=== PATIENT | male | born 1935 | race Caucasian/White ===

== ENCOUNTER 2017-01-01 14:52 | Emergency (ER) | payer MEDICAID ==
[2017-01-01 15:25] VITALS: BMI 25.7
[2017-01-01 15:40] VITALS: O2SAT 96
--- NOTE | 2017-01-01 15:40 | ED PDOC ---
Arrival/HPI - General Chief Complaint: Shortness Of Breath Time Seen by Provider: 01/01/17 15:15 Historian: EMS - History of Present Illness Time/Duration: Prior to Arrival Associated Symptoms (Text): 01/01/17 15:38 Patient was dropped off from his adult daycare center by a caregiver. The caregiver has since left. Apparently, the complaint was shortness of breath. Unclear of why the patient is in the emergency department. We used an Macedonian and then an Mongolian croze cutter helper, but the patient is not responding to the telephone inquiry. The nurse spoke with the patient's daughter who is coming to the emergency department. She reports that the patient has a history of dementia and is also hard of hearing. Patient appears to be in no distress. He is awake and alert. Past Medical History - Infectious Disease Hx of Infectious Diseases: None - Tetanus Immunization Tetanus Immunization: Unknown - Cardiac Hx Hypertension: Yes - Pulmonary Hx Chronic Obstructive Pulmonary Disease (COPD): Yes - Neurological Hx Neurological Disorder: Yes Hx Dizziness: Yes (Syncope) - HEENT Hx HEENT Disorder: Yes Hx Deafness: Yes (Difficulty hearing) Other/Comment: Eye surgery - Renal Hx Renal Disorder: No - Endocrine/Metabolic Hx Endocrine Disorders: No - Hematological/Oncological Hx Blood Transfusions: No - Integumentary Hx Dermatological Disorder: No - Musculoskeletal/Rheumatological Hx Falls: Yes Hx Fractures: Yes (left hip) - Gastrointestinal Hx Gastrointestinal Disorders: No - Genitourinary/Gynecological Hx Genitourinary Disorders: Yes Hx Prostate Problems: Yes (Enlarged prostate) - Psychiatric Hx Psychophysiologic Disorder: Yes Hx Anxiety: Yes Hx Substance Use: No - Anesthesia Hx Anesthesia Reactions: No Hx Malignant Hyperthermia: No - Suicidal Assessment Feels Threatened In Home Enviroment: No Family/Social History - Physician Review Nursing Documentation Reviewed: Yes Family/Social History: Unknown Family HX Smoking Status: Never Smoked Hx Alcohol Use: No Hx Substance Use: No Allergies/Home Meds Allergies/Adverse Reactions: Allergies No Known Allergies Allergy (Verified 01/01/17 15:37) Home Medications: Home Meds Medication Instructions Recorded Confirmed Lactulose [Generlac] 5 ml PO QID 07/20/15 01/01/17 Aspirin [Aspirin EC] 1 tab PO DAILY 12/31/15 01/01/17 Finasteride [Finasteride] 1 tab PO DAILY 12/31/15 01/01/17 Review of Systems - Review of Systems Systems not reviewed;Unavailable: Dementia Physical Exam Vital Signs Temp Pulse Resp BP Pulse Ox 01/01/17 17:46 78 17 140/82 96 01/01/17 16:00 98.0 F 01/01/17 15:25 18 01/01/17 14:53 59 L 18 151/76 H 96 Temperature: Afebrile Blood Pressure: Hypertensive Pulse: Regular Respiratory Rate: Normal Appearance: Positive for: Well-Appearing, Non-Toxic, Comfortable Pain Distress: None Mental Status: Positive for: Alert and Oriented X 3 - Systems Exam Head: Present: Atraumatic, Normocephalic Pupils: Present: PERRL Extroacular Muscles: Present: EOMI Conjunctiva: Present: Normal Mouth: Present: Moist Mucous Membranes Pharnyx: No: ERYTHEMA, EXUDATE, TONSILS ENLARGED Neck: Present: Normal Range of Motion Respiratory/Chest: Present: Clear to Auscultation, Good Air Exchange. No: Respiratory Distress, Accessory Muscle Use Cardiovascular: Present: Normal S1, S2, Irregular Rhythm, Bradycardic. No: Murmurs Abdomen: Present: Normal Bowel Sounds. No: Tenderness, Distention, Peritoneal Signs, Rebound, Guarding Upper Extremity: Present: Normal Inspection. No: Cyanosis, Edema Lower Extremity: Present: Normal Inspection. No: Edema Neurological: Present: GCS=15, CN II-XII Intact, Speech Normal Skin: Present: Warm, Dry, Normal Color. No: Rashes Medical Decision Making ED Course and Treatment: 01/01/17 16:54 Son-in-law arrives and reports that the patient complains of chronic chest pain and shortness of breath along with urinary urgency and frequency. There is a history of dementia, and the patient goes to daily adult daycare. There has been no cough. No vomiting or diarrhea. 01/01/17 16:55 EKG shows sinus bradycardia with PACs rate approximately 50 poor R waves and nonspecific ST and T-wave changes with no old available for comparison 01/01/17 16:57 Patient's workup including BNP CPK troponin and urinalysis are unrevealing. Chest x-ray shows poor inspiratory effort with mild increased markings and borderline cardiomegaly patient will be discharged home with his family to follow up with his PMD. Follow-up in the ER as needed. - Lab Interpretations Lab Results: 01/01/17 15:30 01/01/17 15:30 Lab Results 01/01/17 15:57: Urine Color Yellow, Urine Appearance Clear, Urine pH 6.5, Ur Specific [place] 1.020, Urine Protein Negative, Urine Glucose (UA) Negative, Urine Ketones Negative, Urine Blood Trace-lysed H, Urine Nitrate Negative, Urine Bilirubin Negative, Urine Urobilinogen 0.2, Ur Leukocyte Esterase Negative , Urine RBC 1 - 3, Urine WBC Negative 01/01/17 15:30: pO2 70 H, VBG pH 7.39, VBG pCO2 45.0, VBG HCO3 27.2, VBG Total CO2 28.6 H, VBG O2 Sat (Calc) 96.8 H, VBG Base Excess 1.7, VBG Potassium 3.8, Sodium 138.0, Chloride 105.0, Glucose 93, Lactate 0.9, FiO2 21.0, Venous Blood Potassium 3.8 01/01/17 15:30: Sodium 139, Chloride 99, Potassium 3.8, Carbon Dioxide 25, Anion Gap 19, BUN 9, Creatinine 0.8, Est GFR ( Amer) > 60, Est GFR (Non- Af Amer) > 60, Random Glucose 91, Calcium 9.1, Total Bilirubin 0.7, AST 25, ALT 34, Alkaline Phosphatase 73, Lactate Dehydrogenase 372, Total Creatine Kinase 128, Troponin I < 0.01, NT-Pro-B Natriuret Pep 154, Total Protein 7.1, Albumin 3.9, Globulin 3.2, Albumin/Globulin Ratio 1.2 01/01/17 15:30: PT 12.0 H, INR 1.11 H, APTT 29.4 01/01/17 15:30: WBC 3.9 L D, RBC 4.47, Hgb 13.5 L, Hct 37.6 L, MCV 84.1, MCH 30.2, MCHC 35.9, RDW 12.6, Plt Count 234, MPV 9.2, Gran % 49.3 L, Lymph % (Auto ) 39.9 H, [place] % (Auto) 9.5 H, Eos % (Auto) 0.5 L, Baso % (Auto) 0.8, Gran # 1.93, Lymph # 1.6, [place] # 0.4, Eos # 0.0, Baso # 0.03 - RAD Interpretation Radiology Orders: 01/01/17 15:27 CHEST PORTABLE [RAD] Stat Disposition/Present on Arrival - Present on Arrival Any Indicators Present on Arrival: No History of DVT/PE: No History of Uncontrolled Diabetes: No Urinary Catheter: No History of Decub. Ulcer: No History Surgical Site Infection Following: None - Disposition Have Diagnosis and Disposition been Completed?: Yes Diagnosis: Anemia, Chest pain, Dyspnea, Urinary frequency Disposition: HOME/ ROUTINE Disposition Time: 16:58 Patient Plan: Discharge Patient Problems: Current Active Problems Problem Status Onset Anemia Acute Chest pain Acute Dyspnea Acute Urinary frequency Acute Condition: GOOD Discharge Instructions (ExitCare): Chest Pain (ED), Dyspnea (ED) Additional Instructions: Follow-up with PMD merchant tailor and urologist. Follow up in ER as needed.
--- NOTE | 2017-01-01 15:57 | RAD ---
HISTORY: sob COMPARISON: Comparison made with chest radiograph and CTA chest dated 07/20/2015 and 09/06/2013 respectively. FINDINGS: LUNGS: Poor inspiration with low lung volumes, mild crowded bronchovascular markings and mild bibasilar atelectasis. PLEURA: No significant pleural effusion identified, no pneumothorax apparent. CARDIOVASCULAR: Heart appears borderline/ mildly enlarged aorta is ectatic and uncoiled. OSSEOUS STRUCTURES: No significant abnormalities. VISUALIZED UPPER ABDOMEN: Normal. OTHER FINDINGS: None. IMPRESSION: Poor inspiration with low lung volumes, mild crowded bronchovascular markings and mild bibasilar atelectasis.
[2017-01-01 16:04] VITALS: TEMP 98
[2017-01-01 16:05] LABS: BASO # 0.03 K/mm3 (0.0-2.0); BASO % 0.8 % (0.0-3.0); EOS % 0.5 % (1.5-5.0); GRAN # 1.93 (1.4-6.5); GRAN % 49.3 % (50.0-68.0); HEMOGLOBIN 13.5 gm/dL (14.0-18.0); INR 1.11 (0.93-1.08); LYMPH # 1.6 (1.2-3.4); LYMPH % 39.9 % (22.0-35.0); MEAN CELL VOLUME 84.1 fL (80.0-105.0); MEAN CORPUSCULAR HEMOGLOBIN 30.2 pg (25.0-35.0); MEAN CORPUSCULAR HGB CONC 35.9 g/dl (31.0-37.0); MEAN PLATELET VOLUME 9.2 fl (7.0-11.0); MONO # 0.4 (0.1-0.6); MONO % 9.5 % (1.0-6.0); PARTIAL THROMBOPLASTIN TIME 29.4 Seconds (23.7-30.8); PLATELET COUNT 234 10^3/uL (120.0-450.0); RBC 4.47 10^6/uL (3.5-6.1); RED CELL DISTRIBUTION WIDTH 12.6 % (11.5-14.5); WHITE BLOOD COUNT 3.9 10^3/ul (4.5-11.0)
[2017-01-01 16:10] LABS: ALB/GLOB RATIO 1.2 (1.1-1.8); ALBUMIN 3.9 g/dL (3.0-4.8); ALT/SGPT 34 U/L (7-56); AST/SGOT 25 U/L (15-59); BLOOD UREA NITROGEN 9 mg/dL (7-21); CALCIUM 9.1 mg/dL (8.4-10.5); GFR AFRICAN-AMERICAN > 60; GFR NON-AFRICAN AMERICAN > 60
[2017-01-01 16:13] LABS: VENOUS BLOOD GAS BASE EXCESS 1.7 mmol/L (0.0-2.0); VENOUS BLOOD GAS PO2 70 mm/Hg (30-55); VENOUS BLOOD PH 7.39 (7.32-7.43)
[2017-01-01 16:17] LABS: PH,URINE 6.5 (4.7-8.0); URINE BILIRUBIN NEGATIVE (NEGATIVE); URINE BLOOD TRACE-LYSED (NEGATIVE); URINE GLUCOSE (UA) NEGATIVE (NEGATIVE); URINE LEUKOCYTE ESTERASE NEGATIVE Leu/uL (NEGATIVE); URINE NITRATE NEGATIVE (NEGATIVE); URINE PROTEIN NEGATIVE mg/dL (<30 mg/dL); URINE UROBILINOGEN 0.2 E.U./dL (<1 E.U./dL)
[2017-01-01 16:19] LABS: URINE APPEARANCE CLEAR (CLEAR); URINE COLOR YELLOW (YELLOW)
[2017-01-01 16:22] LABS: URINE WBC NEGATIVE /hpf (0-6)
[2017-01-01 16:22] LABS: B-TYPE NATRIURETIC PEPTIDE 154 pg/mL (0-450)
[2017-01-01 16:26] LABS: TROPONIN I < 0.01 ng/mL
[2017-01-01 17:47] VITALS: BP 140/82; PULSE 78; RESP 17
--- NOTE | 2017-01-01 20:38 | CARD ---
APPROVED REPORT EKG Measurement Heart [id number] <Conclusion> Marked sinus bradycardia with premature supraventricular complexes Nonspecific ST and T wave abnormality Abnormal ECG
== END 2017-01-01 17:50 | disposition home or self-care (01) ==
LOC: ED 14:52
DX: D64.9 Anemia, unspecified (principal); R07.9 Chest pain, unspecified; R06.00 Dyspnea, unspecified; R35.0 Frequency of micturition; I10 Essential (primary) hypertension; J44.9 Chronic obstructive pulmonary disease, unspecified

== ENCOUNTER 2017-03-22 09:25 | Inpatient (IN) | payer MEDICAID ==
[2017-03-22] MEDS ORDERED: Vancomycin 1gm in NS 250ml 250 ML IVPB STA (09:38)
[2017-03-22] MEDS ORDERED: Piperacill/Tazo 4.5gm in NS 100 ML IVPB STA (09:38)
--- NOTE | 2017-03-22 09:46 | ED PDOC ---
Arrival/HPI - General Time Seen by Provider: 03/22/17 09:37 EM Caveat: Intubated - History of Present Illness Narrative History of Present Illness (Text): 03/22/17 09:43 Hx obtained from EMS and pt's family member. 82yo male, hx of HTN, presents with altered mental status. Pt's family member found patient in the bathroom unresponsive. Last seen normal yesterday evening. Pt was intubated on arrival by ALS, etomidate and Succinylcholine. BGL >200. Pt hypotensive on their arrival with pinpoint pupols. 0.8 of narcan was given with no resolution of unresponsiveness. Past Medical History - Provider Review Nursing Documentation Reviewed: Yes - Infectious Disease Hx of Infectious Diseases: None - Tetanus Immunization Tetanus Immunization: Unknown - Cardiac Hx Hypertension: Yes - Pulmonary Hx Chronic Obstructive Pulmonary Disease (COPD): Yes - Neurological Hx Neurological Disorder: Yes Hx Dizziness: Yes (Syncope) - HEENT Hx HEENT Disorder: Yes Hx Deafness: Yes (Difficulty hearing) Other/Comment: Eye surgery - Renal Hx Renal Disorder: No - Endocrine/Metabolic Hx Endocrine Disorders: No - Hematological/Oncological Hx Blood Transfusions: No - Integumentary Hx Dermatological Disorder: No - Musculoskeletal/Rheumatological Hx Falls: Yes Hx Fractures: Yes (left hip) - Gastrointestinal Hx Gastrointestinal Disorders: No - Genitourinary/Gynecological Hx Genitourinary Disorders: Yes Hx Prostate Problems: Yes (Enlarged prostate) - Psychiatric Hx Psychophysiologic Disorder: Yes Hx Anxiety: Yes Hx Substance Use: No - Anesthesia Hx Anesthesia Reactions: No Hx Malignant Hyperthermia: No - Suicidal Assessment Feels Threatened In Home Enviroment: No Family/Social History Family/Social History: Unknown Family HX Smoking Status: Never Smoked Hx Alcohol Use: No Hx Substance Use: No Allergies/Home Meds Allergies/Adverse Reactions: Allergies No Known Allergies Allergy (Verified 03/22/17 09:48) Home Medications: Home Meds Medication Instructions Recorded Confirmed Finasteride [Finasteride] 1 tab PO DAILY 12/31/15 03/22/17 Famotidine [Pepcid] 40 mg PO BID 03/22/17 03/22/17 Finasteride [Proscar] 5 mg PO DAILY 03/22/17 03/22/17 Lisinopril [Zestril] 10 mg PO DAILY 03/22/17 03/22/17 Sennosides [Senna Lax] 2 tab PO HS 03/22/17 03/22/17 Review of Systems - Review of Systems Systems not reviewed;Unavailable: Intubated Physical Exam - Physical Exam Physical Exam Limitations: Altered Mental Status, Other (intubated) Vital Signs Temp Pulse Resp BP Pulse Ox 03/22/17 11:35 52 L 170/82 H 03/22/17 10:31 52 L 16 170/79 H 100 03/22/17 09:52 93.1 F L 58 L 17 184/87 H 100 Temperature: Hypothermic Blood Pressure: Hypertensive Pulse: Regular Respiratory Rate: Mechanically Ventilated Pain Distress: None Mental Status: Positive for: Comatose - Systems Exam Head: No: Ecchymosis, Abrasion Pupils: Present: Pinpoint (b/l) Mouth: Present: Other (ETT 22 cm at lip) Neck: No: MIDLINE TENDERNESS, Paraspinal Tenderness Respiratory/Chest: Present: Good Air Exchange, Other (b/l chest rise and fall) Cardiovascular: Present: Regular Rate and Rhythm. No: Irregular Rhythm Abdomen: Present: Other (no palpable pulsatile mass). No: Tenderness, Distention Back: No: Midline Tenderness, Paraspinal Tenderness Upper Extremity: No: Cyanosis, Edema Lower Extremity: Present: NORMAL PULSES. No: Edema, CALF TENDERNESS, Swelling Medical Decision Making ED Course and Treatment: 03/22/17 09:48 patient seen immediately on arrival ETT placement confirmed with b/l chest rise and abscence of gastric sounds family member informed of w/u pt hypothermic sepsis w/u ordered CT head ordered as well EKG shows normal sinus 64bpm, no ST-segment elevations, normal intervals. Interpreted by me. 03/22/17 10:07 code sepsis called nilda Quintana from the MICU, states will see pt. CXR shows ETT above the estefanía, no effusions, no PTx. Interpreted by me. 03/22/17 11:22 CT scan shows interventricular bleed decadron and nicardipine ordered pt radha and hypertensive, cushings likely family informed seen by Dr. Quintana and accepted to the MICU awaiting callback from neurosurgery nilda Ratliff, accepted to his service 03/22/17 11:[address] Head IMPRESSION: Extensive intraventricular hemorrhage with moderate hydrocephalus. Periventricular edema. No midline shift or herniation 03/22/17 11:[address] Mcintyre in detail, states he looked at the CT, states he will see pt in the MICU for possible intervention - Critical Care Critical Care Minutes: 30 minutes - Lab Interpretations Lab Results: 03/22/17 09:20 03/22/17 09:20 Lab Results 03/22/17 11:28: pO2 60 H, VBG pH 7.19 L*, VBG pCO2 69.0 H*, VBG HCO3 26.4, VBG Total CO2 28.5 H, VBG O2 Sat (Calc) 92.6 H, VBG Base Excess -3.3 L, VBG Potassium 4.2, Sodium 137.0, Chloride 104.0, Glucose 161 H, Lactate 3.1 H, FiO2 21.0, Venous Blood Potassium 4.2 03/22/17 09:50: pCO2 62 H, pO2 185.0 H, HCO3 22.1, ABG pH 7.16 L*, ABG Total CO2 24.0, ABG O2 Saturation 100.0 H, ABG Base Excess -7.5 L, ABG Potassium 3.8, Sodium 138.0, Chloride 107.0, Glucose 204 H, Lactate 3.9 H, Mechanical Rate 14, FiO2 50.0, Tidal Volume 400, PEEP 5, Arterial Blood Potassium 3.8 03/22/17 09:45: Urine Color Yellow, Urine Appearance Clear, Urine pH 6.0, Ur Specific [place] >= 1.030, Urine Protein >=300 H, Urine Glucose (UA) 250 H, Urine Ketones Negative, Urine Blood Large H, Urine Nitrate Negative, Urine Bilirubin Negative, Urine Urobilinogen 0.2, Ur Leukocyte Esterase Negative, Urine RBC 2 - 5, Urine WBC 0 - 2, Urine Bacteria Trace, Hyaline Casts 0 - 2 03/22/17 09:20: Sodium 142, Chloride 104, Potassium 4.2, Carbon Dioxide 26, Anion Gap 16, BUN 17, Creatinine 0.7 L, Est GFR ( Amer) > 60, Est GFR ( Non-Af Amer) > 60, Random Glucose 201 H, Calcium 8.1 L, Phosphorus 4.0, Magnesium 2.1, Total Bilirubin 0.6, AST 74 H, ALT 37, Alkaline Phosphatase 71, Troponin I 0.15 H* D, Total Protein 7.2, Albumin 4.0, Globulin 3.2, Albumin/ Globulin Ratio 1.3 03/22/17 09:20: pO2 62 H, VBG pH 7.10 L*, VBG pCO2 81.0 H*, VBG HCO3 25.1, VBG Total CO2 27.6, VBG O2 Sat (Calc) 91.0 H, VBG Base Excess -6.4 L, VBG Potassium 6.4 H*, Sodium 136.0, Chloride 102.0, Glucose 217 H, Lactate 4.6 H*, FiO2 21.0, Venous Blood Potassium 6.4 H* 03/22/17 09:20: PT 12.5 H, INR 1.16 H, APTT 30.6 03/22/17 09:20: WBC 13.5 H D, RBC 5.12, Hgb 14.8, Hct 43.5, MCV 85.0, MCH 28.9, MCHC 34.0, RDW 12.1, Plt Count 242, MPV 9.9, Gran % 83.6 H, Lymph % (Auto) 7.3 L , [place] % (Auto) 9.0 H, Eos % (Auto) 0.0 L, Baso % (Auto) 0.1, Gran # 11.29 H, Lymph # 1.0 L, [place] # 1.2 H, Eos # 0.0, Baso # 0.01 - RAD Interpretation Radiology Orders: 03/22/17 09:38 CHEST PORTABLE [RAD] Stat 03/22/17 10:41 HEAD W/O CONTRAST [CT] Stat - Medication Orders Current Medication Orders: Propofol (Diprivan) 1,000 mg in 100 mls @ 0 mls/hr IV .Q0M PRN; Protocol; 5 MCG /KG/MIN PRN Reason: TITRATE PER MD ORDER Last Admin: 03/22/17 10:07 Dose: 5 mls/hr eMAR Start Stop Document 03/22/17 10:07 LM (Rec: 03/22/17 10:08 [facility] [id number]) Intravenous Solution Start Date 03/22/17 Start Time 10:07 Nicardipine HCl (Cardene Iv Premix) 20 mg in 200 mls @ 50 mls/hr IV .Q4H PRN; Protocol; 5 MG/HR PRN Reason: TITRATE PER MD ORDER Last Admin: 03/22/17 11:35 Dose: 50 mls/hr Levetiracetam 1,000 mg/ Sodium (Chloride) 110 mls @ 440 mls/hr IV ONCE ONE Stop: 03/22/17 11:47 Discontinued Medications Dexamethasone (Decadron Inj) 10 mg IVP STAT STA Stop: 03/22/17 11:17 Last Admin: 03/22/17 11:28 Dose: 10 mg Sodium Chloride 3,000 ml/ IV (SUPPLIES) 3,000 mls @ 0 mls/hr IV ONCE ONE PRN Reason: 60 ML/KG/HR Stop: 03/22/17 09:39 Last Admin: 03/22/17 10:08 Dose: 60 mls/hr eMAR Start Stop Document 03/22/17 10:08 [facility] [place]Rec: 03/22/17 10:09 [facility] [place] [id number][place] Intravenous Solution Start Date 03/22/17 Start Time 10:08 End Date 03/22/17 End time 10:30 Total Infusion Time 22 Vancomycin HCl (Vancomycin 1gm) 1 gm in 250 mls @ 167 mls/hr IVPB STAT STA PRN Reason: Protocol Stop: 03/22/17 11:17 Piperacillin Sod/Tazobactam Sod (Zosyn 4.5 Gm In Ns 100ml) 4.5 gm in 100 mls @ 200 mls/hr IVPB STAT STA PRN Reason: Protocol Stop: 03/22/17 10:19 Last Admin: 03/22/17 10:08 Dose: 200 mls/hr eMAR Start Stop Document 03/22/17 10:08 [facility] [place]Rec: 03/22/17 10:08 [facility] [place] [id number][place] Intravenous Solution Start Date 03/22/17 Start Time 10:08 End Date 03/22/17 End time 10:40 Total Infusion Time 32 Disposition/Present on Arrival - Present on Arrival Any Indicators Present on Arrival: No History of DVT/PE: No History of Uncontrolled Diabetes: No Urinary Catheter: No History Surgical Site Infection Following: None - Disposition Have Diagnosis and Disposition been Completed?: Yes Diagnosis: Intraventricular hemorrhage Disposition: HOSPITALIZED Disposition Time: 11:31 Patient Plan: Admission Patient Problems: Current Active Problems Problem Status Onset Intraventricular hemorrhage Acute Condition: CRITICAL Referrals: PCP,NO [Primary Care Provider] - Follow up with primary
[2017-03-22] MEDS ORDERED: Vancomycin 1gm in NS 250ml 1 GM/250 ML BAG IVPB STA (09:48)
[2017-03-22] MEDS ORDERED: Piperacill/Tazo 4.5gm in NS 4.5 GM/100 ML BAG IVPB STA (09:50)
[2017-03-22 09:54] LABS: ABG MECHANICAL RATE 14; ARTERIAL BLOOD GAS HCO3 22.1 mmol/L (21-28); ATERIAL BLOOD GAS PEEP 5
[2017-03-22 09:55] LABS: BASO # 0.01 K/mm3 (0.0-2.0); BASO % 0.1 % (0.0-3.0); GRAN # 11.29 (1.4-6.5); GRAN % 83.6 % (50.0-68.0); HEMATOCRIT 43.5 % (42.0-52.0); LYMPH % 7.3 % (22.0-35.0); MEAN CORPUSCULAR HEMOGLOBIN 28.9 pg (25.0-35.0); MEAN PLATELET VOLUME 9.9 fl (7.0-11.0); MONO # 1.2 (0.1-0.6); RED CELL DISTRIBUTION WIDTH 12.1 % (11.5-14.5); WHITE BLOOD COUNT 13.5 10^3/ul (4.5-11.0)
[2017-03-22 09:57] LABS: URINE BILIRUBIN NEGATIVE (NEGATIVE); URINE BLOOD LARGE (NEGATIVE); URINE GLUCOSE (UA) 250 mg/dL (NEGATIVE); URINE KETONE NEGATIVE (NEGATIVE); URINE LEUKOCYTE ESTERASE NEGATIVE Leu/uL (NEGATIVE); URINE PROTEIN >=300 mg/dL (<30 mg/dL); URINE UROBILINOGEN 0.2 E.U./dL (<1 E.U./dL)
[2017-03-22 09:58] LABS: ARTERIAL BLOOD GAS PH 7.16 (7.35-7.45)
[2017-03-22 10:01] LABS: URINE APPEARANCE CLEAR (CLEAR); URINE COLOR YELLOW (YELLOW)
[2017-03-22] MEDS: Propofol 10 mg/ml 1,000 MG/100 ML VIAL IV PRN (10:07)
[2017-03-22 10:08] LABS: URINE BACTERIA TRACE (NEG); URINE WBC 0 - 2 /hpf (0-6)
[2017-03-22 10:08] LABS: VENOUS BLOOD GAS BASE EXCESS -6.4 mmol/L (0.0-2.0)
[2017-03-22 10:10] LABS: ALB/GLOB RATIO 1.3 (1.1-1.8); ALKALINE PHOSPHATASE 71 U/L (38-126); ALT/SGPT 37 U/L (7-56); AST/SGOT 74 U/L (17-59); BILIRUBIN,TOTAL 0.6 mg/dL (0.2-1.3); BLOOD UREA NITROGEN 17 mg/dL (7-21); CALCIUM 8.1 mg/dL (8.4-10.5); CARBON DIOXIDE 26 mmol/L (21-33); CHLORIDE 104 mmol/L (98-107); GFR AFRICAN-AMERICAN > 60; GLUCOSE,RANDOM 201 mg/dL (70-110); MAGNESIUM 2.1 mg/dL (1.7-2.2); POTASSIUM 4.2 mmol/L (3.6-5.0); SODIUM 142 mmol/L (132-148); TOTAL PROTEIN 7.2 g/dL (5.8-8.3)
[2017-03-22 10:13] LABS: INR 1.16 (0.93-1.08); PARTIAL THROMBOPLASTIN TIME 30.6 Seconds (23.7-30.8)
--- NOTE | 2017-03-22 10:17 | RAD ---
HISTORY: Sepsis Patient COMPARISON: 01/01/2017. FINDINGS: The endotracheal tube terminates 3.9 cm proximal to the raimundo. LUNGS: The lungs are well inflated. There is mild pulmonary venous congestion. PLEURA: No significant pleural effusion identified, no pneumothorax apparent. CARDIOVASCULAR: Normal. OSSEOUS STRUCTURES: No significant abnormalities. VISUALIZED UPPER ABDOMEN: Normal. OTHER FINDINGS: None. IMPRESSION: Mild pulmonary venous congestion. No focal consolidation. Endotracheal tube terminates 3.9 cm proximal to the raimundo.
[2017-03-22 10:43] LABS: TROPONIN I 0.15 ng/mL
--- NOTE | 2017-03-22 11:27 | CT ---
PROCEDURE: CT HEAD WITHOUT CONTRAST. HISTORY: AMS COMPARISON: 07/20/2015 TECHNIQUE: Axial computed tomography images were obtained through the head/brain without intravenous contrast. Radiation dose: Total exam DLP = 725 mGy-cm. This CT exam was performed using one or more of the following dose reduction techniques: Automated exposure control, adjustment of the mA and/or kV according to patient size, and/or use of iterative reconstruction technique. FINDINGS: HEMORRHAGE: There is an extensive acute intraventricular hemorrhage. Blood is seen throughout the ventricular system. There is also moderate hydrocephalus BRAIN: There is periventricular edema. There is effacement of the sulci. There is no midline shift or herniation VENTRICLES: Hydrocephalus CALVARIUM: Unremarkable. PARANASAL SINUSES: Unremarkable as visualized. No significant inflammatory changes. MASTOID AIR CELLS: Unremarkable as visualized. No inflammatory changes. OTHER FINDINGS: None. IMPRESSION: Extensive intraventricular hemorrhage with moderate hydrocephalus. Periventricular edema. No midline shift or herniation
[2017-03-22 11:33] LABS: VENOUS BLOOD GAS BASE EXCESS -3.3 mmol/L (0.0-2.0)
[2017-03-22] MEDS ORDERED: levETIRAcetam 1,000 MG in Sodium Chloride 0.9% 100 ML IV ONE (11:33)
[2017-03-22] MEDS: Nicardipine 20 MG/200 ML 20 MG/200 ML BAG IV PRN ×2 (11:35→21:15)
[2017-03-22 11:37] LABS: VENOUS BLOOD PH 7.19 (7.32-7.43)
--- NOTE | 2017-03-22 12:38 | CP.CCUPN ---
CCU Subjective - Physician Review Events Since Last Encounter (Free Text): 03/22/17 12:33 82 y/o M presented to the ER intubated after his daughter found him lying on the floor in the bathroom. Upon arrival to the ER he was found to be hypertensive and not following any commands. Pt was sent for a head CT and seen to have extensive ICH with ventricular extension. neuro exam limited. CCU Objective - Vital Signs / Intake & Output Vital Signs (Last 4 hours): Vital Signs Pulse Resp BP Pulse Ox 03/22/17 11:55 58 L 30 H 155/72 H 100 03/22/17 11:50 54 L 30 H 162/77 H 100 03/22/17 11:45 50 L 30 H 159/72 H 100 03/22/17 11:37 53 L 30 H 173/72 H 100 03/22/17 11:35 52 L 170/82 H - Physical Exam Physical Exam Limitations: Positive for: Altered Mental Status Head: Positive for: Other. Negative for: Ecchymosis, Abrasion Mouth: Positive for: Moist Mucous Membranes, Other (ETT 22 cm at lip) Nose (Internal): Positive for: Normal Inspection Neck: Positive for: Normal Range of Motion. Negative for: MIDLINE TENDERNESS, Paraspinal Tenderness Respiratory/Chest: Positive for: Good Air Exchange, Other (b/l chest rise and fall) Cardiovascular: Positive for: Regular Rate and Rhythm. Negative for: Irregular Rhythm Abdomen: Positive for: Normal Bowel Sounds, Other (no palpable pulsatile mass). Negative for: Tenderness, Distention Back: Negative for: Midline Tenderness, Paraspinal Tenderness Upper Extremity: Positive for: Normal Inspection. Negative for: Cyanosis, Edema Lower Extremity: Positive for: Normal Inspection, NORMAL PULSES. Negative for: Edema, CALF TENDERNESS, Swelling Neurological: Positive for: Other (gcs< 8. Intubated and sedated. Minimal ) Psychiatric: Positive for: Lethargic - Medications Active Medications: Active Medications Generic Name Dose Route Start Last Admin Trade Name Freq PRN Reason Stop Dose Admin Propofol 1,000 mg in 100 mls @ 0 mls/hr 03/22/17 09:41 03/22/17 10:07 Diprivan IV 5 mls/hr .Q0M PRN Administration TITRATE PER MD ORDER Protocol 5 MCG/KG/MIN Nicardipine HCl 20 mg in 200 mls @ 50 mls/hr 03/22/17 11:16 03/22/17 11:35 Cardene Iv Premix IV 50 mls/hr .Q4H PRN Administration TITRATE PER MD ORDER Protocol 5 MG/HR - Patient Studies Fingerstick Blood Sugar Results: 231 Review of Systems - Review of Systems Systems not reviewed;Unavailable: Intubated Critical Care Progress Note - Ventilator Checklist Daily Sedation Vacation: Yes Daily Assessment of Readiness to Wean: Yes Daily Spontaneous Breathing Trial: Yes PUD Prophalyxis: Yes DVT Prophylaxis: Yes Oral Care with Chlorhexidine Gluconate {CHG}: Yes Assessment/Plan - Assessment and Plan (Free Text) Assessment: 82 y/o M w/ extensive ICH with intraventricular extension. Intubated for airway protection. Hyperventillation started. Keep PH> 7.2 Pa02> 60 Sedated on Propofol. COuld require 3% saline. NSG aware of the poor prognosis but is willing to place ventriculostomy drain. Neurochecks q 1hrs, Keppra loaded for seizure precautions. Strict BP monitoring to keep 140-160 SBP on Cardene. D/C all anticoagulants. Plans and poor prognosis discussed with family. cc time 65 min
[2017-03-22] MEDS ORDERED: Bacitracin 500 Units/gm Oint Foilpak UD ONE (13:05)
[2017-03-22 13:42] VITALS: BMI 25.4
[2017-03-22] MEDS ORDERED: Pneumococcal 23-Valent Vaccine IM ONE (13:43)
[2017-03-22 14:01] LABS: ARTERIAL BLOOD GAS HCO3 22.8 mmol/L (21-28); ARTERIAL BLOOD GAS PH 7.46 (7.35-7.45); ARTERIAL BLOOD HGB O2 SAT 96.4 % (95.0-98.0); CARBOXYHEMOGLOBIN 2.1 % (0.5-1.5); HHB 0.2 % (0-5); METHEMOGLOBIN 1.3 % (0.0-3.0)
--- NOTE | 2017-03-22 15:01 | OP ---
PROCEDURE DATE: 03/22/2017 SURGEON: Rocco Mcintyre MD PREOPERATIVE DIAGNOSIS: Hemo-hydrocephalus, status post left apparent basal ganglia hemorrhage. POSTOPERATIVE DIAGNOSIS: Hemo-hydrocephalus, status post left apparent basal ganglia hemorrhage. OPERATIVE PROCEDURE: Right ventriculostomy. BRIEF HISTORY AND DESCRIPTION OF PROCEDURE: This is an 82-year-old male who presented to the emergency room unconscious, intubated in the field, last seen last night by his family. He arrived in the emergency room comatose; decerebrate; small, pinpoint, nonreactive pupils; minimal oculocephalic; minimal corneas; spontaneous respiration; history of hypertension. CT scan showed that appeared to be a left basal ganglia hemorrhage into the all 4 ventricles with hemo-hydrocephalus. To my view, the midbrain appeared dark as in infarcted, but that was not the official read of the report. I had a discussion with his daughter, the only relative available, explained to her that his condition is dire, he is deeply unconscious and that there is a very little possibility that he will survive this hospitalization. We could offer a ventriculostomy; however, it is my opinion that this will not help to any great degree and that given the amount of blood in the ventricles, there is a high likelihood that this will clog and eventually cease the function probably sooner than later. I explained all of this to daughter and she wishes to be aggressive. It is my opinion that the situation is very grave and he is unlikely to survive. Based on that, I obtained consent and in the intensive care unit, the right frontal area was prepped and draped in the usual manner. An area 1 fingerbreadth to the right of midline, approximately 1 fingerbreadth anterior to the coronal suture was instilled with 2 or 3 mL of lidocaine with epinephrine after draping. The scalp was incised with a #15 blade and the scalp was swept away from the underlying skull. A solitary twist drill hole was made and a #11 blade was used to galindo the dura. In a single pass, ventriculostomy catheter was passed into the ventricle, the pressure was relatively high, over 20 and it was very, very blood tinged. The trocar was then placed on the distal part of the catheter, passed through a separate stab wound and then, the trocar was removed, the connecting hub was attached to the tube and connected to the sterile collection system. At the end of the procedure, the ICP was approximately 15 by estimation. The wound was reapproximated with 4-0 nylon and the drain was tacked in the usual. Sterile dressing was applied. The opening pressure on the drainage system was 70, above the IAC and at the end of the procedure, the patient remained with pinpoint, nonreactive pupils and decerebrate bilaterally. BLOOD LOSS: Minimal. SPECIMENS: No specimen. Rocco Mcintyre MD cc: Rocco Mcintyre MD
--- NOTE | 2017-03-22 16:03 | PCM.SEPTIC ---
Sepsis Progress Note - Reassessment Type Date of Evaluation: 03/22/17 Time of Evaluation: 15:30 Reassessment Type: Non-invasive reassessment - Non Invasive Reassessment Were the most recent vital sign reviewed: Yes Vital Sign (Latest): Temp Pulse Resp BP Pulse Ox 99.7 F H 58 L 30 H 155/78 H 99 03/22/17 15:40 03/22/17 15:40 03/22/17 13:48 03/22/17 15:40 03/22/17 15:40 Cardiovascular: Yes: Regular Rate, Rhythm. No: Bradycardia, Tachycardia Respiratory: Yes: Decreased Breath Sounds. No: Stridor, Wheezing Capillary Refill: Normal (Less than 2 sec) Skin: Dry - Invasive Reassessment (complete 2 of 4) Was a Central Venous Pressure Measurement obtained within 6 Hours after the presentation of septic shock: No Was a central venous oxygen measurement obtained within 6 hours after the presentation of septic shock: No Was a bedside cardiovascular ultrasound performed within 6 hours after the presentation of septic shock: No Was a passive leg raise performed or was a fluid challenge performed within 6 hrs of the initial fluid bolus: No Passive Leg Raise Result: Not Applicable Fluid Challenge performed: Yes
--- NOTE | 2017-03-22 21:22 | CARD ---
APPROVED REPORT EKG Measurement Heart [id number] <Conclusion> Sinus rhythm with premature supraventricular complexes Left axis deviation Nonspecific ST and T wave abnormality Prolonged QT Abnormal ECG
--- NOTE | 2017-03-23 09:07 | CP.PCM.PN ---
Subjective - Date & Time of Evaluation Date of Evaluation: 03/23/17 Time of Evaluation: 09:04 - Subjective Subjective: off sedation Drain about 200 cc very bloody csf pupils pinpoint NR some non specific motion to deep pain minimal corneals attempts eye opening to pain Keep drainage at IAC Keep head at 30degrees consider feeding tube Repeat CT should be held until there is a decision point as it is dangerous and dificult to move a pt with a ventriculostomy that is draining such thick fluid Objective - Vital Signs/Intake and Output Vital Signs (last 24 hours): Temp Pulse Resp BP Pulse Ox 99.3 F 57 L 30 H 148/88 94 L 03/23/17 06:40 03/23/17 06:40 03/23/17 07:27 03/23/17 06:00 03/23/17 07:27 Intake and Output: 03/23/17 03/23/17 06:59 18:59 Intake Total 100 5 Output Total 530 Balance -430 5 - Medications Medications: Current Medications Propofol (Diprivan) 1,000 mg in 100 mls @ 0 mls/hr IV .Q0M PRN; Protocol; 5 MCG /KG/MIN PRN Reason: TITRATE PER MD ORDER Last Titration: 03/23/17 08:29 Dose: 0 mcg/kg/min, 0 mls/hr Nicardipine HCl (Cardene Iv Premix) 20 mg in 200 mls @ 50 mls/hr IV .Q4H PRN; Protocol; 5 MG/HR PRN Reason: TITRATE PER MD ORDER Last Admin: 03/22/17 21:15 Dose: 2.5 mg/hr, 25 mls/hr - Labs Labs: PT 12.5 Seconds (9.9-11.8) H 03/22/17 09:20 INR 1.16 (0.93-1.08) H 03/22/17 09:20 APTT 30.6 Seconds (23.7-30.8) 03/22/17 09:20
--- NOTE | 2017-03-23 09:21 | RAD ---
HISTORY: intubated COMPARISON: 03/22/2017 FINDINGS: LUNGS: The patient is rotated to the right. There is chronic elevation of the right hemidiaphragm. The endotracheal tube is in satisfactory position PLEURA: No significant pleural effusion identified, no pneumothorax apparent. CARDIOVASCULAR: Normal. OSSEOUS STRUCTURES: No significant abnormalities. VISUALIZED UPPER ABDOMEN: Normal. OTHER FINDINGS: None. IMPRESSION: Endotracheal tube in satisfactory position
[2017-03-23 09:32] LABS: GRAN # 10.84 (1.4-6.5); GRAN % 83.5 % (50.0-68.0); HEMATOCRIT 43.8 % (42.0-52.0); LYMPH % 7.9 % (22.0-35.0); MEAN CELL VOLUME 81.7 fl (80.0-105.0); MEAN CORPUSCULAR HEMOGLOBIN 29.5 pg (25.0-35.0); MEAN CORPUSCULAR HGB CONC 36.1 g/dl (31.0-37.0); MEAN PLATELET VOLUME 10.1 fl (7.0-11.0); MONO # 1.1 (0.1-0.6); MONO % 8.6 % (1.0-6.0); RED CELL DISTRIBUTION WIDTH 12.2 % (11.5-14.5)
[2017-03-23 09:39] LABS: ALB/GLOB RATIO 1.1 (1.1-1.8); ALKALINE PHOSPHATASE 66 U/L (38-126); ALT/SGPT 148 U/L (7-56); AST/SGOT 436 U/L (17-59); BILIRUBIN,TOTAL 1.3 mg/dL (0.2-1.3); BLOOD UREA NITROGEN 15 mg/dL (7-21); CALCIUM 8.8 mg/dL (8.4-10.5); CARBON DIOXIDE 27 mmol/L (21-33); CHLORIDE 99 mmol/L (95-110); GFR AFRICAN-AMERICAN > 60; GLUCOSE,RANDOM 143 mg/dL (70-110); POTASSIUM 3.9 mmol/L (3.6-5.0); SODIUM 135 mmol/L (132-148); TOTAL PROTEIN 7.1 g/dL (5.8-8.3)
[2017-03-23] MEDS: Dextrose 5%/0.9% NS 1,000 ML IV SCH ×2 (11:42→22:00)
--- NOTE | 2017-03-23 11:58 | CP.PCM.CON ---
<Ramonita Leach - Last Filed: 03/23/17 16:50> History of Present Illness - History of Present Illness History of Present Illness: Neurology Consult Note for Анна Barber PGY2 Reason for consult: ICH s/p vertriculostomy This is a 82Y M with PMH CAD, COPD, a.fib (on Eliquis), BPH, DM, and HTN who was came to ED for AMS. Patient was found unresponsive in the bathroom by family. It is unclear how long patient was down. In ED, patient was found to be hypotensive with extensive intracerebral bleed with ventricular extension. Patient was seen by neurosurgery and is s/p ventriculostomy with draining of 200cc of blood from the brain. Patient is intubated and not on sedation. ROS could not be obtained. PMH: CAD, COPD, a.fib (on Eliquis), BPH, DM, and HTN PSH: Hip replacement All: NKDA SH: Denies EtOH, Tobacco or drug use Review of Systems - Review of Systems Systems not reviewed;Unavailable: Intubated Past Patient History - Infectious Disease Hx of Infectious Diseases: None - Tetanus Immunizations Tetanus Immunization: Unknown - Past Social History Smoking Status: Never Smoked Alcohol: None Drugs: Denies - CARDIAC Hx Cardiac Disorders: Yes (CAD) Hx Hypertension: Yes - PULMONARY Hx Respiratory Disorders: Yes Hx Chronic Obstructive Pulmonary Disease (COPD): Yes - NEUROLOGICAL Hx Neurological Disorder: Yes (NEUROPATHY) Hx Dizziness: Yes (Syncope) - HEENT Hx HEENT Problems: Yes Hx Cataracts: Yes (BILATERAL SX) Hx Deafness: Yes (Difficulty hearing) Other/Comment: Eye surgery - RENAL Hx Chronic Kidney Disease: No - ENDOCRINE/METABOLIC Hx Endocrine Disorders: No - HEMATOLOGICAL/ONCOLOGICAL Hx Blood Disorders: Yes Hx Anemia: Yes (BLOOD TRANSFUSION) - INTEGUMENTARY Hx Dermatological Problems: Yes Hx Psoriasis: Yes - MUSCULOSKELETAL/RHEUMATOLOGICAL Hx Musculoskeletal Disorders: Yes Hx Falls: Yes (LAST FALL -03-22-17) Hx Fractures: Yes (left hip) - GASTROINTESTINAL Hx Gastrointestinal Disorders: No - GENITOURINARY/GYNECOLOGICAL Hx Genitourinary Disorders: Yes Hx Prostate Problems: Yes (Enlarged prostate) - PSYCHIATRIC Hx Psychophysiologic Disorder: Yes Hx Anxiety: Yes Hx Substance Use: No - SURGICAL HISTORY Hx Surgeries: Yes (L HIP FX,BILATERAL CATARACT SURGERY) - ANESTHESIA Hx Anesthesia Reactions: No Hx Malignant Hyperthermia: No Meds Allergies/Adverse Reactions: Allergies Allergy/AdvReac Type Severity Reaction Status Date / Time No Known Allergies Allergy Verified 03/22/17 12:03 - Medications Medications: Current Medications Propofol (Diprivan) 1,000 mg in 100 mls @ 0 mls/hr IV .Q0M PRN; Protocol; 5 MCG /KG/MIN PRN Reason: TITRATE PER MD ORDER Last Titration: 03/23/17 08:29 Dose: 0 mcg/kg/min, 0 mls/hr Nicardipine HCl (Cardene Iv Premix) 20 mg in 200 mls @ 50 mls/hr IV .Q4H PRN; Protocol; 5 MG/HR PRN Reason: TITRATE PER MD ORDER Last Admin: 03/22/17 21:15 Dose: 2.5 mg/hr, 25 mls/hr Dextrose/Sodium Chloride (Dextrose 5%/0.9% Ns 1000 Ml) 1,000 mls @ 100 mls/hr IV .Q10H SRINATH Last Admin: 03/23/17 11:42 Dose: 100 mls/hr Physical Exam - Constitutional Appears: No Acute Distress - Head Exam Additional comments: R sided ventriulostomy site has drain in place - with blood draining - Eye Exam Eye Exam: absent: PERRL Pupil Exam: Fixed, Miosis. absent: PERRL - ENT Exam ENT Exam: Mucous Membranes Moist - Respiratory Exam Respiratory Exam: Clear to Auscultation Bilateral, NORMAL BREATHING PATTERN. absent: Rales, Rhonchi, Wheezes - GI/Abdominal Exam GI & Abdominal Exam: Normal Bowel Sounds, Soft. absent: Rebound, Rigid, Tenderness - Extremities Exam Extremities exam: Positive for: normal inspection. Negative for: calf tenderness, pedal edema - Neurological Exam Additional comments: Patient intubated and off sedation. Pt does have dolls eye reflex and withdraws to painful stimuli. Babinski positive bilaterally (toes upgoing) - Expanded Neurological Exam Expanded Cranial nerves: EOM's Intact: Abnormal Left, Abnormal Right (pinpoint) Upper motor neuron: Babinski Sign: Abnormal Left, Abnormal Right Coma Scale Eye Opening: To Pain Coma Scale Motor Response: Withdraws to Pain Coma Scale Verbal: None Coma Scale Total: 7 - Skin Skin Exam: Dry, Normal Color, Warm Results - Vital Signs Recent Vital Signs: Last Vital Signs Temp 99.3 F 03/23/17 06:40 Pulse 57 L 03/23/17 06:40 Resp 30 H 03/23/17 07:27 BP 148/88 03/23/17 06:00 Pulse Ox 94 L 03/23/17 07:27 - Labs Result Diagrams: 03/23/17 09:18 03/23/17 09:18 Labs: Laboratory Results - last 24 hr 03/22/17 03/23/17 03/23/17 13:55 09:18 09:18 WBC 13.0 H RBC 5.36 Hgb 15.8 Hct 43.8 MCV 81.7 D MCH 29.5 MCHC 36.1 RDW 12.2 Plt Count 229 MPV 10.1 Gran % 83.5 H Lymph % (Auto) 7.9 L [place] % (Auto) 8.6 H Eos % (Auto) 0.0 L Baso % (Auto) 0.0 Gran # 10.84 H Lymph # 1.0 L [place] # 1.1 H Eos # 0.0 Baso # 0.00 pCO2 32 L pO2 204.0 H HCO3 22.8 ABG pH 7.46 H ABG Total CO2 23.8 ABG O2 Saturation 99.8 H ABG O2 Content 21.0 ABG Base Excess -0.2 ABG Hemoglobin 15.2 ABG Carboxyhemoglobin 2.1 H POC ABG HHb (Measured) 0.2 ABG Methemoglobin 1.3 ABG O2 Capacity 21.0 Hgb O2 Saturation 96.4 FiO2 50.0 Sodium 135 Potassium 3.9 Chloride 99 Carbon Dioxide 27 Anion Gap 13 BUN 15 Creatinine 0.7 L Est GFR ( Amer) > 60 Est GFR (Non-Af Amer) > 60 Random Glucose 143 H Calcium 8.8 Total Bilirubin 1.3 AST 436 H D ALT 148 H Alkaline Phosphatase 66 Total Protein 7.1 Albumin 3.8 Globulin 3.3 Albumin/Globulin Ratio 1.1 Assessment & Plan - Assessment and Plan (Free Text) Assessment: This is a 82Y M with PMH CAD, COPD, a.fib (on Eliquis), BPH, DM, and HTN found to have intracerebral hemorrhage with ventricular extension is s/p ventriulostomy secondary to L basal ganglia hemorrhage. Patient intubated, not on sedation. Some brain stem reflexes intact (cough, gag reflex and dolls eye). Plan: - Continue Cardene Drip (Maintain SBP 120-130s) - No anticoagulants at this time - Continue neuro checks - Maintain euglyclemia (140-180s) - Neurosurgery recs appreciated - Keep bed elevated 30 degrees - continue to monitor drain and output Prognosis is guarded. Case seen, discussed and reviewed with Dr. Steen. Анна Leach PGY2 - Date & Time Date: 03/23/17 Time: 12:10 <Rhett Steen - Last Filed: 03/24/17 11:18> Meds - Medications Medications: Current Medications Chlorhexidine Gluconate (Peridex) 15 ml PO Q4H [facility] Last Admin: 03/24/17 08:36 Dose: 15 ml Propofol (Diprivan) 1,000 mg in 100 mls @ 0 mls/hr IV .Q0M PRN; Protocol; 5 MCG /KG/MIN PRN Reason: TITRATE PER MD ORDER Last Titration: 03/23/17 08:29 Dose: 0 mcg/kg/min, 0 mls/hr Nicardipine HCl (Cardene Iv Premix) 20 mg in 200 mls @ 50 mls/hr IV .Q4H PRN; Protocol; 5 MG/HR PRN Reason: TITRATE PER MD ORDER Last Admin: 03/23/17 20:32 Dose: 1.2 mg/hr, 12 mls/hr Dextrose/Sodium Chloride (Dextrose 5%/0.9% Ns 1000 Ml) 1,000 mls @ 100 mls/hr IV .Q10H SRINATH Last Admin: 03/24/17 07:00 Dose: 100 mls/hr Results - Vital Signs Recent Vital Signs: Last Vital Signs Temp 99.1 F 03/24/17 08:30 Pulse 63 03/24/17 08:30 Resp 30 H 03/23/17 07:27 BP 160/76 H 03/24/17 08:30 Pulse Ox 99 03/24/17 08:30 - Labs Result Diagrams: 03/24/17 09:25 03/24/17 09:25 Labs: Laboratory Results - last 24 hr 03/23/17 03/24/17 03/24/17 22:34 03:44 09:25 WBC 11.5 H RBC 5.17 Hgb 15.3 Hct 43.0 MCV 83.2 MCH 29.6 MCHC 35.6 RDW 12.3 Plt Count 195 MPV 10.0 Gran % 82.9 H Lymph % (Auto) 7.0 L [place] % (Auto) 10.1 H Eos % (Auto) 0.0 L Baso % (Auto) 0.0 Gran # 9.55 H Lymph # 0.8 L [place] # 1.2 H Eos # 0.0 Baso # 0.00 PT INR APTT Sodium Potassium Chloride Carbon Dioxide Anion Gap BUN Creatinine Est GFR ( Amer) Est GFR (Non-Af Amer) POC Glucose (mg/dL) 162 H 135 H Random Glucose Calcium Phosphorus Magnesium Total Bilirubin AST ALT Alkaline Phosphatase Total Protein Albumin Globulin Albumin/Globulin Ratio 03/24/17 03/24/17 09:25 09:25 WBC RBC Hgb Hct MCV MCH MCHC RDW Plt Count MPV Gran % Lymph % (Auto) [place] % (Auto) Eos % (Auto) Baso % (Auto) Gran # Lymph # [place] # Eos # Baso # PT 12.4 H INR 1.15 H APTT 31.8 H Sodium 138 Potassium 3.4 L Chloride 103 Carbon Dioxide 27 Anion Gap 11 BUN 11 Creatinine 0.6 L Est GFR ( Amer) > 60 Est GFR (Non-Af Amer) > 60 POC Glucose (mg/dL) Random Glucose 144 H Calcium 8.6 Phosphorus 2.4 L Magnesium 2.1 Total Bilirubin 0.9 AST 234 H D ALT 126 H Alkaline Phosphatase 56 Total Protein 6.5 Albumin 3.4 Globulin 3.1 Albumin/Globulin Ratio 1.1 Attending/Attestation - Attestation I have personally seen and examined this patient.: Yes I have fully participated in the care of the patient.: Yes I have reviewed all pertinent clinical information: Yes
--- NOTE | 2017-03-23 14:09 | CP.CCUPN ---
<Kehinde Ritchie - Last Filed: 03/23/17 18:53> CCU Subjective - Physician Review Subjective (Free Text): 03/23/17 14:06 Patient seen and examined at bedside in the ICU. Still intubated, but off sedation since early AM; no responsiveness to verbal or physical stimuli. Breathing only at ventilator rate, failed pressure support trial immediately due to lack of any self-initiated breaths. Becoming bradycardic and more hypertensive, remains on cardine drip. CCU Objective - Vital Signs / Intake & Output Intake and Output (Last 8hrs): Intake & Output 03/22/17 03/23/17 03/23/17 22:59 06:59 14:59 Intake Total 462 100 5 Output Total 1400 530 Balance -938 -430 5 Weight 68.946 kg Intake: IV 462 100 5 Left External Jugular 108 Right Hand 354 100 Oral 0 0 Output: Drainage 300 130 Head 300 130 Urine 1100 400 Urethral (Mccord) 1100 400 Other: # Bowel Movements 0 0 - Physical Exam Head: Positive for: Atraumatic. Negative for: Normocephalic (drain exiting from R skull, serosanguinous drainage in tubing and drain), Ecchymosis, Abrasion Pupils: Positive for: Non-Reactive, Pinpoint (b/l). Negative for: PERRL Extroacular Muscles: Negative for: EOMI (unable to assess, no random movement, not following commands) Conjunctiva: Positive for: Normal. Negative for: Injected, Icteric Mouth: Positive for: Moist Mucous Membranes, Other (ETT 22 cm at lip) Nose (Internal): Positive for: Normal Inspection Neck: Positive for: Normal Range of Motion. Negative for: MIDLINE TENDERNESS, Paraspinal Tenderness Respiratory/Chest: Positive for: Clear to Auscultation, Good Air Exchange, Other (intubated and on mechanical ventilation, no spontaneous or self- initiated breaths on pressure support trial). Negative for: Respiratory Distress, Accessory Muscle Use Cardiovascular: Positive for: Regular Rate and Rhythm, Normal S1, S2. Negative for: Murmurs, Irregular Rhythm Abdomen: Positive for: Normal Bowel Sounds, Other (no palpable pulsatile mass). Negative for: Tenderness, Distention Back: Negative for: Midline Tenderness, Paraspinal Tenderness Upper Extremity: Positive for: Normal Inspection, NORMAL PULSES. Negative for: Cyanosis, Edema, Swelling, Erythema, Temperature Abnormalties, Deformity Lower Extremity: Positive for: Normal Inspection, NORMAL PULSES. Negative for: Edema, CALF TENDERNESS, Cyanosis, Swelling, Erythema, Deformity, Temperature Abnormalties Neurological: Positive for: Other (intubated, not sedated but unresponsive, intermittent twiches of arms or chewing motion of jaw, no purposeful movements) . Negative for: GCS=15 (Score of 3 (E1 V1t M1)), CN II-XII Intact, Speech Normal, Motor Func Grossly Intact Skin: Positive for: Warm, Dry, Normal Color. Negative for: Rashes, Diaphoretic Psychiatric: Positive for: Other (Intubated, not sedated but unresponsive). Negative for: Alert, Oriented x 3, Normal Insight, Normal Concentration, Normal Affect - Medications Active Medications: Active Medications Generic Name Dose Route Start Last Admin Trade Name Freq PRN Reason Stop Dose Admin Propofol 1,000 mg in 100 mls @ 0 mls/hr 03/22/17 09:41 03/23/17 08:29 Diprivan IV 0 mcg/kg/min .Q0M PRN 0 mls/hr TITRATE PER MD ORDER Titration Protocol 5 MCG/KG/MIN Nicardipine HCl 20 mg in 200 mls @ 50 mls/hr 03/22/17 11:16 03/22/17 21:15 Cardene Iv Premix IV 2.5 mg/hr .Q4H PRN 25 mls/hr TITRATE PER MD ORDER Administration Protocol 5 MG/HR Dextrose/Sodium Chloride 1,000 mls @ 100 mls/hr 03/23/17 10:15 03/23/17 11:42 Dextrose 5%/0.9% Ns 1000 Ml IV 100 mls/hr .Q10H SRINATH Administration - Patient Studies Lab Studies: Lab Studies 03/23/17 03/23/17 Range/Units 09:18 09:18 WBC 13.0 H (4.5-11.0) 10^3/ul RBC 5.36 (3.5-6.1) 10^6/uL Hgb 15.8 (14.0-18.0) g/dL Hct 43.8 (42.0-52.0) % MCV 81.7 D (80.0-105.0) fl MCH 29.5 (25.0-35.0) pg MCHC 36.1 (31.0-37.0) g/dl RDW 12.2 (11.5-14.5) % Plt Count 229 (120.0-450.0) 10^3/uL MPV 10.1 (7.0-11.0) fl Gran % 83.5 H (50.0-68.0) % Lymph % (Auto) 7.9 L (22.0-35.0) % [place] % (Auto) 8.6 H (1.0-6.0) % Eos % (Auto) 0.0 L (1.5-5.0) % Baso % (Auto) 0.0 (0.0-3.0) % Gran # 10.84 H (1.4-6.5) Lymph # 1.0 L (1.2-3.4) [place] # 1.1 H (0.1-0.6) Eos # 0.0 (0.0-0.7) Baso # 0.00 (0.0-2.0) K/mm3 Sodium 135 (132-148) mmol/L Potassium 3.9 (3.6-5.0) mmol/L Chloride 99 (95-110) mmol/L Carbon Dioxide 27 (21-33) mmol/L Anion Gap 13 (10-20) BUN 15 (7-21) mg/dL Creatinine 0.7 L (0.8-1.5) mg/dL Est GFR ( Amer) > 60 Est GFR (Non-Af Amer) > 60 Random Glucose 143 H (70-110) mg/dL Calcium 8.8 (8.4-10.5) mg/dL Total Bilirubin 1.3 (0.2-1.3) mg/dL AST 436 H D (17-59) U/L ALT 148 H (7-56) U/L Alkaline Phosphatase 66 (38-126) U/L Total Protein 7.1 (5.8-8.3) g/dL Albumin 3.8 (3.0-4.8) g/dL Globulin 3.3 gm/dL Albumin/Globulin Ratio 1.1 (1.1-1.8) Laboratory Results - last 24 hr 03/23/17 03/23/17 09:18 09:18 WBC 13.0 H RBC 5.36 Hgb 15.8 Hct 43.8 MCV 81.7 D MCH 29.5 MCHC 36.1 RDW 12.2 Plt Count 229 MPV 10.1 Gran % 83.5 H Lymph % (Auto) 7.9 L [place] % (Auto) 8.6 H Eos % (Auto) 0.0 L Baso % (Auto) 0.0 Gran # 10.84 H Lymph # 1.0 L [place] # 1.1 H Eos # 0.0 Baso # 0.00 Sodium 135 Potassium 3.9 Chloride 99 Carbon Dioxide 27 Anion Gap 13 BUN 15 Creatinine 0.7 L Est GFR ( Amer) > 60 Est GFR (Non-Af Amer) > 60 Random Glucose 143 H Calcium 8.8 Total Bilirubin 1.3 AST 436 H D ALT 148 H Alkaline Phosphatase 66 Total Protein 7.1 Albumin 3.8 Globulin 3.3 Albumin/Globulin Ratio 1.1 Fingerstick Blood Sugar Results: 231 Review of Systems - Review of Systems Systems not reviewed;Unavailable: Intubated Assessment/Plan - Assessment and Plan (Free Text) Assessment: This is an 82 yo Urdu M with PMH of CAD, COPD, Afib (on Eliquis), BPH, DM, and HTN who was brought to [facility] [place] being found down on the ground by family, and was found to be hypotensive with extensive intracerebral bleed with ventricular extension and mass effect. S/p ventriculostomy with draining of 200cc of blood from the brain, POD #1. He remains off sedation, but is still unresponsive, and was unable to initiate any breaths on pressure support. Waiting for 48-72 hours off sedation to determine prognosis. Plan: Neuro: -extensive ICH with bilateral ventricular extension, notable edema; s/p Ventriculostomy, POD#1 -intubated, off sedation, but remains completely unresponsive to physical or verbal stimuli -pinpoint pupils, holding extremities flacidly, intermittent twitched of mouth and bilateral extremities but no purposeful movements -Neuro (Dr. Steen) and Neurosurgery (Dr. Mcintyre) on board, appreciate all recs -Bradycardia and hypertension with obtunded state concerning for possible herniation -As per Neurosurg, holding off on repeat CT head pending decisions from family; keep head of bed to 30 degrees and monitor bloody CSF drainage -Hold all AC due to ICH, maintain euglycemia, maintain SBP 140-160 (cardine drip as needed for BP control) -Neurochecks -EEG obtained, f/u Pulm: -Intubated, on mechanical ventilation -maintain SaO2 > 88% (COD pt) and paO2 > 55 -Protective lung ventilation strategies, low tidal volumes, VAP bundle -most recent ABG reviewed, continue current management, wean down FiO2 as tolerable Cardio: -Intermittently bradycardic down to high 40's, continue to monitor -HTN up to 180's systolic, maintain SBP 140-160, Cardine drip as needed to maintain BP; avoid too rapid/aggressive drops in BP to prevent watershed infarcts. -most recent trop 0.15, but avoid all AC in setting of ICH GI: -NPO -Protonix for GI ppx Renal: -monitor and replete electrolytes as needed -mccord in place, draining clear yellow urine, monitor I's and O's Heme: -Hgb stable at 15.8 -NO AC in setting of ICH, SCDs for DVT ppx ID: -no leukocytosis, afebrile -no abx indicated at this time Endo: -on D5NS for nutrition at 100cc/hr -Fingersticks q6, maintain BG 140-180 Dispo: ICU, intubated but not sedated, monitoring for 48-72 hours off sedation FEN: NPo, D5NS 100cc/hr Access: Peripheral IV, R-ventriculostomy drain Consults: Neurosurgery, Neuro Ppx: Protonix for GI, SCDs for DVT Patient seen and reviewed with attending, Dr Quintana. <Mariano WEBSTER,Inamu H - Last Filed: 03/23/17 19:05> CCU Objective - Vital Signs / Intake & Output Vital Signs (Last 4 hours): Vital Signs Pulse 03/23/17 18:00 62 Intake and Output (Last 8hrs): Intake & Output 03/23/17 03/23/17 03/23/17 06:59 14:59 22:59 Intake Total 100 5 850 Output Total 530 436 Balance -430 5 414 Weight 152 lb Intake: IV 100 5 850 Left External Jugular 850 Right Hand 100 Oral 0 Output: Drainage 130 86 Head 130 86 Urine 400 350 Urethral (Mccord) 400 350 Other: # Bowel Movements 0 - Medications Active Medications: Active Medications Generic Name Dose Route Start Last Admin Trade Name Freq PRN Reason Stop Dose Admin Chlorhexidine Gluconate 15 ml 03/23/17 15:30 Peridex PO Q4H SRINATH Propofol 1,000 mg in 100 mls @ 0 mls/hr 03/22/17 09:41 03/23/17 08:29 Diprivan IV 0 mcg/kg/min .Q0M PRN 0 mls/hr TITRATE PER MD ORDER Titration Protocol 5 MCG/KG/MIN Nicardipine HCl 20 mg in 200 mls @ 50 mls/hr 03/22/17 11:16 03/22/17 21:15 Cardene Iv Premix IV 2.5 mg/hr .Q4H PRN 25 mls/hr TITRATE PER MD ORDER Administration Protocol 5 MG/HR Dextrose/Sodium Chloride 1,000 mls @ 100 mls/hr 03/23/17 10:15 03/23/17 11:42 Dextrose 5%/0.9% Ns 1000 Ml IV 100 mls/hr .Q10H SRINATH Administration - Patient Studies Lab Studies: Lab Studies 03/23/17 03/23/17 Range/Units 09:18 09:18 WBC 13.0 H (4.5-11.0) 10^3/ul RBC 5.36 (3.5-6.1) 10^6/uL Hgb 15.8 (14.0-18.0) g/dL Hct 43.8 (42.0-52.0) % MCV 81.7 D (80.0-105.0) fl MCH 29.5 (25.0-35.0) pg MCHC 36.1 (31.0-37.0) g/dl RDW 12.2 (11.5-14.5) % Plt Count 229 (120.0-450.0) 10^3/uL MPV 10.1 (7.0-11.0) fl Gran % 83.5 H (50.0-68.0) % Lymph % (Auto) 7.9 L (22.0-35.0) % [place] % (Auto) 8.6 H (1.0-6.0) % Eos % (Auto) 0.0 L (1.5-5.0) % Baso % (Auto) 0.0 (0.0-3.0) % Gran # 10.84 H (1.4-6.5) Lymph # 1.0 L (1.2-3.4) [place] # 1.1 H (0.1-0.6) Eos # 0.0 (0.0-0.7) Baso # 0.00 (0.0-2.0) K/mm3 Sodium 135 (132-148) mmol/L Potassium 3.9 (3.6-5.0) mmol/L Chloride 99 (95-110) mmol/L Carbon Dioxide 27 (21-33) mmol/L Anion Gap 13 (10-20) BUN 15 (7-21) mg/dL Creatinine 0.7 L (0.8-1.5) mg/dL Est GFR ( Amer) > 60 Est GFR (Non-Af Amer) > 60 Random Glucose 143 H (70-110) mg/dL Calcium 8.8 (8.4-10.5) mg/dL Total Bilirubin 1.3 (0.2-1.3) mg/dL AST 436 H D (17-59) U/L ALT 148 H (7-56) U/L Alkaline Phosphatase 66 (38-126) U/L Total Protein 7.1 (5.8-8.3) g/dL Albumin 3.8 (3.0-4.8) g/dL Globulin 3.3 gm/dL Albumin/Globulin Ratio 1.1 (1.1-1.8) Laboratory Results - last 24 hr 03/23/17 03/23/17 09:18 09:18 WBC 13.0 H RBC 5.36 Hgb 15.8 Hct 43.8 MCV 81.7 D MCH 29.5 MCHC 36.1 RDW 12.2 Plt Count 229 MPV 10.1 Gran % 83.5 H Lymph % (Auto) 7.9 L [place] % (Auto) 8.6 H Eos % (Auto) 0.0 L Baso % (Auto) 0.0 Gran # 10.84 H Lymph # 1.0 L [place] # 1.1 H Eos # 0.0 Baso # 0.00 Sodium 135 Potassium 3.9 Chloride 99 Carbon Dioxide 27 Anion Gap 13 BUN 15 Creatinine 0.7 L Est GFR ( Amer) > 60 Est GFR (Non-Af Amer) > 60 Random Glucose 143 H Calcium 8.8 Total Bilirubin 1.3 AST 436 H D ALT 148 H Alkaline Phosphatase 66 Total Protein 7.1 Albumin 3.8 Globulin 3.3 Albumin/Globulin Ratio 1.1 Attending/Attestation - Attestation I have personally seen and examined this patient.: Yes I have fully participated in the care of the patient.: Yes I have reviewed all pertinent clinical information: Yes Notes (Text): 03/23/17 19:03 82 y/o M w/ ICH No further improvements overnight post Ventric drain. Draining 200 cc . Nrueo function not improved off sedation. No initiating any breaths past set amount. Not able to P.S trial. Not following commands. Does have GAG. Does respond to pain . Neuro consult pending. NSG following. BP control on Cardene 140-160 sbp. poor prognosis cc time 45 min
--- NOTE | 2017-03-23 16:29 | EEG ---
DATE: 03/23/2017 CONDITION OF THE RECORDING: Asleep. DIAGNOSIS: Seizure. MEDICATIONS: Reviewed by nurse per reconciliation sheet. INTERPRETATION: This is a 16-channel international recording. The background activity was composed of 4 to 5 cycles per second. There was a very limited amount of beta activity seen in this recording. There was increased amount of theta activity of 5 to 7 cycles per second as well as delta slowing throughout the recording. Drowsiness was characterized by mostly theta activities and limited beta. Sleep was characterized by vertex transient waves, sleep spindles, and bilateral slowing. Photic stimulation showed no change in the tracing. No paroxysmal activity noted in this recording. CONCLUSION: Abnormal EEG due to presence of diffuse delta slowing throughout the recording consistent with severe bilateral cerebral dysfunction. No evidence of any epileptiform activity. Please clinically correlate. Rhett Steen MD
[2017-03-23] MEDS: Chlorhexidine 0.12% Oral Sol 480 ml Bot PO SCH ×2 (19:35→23:30)
[2017-03-23] MEDS: Nicardipine 20 MG/200 ML 20 MG/200 ML BAG IV PRN (20:32)
[2017-03-24] MEDS: Chlorhexidine 0.12% Oral Sol 480 ml Bot PO SCH ×3 (03:30→18:47)
[2017-03-24] MEDS: Dextrose 5%/0.9% NS 1,000 ML IV SCH ×2 (07:00→18:00)
--- NOTE | 2017-03-24 09:04 | CP.PCM.PN ---
Subjective - Date & Time of Evaluation Date of Evaluation: 03/24/17 Time of Evaluation: 09:02 - Subjective Subjective: comastose decerebrate on right attempt non specific motion on left pin point NR pupils no occulocephalics + corneals + resp Drain funtioning Prognosis poor doubt will regain functional state cont support care as per family Objective - Vital Signs/Intake and Output Vital Signs (last 24 hours): Temp Pulse Resp BP Pulse Ox 99.1 F 63 30 H 160/76 H 99 03/24/17 08:30 03/24/17 08:30 03/23/17 07:27 03/24/17 08:30 03/24/17 08:30 Intake and Output: 03/24/17 03/24/17 06:59 18:59 Intake Total 1200 Output Total 1420 Balance -220 - Medications Medications: Current Medications Chlorhexidine Gluconate (Peridex) 15 ml PO Q4H SRINATH Last Admin: 03/24/17 08:36 Dose: 15 ml Propofol (Diprivan) 1,000 mg in 100 mls @ 0 mls/hr IV .Q0M PRN; Protocol; 5 MCG /KG/MIN PRN Reason: TITRATE PER MD ORDER Last Titration: 03/23/17 08:29 Dose: 0 mcg/kg/min, 0 mls/hr Nicardipine HCl (Cardene Iv Premix) 20 mg in 200 mls @ 50 mls/hr IV .Q4H PRN; Protocol; 5 MG/HR PRN Reason: TITRATE PER MD ORDER Last Admin: 03/23/17 20:32 Dose: 1.2 mg/hr, 12 mls/hr Dextrose/Sodium Chloride (Dextrose 5%/0.9% Ns 1000 Ml) 1,000 mls @ 100 mls/hr IV .Q10H SRINATH Last Admin: 03/24/17 07:00 Dose: 100 mls/hr - Labs Labs: 03/23/17 09:18 03/23/17 09:18 PT 12.5 Seconds (9.9-11.8) H 03/22/17 09:20 INR 1.16 (0.93-1.08) H 03/22/17 09:20 APTT 30.6 Seconds (23.7-30.8) 03/22/17 09:20
--- NOTE | 2017-03-24 09:12 | PN ---
DATE: 03/24/2017 DRUG ENFORCEMENT AGENT NOTE SUBJECTIVE: The patient is sedated on ventilator with an FiO2 of 40%. He had CPAP weaning trial this morning which he failed. The patient is on Cardene drip to maintain a stable blood pressure. His ventriculostomy is draining appropriately. PHYSICAL EXAMINATION: VITAL SIGNS: Note that his temperature is 99.9, his pulse is 62, respirations are 20 and BP is 157/81. SKIN: Warm and dry. HEENT: Head is atraumatic, other than the ventriculostomy normocephalic. Eyes: No reaction to light. Ears, nose and throat seemed to be within normal limits. NECK: Supple. No JVD. No thyroid enlargement. No lymph nodes. HEART: Regular rate and rhythm. Normal S1 and S2, but bradycardic at times. LUNGS: Mild bilateral expiratory wheeze. ABDOMEN: Soft, nontender. Normal bowel sounds. GENITALIA: Deferred. RECTAL: Deferred. MUSCULOSKELETAL: No joint deformities. EXTREMITIES: Reveal trace lower extremity edema. NEUROLOGICALLY: The patient is sedated on a ventilator, but no pupil response at this time. LABORATORY DATA: Reveal a white count of 13.0, hemoglobin of 15.8, hematocrit 43.8 with platelets of 229,000. Sodium is 135, potassium 3.9, chloride 99, CO2 of 27 with a BUN of 15, creatinine of 0.7 and a glucose of 135. Note that the patient's LFTs are elevated and has an increased troponin several days ago. IMPRESSION: This patient has severe intraventricular/cerebral bleed requiring a ventriculostomy and at this time, he is unresponsive with bradycardia. The patient has respiratory failure requiring ventilator support and he has a past history of chronic obstructive pulmonary disease, atrial fibrillation, coronary artery disease, diabetes as well as hypertension. PLAN: We will continue with Cardene drip and Diprivan. The patient will be on the ventilator, and we will titrate and follow closely. We will continue with CPAP trials, and we will continue with IV fluids. We will continue to treat aggressively along with the other consultants and primary care doctor. Jake Hopper MD [facility] # [id number]
[2017-03-24 09:35] LABS: GRAN # 9.55 (1.4-6.5); GRAN % 82.9 % (50.0-68.0); LYMPH # 0.8 (1.2-3.4); MEAN CELL VOLUME 83.2 fl (80.0-105.0); MEAN CORPUSCULAR HEMOGLOBIN 29.6 pg (25.0-35.0); MEAN CORPUSCULAR HGB CONC 35.6 g/dl (31.0-37.0); MONO # 1.2 (0.1-0.6); MONO % 10.1 % (1.0-6.0); RED CELL DISTRIBUTION WIDTH 12.3 % (11.5-14.5); WHITE BLOOD COUNT 11.5 10^3/ul (4.5-11.0)
[2017-03-24 09:41] LABS: ALB/GLOB RATIO 1.1 (1.1-1.8); ALKALINE PHOSPHATASE 56 U/L (38-126); ALT/SGPT 126 U/L (7-56); AST/SGOT 234 U/L (17-59); BILIRUBIN,TOTAL 0.9 mg/dL (0.2-1.3); BLOOD UREA NITROGEN 11 mg/dL (7-21); CALCIUM 8.6 mg/dL (8.4-10.5); CARBON DIOXIDE 27 mmol/L (21-33); CHLORIDE 103 mmol/L (98-107); GFR AFRICAN-AMERICAN > 60; GLUCOSE,RANDOM 144 mg/dL (70-110); MAGNESIUM 2.1 mg/dL (1.7-2.2); PHOSPHOROUS 2.4 mg/dL (2.5-4.5); POTASSIUM 3.4 mmol/L (3.6-5.0); SODIUM 138 mmol/L (132-148); TOTAL PROTEIN 6.5 g/dL (5.8-8.3)
[2017-03-24 09:46] LABS: INR 1.15 (0.93-1.08); PARTIAL THROMBOPLASTIN TIME 31.8 Seconds (23.7-30.8)
--- NOTE | 2017-03-24 13:29 | PN ---
NEUROLOGY FOLLOWUP DATE: 03/24/2017 CHIEF COMPLAINT: Followup for status post intracranial hemorrhage, status post ventriculostomy. SUBJECTIVE: The patient is seen and examined at bedside. Still draining and still on the right, but no specific motion on the left and has pinpoint pupils nonreactive to light, no oculocephalic, has positive corneas, and positive . He is draining. Neurosurgery has evaluated the patient and appreciated. EEG showed severe bilateral cerebral dysfunction. No evidence of an epileptiform activity. PAST MEDICAL HISTORY: CAD, COPD, AFib, previously on Eliquis, BPH, type 2 diabetes mellitus, and hypertension. REVIEW OF SYSTEMS: The 14-point review of systems negative except the HPI. PAST SURGICAL HISTORY: Hip replacement. ALLERGIES: NO KNOWN DRUG ALLERGIES. SOCIAL HISTORY: No illicit drug use, smoking, or ETOH abuse. PHYSICAL EXAMINATION: VITAL SIGNS: Temperature 99.7, pulse rate of 50, blood pressure of 161/80, and oxygen saturation 98% on mechanical ventilation. GENERAL: The patient is intubated on propofol. HEENT: Eyes, pupils are pinpoint bilaterally. Minimally reactive to light. Corneas are present. Head is atraumatic and normocephalic. HEART: S1 and S2, normal rate and rhythm. No murmurs. ABDOMEN: Soft, nontender. Bowel sounds are present. EXTREMITIES: No clubbing. No cyanosis. Peripheral pulses are 2+ bilaterally. LUNGS: Decreased breath sounds bilaterally. NEUROLOGIC: The patient is intubated on sedation, but has pinpoint pupils. Cranial nerves II through XII are intact, but has no oculocephalic reflexes. Motor exam, no purposeful movements seen on the extremities and minimum movement on the left. Toes are upgoing bilaterally. Sensory exam, withdraws are localized to noxious stimulus. DTRs are 1+ throughout. Coordination and gait deferred for now. LABORATORY DATA: Sodium is 138, potassium 3.4, chloride 103, carbon dioxide 27, BUN of 11, creatinine 0.65, and glucose 144. ASSESSMENT AND PLAN: This is an 82-year-old man with past medical history of coronary artery disease, chronic obstructive pulmonary disease, atrial fibrillation, previously on Eliquis, benign prostatic hypertrophy, type 2 diabetes mellitus, hypertension, found down at home, found to have a large intracerebellar hemorrhage of ventricular extension status post ventriculostomy secondary to left basal ganglia hemorrhage. The patient was intubated on propofol. Some brainstem reflexes are intact such as cough gag and corneal, but no oculocephalic reflexes and no purposeful movements of the extremities except for he withdraws to pain. His EEG showed severe bilateral cerebral dysfunction. No evidence of epileptiform activity. He is currently still draining from the ventriculostomy. Neurosurgery is on board. At this time, I recommend: 1. No anticoagulants at this time. 2. Continue to maintain his blood pressure between 120 to 130s. 3. Continue to maintain new glycemia between 140 to 180s. 4. Keep bed elevated above 30 degrees and continue to monitor drain, input and output, and follow with Neurosurgery's recommendations. PROGNOSIS: Guarded. Rhett Steen MD
--- NOTE | 2017-03-24 15:53 | CON ---
CARDIOLOGY CONSULT REASON FOR CONSULTATION: Sinus bradycardia. HISTORY OF PRESENT ILLNESS: The patient is 82 years old [place]ian male who has history of coronary artery disease, chronic obstructive lung disease, atrial fibrillation, who was on Eliquis therapy who is admitted because of large intracerebral hemorrhage with ventricular extension, underwent ventriculostomy to the left basal ganglia hemorrhage, who is currently comatose with evidence of severe and bilateral cerebral dysfunction on an EEG who is noted to be bradycardic. No reported hypotension. CURRENT MEDICATIONS: The patient was on Cardene infusion, the last dose was yesterday around 8:30 p.m. He is on D5 normal saline at 100 mL an hour and Diprivan infusion and Peridex. REVIEW OF SYSTEMS: No reported seizures. No reported ventricular arrhythmia. PAST MEDICAL HISTORY: Atrial fibrillation, hypertension, chronic obstructive lung disease, diabetes mellitus, benign prostatic hypertrophy. PHYSICAL EXAMINATION: GENERAL: The patient is an elderly male who is on the vent. VITAL SIGNS: Blood pressure 161/82; heart rate 66; temperature 99.9, earlier was 100.2. HEENT: No pallor or icterus. NECK: No JVD. CHEST: Clear. HEART: S1 and S2 regular. EXTREMITIES: No edema. LABORATORY DATA: Hemoglobin and hematocrit 15.3 and 43.2, white count 11.5, platelet count 195,000. SMA-7; sodium 138, potassium 3.4, chloride 103, CO2 of 27, glucose 144, BUN 11, creatinine 0.6. AST is 234, ALT is 126, alkaline phosphatase is within normal limit. INR is 1.15. Chest x-ray was rotated, no cardiomegaly and no definite infiltrate or effusion. Official report of head CT scan; extensive intraventricular hemorrhage with moderate hydrocephalus. Periventricular edema. No midline shift or herniation. ASSESSMENT: 1. Sinus bradycardia most likely related to increased intracranial tension. 2. History of atrial fibrillation. 3. Bilateral intraventricular cerebral bleeding. 4. Deeply comatose. Some brainstem reflexes are intact such as cough, gag, and corneal, but no oculocephalic reflex and no purposeful movement of the extremities except pain withdrawal according to the medical device sales consultant neurologist. RECOMMENDATIONS: Continue current supportive measures. The patient is off Cardene infusion at this time. Consider IV atropine if heart rate is below 35 beats per minute. Obtain TSH level and a bedside echo. Nigel Quiroz MD [facility] # [id number]
[2017-03-24] MEDS: Propofol 10 mg/ml 1,000 MG/100 ML VIAL IV PRN (19:05)
[2017-03-25] MEDS: Dextrose 5%/0.9% NS 1,000 ML IV SCH ×3 (03:00→22:30)
[2017-03-25 05:52] LABS: ARTERIAL BLOOD GAS HCO3 29.1 mmol/L (21-28); ARTERIAL BLOOD GAS O2 CONTENT 18.9 ML/dl (15-23); ARTERIAL BLOOD GAS PH 7.47 (7.35-7.45); CARBOXYHEMOGLOBIN 1.6 % (0.5-1.5); HHB 0.3 % (0-5); METHEMOGLOBIN 1.1 % (0.0-3.0)
[2017-03-25 06:00] LABS: GRAN # 5.08 (1.4-6.5); GRAN % 65.3 % (50.0-68.0); HEMATOCRIT 39.7 % (42.0-52.0); LYMPH # 1.7 (1.2-3.4); LYMPH % 21.3 % (22.0-35.0); MEAN CELL VOLUME 84.3 fl (80.0-105.0); MEAN CORPUSCULAR HEMOGLOBIN 29.1 pg (25.0-35.0); MEAN CORPUSCULAR HGB CONC 34.5 g/dl (31.0-37.0); MEAN PLATELET VOLUME 9.9 fl (7.0-11.0); MONO % 13.4 % (1.0-6.0); RED CELL DISTRIBUTION WIDTH 12.2 % (11.5-14.5); WHITE BLOOD COUNT 7.8 10^3/ul (4.5-11.0)
[2017-03-25 06:14] LABS: ALKALINE PHOSPHATASE 52 U/L (38-126); ALT/SGPT 115 U/L (7-56); AST/SGOT 170 U/L (17-59); BILIRUBIN,TOTAL 0.8 mg/dL (0.2-1.3); BLOOD UREA NITROGEN 12 mg/dL (7-21); CALCIUM 8.5 mg/dL (8.4-10.5); CARBON DIOXIDE 29 mmol/L (21-33); CHLORIDE 107 mmol/L (98-107); GFR AFRICAN-AMERICAN > 60; GLUCOSE,RANDOM 135 mg/dL (70-110); MAGNESIUM 2.1 mg/dL (1.7-2.2); PHOSPHOROUS 2.6 mg/dL (2.5-4.5); POTASSIUM 3.4 mmol/L (3.6-5.0); SODIUM 140 mmol/L (132-148)
[2017-03-25 07:26] LABS: INR 1.11 (0.93-1.08); PARTIAL THROMBOPLASTIN TIME 29.4 Seconds (23.7-30.8)
--- NOTE | 2017-03-25 09:39 | PN ---
GAMING MANAGER NOTE DATE: 03/25/2017 SUBJECTIVE: The patient is on the ventilator, unresponsive, continues to have drainage from the ventriculostomy. FiO2 was 40% and blood pressure is stable with Cardene. PHYSICAL EXAMINATION: VITAL SIGNS: Note that his temperature is 100, his pulse is 54, respirations are 18 and BP is 147/77. SKIN: Warm and dry. HEENT: Head is atraumatic and normocephalic, except for the fact that he has ventriculostomy in place. Ears, nose and throat seemed to be within normal limits. NECK: Supple. No JVD. No thyroid enlargement. No lymph nodes. HEART: Regular rate and rhythm. Normal S1 and S2. LUNGS: Reveal good breath sounds bilaterally. ABDOMEN: Soft, nontender. Decreased bowel sounds. GENITALIA: Deferred. RECTAL: Deferred. MUSCULOSKELETAL: No joint deformities. EXTREMITIES: Reveal trace lower extremity edema. NEUROLOGICALLY: He is unresponsive on the ventilator. LABORATORY DATA: Reveal a white count of 7.8, hemoglobin of 13.7, hematocrit 39.7 with platelets of 210,000. Arterial blood gas reveals the pH is 7.47, pCO2 of 40, pO2 of 148. Sodium is 140, potassium 3.4, chloride 107, CO2 of 29 with a BUN of 12, creatinine of 0.7 and a glucose of 124. IMPRESSION: The patient has severe intraventricular/cerebral bleed. He has a ventriculostomy, which is for drainage. The patient is unresponsive and has respiratory failure requiring ventilator support. He has a history of chronic obstructive pulmonary disease, atrial fibrillation, coronary artery disease, diabetes as well as hypertension. PLAN: We will continue with Cardene drip and Diprivan. The patient is on the ventilator and we will be titrated as the patient tolerates. We will continue to treat aggressively along with the other consultants and the primary care doctor. Jake Hopper MD
[2017-03-25] MEDS: Chlorhexidine 0.12% Oral Sol 480 ml Bot PO SCH ×2 (10:00→17:56)
--- NOTE | 2017-03-25 11:24 | RAD ---
HISTORY: Pneumonia. COMPARISON: 03/23/2017 FINDINGS: LUNGS: No active pulmonary disease. PLEURA: No significant pleural effusion identified, no pneumothorax apparent. CARDIOVASCULAR: No radiographic findings to suggest acute or significant cardiovascular disease. OSSEOUS STRUCTURES: No significant abnormalities. VISUALIZED UPPER ABDOMEN: Normal. OTHER FINDINGS: Stable position of endotracheal tube. The tip is 5 cm above the raimundo. IMPRESSION: No significant interval change compared to the prior examination(s).
[2017-03-25] MEDS: Cefepime 1gm in NS 100ml 1 GM/100 ML BAG IVPB SCH ×3 (11:29→21:45)
[2017-03-25] MEDS: Vancomycin 1gm in NS 250ml 1 GM/250 ML BAG IVPB SCH ×2 (11:29→22:01)
--- NOTE | 2017-03-25 12:04 | CP.PCM.PN ---
Subjective - Date & Time of Evaluation Date of Evaluation: 03/25/17 Time of Evaluation: 12:03 - Subjective Subjective: clinically unchanges decerbrate left, non specific right small nr pupils drain functioning CSF clearing Drip chamber raised to 7 cm prognosis grim Objective - Vital Signs/Intake and Output Vital Signs (last 24 hours): Temp Pulse Resp BP Pulse Ox 99.9 F H 52 L 18 144/64 99 03/25/17 11:10 03/25/17 11:10 03/25/17 11:10 03/25/17 11:00 03/25/17 11:10 Intake and Output: 03/25/17 03/25/17 06:59 18:59 Intake Total 1400 Output Total 580 Balance 820 - Medications Medications: Current Medications Chlorhexidine Gluconate (Peridex) 15 ml PO BID SRINATH Propofol (Diprivan) 1,000 mg in 100 mls @ 0 mls/hr IV .Q0M PRN; Protocol; 5 MCG /KG/MIN PRN Reason: TITRATE PER MD ORDER Last Titration: 03/24/17 23:00 Dose: 14.22 mcg/kg/min, 6 mls/hr Nicardipine HCl (Cardene Iv Premix) 20 mg in 200 mls @ 50 mls/hr IV .Q4H PRN; Protocol; 5 MG/HR PRN Reason: TITRATE PER MD ORDER Last Titration: 03/25/17 00:30 Dose: 2.5 mg/hr, 25 mls/hr Dextrose/Sodium Chloride (Dextrose 5%/0.9% Ns 1000 Ml) 1,000 mls @ 100 mls/hr IV .Q10H SRINATH Last Admin: 03/24/17 18:00 Dose: 100 mls/hr Cefepime HCl (Maxipime 1gm) 1 gm in 100 mls @ 100 mls/hr IVPB Q8 SRINATH PRN Reason: Protocol Last Admin: 03/25/17 11:29 Dose: 100 mls/hr Vancomycin HCl (Vancomycin 1gm) 1 gm in 250 mls @ 167 mls/hr IVPB Q12H SRINATH PRN Reason: Protocol Last Admin: 03/25/17 11:29 Dose: 167 mls/hr - Labs Labs: 03/25/17 05:00 03/25/17 05:00 PT 12.0 Seconds (9.9-11.8) H 10/08/17 05:00 INR 1.11 (0.93-1.08) H 03/25/17 05:00 APTT 29.4 Seconds (23.7-30.8) 03/25/17 05:00
--- NOTE | 2017-03-25 13:48 | PN ---
SUBJECTIVE: The patient is comatose, on the vent. PHYSICAL EXAMINATION: VITAL SIGNS: Blood pressure 146/73, heart rate 62, temperature 99.9. HEENT: No pallor or icterus. CHEST: Bilateral rhonchi. HEART: S1 and S2, regular. EXTREMITIES: No edema. LABORATORY EXAM: Hemoglobin and hematocrit of 13.7 and 39.7, white count and platelet count are within normal limit. SMA-7: Sodium 140, potassium is 3.4, chloride 107, CO2 of 29, glucose 135, BUN 12, creatinine 0.7. Today's chest x-ray, no significant interval changes. ASSESSMENT: 1. Bilateral intracerebral and intraventricular bleed, status post ventriculostomy. 2. History of atrial fibrillation. 3. Sinus bradycardiac, most likely related to increased intracranial pressure. RECOMMENDATIONS: Continue current Cardene infusion. Continue IV Maxipime at 1 g q. 8 hours and IV vancomycin at 1 g q. 12 hours. The poor prognosis was discussed at length with the patient's daughter at the bedside. Nigel Quiroz MD
--- NOTE | 2017-03-25 14:17 | CP.PCM.CON ---
History of Present Illness - History of Present Illness History of Present Illness: 82 year old male with PMH of HTN, DM, benign prostatic hyperplasia, chronic atrial fibrillation was brought in to [facility] after he was found unresponsive in the bathroom. The amount of time that he was unresponsive is not clear. He was then found to have a left basal ganglia intracerebral bleed and ventriculostomy was done. He has since been on the ventilator and is not responsive except for some reflexes. He has developed fevers and Infectious Diseases consult is requested to further evaluate and manage. Review of systems is unobtainable because of the patient's mental status. Review of Systems - Review of Systems Systems not reviewed;Unavailable: Intubated Past Patient History - Infectious Disease Hx of Infectious Diseases: None - Tetanus Immunizations Tetanus Immunization: Unknown - Past Social History Smoking Status: Never Smoked Alcohol: None Drugs: Denies - CARDIAC Hx Cardiac Disorders: Yes (CAD) Hx Hypertension: Yes - PULMONARY Hx Respiratory Disorders: Yes Hx Chronic Obstructive Pulmonary Disease (COPD): Yes - NEUROLOGICAL Hx Neurological Disorder: Yes (NEUROPATHY) Hx Dizziness: Yes (Syncope) - HEENT Hx HEENT Problems: Yes Hx Cataracts: Yes (BILATERAL SX) Hx Deafness: Yes (Difficulty hearing) Other/Comment: Eye surgery - RENAL Hx Chronic Kidney Disease: No - ENDOCRINE/METABOLIC Hx Endocrine Disorders: No - HEMATOLOGICAL/ONCOLOGICAL Hx Blood Disorders: Yes Hx Anemia: Yes (BLOOD TRANSFUSION) - INTEGUMENTARY Hx Dermatological Problems: Yes Hx Psoriasis: Yes - MUSCULOSKELETAL/RHEUMATOLOGICAL Hx Musculoskeletal Disorders: Yes Hx Falls: Yes (LAST FALL -03-22-17) Hx Fractures: Yes (left hip) - GASTROINTESTINAL Hx Gastrointestinal Disorders: No - GENITOURINARY/GYNECOLOGICAL Hx Genitourinary Disorders: Yes Hx Prostate Problems: Yes (Enlarged prostate) - PSYCHIATRIC Hx Psychophysiologic Disorder: Yes Hx Anxiety: Yes Hx Substance Use: No - SURGICAL HISTORY Hx Surgeries: Yes (L HIP FX,BILATERAL CATARACT SURGERY) - ANESTHESIA Hx Anesthesia Reactions: No Hx Malignant Hyperthermia: No Meds Allergies/Adverse Reactions: Allergies Allergy/AdvReac Type Severity Reaction Status Date / Time No Known Allergies Allergy Verified 03/22/17 12:03 - Medications Medications: Current Medications Chlorhexidine Gluconate (Peridex) 15 ml PO BID SRINATH Propofol (Diprivan) 1,000 mg in 100 mls @ 0 mls/hr IV .Q0M PRN; Protocol; 5 MCG /KG/MIN PRN Reason: TITRATE PER MD ORDER Last Titration: 03/24/17 23:00 Dose: 14.22 mcg/kg/min, 6 mls/hr Nicardipine HCl (Cardene Iv Premix) 20 mg in 200 mls @ 50 mls/hr IV .Q4H PRN; Protocol; 5 MG/HR PRN Reason: TITRATE PER MD ORDER Last Titration: 03/25/17 00:30 Dose: 2.5 mg/hr, 25 mls/hr Dextrose/Sodium Chloride (Dextrose 5%/0.9% Ns 1000 Ml) 1,000 mls @ 100 mls/hr IV .Q10H SRINATH Last Admin: 03/24/17 18:00 Dose: 100 mls/hr Cefepime HCl (Maxipime 1gm) 1 gm in 100 mls @ 100 mls/hr IVPB Q8 SRINATH PRN Reason: Protocol Vancomycin HCl (Vancomycin 1gm) 250 mls @ 167 mls/hr IVPB Q12H SRINATH PRN Reason: Protocol Physical Exam - Constitutional Appears: Other (Intubated, not responsive) - Head Exam Additional comments: ventriculostomy tube in place - ENT Exam Additional comments: ET tube in place - Respiratory Exam Respiratory Exam: Decreased Breath Sounds - Cardiovascular Exam Cardiovascular Exam: +S1, +S2 - GI/Abdominal Exam GI & Abdominal Exam: Soft. absent: Tenderness Results - Vital Signs Recent Vital Signs: Last Vital Signs Temp 100 F H 03/25/17 04:00 Pulse 54 L 03/25/17 06:00 Resp 18 03/25/17 06:00 BP 147/77 03/25/17 06:00 Pulse Ox 96 03/25/17 06:00 - Labs Result Diagrams: 03/25/17 05:00 03/25/17 05:00 Labs: Laboratory Results - last 24 hr 03/24/17 03/24/17 03/24/17 09:25 12:01 17:58 WBC RBC Hgb Hct MCV MCH MCHC RDW Plt Count MPV Gran % Lymph % (Auto) [place] % (Auto) Eos % (Auto) Baso % (Auto) Gran # Lymph # [place] # Eos # Baso # PT INR APTT pCO2 pO2 HCO3 ABG pH ABG Total CO2 ABG O2 Saturation ABG O2 Content ABG Base Excess ABG Hemoglobin ABG Carboxyhemoglobin POC ABG HHb (Measured) ABG Methemoglobin ABG O2 Capacity Hgb O2 Saturation FiO2 Sodium 138 Potassium 3.4 L Chloride 103 Carbon Dioxide 27 Anion Gap 11 BUN 11 Creatinine 0.6 L Est GFR ( Amer) > 60 Est GFR (Non-Af Amer) > 60 POC Glucose (mg/dL) 125 H 140 H Random Glucose 144 H Calcium 8.6 Phosphorus 2.4 L Magnesium 2.1 Total Bilirubin 0.9 AST 234 H D ALT 126 H Alkaline Phosphatase 56 Total Protein 6.5 Albumin 3.4 Globulin 3.1 Albumin/Globulin Ratio 1.1 [facility] 3rd Generation 03/25/17 03/25/17 03/25/17 00:13 05:00 05:00 WBC 7.8 D RBC 4.71 Hgb 13.7 L Hct 39.7 L MCV 84.3 MCH 29.1 MCHC 34.5 RDW 12.2 Plt Count 210 MPV 9.9 Gran % 65.3 Lymph % (Auto) 21.3 L [place] % (Auto) 13.4 H Eos % (Auto) 0.0 L Baso % (Auto) 0.0 Gran # 5.08 Lymph # 1.7 [place] # 1.0 H Eos # 0.0 Baso # 0.00 PT 12.0 H INR 1.11 H APTT 29.4 pCO2 pO2 HCO3 ABG pH ABG Total CO2 ABG O2 Saturation ABG O2 Content ABG Base Excess ABG Hemoglobin ABG Carboxyhemoglobin POC ABG HHb (Measured) ABG Methemoglobin ABG O2 Capacity Hgb O2 Saturation FiO2 Sodium Potassium Chloride Carbon Dioxide Anion Gap BUN Creatinine Est GFR ( Amer) Est GFR (Non-Af Amer) POC Glucose (mg/dL) 130 H Random Glucose Calcium Phosphorus Magnesium Total Bilirubin AST ALT Alkaline Phosphatase Total Protein Albumin Globulin Albumin/Globulin Ratio [facility] 3rd Generation 03/25/17 03/25/17 03/25/17 05:00 05:00 05:00 WBC RBC Hgb Hct MCV MCH MCHC RDW Plt Count MPV Gran % Lymph % (Auto) [place] % (Auto) Eos % (Auto) Baso % (Auto) Gran # Lymph # [place] # Eos # Baso # PT INR APTT pCO2 40 pO2 148.0 H HCO3 29.1 H ABG pH 7.47 H ABG Total CO2 30.3 H ABG O2 Saturation 99.7 H ABG O2 Content 18.9 ABG Base Excess 5.0 H ABG Hemoglobin 13.7 ABG Carboxyhemoglobin 1.6 H POC ABG HHb (Measured) 0.3 ABG Methemoglobin 1.1 ABG O2 Capacity 19.0 Hgb O2 Saturation 97.0 FiO2 40.0 Sodium 140 Potassium 3.4 L Chloride 107 Carbon Dioxide 29 Anion Gap 7 L BUN 12 Creatinine 0.7 L Est GFR ( Amer) > 60 Est GFR (Non-Af Amer) > 60 POC Glucose (mg/dL) Random Glucose 135 H Calcium 8.5 Phosphorus 2.6 Magnesium 2.1 Total Bilirubin 0.8 AST 170 H D ALT 115 H Alkaline Phosphatase 52 Total Protein 6.0 Albumin 3.0 Globulin 2.9 Albumin/Globulin Ratio 1.0 L TSH 3rd Generation 0.17 L 03/25/17 06:38 WBC RBC Hgb Hct MCV MCH MCHC RDW Plt Count MPV Gran % Lymph % (Auto) [place] % (Auto) Eos % (Auto) Baso % (Auto) Gran # Lymph # [place] # Eos # Baso # PT INR APTT pCO2 pO2 HCO3 ABG pH ABG Total CO2 ABG O2 Saturation ABG O2 Content ABG Base Excess ABG Hemoglobin ABG Carboxyhemoglobin POC ABG HHb (Measured) ABG Methemoglobin ABG O2 Capacity Hgb O2 Saturation FiO2 Sodium Potassium Chloride Carbon Dioxide Anion Gap BUN Creatinine Est GFR ( Amer) Est GFR (Non-Af Amer) POC Glucose (mg/dL) 124 H Random Glucose Calcium Phosphorus Magnesium Total Bilirubin AST ALT Alkaline Phosphatase Total Protein Albumin Globulin Albumin/Globulin Ratio TSH 3rd Generation Assessment & Plan - Assessment and Plan (Free Text) Plan: Assessment New onset fever with systemic inflammatory response syndrome, R/O BIN CLE[employer]ER associated fever in a patient with left basal ganglia intracerebral bleed S/P ventriculostomy, R/O sepsis source to be determined HTN DM benign prostatic hyperplasia chronic atrial fibrillation Plan Patient has been started on Vancomycin and cefepime pending blood cx, urine cx, PCT, CXR Overall prognosis is poor will monitor clinically
--- NOTE | 2017-03-25 16:58 | RAD ---
HISTORY: Nasogastric tube placement.Technique: Single view portable semi erect @ 16:30 COMPARISON: March 25, 2017. Time of examination: 10:19 Time of examination: 10:19 FINDINGS: LUNGS: No active pulmonary disease. PLEURA: No significant pleural effusion identified, no pneumothorax apparent. CARDIOVASCULAR: No radiographic findings to suggest acute or significant cardiovascular disease. OSSEOUS STRUCTURES: No significant abnormalities. VISUALIZED UPPER ABDOMEN: Normal. OTHER FINDINGS: Stable position of endotracheal tube. Feeding tube in satisfactory position in the stomach. IMPRESSION: Satisfactory position of recently placed feeding tube. Otherwise no interval change.
[2017-03-25] MEDS: Propofol 10 mg/ml 1,000 MG/100 ML VIAL IV PRN (17:50)
--- NOTE | 2017-03-25 23:24 | PN ---
DATE: 03/25/2017 SUBJECTIVE: The patient remains on the ventilator, comfortable on FiO2 was 40%, no distress. Family around. The daughter and granddaughter and the whole family around. The patient seems sedated on Diprivan. He is unresponding to any painful stimuli, not moving any extremities, still on the ventilator and no distress. PHYSICAL EXAMINATION: VITAL SIGNS: Temperature is 100.2, heart rate , blood pressure 137/60, respiration 19, saturation 100% on FiO2 of 40%. HEENT: Head and neck exam normal. No JVD. No thyromegaly. Also noted ventriculostomy tube coming out of his vertex area. CARDIAC: First sound and second sound normal. LUNG: Clear with air entry. ABDOMEN: Soft and nontender. Bowel sounds intact. EXTREMITIES: No edema. NEUROLOGIC: The patient is not responding and not moving any extremity. LABORATORY EXAMINATION: The patient has an EEG, which shows bilateral cerebral slow waveform. No seizure activity. Chest x-ray shows no active pulmonary disease. ET tube 5 cm in the trachea above the raimundo, and also his laboratory came in as follow; white count 7.8, hemoglobin 13.7, hematocrit 39.7, platelets 210. His chemistry; 140 sodium, 3.4 potassium, chloride 107, bicarb 29, BUN 12, creatinine 0.7, blood glucose 135, and liver function tests are elevated. AST and ALT elevated. His TSH noted and procalcitonin was 0.26. IMPRESSION AND PLAN: 1. Acute intracerebral bleed, continue vent support for now. The patient seems comfortable on the vent. We will continue current management. Probably will start on Sunday further evaluation. Discussed with the family about all options and all alternatives. Maybe, we will consider decreasing Diprivan and evaluating his mental status, and maybe, we will consider repeat CT scan of the head. He is currently stable on the vent, doing well on the vent pulmonary-linda. 2. Respiratory failure. Airway protection on the vent FiO2 of 40%, saturating 99%, he is doing well on the vent. We will get pulmonary consult with Dr. Wilcox so we can start the weaning process if possible and if mental status improve, will be based on neurologic evaluation for the patient. 3. Fever 100.2. Cultures, urine and blood are negative. We will get ID consult with Dr. Sommers, currently on vancomycin and meropenem. We will continue current IV antibiotics to cover any possible hospital-acquired infections and continue gastrointestinal and deep vein thrombosis prophylaxis. The patient has SCDs, and we will continue IV Protonix. Continue current treatment. Surendra Ratliff MD
[2017-03-26 05:31] LABS: ARTERIAL BLOOD GAS HCO3 28.1 mmol/L (21-28); ARTERIAL BLOOD GAS O2 CAPACITY 20.3 mL/dl (16-24); ARTERIAL BLOOD GAS O2 CONTENT 20.1 ML/dl (15-23); CARBOXYHEMOGLOBIN 2.1 % (0.5-1.5); HHB 0.8 % (0-5); METHEMOGLOBIN 1.1 % (0.0-3.0)
[2017-03-26] MEDS: Cefepime 1gm in NS 100ml 1 GM/100 ML BAG IVPB SCH ×3 (05:34→21:41)
[2017-03-26] MEDS ORDERED: Acetaminophen 650mg/20.3ml solution UD PO STA (05:38)
[2017-03-26 06:01] LABS: BASO # 0.01 K/mm3 (0.0-2.0); BASO % 0.1 % (0.0-3.0); EOS % 0.1 % (1.5-5.0); GRAN # 5.51 (1.4-6.5); GRAN % 75.8 % (50.0-68.0); LYMPH % 14.2 % (22.0-35.0); MEAN CELL VOLUME 83.7 fl (80.0-105.0); MEAN CORPUSCULAR HEMOGLOBIN 28.9 pg (25.0-35.0); MEAN CORPUSCULAR HGB CONC 34.5 g/dl (31.0-37.0); MEAN PLATELET VOLUME 9.9 fl (7.0-11.0); MONO # 0.7 (0.1-0.6); MONO % 9.8 % (1.0-6.0); RED CELL DISTRIBUTION WIDTH 12.1 % (11.5-14.5); WHITE BLOOD COUNT 7.3 10^3/ul (4.5-11.0)
--- NOTE | 2017-03-26 06:04 | HP ---
REASON FOR ADMISSION: The patient has syncope, came in unresponsive and intubated. HISTORY OF PRESENT ILLNESS: This is an 82-year-old male with history of hypertension, history of syncope in the past, COPD, hip replacement, prostate enlargement, brought in as per the family, was in a bathroom, found him in the bathtub with his head against the wall and his foot out of the bathtub. The patient came to the ER for evaluation. Initial CT shows extensive intraventricular bleed possible with internal capsular bleed. The patient has also moderate hydrocephalus. The patient was intubated and admitted to ICU for new surgical evaluation and ICU admission. PAST MEDICAL HISTORY: As I mentioned before hypertension, COPD, prostate enlargement, history of paroxysmal atrial fibrillation, he was maintained on Coumadin and Eliquis and finally was stopped and given baby aspirin, the patient has been on it and has been on blood pressure medicines for management of his hypertension, questions or compliance and whether his memory and dementia could be affected if not getting his meds. FAMILY HISTORY: Noncontributory. SOCIAL HISTORY: Lives with his daughter. REVIEW OF SYSTEMS: He does have frequent urination. Chronic cough. Chronic dyspnea. Patient has chronic arthritis. Review of system from the history, could not get it from the patient, he is unconscious. PHYSICAL EXAMINATION: GENERAL: The patient is unconscious and intubated. Ventriculostomy tube has been placed in. The patient on a vent. Comfortable and sedated on Diprivan. The patient is unresponsive. No distress. He seems to be moving his legs spontaneously. VITAL SIGNS: Temperature 99.7, heart rate 58, blood pressure 148/88, respirations 18, saturation 99%. The patient currently on the ventilator. CARDIAC: First sound and second sound normal. LUNGS: Clear. ABDOMEN: Soft and nontender. EXTREMITIES: No edema. NEUROLOGIC: Cannot evaluate. The patient is sedated and seems moving lower extremities spontaneously. LABORATORY DATA: CT scan of the head on that date, 03/23/2017. CAT scan initially done shows extensive intraventricular bleed, left internal capsular bleed, also EKGs; sinus rhythm with frequent premature ventricular contractions. Chest x-ray shows endotracheal tube and no active lung disease. IMPRESSION: Acute intracerebral bleed probably hypertensive due to possibly uncontrolled hypertension, possible noncompliance with medications. The patient was kept in ICU under Neurosurgical and Neurology evaluation, Dr. Steen actually is seeing the patient. Dr. Mcintyre, Neurosurgeon seeing the patient. We will continue current treatment Diprivan, vent support, gastrointestinal and deep venous thrombosis prophylaxis. We will follow up with the oral surgeon on the case. We will continue to follow up. Case has been discussed with the family, daughter. Surendra Ratliff MD
[2017-03-26 06:12] LABS: INR 1.11 (0.93-1.08); PARTIAL THROMBOPLASTIN TIME 30.7 Seconds (23.7-30.8)
[2017-03-26 06:42] LABS: ALB/GLOB RATIO 1.1 (1.1-1.8); ALKALINE PHOSPHATASE 67 U/L (38-126); ALT/SGPT 122 U/L (7-56); AST/SGOT 136 U/L (17-59); BILIRUBIN,TOTAL 1.7 mg/dL (0.2-1.3); BLOOD UREA NITROGEN 9 mg/dL (7-21); CALCIUM 8.5 mg/dL (8.4-10.5); CARBON DIOXIDE 29 mmol/L (21-33); CHLORIDE 100 mmol/L (98-107); GFR AFRICAN-AMERICAN > 60; GLUCOSE,RANDOM 141 mg/dL (70-110); MAGNESIUM 1.8 mg/dL (1.7-2.2); POTASSIUM 3.1 mmol/L (3.6-5.0); SODIUM 137 mmol/L (132-148); TOTAL PROTEIN 6.4 g/dL (5.8-8.3)
[2017-03-26] MEDS: Levalbuterol 1.25 MG/3 ML Inhal Soln UD IH PRN ×3 (07:52→19:42)
[2017-03-26] MEDS ORDERED: Potassium Chloride 40 mEq/30 ml LIQ UD PO ONE ×2 (08:03→11:45)
[2017-03-26] MEDS: Nicardipine 20 MG/200 ML 20 MG/200 ML BAG IV PRN ×3 (09:36→23:38)
[2017-03-26] MEDS: Vancomycin 1gm in NS 250ml 1 GM/250 ML BAG IVPB SCH ×2 (09:41→22:16)
--- NOTE | 2017-03-26 09:59 | CP.PCM.PN ---
Subjective - Date & Time of Evaluation Date of Evaluation: 03/26/17 Time of Evaluation: 09:40 - Subjective Subjective: Continues to be on the ventilator, still not responsive, still with vetriculostomy tube in place, still having fevers. Objective - Vital Signs/Intake and Output Vital Signs (last 24 hours): Temp Pulse Resp BP Pulse Ox 101.8 F H 64 22 131/63 97 03/26/17 06:51 03/26/17 06:00 03/26/17 06:00 03/26/17 06:00 03/26/17 06:00 Intake and Output: 03/26/17 03/26/17 06:59 18:59 Intake Total 2415 Output Total 2210 Balance 205 - Medications Medications: Current Medications Chlorhexidine Gluconate (Peridex) 15 ml PO BID SRINATH Last Admin: 03/25/17 17:56 Dose: 15 ml Propofol (Diprivan) 1,000 mg in 100 mls @ 0 mls/hr IV .Q0M PRN; Protocol; 5 MCG /KG/MIN PRN Reason: TITRATE PER MD ORDER Last Admin: 03/25/17 17:50 Dose: 14.22 mcg/kg/min, 6 mls/hr Nicardipine HCl (Cardene Iv Premix) 20 mg in 200 mls @ 50 mls/hr IV .Q4H PRN; Protocol; 5 MG/HR PRN Reason: TITRATE PER MD ORDER Last Titration: 03/25/17 18:30 Dose: 3 mg/hr, 30 mls/hr Dextrose/Sodium Chloride (Dextrose 5%/0.9% Ns 1000 Ml) 1,000 mls @ 100 mls/hr IV .Q10H SRINATH Last Admin: 03/25/17 22:30 Dose: 100 mls/hr Cefepime HCl (Maxipime 1gm) 1 gm in 100 mls @ 100 mls/hr IVPB Q8 SRINATH PRN Reason: Protocol Last Admin: 03/26/17 05:34 Dose: 100 mls/hr Vancomycin HCl (Vancomycin 1gm) 1 gm in 250 mls @ 167 mls/hr IVPB Q12H SRINATH PRN Reason: Protocol Last Admin: 03/25/17 22:01 Dose: 167 mls/hr Potassium Chloride (Potassium Chloride 10 Meq/100 Ml) 10 meq in 100 mls @ 100 mls/hr IVPB Q2H SRINATH Stop: 03/26/17 11:14 Last Admin: 03/26/17 08:20 Dose: 100 mls/hr Levalbuterol HCl (Xopenex) 1.25 mg IH [id number] PRN PRN Reason: Shortness of Breath Last Admin: 03/26/17 07:52 Dose: 1.25 mg Pantoprazole Sodium (Protonix Inj) 40 mg IVP DAILY SRINATH - Labs Labs: 03/26/17 05:00 03/26/17 05:00 PT 12.0 Seconds (9.9-11.8) H 03/26/17 05:00 INR 1.11 (0.93-1.08) H 03/26/17 05:00 APTT 30.7 Seconds (23.7-30.8) 03/26/17 05:00 - Constitutional Appears: Other (intubated, not responsive to painful stimuli but spontaneously moves lower extremities but not purposeful) - Head Exam Additional comments: ventriculostomy tube in place - ENT Exam Additional comments: ET tube in place - Respiratory Exam Respiratory Exam: absent: Rales, Rhonchi - Cardiovascular Exam Cardiovascular Exam: +S1, +S2 - GI/Abdominal Exam GI & Abdominal Exam: Soft. absent: Tenderness Assessment and Plan - Assessment and Plan (Free Text) Plan: Assessment New onset fever with systemic inflammatory response syndrome, R/O INS[employer]OR E[employer]AMES associated fever in a patient with left basal ganglia intracerebral bleed S/P ventriculostomy, R/O sepsis but so far no source has been determined HTN DM benign prostatic hyperplasia chronic atrial fibrillation Plan continue Vancomycin and cefepime for now (day 2); blood cx, urine cx are still pending; PCT is only 0.26; CXR does not show infiltrates Overall prognosis is poor will continue to monitor clinically
--- NOTE | 2017-03-26 10:25 | CP.PCM.PN ---
<Ramonita Leach - Last Filed: 03/26/17 10:52> Subjective - Date & Time of Evaluation Date of Evaluation: 03/26/17 Time of Evaluation: 10:22 - Subjective Subjective: Neurology Progress Note for Анна Barber PGY2 Patient seen and examined at bedside. There were no acute overnight events as per nursing. Patient is sedated and intubated at this time. ROS could not be obtained. Objective - Vital Signs/Intake and Output Vital Signs (last 24 hours): Temp Pulse Resp BP Pulse Ox 101.8 F H 57 L 22 131/87 99 03/26/17 06:51 03/26/17 09:36 03/26/17 07:52 03/26/17 09:36 03/26/17 07:52 Intake and Output: 03/26/17 03/26/17 06:59 18:59 Intake Total 2415 180 Output Total 2210 Balance 205 180 - Medications Medications: Current Medications Chlorhexidine Gluconate (Peridex) 15 ml PO BID [facility] Last Admin: 03/25/17 17:56 Dose: 15 ml Propofol (Diprivan) 1,000 mg in 100 mls @ 0 mls/hr IV .Q0M PRN; Protocol; 5 MCG /KG/MIN PRN Reason: TITRATE PER MD ORDER Last Admin: 03/25/17 17:50 Dose: 14.22 mcg/kg/min, 6 mls/hr Nicardipine HCl (Cardene Iv Premix) 20 mg in 200 mls @ 50 mls/hr IV .Q4H PRN; Protocol; 5 MG/HR PRN Reason: TITRATE PER MD ORDER Last Admin: 03/26/17 09:36 Dose: 3 mg/hr, 30 mls/hr Dextrose/Sodium Chloride (Dextrose 5%/0.9% Ns 1000 Ml) 1,000 mls @ 100 mls/hr IV .Q10H [facility]IN[facility] Last Admin: 03/25/17 22:30 Dose: 100 mls/hr Cefepime HCl (Maxipime 1gm) 1 gm in 100 mls @ 100 mls/hr IVPB Q8 SRINATH PRN Reason: Protocol Last Admin: 03/26/17 05:34 Dose: 100 mls/hr Vancomycin HCl (Vancomycin 1gm) 1 gm in 250 mls @ 167 mls/hr IVPB Q12H SRINATH PRN Reason: Protocol Last Admin: 03/26/17 09:41 Dose: 167 mls/hr Potassium Chloride (Potassium Chloride 10 Meq/100 Ml) 10 meq in 100 mls @ 100 mls/hr IVPB Q2H SRINATH Stop: 03/26/17 11:14 Last Admin: 03/26/17 08:20 Dose: 100 mls/hr Levalbuterol HCl (Xopenex) 1.25 mg IH [id number] PRN PRN Reason: Shortness of Breath Last Admin: 03/26/17 07:52 Dose: 1.25 mg Pantoprazole Sodium (Protonix Inj) 40 mg IVP DAILY [facility]IN[facility] Last Admin: 03/26/17 09:40 Dose: 40 mg - Labs Labs: 03/26/17 05:00 03/26/17 05:00 PT 12.0 Seconds (9.9-11.8) H 03/26/17 05:00 INR 1.11 (0.93-1.08) H 03/26/17 05:00 APTT 30.7 Seconds (23.7-30.8) 03/26/17 05:00 - Constitutional Appears: Chronically Ill - Head Exam Additional comments: R side drain with clear yellow fluid - Eye Exam Pupil Exam: Fixed (pinpoint) - ENT Exam ENT Exam: Mucous Membranes Moist - Respiratory Exam Respiratory Exam: Clear to Ausculation Bilateral, NORMAL BREATHING PATTERN. absent: Rales, Rhonchi, Wheezes - Cardiovascular Exam Cardiovascular Exam: Bradycardia, REGULAR RHYTHM, +S1, +S2. absent: Gallop, Rubs, Murmur - GI/Abdominal Exam GI & Abdominal Exam: Soft, Normal Bowel Sounds. absent: Rigid, Tenderness, Mass , Rebound - Neurological Exam Additional comments: Pt intubated and sedated. Pupils pinpoint and non-reactive. No dolls eye reflexes. 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 Patient intubated and sedated. EEG showed bilateral cerebral dysfunction. Plan: - Hold anticoagulation - Maintain SBP 120-130s - Maintain euglycemia (140-180s) - Neurosurgery recs appreciated - Keep HOB elevated 30 degrees Prognosis is guarded. Case seen, discussed and reviewed with Dr. Steen. Анна Leach PGY2 <Rhett Steen - Last Filed: 03/26/17 13:50> Objective - Vital Signs/Intake and Output Vital Signs (last 24 hours): Temp Pulse Resp BP Pulse Ox 100.0 F H 67 22 125/49 L 99 03/26/17 12:40 03/26/17 12:40 03/26/17 07:52 03/26/17 12:30 03/26/17 12:40 Intake and Output: 03/26/17 03/26/17 06:59 18:59 Intake Total 2415 336.2 Output Total 2210 Balance 205 336.2 - Medications Medications: Current Medications Chlorhexidine Gluconate (Peridex) 15 ml PO BID [facility] Last Admin: 03/26/17 11:14 Dose: 15 ml Propofol (Diprivan) 1,000 mg in 100 mls @ 0 mls/hr IV .Q0M PRN; Protocol; 5 MCG /KG/MIN PRN Reason: TITRATE PER MD ORDER Last Titration: 03/26/17 11:48 Dose: 0 mcg/kg/min, 0 mls/hr Nicardipine HCl (Cardene Iv Premix) 20 mg in 200 mls @ 50 mls/hr IV .Q4H PRN; Protocol; 5 MG/HR PRN Reason: TITRATE PER MD ORDER Last Titration: 03/26/17 11:51 Dose: 3 mg/hr, 30 mls/hr Dextrose/Sodium Chloride (Dextrose 5%/0.9% Ns 1000 Ml) 1,000 mls @ 100 mls/hr IV .Q10H SRINATH Last Admin: 03/25/17 22:30 Dose: 100 mls/hr Cefepime HCl (Maxipime 1gm) 1 gm in 100 mls @ 100 mls/hr IVPB Q8 SRINATH PRN Reason: Protocol Last Admin: 03/26/17 13:42 Dose: 100 mls/hr Vancomycin HCl (Vancomycin 1gm) 1 gm in 250 mls @ 167 mls/hr IVPB Q12H SRINATH PRN Reason: Protocol Last Admin: 03/26/17 09:41 Dose: 167 mls/hr Levetiracetam 500 mg/ Sodium (Chloride) 105 mls @ 460 mls/hr IV Q12 SRINATH Levalbuterol HCl (Xopenex) 1.25 mg IH [id number] PRN PRN Reason: Shortness of Breath Last Admin: 03/26/17 07:52 Dose: 1.25 mg Pantoprazole Sodium (Protonix Inj) 40 mg IVP DAILY [facility] Last Admin: 03/26/17 09:40 Dose: 40 mg - Labs Labs: 03/26/17 05:00 03/26/17 11:30 PT 12.0 Seconds (9.9-11.8) H 03/26/17 05:00 INR 1.11 (0.93-1.08) H 03/26/17 05:00 APTT 30.7 Seconds (23.7-30.8) 03/26/17 05:00 Attending/Attestation - Attestation I have personally seen and examined this patient.: Yes I have fully participated in the care of the patient.: Yes I have reviewed all pertinent clinical information, including history, physical exam and plan: Yes
[2017-03-26] MEDS: Chlorhexidine 0.12% Oral Sol 480 ml Bot PO SCH ×2 (11:14→17:15)
[2017-03-26 12:15] LABS: FREE T4 0.92 ng/dL (0.78-2.19); T4 6.1 ug/dL (5.5-11.0)
[2017-03-26 12:28] LABS: T3 0.74 ng/mL (0.97-1.69)
--- NOTE | 2017-03-26 12:40 | CP.PCM.PN ---
Subjective - Date & Time of Evaluation Date of Evaluation: 03/26/17 Time of Evaluation: 08:20 - Subjective Subjective: Patient seen and examined, remains intubated, sedated with EVD in place. Overbreathes the ventilator, +gag reflex. Does not withdraw to painful stimuli. Objective - Vital Signs/Intake and Output Vital Signs (last 24 hours): Temp Pulse Resp BP Pulse Ox 101.8 F H 57 L 22 131/87 99 03/26/17 06:51 03/26/17 09:36 03/26/17 07:52 03/26/17 09:36 03/26/17 07:52 Intake and Output: 03/26/17 03/26/17 06:59 18:59 Intake Total 2415 336.2 Output Total 2210 Balance 205 336.2 - Medications Medications: Current Medications Chlorhexidine Gluconate (Peridex) 15 ml PO BID [facility] Last Admin: 03/26/17 11:14 Dose: 15 ml Propofol (Diprivan) 1,000 mg in 100 mls @ 0 mls/hr IV .Q0M PRN; Protocol; 5 MCG /KG/MIN PRN Reason: TITRATE PER MD ORDER Last Titration: 03/26/17 11:48 Dose: 0 mcg/kg/min, 0 mls/hr Nicardipine HCl (Cardene Iv Premix) 20 mg in 200 mls @ 50 mls/hr IV .Q4H PRN; Protocol; 5 MG/HR PRN Reason: TITRATE PER MD ORDER Last Titration: 03/26/17 11:51 Dose: 3 mg/hr, 30 mls/hr Dextrose/Sodium Chloride (Dextrose 5%/0.9% Ns 1000 Ml) 1,000 mls @ 100 mls/hr IV .Q10H SRINATH Last Admin: 03/25/17 22:30 Dose: 100 mls/hr Cefepime HCl (Maxipime 1gm) 1 gm in 100 mls @ 100 mls/hr IVPB Q8 SRINATH PRN Reason: Protocol Last Admin: 03/26/17 05:34 Dose: 100 mls/hr Vancomycin HCl (Vancomycin 1gm) 1 gm in 250 mls @ 167 mls/hr IVPB Q12H SRINATH PRN Reason: Protocol Last Admin: 03/26/17 09:41 Dose: 167 mls/hr Levalbuterol HCl (Xopenex) 1.25 mg IH [id number] PRN PRN Reason: Shortness of Breath Last Admin: 03/26/17 07:52 Dose: 1.25 mg Pantoprazole Sodium (Protonix Inj) 40 mg IVP DAILY [facility] Last Admin: 03/26/17 09:40 Dose: 40 mg - Labs Labs: 03/26/17 05:00 03/26/17 11:30 PT 12.0 Seconds (9.9-11.8) H 03/26/17 05:00 INR 1.11 (0.93-1.08) H 03/26/17 05:00 APTT 30.7 Seconds (23.7-30.8) 03/26/17 05:00 - Constitutional Appears: Well, Non-toxic - Head Exam Additional comments: +EVD - ENT Exam ENT Exam: Mucous Membranes Moist - Respiratory Exam Respiratory Exam: Clear to Ausculation Bilateral, NORMAL BREATHING PATTERN - Cardiovascular Exam Cardiovascular Exam: REGULAR RHYTHM, RRR, +S1, +S2 - GI/Abdominal Exam GI & Abdominal Exam: Soft, Normal Bowel Sounds - Extremities Exam Extremities Exam: Normal Inspection - Neurological Exam Additional comments: +Gag reflex, overbreathes ventilator, does not withdraw to painful stimuli cannot asses motor strength Assessment and Plan - Assessment and Plan (Free Text) Plan: 82yo male with Afib on Eliquis, COPD, BPH, DM a/w Basal ganglia bleed with ventricular extension, s/p ventriculostomy IVH, s/p EVD Afib on A/C COPD BPH DM - currently afebrile, HD stable, comfortable, off pressorss, BP stable on Nicardapine 2mg/hr - on exam does overbreath the ventilator, has +gag reflex, does not withdraw to painful/noxious stimuli - overall prognosis poor Recommend: - cont with ventilatory support, low TV ventilator - maintain Pplateau<30 - obtain daily ABGs, CXR - cont with broad spectrum abx for now, ID is following, follow up ID - maintain SBP<130, Cardene drip - hold Antiplatelets, HSQ - Keppra seizure ppx - HOB elevation - would likely not benefit from 3% saline at this point as it has been >72 hours since admission/IVH - follow up neurology - follow up NSG - hold A/C - Lopressor - GI ppx - DVT ppx - overall extremely poor prognosis - Critical care time 35 minutes
[2017-03-26 13:03] LABS: URINE BILIRUBIN NEGATIVE (NEGATIVE); URINE BLOOD TRACE-INTACT (NEGATIVE); URINE GLUCOSE (UA) NEGATIVE (NEGATIVE); URINE KETONE NEGATIVE (NEGATIVE); URINE LEUKOCYTE ESTERASE NEGATIVE Leu/uL (NEGATIVE); URINE PROTEIN TRACE mg/dL (<30 mg/dL)
[2017-03-26 13:09] LABS: URINE APPEARANCE SL CLOUDY (CLEAR); URINE COLOR LIGHT YELLOW (YELLOW)
--- NOTE | 2017-03-26 13:22 | CP.PCM.PN ---
Subjective - Date & Time of Evaluation Date of Evaluation: 03/26/17 Time of Evaluation: 13:20 - Subjective Subjective: remains comatose pippoint pupils minimal corneals decrebrate on left alt decorticate and decerebrate on R drain functioning Drainage is not helping clinically raise drip chamber to 15 to see if can be d/stevenson Objective - Vital Signs/Intake and Output Vital Signs (last 24 hours): Temp Pulse Resp BP Pulse Ox 100.0 F H 67 22 125/49 L 99 03/26/17 12:40 03/26/17 12:40 03/26/17 07:52 03/26/17 12:30 03/26/17 12:40 Intake and Output: 03/26/17 03/26/17 06:59 18:59 Intake Total 2415 336.2 Output Total 2210 Balance 205 336.2 - Medications Medications: Current Medications Chlorhexidine Gluconate (Peridex) 15 ml PO BID [facility] Last Admin: 03/26/17 11:14 Dose: 15 ml Propofol (Diprivan) 1,000 mg in 100 mls @ 0 mls/hr IV .Q0M PRN; Protocol; 5 MCG /KG/MIN PRN Reason: TITRATE PER MD ORDER Last Titration: 03/26/17 11:48 Dose: 0 mcg/kg/min, 0 mls/hr Nicardipine HCl (Cardene Iv Premix) 20 mg in 200 mls @ 50 mls/hr IV .Q4H PRN; Protocol; 5 MG/HR PRN Reason: TITRATE PER MD ORDER Last Titration: 03/26/17 11:51 Dose: 3 mg/hr, 30 mls/hr Dextrose/Sodium Chloride (Dextrose 5%/0.9% Ns 1000 Ml) 1,000 mls @ 100 mls/hr IV .Q10H SRINATH Last Admin: 03/25/17 22:30 Dose: 100 mls/hr Cefepime HCl (Maxipime 1gm) 1 gm in 100 mls @ 100 mls/hr IVPB Q8 SRINATH PRN Reason: Protocol Last Admin: 03/26/17 05:34 Dose: 100 mls/hr Vancomycin HCl (Vancomycin 1gm) 1 gm in 250 mls @ 167 mls/hr IVPB Q12H SRINATH PRN Reason: Protocol Last Admin: 03/26/17 09:41 Dose: 167 mls/hr Levalbuterol HCl (Xopenex) 1.25 mg IH [id number] PRN PRN Reason: Shortness of Breath Last Admin: 03/26/17 07:52 Dose: 1.25 mg Pantoprazole Sodium (Protonix Inj) 40 mg IVP DAILY [facility] Last Admin: 03/26/17 09:40 Dose: 40 mg - Labs Labs: 03/26/17 05:00 03/26/17 11:30 PT 12.0 Seconds (9.9-11.8) H 03/26/17 05:00 INR 1.11 (0.93-1.08) H 03/26/17 05:00 APTT 30.7 Seconds (23.7-30.8) 03/26/17 05:00
[2017-03-26 13:24] LABS: URINE WBC 0 - 2 /hpf (0-6)
[2017-03-26 13:25] LABS: URINE BACTERIA MANY (NEG)
--- NOTE | 2017-03-26 14:34 | RAD ---
HISTORY: intubated, f/u COMPARISON: 03/23/2017. FINDINGS: The endotracheal tube terminates 4.2 cm proximal to the raimundo. The nasogastric tube terminates in the stomach. LUNGS: There is mild pulmonary venous congestion. No focal consolidation. PLEURA: No significant pleural effusion identified, no pneumothorax apparent. CARDIOVASCULAR: Normal. OSSEOUS STRUCTURES: No significant abnormalities. VISUALIZED UPPER ABDOMEN: Normal. OTHER FINDINGS: None. IMPRESSION: Mild pulmonary venous congestion. No acute findings
[2017-03-26] MEDS: Propofol 10 mg/ml 1,000 MG/100 ML VIAL IV PRN (14:41)
--- NOTE | 2017-03-26 16:39 | PN ---
DATE: 03/26/2017 REASON FOR CONSULTATION: Followup of acute CVA, intracerebral bleed and comatose, on vent. SUBJECTIVE: The patient is comatose. . Family is at the bedside. PHYSICAL EXAMINATION: VITAL SIGNS: Temperature 100, heart rate 52 and blood pressure 105/49. HEENT: PERRLA, intact. NECK: Supple. No carotid bruit. No thyromegaly. CHEST: Clear to auscultation. HEART: S1 and S2 regular. ABDOMEN: Soft. EXTREMITIES: Clubbing and cyanosis negative. LABORATORY DATA: Blood workup as follows: WBC 7.3, hemoglobin 14.1, hematocrit 42 and platelet count 206. Chemistry shows sodium 135, potassium 3.5, chloride 100, carbon dioxide 29, anion gap of 11, BUN of 9 and creatinine 0.6. IMPRESSION: An 82-year-old [place] male with history of coronary artery disease, chronic obstructive pulmonary disease, chronic atrial fibrillation on Eliquis at home, diabetes, hypertension, hyperlipidemia, status post ventriculostomy secondary to left basal ganglia hemorrhage, history of hip fracture status post open reduction in 2013, admitted with large intraventricular hemorrhage and respiratory failure, being intubated. Currently, the patient is on ventilator, antiseizure medications as well as antibiotic and sedation. The patient is not a candidate for anticoagulation at this time. Echocardiogram to assess left ventricular function. Continue as per neurosurgery. We will follow with you. Thank you Dr. Ratliff for providing me the opportunity in taking care of the patient, Sharla Au. Travis Beltrán MD
[2017-03-26] MEDS: Dextrose 5%/0.9% NS 1,000 ML IV SCH (18:35)
--- NOTE | 2017-03-26 20:52 | CARD ---
APPROVED REPORT EXAM: Two-dimensional and M-mode echocardiogram with Doppler and color Doppler. INDICATION BRADYCARDIA 2D DIMENSIONS Left Atrium (2D)3.8 (1.6-4.0cm)IVSd1.3 (0.7-1.1cm) LVDd3.8 (3.9-5.9cm)LVOT Diameter2.0 (1.8-2.4cm) PWd1.5 (0.7-1.1cm)LVEF (%)55.0 (>50%) M-Mode DIMENSIONS Aortic Root3.20 (2.2-3.7cm)Aortic Cusp Exc.0.80 (1.5-2.0cm) Aortic Valve AoV Peak Wgedqpjn825.0cm/sAoV VTI60.9cmAO Peak GR.39mmHg LVOT Peak Vjhuwffd219.0cm/sLVOT VTI35.70cmAO Mean GR.18mmHg Mitral Valve MV E Lgjacjsk93.6cm/sMV A Ifczarue398.0cm/sE/A ratio0.7 TDI Lateral E' Peak V8.19cm/sMedial E' Peak V4.29cm/sE/Lateral E'8.6 E/Medial E'16.5 Pulmonary Valve PV Peak Rhayqnxx53.0cm/sPV Peak Grad.3mmHg Tricuspid Valve TR Peak Lwyxojzy422hy/sRAP IXPNNJHU94cdNjVQ Peak Gr.32mmHg [id number] LEFT VENTRICLE The left ventricle is normal size. There is mild concentric left ventricular hypertrophy. The left ventricular function is normal. The left ventricular ejection fraction is within the normal range. There is normal LV segmental wall motion. Transmitral Doppler flow pattern is Grade I-abnormal relaxation pattern. RIGHT VENTRICLE The right ventricle is normal size. There is normal right ventricular wall thickness. The right ventricular systolic function is normal. ATRIA The left atrium size is normal. The right atrium size is normal. AORTIC VALVE The aortic valve is moderately sclerotic. There is trace aortic regurgitation. There is mild valvular aortic stenosis. MITRAL VALVE The mitral valve is calcified but opens well. There is no mitral valve regurgitation noted. TRICUSPID VALVE There is mild tricuspid regurgitation. There is mild pulmonary hypertension. GREAT VESSELS The aortic root is normal in size. PERICARDIAL EFFUSION There is no pericardial effusion. <Conclusion> There is mild concentric left ventricular hypertrophy. The left ventricular function is normal. The left ventricular ejection fraction is within the normal range. Transmitral Doppler flow pattern is Grade I-abnormal relaxation pattern. There is mild valvular aortic stenosis. There is mild tricuspid regurgitation. There is mild pulmonary hypertension.
[2017-03-26] MEDS: levETIRAcetam 500 MG in Sodium Chloride 0.9% 100 ML IV SCH (21:37)
[2017-03-26] MEDS: MethylPREDNISolone 40 mg Vial IVP SCH (22:12)
[2017-03-27] MEDS: Albuterol-Ipratrop 3 mg / 0.5 (3 ml) UD IH SCH ×4 (02:47→20:29)
[2017-03-27 05:47] LABS: ARTERIAL BLOOD GAS HCO3 25.5 mmol/L (21-28); ARTERIAL BLOOD GAS PH 7.47 (7.35-7.45)
[2017-03-27 06:16] LABS: GRAN # 6.02 (1.4-6.5); GRAN % 91.7 % (50.0-68.0); HEMATOCRIT 41.1 % (42.0-52.0); LYMPH # 0.5 (1.2-3.4); LYMPH % 6.8 % (22.0-35.0); MEAN CELL VOLUME 82.5 fl (80.0-105.0); MEAN CORPUSCULAR HEMOGLOBIN 28.5 pg (25.0-35.0); MEAN CORPUSCULAR HGB CONC 34.5 g/dl (31.0-37.0); MEAN PLATELET VOLUME 9.8 fl (7.0-11.0); MONO # 0.1 (0.1-0.6); MONO % 1.5 % (1.0-6.0); PLATELET COUNT 225 10^3/uL (120.0-450.0); RED CELL DISTRIBUTION WIDTH 11.9 % (11.5-14.5); WHITE BLOOD COUNT 6.6 10^3/ul (4.5-11.0)
[2017-03-27 06:53] LABS: BAND 1 % (0-2); BASOPHIL 1 % (0.0-1.0); NEUTROPHIL 88 % (50.0-70.0); PLATELET ESTIMATE NORMAL (NORMAL)
[2017-03-27 06:57] LABS: ALKALINE PHOSPHATASE 74 U/L (38-126); ALT/SGPT 132 U/L (7-56); AST/SGOT 97 U/L (17-59); BILIRUBIN,TOTAL 1.2 mg/dL (0.2-1.3); BLOOD UREA NITROGEN 13 mg/dL (7-21); CALCIUM 8.4 mg/dL (8.4-10.5); CARBON DIOXIDE 27 mmol/L (21-33); CHLORIDE 97 mmol/L (95-110); GFR AFRICAN-AMERICAN > 60; GLUCOSE,RANDOM 234 mg/dL (70-110); MAGNESIUM 1.9 mg/dL (1.7-2.2); PHOSPHOROUS 3.6 mg/dL (2.5-4.5); SODIUM 134 mmol/L (132-148); TOTAL PROTEIN 6.2 g/dL (5.8-8.3)
[2017-03-27] MEDS: Propofol 10 mg/ml 1,000 MG/100 ML VIAL IV PRN (07:00)
[2017-03-27] MEDS: Dextrose 5%/0.9% NS 1,000 ML IV SCH ×2 (07:00→21:45)
[2017-03-27] MEDS: Cefepime 1gm in NS 100ml 1 GM/100 ML BAG IVPB SCH ×3 (07:30→21:47)
--- NOTE | 2017-03-27 08:41 | RAD ---
HISTORY: intubated, f/u COMPARISON: 03/26/2017 FINDINGS: LUNGS: No active pulmonary disease. PLEURA: No significant pleural effusion identified, no pneumothorax apparent. CARDIOVASCULAR: Mild cardiomegaly OSSEOUS STRUCTURES: No significant abnormalities. VISUALIZED UPPER ABDOMEN: Normal. OTHER FINDINGS: The endotracheal and nasogastric tube are unchanged in position IMPRESSION: No active disease.
--- NOTE | 2017-03-27 09:37 | CON ---
PULMONARY CONSULTATION DATE: 03/26/2017 REFERRING PHYSICIAN: Surendra Ratliff MD REASON FOR CONSULT: Status post hemorrhagic stroke, respiratory failure, history of asthma, and history of . HISTORY OF PRESENT ILLNESS: This is an 82-year-old gentleman with a past medical history significant for asthma, hypertension, and BPH. He was found unresponsive in the house by the family, brought into emergency room where CT of the head was done shows extensive intraventricular and parenchymal intracapsular bleed with hydrocephalus. He was intubated, sedated, and admitted to Intensive Care Unit. There is no hemoptysis and no hematemesis. He does have some sputum. No hematuria or diarrhea. PAST MEDICAL HISTORY: Chronic obstructive lung disease, hypertension, and history of paroxysmal atrial fibrillation. SOCIAL HISTORY: No history of smoking or alcohol use. FAMILY HISTORY: No significant cardiopulmonary disease reported. ALLERGIES: NONE KNOWN. MEDICATIONS: He is on nicardipine IV drip, also on IV fluid D5 normal saline 100 mL/hour, IV Diprivan, levetiracetam 500 mg daily q. 12 hours, cefepime 1 g IV q. 8 hours, Peridex 15 mL twice a day, Protonix 40 mg daily, vancomycin 1 g IV q. 12 hours. and Xopenex 1.25 q. 6 hours. p.r.n. REVIEW OF SYSTEMS: Presently intubated, unresponsive. No ET tube secretion. No hemoptysis. No hematuria. No diarrhea. No leg swelling reported. He is unresponsive. PHYSICAL EXAMINATION: GENERAL: Intubated and sedated. VITAL SIGNS: Afebrile, heart rate is 70, respiratory rate is 20, blood pressure is 141/67, and pulse oximetry is 99% on ventilator. HEENT: Moist mucous membrane. Crowded airway. ET tube with no secretion. NECK: Supple. No JVD. LUNGS: Has a prolonged expiratory phase with wheezing. HEART: S1 and S2. ABDOMEN: Soft and nontender. No organomegaly. EXTREMITIES: There is no edema. NEUROLOGIC: Unresponsive. LABORATORY DATA: Shows hemoglobin of 14.5, hematocrit of 42.0, WBC of 7.3, and platelet count is 206. INR is 1.1 and PTT is 31. Blood gases show pH of 7.50, pCO2 of 36, pO2 of 107, this is on 40% oxygen on ventilator. Sodium of 137, potassium of 3.7, chloride of 100, bicarbonate of 29, BUN of 9 and creatinine of 0.9. Glucose is 141, calcium is 8.5 and phosphorous is 3.0. AST is 136, ALT is 122, alkaline phosphatase is 67, and albumin is 3.3. Free T4 is 0.92. Urinalysis shows WBC 0-2 and RBC 1-3. DATABASE: Microbiology, blood culture and urine culture; there is no growth. DIAGNOSTIC DATA: Chest x-ray done today shows mild pulmonary venous congestion, otherwise unremarkable. He had an echocardiogram done, report is pending. CAT scan of the head was done on admission, which was on 03/22/2017 and shows extensive intraventricular hemorrhage with moderate hydrocephalus, periventricular edema. IMPRESSION AND PLAN: Intraventricular bleed, intracerebral bleed, hydrocephalus, asthma, history of hypertension,and paroxysmal atrial fibrillation. I spoke to the patient's family at the bedside. We will place the patient on Solu-Medrol 20 mg IV q. 8 hours. and add inhaled bronchodilator. Followup arterial blood gasses in the morning. Chest x-ray in the morning. Stroke, neurology followup. Continue to follow serial CT of the head, sequential compression devices to lower extremity and gastric prophylaxis. Thank you and we will follow with you. Travis Wilcox MD
[2017-03-27] MEDS: MethylPREDNISolone 40 mg Vial IVP SCH ×2 (09:54→21:47)
[2017-03-27] MEDS: levETIRAcetam 500 MG in Sodium Chloride 0.9% 100 ML IV SCH ×2 (09:55→21:46)
[2017-03-27] MEDS: Vancomycin 1gm in NS 250ml 1 GM/250 ML BAG IVPB SCH ×2 (09:56→21:48)
[2017-03-27] MEDS: Chlorhexidine 0.12% Oral Sol 480 ml Bot PO SCH ×2 (10:50→17:41)
[2017-03-27] MEDS: Insulin Reg-LOW-Coverage SC SCH ×3 (12:42→21:46)
--- NOTE | 2017-03-27 12:44 | PN ---
SUBJECTIVE: The patient is still in ICU, still intubated prior to a trial in the morning to test his mental status. We used Diprivan and tried to see the patient how he does. He did respond to painful stimuli, to IV site insertions to move his legs with mild arousal. The patient was put back on the Diprivan and was stable hemodynamically. The patient also noted a fever, however, later on temperature was 99.7 and seemed stable on IV antibiotics. The patient currently on meropenem and vancomycin. The patient's family discussed these in detail. PHYSICAL EXAMINATION: VITAL SIGNS: Temperature was earlier high, but now 99.7; heart rate 50, blood pressure 165/71, saturating 100% on 40% FiO2 AC control. The patient is breathing on his own. HEENT: Head and neck normal. NECK: No JVD, no thyromegaly. CHEST: Clear. Good air entry. CARDIAC: First sound and second sound normal. ABDOMEN: Soft, nontender. EXTREMITIES: No edema. NEUROLOGIC: Arousable when he is off Diprivan. The patient also noted to have NG tube inserted and potassium was given. LABORATORY DATA: On 03/26/2017, white count 7.3, hemoglobin 14.5, hematocrit 42, and platelets 206. Chemistry noted for sodium 137, potassium 3.1, chloride 100, bicarb 29, BUN 9, creatinine 0.6. The patient also noted bilirubin 1.7, AST 136, ALT 122 and his TSH is 0.74 and free T3 is 2.30. IMPRESSION AND PLAN: 1. Acute intracerebral bleed with intraventricular hematoma with moderate hydronephrosis, status post ventriculostomy, clinically stable. Also, still needs vent support because of his mental status, not fully awake. 2. Hypertension. Continue current IV blood pressure medications. The patient getting nicardipine or Cardene IV. Continue current treatment. 3. Electrolyte abnormality, hypokalemia. NG tube is in. We will replace potassium. Discussed with the nurse and the resident. 4. Chronic obstructive pulmonary disease. Continue inhaled bronchodilators. Continue current medications. Seems stable. 5. Fever. Blood cultures negative, however, with the neurosurgical procedure ventriculostomy, we will cover for any hospital associated infections including cefepime and vancomycin. Dr. Sommers seeing the patient. Continue current therapy. Discussed with the family the options. We will wait till the patient's mental status evaluated and that will determine him to get off the vent or not. Still prognosis is guarded. We will continue current supportive treatment. Continue current management and continue gastrointestinal and deep venous thrombosis prophylaxis. We shall have SCDs on and Protonix IV. Seen by community marketing coordinator, Dr. Wilcox. Surendra Ratliff MD
--- NOTE | 2017-03-27 14:40 | PN ---
DATE: 03/27/2017 SUBJECTIVE: The patient is in bed, in no acute distress, nontoxic. No fevers. PHYSICAL EXAMINATION: VITAL SIGNS: On exam, temperature is 100.8; the patient's blood pressure is 176/82; respiratory rate, the patient is on vent; the heart rate is 72. HEENT: Reveals ET to be in place. NECK: Supple. LUNGS: Have decreased breath sounds. HEART: Normal S1 and S2. ABDOMEN: Soft, nontender. LABORATORY EXAMINATION: Reveals a white count of 6.6, hemoglobin of 14, platelets of 225. Chemistry reveals a BUN of 13, creatinine of 0.6. Urinalysis is noted. Cultures reveal blood cultures no growth, urine cultures no growth. Chest x-ray is reviewed. No active disease. MEDICATIONS: Review of orders reveals the patient to be on cefepime, vancomycin, and Solu-Medrol. ASSESSMENT AND PLAN: This is an 82-year-old with hypertension and diabetes and benign prostatic hypertrophy and chronic atrial fibrillation with systemic inflammatory response syndrome. The patient with a left basal intracellular bleed , status post ventriculostomy; diabetes; hypertension; atrial fibrillation; asthma; benign prostatic hypertrophy and with respiratory failure, intubated on the ventilator. Day #3 of vancomycin and cefepime. Cultures all negative thus far. Overall, prognosis is poor. Sergio Sommers MD
[2017-03-27] MEDS: Nicardipine 20 MG/200 ML 20 MG/200 ML BAG IV PRN ×2 (14:46→18:52)
--- NOTE | 2017-03-27 15:08 | PN ---
DATE: REASON FOR CONSULTATION: Acute CVA, intracerebral bleed, respiratory failure. SUBJECTIVE: The patient is on vent, sedated. OBJECTIVE: GENERAL: Remains on vent. VITAL SIGNS: Temperature is afebrile, heart rate 68, blood pressure 178/71. HEENT: PERRLA. Extraocular muscles are intact. NECK: Supple. No carotid bruit. No thyromegaly. CHEST: Clear to auscultation. HEART: S1 and S2 regular. ABDOMEN: Soft. EXTREMITIES: Clubbing and cyanosis negative. IMPRESSION: An 82-year-old male with a history of coronary artery disease, history of chronic obstructive pulmonary disease, admitted with intracerebral bleed, hydrocephalus, status post respiratory failure, status post intubated, hypertension, hyperlipidemia, history of chronic atrial fibrillation, was on Eliquis at times, history of fracture, history of open reduction, status post ventriculostomy, secondary to left basal ganglia hemorrhages. The patient had echocardiography done yesterday that revealed normal left ventricular function, mild aortic stenosis, mild tricuspid regurgitation, no mitral regurgitation reported, right ventricular systolic pressure is 42, calculated ejection fraction 55%. RECOMMENDATIONS: Continue anti-seizure medications. History of paroxysmal atrial fibrillation, the patient is in normal sinus. Continue vent management. Continue further management as per neurosurgery. Continue antibiotic, sedation as per neurosurgery. We will put Catapres patch and discontinue p.o. medications for better control of blood pressure. We will follow up. We will put p.r.n. hydralazine p.r.n. if systolic more than 140. Thank you Dr. Ratliff for providing me the opportunity in taking care of patient, Sharla Au. Travis Beltrán MD
--- NOTE | 2017-03-27 15:59 | CP.PCM.CON ---
History of Present Illness - History of Present Illness History of Present Illness: SURGERY CONSULT NOTE FOR DR. BRODY Consult: Tracheostomy & Gastrostomy 82M presents to [facility] [place] after being found at home unconscious in the bath tube with his head against the wall. Patient was found to have an hemorrhagic bleed on CT scan. Patient was taken to the OR by neurosurgeon for Right ventriculostomy. Patient has been intubated since and receiving feedings through [facility]. Surgery consulted for tracheostomy and gastrostomy. PMH: HTN, COPD, BPH, Hx A-fib, Dementia PSH: Perla fannie incision- possible appendectomy, Hip replacement Allergies: NKDA Past Patient History - Infectious Disease Hx of Infectious Diseases: None - Tetanus Immunizations Tetanus Immunization: Unknown - Past Social History Smoking Status: Never Smoked Alcohol: None Drugs: Denies - CARDIAC Hx Cardiac Disorders: Yes (CAD) Hx Hypertension: Yes - PULMONARY Hx Respiratory Disorders: Yes Hx Chronic Obstructive Pulmonary Disease (COPD): Yes - NEUROLOGICAL Hx Neurological Disorder: Yes (NEUROPATHY) Hx Dizziness: Yes (Syncope) - HEENT Hx HEENT Problems: Yes Hx Cataracts: Yes (BILATERAL SX) Hx Deafness: Yes (Difficulty hearing) Other/Comment: Eye surgery - RENAL Hx Chronic Kidney Disease: No - ENDOCRINE/METABOLIC Hx Endocrine Disorders: No - HEMATOLOGICAL/ONCOLOGICAL Hx Blood Disorders: Yes Hx Anemia: Yes (BLOOD TRANSFUSION) - INTEGUMENTARY Hx Dermatological Problems: Yes Hx Psoriasis: Yes - MUSCULOSKELETAL/RHEUMATOLOGICAL Hx Musculoskeletal Disorders: Yes Hx Falls: Yes (LAST FALL -03-22-17) Hx Fractures: Yes (left hip) - GASTROINTESTINAL Hx Gastrointestinal Disorders: No - GENITOURINARY/GYNECOLOGICAL Hx Genitourinary Disorders: Yes Hx Prostate Problems: Yes (Enlarged prostate) - PSYCHIATRIC Hx Psychophysiologic Disorder: Yes Hx Anxiety: Yes Hx Substance Use: No - SURGICAL HISTORY Hx Surgeries: Yes (L HIP FX,BILATERAL CATARACT SURGERY) - ANESTHESIA Hx Anesthesia Reactions: No Hx Malignant Hyperthermia: No Meds Allergies/Adverse Reactions: Allergies Allergy/AdvReac Type Severity Reaction Status Date / Time No Known Allergies Allergy Verified 03/22/17 12:03 - Medications Medications: Current Medications Acetaminophen (Tylenol 325mg Tab) 650 mg PO Q6H PRN PRN Reason: Fever >100.4 F Last Admin: 03/27/17 12:27 Dose: 650 mg Albuterol/Ipratropium (Duoneb 3 Mg/0.5 Mg (3 Ml) Ud) 3 ml IH [id number] [facility] Last Admin: 03/27/17 13:29 Dose: 3 ml Amlodipine Besylate (Norvasc) 2.5 mg PO DAILY [facility] Last Admin: 03/27/17 12:03 Dose: Not Given Chlorhexidine Gluconate (Peridex) 15 ml PO BID [facility] Last Admin: 03/27/17 10:50 Dose: 15 ml Clonidine HCl (Catapres-Tts2 0.2 Mg/24 Hr) 1 patch TD Q7D@1000 [facility] Last Admin: 03/27/17 12:27 Dose: 1 patch Hydralazine HCl (Apresoline) 10 mg IVP Q6 PRN PRN Reason: for SBP>140 Last Admin: 03/27/17 12:26 Dose: 10 mg Propofol (Diprivan) 1,000 mg in 100 mls @ 0 mls/hr IV .Q0M PRN; Protocol; 5 MCG /KG/MIN PRN Reason: TITRATE PER MD ORDER Last Titration: 03/27/17 11:56 Dose: 0 mcg/kg/min, 0 mls/hr Nicardipine HCl (Cardene Iv Premix) 20 mg in 200 mls @ 50 mls/hr IV .Q4H PRN; Protocol; 5 MG/HR PRN Reason: TITRATE PER MD ORDER Last Titration: 03/27/17 14:48 Dose: 4 mg/hr, 40 mls/hr Dextrose/Sodium Chloride (Dextrose 5%/0.9% Ns 1000 Ml) 1,000 mls @ 100 mls/hr IV .Q10H [facility] Last Admin: 03/27/17 07:00 Dose: 100 mls/hr Cefepime HCl (Maxipime 1gm) 1 gm in 100 mls @ 100 mls/hr IVPB Q8 SRINATH PRN Reason: Protocol Last Admin: 03/27/17 13:46 Dose: 100 mls/hr Vancomycin HCl (Vancomycin 1gm) 1 gm in 250 mls @ 167 mls/hr IVPB Q12H SRINATH PRN Reason: Protocol Last Admin: 03/27/17 09:56 Dose: 167 mls/hr Levetiracetam 500 mg/ Sodium (Chloride) 105 mls @ 460 mls/hr IV Q12 [facility] Last Admin: 03/27/17 09:55 Dose: 460 mls/hr Insulin Human Regular (Humulin R Low) 0 units SC ACHS SRINATH PRN Reason: Protocol Last Admin: 03/27/17 12:42 Dose: 1 units Levalbuterol HCl (Xopenex) 1.25 mg IH [id number] PRN PRN Reason: Shortness of Breath Last Admin: 03/26/17 19:42 Dose: 1.25 mg Methylprednisolone (Solu-Medrol) 40 mg IVP Q12 [facility] Last Admin: 03/27/17 09:54 Dose: 40 mg Pantoprazole Sodium (Protonix Inj) 40 mg IVP DAILY [facility] Last Admin: 03/27/17 09:54 Dose: 40 mg Physical Exam - Constitutional Additional comments: intubated in the ICU - Head Exam Additional comments: post craniotomy, ventriculostomy - ENT Exam ENT Exam: Mucous Membranes Moist - Respiratory Exam Respiratory Exam: Clear to Auscultation Bilateral, NORMAL BREATHING PATTERN Additional comments: intubated, 35%, PEEP5 - Cardiovascular Exam Cardiovascular Exam: REGULAR RHYTHM, +S1, +S2 - GI/Abdominal Exam GI & Abdominal Exam: Soft. absent: Distended, Firm, Guarding, Rebound, Rigid, Tenderness Additional comments: perla fannie incision - Extremities Exam Extremities exam: Negative for: pedal edema - Skin Skin Exam: Dry, Intact, Normal Color, Warm Additional comments: diaphoretic Results - Vital Signs Recent Vital Signs: Last Vital Signs Temp 101.1 F H 03/27/17 12:54 Pulse 71 03/27/17 14:46 Resp 23 03/26/17 22:00 BP 128/66 03/27/17 14:46 Pulse Ox 98 03/27/17 12:54 - Labs Result Diagrams: 03/27/17 06:00 03/27/17 06:00 Labs: Laboratory Results - last 24 hr 03/26/17 03/26/17 03/27/17 11:30 16:49 05:18 WBC RBC Hgb Hct MCV MCH MCHC RDW Plt Count MPV Gran % Lymph % (Auto) [place] % (Auto) Eos % (Auto) Baso % (Auto) Gran # Lymph # [place] # Eos # Baso # Neutrophils % (Manual) Band Neutrophils % Lymphocytes % (Manual) Monocytes % (Manual) Basophils % (Manual) Platelet Evaluation pCO2 35 pO2 157.0 H HCO3 25.5 ABG pH 7.47 H ABG Total CO2 26.6 ABG O2 Saturation 99.6 H ABG Base Excess 2.1 ABG Potassium 3.7 Sodium 132.0 Chloride 100.0 Glucose 237 H Lactate 1.5 FiO2 40.0 Potassium 3.7 Carbon Dioxide Anion Gap BUN Creatinine Est GFR ( Amer) Est GFR (Non-Af Amer) Random Glucose Calcium Phosphorus Magnesium Total Bilirubin AST ALT Alkaline Phosphatase Total Protein Albumin Globulin Albumin/Globulin Ratio Free T3 pg/mL 2.30 L Arterial Blood Potassium 3.7 03/27/17 03/27/17 06:00 06:00 WBC 6.6 RBC 4.98 Hgb 14.2 Hct 41.1 L MCV 82.5 MCH 28.5 MCHC 34.5 RDW 11.9 Plt Count 225 MPV 9.8 Gran % 91.7 H Lymph % (Auto) 6.8 L [place] % (Auto) 1.5 Eos % (Auto) 0.0 L Baso % (Auto) 0.0 Gran # 6.02 Lymph # 0.5 L [place] # 0.1 Eos # 0.0 Baso # 0.00 Neutrophils % (Manual) 88 H Band Neutrophils % 1 Lymphocytes % (Manual) 9 L Monocytes % (Manual) 1 Basophils % (Manual) 1 Platelet Evaluation Normal pCO2 pO2 HCO3 ABG pH ABG Total CO2 ABG O2 Saturation ABG Base Excess ABG Potassium Sodium 134 Chloride 97 Glucose Lactate FiO2 Potassium 4.0 Carbon Dioxide 27 Anion Gap 14 BUN 13 Creatinine 0.6 L Est GFR ( Amer) > 60 Est GFR (Non-Af Amer) > 60 Random Glucose 234 H Calcium 8.4 Phosphorus 3.6 Magnesium 1.9 Total Bilirubin 1.2 AST 97 H D ALT 132 H Alkaline Phosphatase 74 Total Protein 6.2 Albumin 3.1 Globulin 3.1 Albumin/Globulin Ratio 1.0 L Free T3 pg/mL Arterial Blood Potassium Assessment & Plan - Assessment and Plan (Free Text) Assessment: 82M with Intra-cranial hemorrhage, respiratory failure, failure to thrive. Surgery consult for Tracheostomy and Gastrostomy Plan: - Discuss procedure with Family - PreOp patient - Consent/Schedule when family agrees Further recs discuss with Dr. Joshua Keita, PGY2
--- NOTE | 2017-03-27 16:58 | CP.CCUPN ---
CCU Subjective - Physician Review Events Since Last Encounter (Free Text): 03/27/17 16:54 No acute events overnight Pt this morning was taken off propofol and placed on SBT. CCU Objective - Vital Signs / Intake & Output Vital Signs (Last 4 hours): Vital Signs Temp Pulse BP 03/27/17 15:27 99.1 F 03/27/17 14:46 71 128/66 03/27/17 14:30 70 Intake and Output (Last 8hrs): Intake & Output 03/27/17 03/27/17 03/27/17 06:59 14:59 22:59 Intake Total 2197 228.4 Output Total 1305 Balance 892 228.4 Weight 168 lb 3.2 oz Intake: IV 1737 228.4 Left External Jugular 200 Left Forearm 1225 Right Hand 6 Tube Feeding 360 Other 100 Output: Drainage 105 Head 105 Urine 1200 Urethral (Wells) 1200 Other: # Bowel Movements 0 - Physical Exam Physical Exam Limitations: Positive for: Altered Mental Status Head: Positive for: Atraumatic. Negative for: Normocephalic (drain exiting from R skull, serosanguinous drainage in tubing and drain), Ecchymosis, Abrasion Pupils: Positive for: Other (not much eye movement to tactile or light). Negative for: PERRL Extroacular Muscles: Negative for: EOMI (unable to assess, no random movement, not following commands) Conjunctiva: Positive for: Normal. Negative for: Injected, Icteric Mouth: Positive for: Moist Mucous Membranes, Other (ETT 22 cm at lip) Pharnyx: Positive for: Normal Nose (Internal): Positive for: Normal Inspection Neck: Positive for: Normal Range of Motion. Negative for: MIDLINE TENDERNESS, Paraspinal Tenderness Respiratory/Chest: Positive for: Clear to Auscultation, Good Air Exchange, Other (intubated and on mechanical ventilation, no spontaneous or self- initiated breaths on pressure support trial). Negative for: Respiratory Distress, Accessory Muscle Use Cardiovascular: Positive for: Regular Rate and Rhythm, Normal S1, S2. Negative for: Murmurs, Irregular Rhythm Abdomen: Positive for: Normal Bowel Sounds, Other (no palpable pulsatile mass). Negative for: Tenderness, Distention Back: Negative for: Midline Tenderness, Paraspinal Tenderness Upper Extremity: Positive for: Normal Inspection, NORMAL PULSES. Negative for: Cyanosis, Edema, Swelling, Erythema, Temperature Abnormalties, Deformity Lower Extremity: Positive for: Normal Inspection, NORMAL PULSES. Negative for: Edema, CALF TENDERNESS, Cyanosis, Swelling, Erythema, Deformity, Temperature Abnormalties Neurological: Positive for: Other (intubated, not sedated but unresponsive, intermittent twiches of arms or chewing motion of jaw, no purposeful movements) . Negative for: GCS=15 (Score of 3 (E1 V1t M1)), CN II-XII Intact, Speech Normal, Motor Func Grossly Intact Skin: Positive for: Warm, Dry, Normal Color. Negative for: Rashes, Diaphoretic Psychiatric: Positive for: Other (Intubated, not sedated but unresponsive). Negative for: Alert, Oriented x 3, Normal Insight, Normal Concentration, Normal Affect - Medications Active Medications: Active Medications Generic Name Dose Route Start Last Admin Trade Name Freq PRN Reason Stop Dose Admin Acetaminophen 650 mg 03/26/17 23:43 03/27/17 12:27 Tylenol 325mg Tab PO 650 mg Q6H PRN Administration Fever >100.4 F Albuterol/Ipratropium 3 ml 03/27/17 02:00 03/27/17 13:29 Duoneb 3 Mg/0.5 Mg (3 Ml) Ud IH 3 ml [id number] SRINATH Administration Amlodipine Besylate 2.5 mg 03/27/17 11:30 03/27/17 12:03 Norvasc PO Not Given DAILY SRINATH Chlorhexidine Gluconate 15 ml 03/25/17 10:00 03/27/17 10:50 Peridex PO 15 ml BID SRINATH Administration Clonidine HCl 1 patch 03/27/17 11:00 03/27/17 12:27 Catapres-Tts2 0.2 Mg/24 Hr TD 1 patch Q7D@1000 SRINATH Administration Hydralazine HCl 10 mg 03/27/17 10:56 03/27/17 12:26 Apresoline IVP 10 mg Q6 PRN Administration for SBP>140 Propofol 1,000 mg in 100 mls @ 0 mls/hr 03/22/17 09:41 03/27/17 11:56 Diprivan IV 0 mcg/kg/min .Q0M PRN 0 mls/hr TITRATE PER MD ORDER Titration Protocol 5 MCG/KG/MIN Nicardipine HCl 20 mg in 200 mls @ 50 mls/hr 03/22/17 11:16 03/27/17 14:48 Cardene Iv Premix IV 4 mg/hr .Q4H PRN 40 mls/hr TITRATE PER MD ORDER Titration Protocol 5 MG/HR Dextrose/Sodium Chloride 1,000 mls @ 100 mls/hr 03/23/17 10:15 03/27/17 07:00 Dextrose 5%/0.9% Ns 1000 Ml IV 100 mls/hr .Q10H SRINATH Administration Cefepime HCl 1 gm in 100 mls @ 100 mls/hr 03/25/17 10:00 03/27/17 13:46 Maxipime 1gm IVPB 100 mls/hr Q8 SRINATH Administration Protocol Vancomycin HCl 1 gm in 250 mls @ 167 mls/hr 03/25/17 10:00 03/27/17 09:56 Vancomycin 1gm IVPB 167 mls/hr Q12H SRINATH Administration Protocol Levetiracetam 500 mg/ Sodium 105 mls @ 460 mls/hr 03/26/17 22:00 03/27/17 09: 55 Chloride IV 460 mls/hr Q12 SRINATH Administration Insulin Human Regular 0 units 03/27/17 11:30 03/27/17 16:38 Humulin R Low SC 2 units ACHS SRINATH Administration Protocol Levalbuterol HCl 1.25 mg 03/25/17 19:40 03/26/17 19:42 Xopenex IH 1.25 mg [id number] PRN Administration Shortness of Breath Methylprednisolone 40 mg 03/26/17 22:00 03/27/17 09:54 Solu-Medrol IVP 40 mg Q12 SRINATH Administration Pantoprazole Sodium 40 mg 03/26/17 10:00 03/27/17 09:54 Protonix Inj IVP 40 mg DAILY SRINATH Administration - Patient Studies Lab Studies: Microbiology Studies 03/25/17 10:15 Blood Culture - Preliminary Blood-Venous NO GROWTH AFTER 48 HOURS 03/25/17 10:00 Blood Culture - Preliminary Blood-Venous NO GROWTH AFTER 48 HOURS 03/26/17 12:30 Urine Culture - Final Urine,Catheterized No Growth (<1,000 CFU/ML) Lab Studies 03/27/17 03/27/17 03/27/17 Range/Units 15:36 06:00 06:00 WBC 6.6 (4.5-11.0) 10^3/ul RBC 4.98 (3.5-6.1) 10^6/uL Hgb 14.2 (14.0-18.0) g/dL Hct 41.1 L (42.0-52.0) % MCV 82.5 (80.0-105.0) fl MCH 28.5 (25.0-35.0) pg MCHC 34.5 (31.0-37.0) g/dl RDW 11.9 (11.5-14.5) % Plt Count 225 (120.0-450.0) 10^3/uL MPV 9.8 (7.0-11.0) fl Gran % 91.7 H (50.0-68.0) % Lymph % (Auto) 6.8 L (22.0-35.0) % [place] % (Auto) 1.5 (1.0-6.0) % Eos % (Auto) 0.0 L (1.5-5.0) % Baso % (Auto) 0.0 (0.0-3.0) % Gran # 6.02 (1.4-6.5) Lymph # 0.5 L (1.2-3.4) [place] # 0.1 (0.1-0.6) Eos # 0.0 (0.0-0.7) Baso # 0.00 (0.0-2.0) K/mm3 Neutrophils % (Manual) 88 H (50.0-70.0) % Band Neutrophils % 1 (0-2) % Lymphocytes % (Manual) 9 L (22.0-35.0) % Monocytes % (Manual) 1 (1.0-6.0) % Basophils % (Manual) 1 (0.0-1.0) % Platelet Evaluation Normal (NORMAL) pCO2 (35-45) mm/Hg pO2 (80-100) mm/Hg HCO3 (21-28) mmol/L ABG pH (7.35-7.45) ABG Total CO2 (22-28) mmol.L ABG O2 Saturation (95-98) % ABG Base Excess (-2.0-3.0) mmol/L ABG Potassium (3.6-5.2) mmol/L Sodium 134 (132-148) mmol/L Chloride 97 (98-107) mmol/L Glucose (75-110) mg/dl Lactate (0.7-2.1) mmol/L FiO2 % Potassium 4.0 (3.6-5.0) mmol/L Carbon Dioxide 27 (21-33) mmol/L Anion Gap 14 (10-20) BUN 13 (7-21) mg/dL Creatinine 0.6 L (0.8-1.5) mg/dL Est GFR ( Amer) > 60 Est GFR (Non-Af Amer) > 60 POC Glucose (mg/dL) 230 H (65-110) mg/dL Random Glucose 234 H (70-110) mg/dL Calcium 8.4 (8.4-10.5) mg/dL Phosphorus 3.6 (2.5-4.5) mg/dL Magnesium 1.9 (1.7-2.2) mg/dL Total Bilirubin 1.2 (0.2-1.3) mg/dL AST 97 H D (17-59) U/L ALT 132 H (7-56) U/L Alkaline Phosphatase 74 (38-126) U/L Total Protein 6.2 (5.8-8.3) g/dL Albumin 3.1 (3.0-4.8) g/dL Globulin 3.1 gm/dL Albumin/Globulin Ratio 1.0 L (1.1-1.8) Free T3 pg/mL (2.77-5.27) pg/mL Arterial Blood Potassium (3.6-5.2) mmol/L 03/27/17 03/26/17 03/26/17 Range/Units 05:18 16:49 11:30 WBC (4.5-11.0) 10^3/ul RBC (3.5-6.1) 10^6/uL Hgb (14.0-18.0) g/dL Hct (42.0-52.0) % MCV (80.0-105.0) fl MCH (25.0-35.0) pg MCHC (31.0-37.0) g/dl RDW (11.5-14.5) % Plt Count (120.0-450.0) 10^3/uL MPV (7.0-11.0) fl Gran % (50.0-68.0) % Lymph % (Auto) (22.0-35.0) % [place] % (Auto) (1.0-6.0) % Eos % (Auto) (1.5-5.0) % Baso % (Auto) (0.0-3.0) % Gran # (1.4-6.5) Lymph # (1.2-3.4) [place] # (0.1-0.6) Eos # (0.0-0.7) Baso # (0.0-2.0) K/mm3 Neutrophils % (Manual) (50.0-70.0) % Band Neutrophils % (0-2) % Lymphocytes % (Manual) (22.0-35.0) % Monocytes % (Manual) (1.0-6.0) % Basophils % (Manual) (0.0-1.0) % Platelet Evaluation (NORMAL) pCO2 35 (35-45) mm/Hg pO2 157.0 H (80-100) mm/Hg HCO3 25.5 (21-28) mmol/L ABG pH 7.47 H (7.35-7.45) ABG Total CO2 26.6 (22-28) mmol.L ABG O2 Saturation 99.6 H (95-98) % ABG Base Excess 2.1 (-2.0-3.0) mmol/L ABG Potassium 3.7 (3.6-5.2) mmol/L Sodium 132.0 (132-148) mmol/L Chloride 100.0 (98-107) mmol/L Glucose 237 H (75-110) mg/dl Lactate 1.5 (0.7-2.1) mmol/L FiO2 40.0 % Potassium 3.7 (3.6-5.0) mmol/L Carbon Dioxide (21-33) mmol/L Anion Gap (10-20) BUN (7-21) mg/dL Creatinine (0.8-1.5) mg/dL Est GFR ( Amer) Est GFR (Non-Af Amer) POC Glucose (mg/dL) (65-110) mg/dL Random Glucose (70-110) mg/dL Calcium (8.4-10.5) mg/dL Phosphorus (2.5-4.5) mg/dL Magnesium (1.7-2.2) mg/dL Total Bilirubin (0.2-1.3) mg/dL AST (17-59) U/L ALT (7-56) U/L Alkaline Phosphatase (38-126) U/L Total Protein (5.8-8.3) g/dL Albumin (3.0-4.8) g/dL Globulin gm/dL Albumin/Globulin Ratio (1.1-1.8) Free T3 pg/mL 2.30 L (2.77-5.27) pg/mL Arterial Blood Potassium 3.7 (3.6-5.2) mmol/L Laboratory Results - last 24 hr 03/26/17 03/26/17 03/27/17 11:30 16:49 05:18 WBC RBC Hgb Hct MCV MCH MCHC RDW Plt Count MPV Gran % Lymph % (Auto) [place] % (Auto) Eos % (Auto) Baso % (Auto) Gran # Lymph # [place] # Eos # Baso # Neutrophils % (Manual) Band Neutrophils % Lymphocytes % (Manual) Monocytes % (Manual) Basophils % (Manual) Platelet Evaluation pCO2 35 pO2 157.0 H HCO3 25.5 ABG pH 7.47 H ABG Total CO2 26.6 ABG O2 Saturation 99.6 H ABG Base Excess 2.1 ABG Potassium 3.7 Sodium 132.0 Chloride 100.0 Glucose 237 H Lactate 1.5 FiO2 40.0 Potassium 3.7 Carbon Dioxide Anion Gap BUN Creatinine Est GFR ( Amer) Est GFR (Non-Af Amer) POC Glucose (mg/dL) Random Glucose Calcium Phosphorus Magnesium Total Bilirubin AST ALT Alkaline Phosphatase Total Protein Albumin Globulin Albumin/Globulin Ratio Free T3 pg/mL 2.30 L Arterial Blood Potassium 3.7 03/27/17 03/27/17 03/27/17 06:00 06:00 15:36 WBC 6.6 RBC 4.98 Hgb 14.2 Hct 41.1 L MCV 82.5 MCH 28.5 MCHC 34.5 RDW 11.9 Plt Count 225 MPV 9.8 Gran % 91.7 H Lymph % (Auto) 6.8 L [place] % (Auto) 1.5 Eos % (Auto) 0.0 L Baso % (Auto) 0.0 Gran # 6.02 Lymph # 0.5 L [place] # 0.1 Eos # 0.0 Baso # 0.00 Neutrophils % (Manual) 88 H Band Neutrophils % 1 Lymphocytes % (Manual) 9 L Monocytes % (Manual) 1 Basophils % (Manual) 1 Platelet Evaluation Normal pCO2 pO2 HCO3 ABG pH ABG Total CO2 ABG O2 Saturation ABG Base Excess ABG Potassium Sodium 134 Chloride 97 Glucose Lactate FiO2 Potassium 4.0 Carbon Dioxide 27 Anion Gap 14 BUN 13 Creatinine 0.6 L Est GFR ( Amer) > 60 Est GFR (Non-Af Amer) > 60 POC Glucose (mg/dL) 230 H Random Glucose 234 H Calcium 8.4 Phosphorus 3.6 Magnesium 1.9 Total Bilirubin 1.2 AST 97 H D ALT 132 H Alkaline Phosphatase 74 Total Protein 6.2 Albumin 3.1 Globulin 3.1 Albumin/Globulin Ratio 1.0 L Free T3 pg/mL Arterial Blood Potassium Fingerstick Blood Sugar Results: 230 Review of Systems - Review of Systems Systems not reviewed;Unavailable: Altered Mental Status Critical Care Progress Note - Ventilator Checklist Daily Assessment of Readiness to Wean: Yes Daily Spontaneous Breathing Trial: Yes PUD Prophalyxis: Yes DVT Prophylaxis: Yes Oral Care with Chlorhexidine Gluconate {CHG}: Yes - Nutrition Nutrition: Nutrition Category Date Time Status NPO Diet [DIET] Diets 03/25/17 Breakfast Ordered Assessment/Plan - Assessment and Plan (Free Text) Assessment: 82 y/o M w/ large ICH w/ hydrocephalus s/p Ventric drain placement. Minor neurological improvement . Was able to initiate breaths on PS. Not following commands off Propofol. Minimal movement( spont) . BP control on Cardene w/ P.O anti htn medications to be started. Tube feeds continued. Neurology signed off, NSG monitoring for Ventric drain, output minimal < 150cc. Family discussion taken place about trach and PEG placement due to poor neurological state. Family awaiting decision to be made. dvt p ppi cc time 65 min
--- NOTE | 2017-03-27 18:34 | PN ---
PULMONARY CRITICAL CARE PROGRESS NOTE DATE: 03/27/2017 REFERRING PHYSICIAN: Dr. Ratliff. SUBJECTIVE: He is unresponsive, on ventilator. Has a ventriculostomy with bloody drainage. Blood with ET tube secretion. Does not respond to painful stimuli. No hemoptysis. No hematemesis. No hematuria. No diarrhea. PHYSICAL EXAMINATION: GENERAL: On ventilator. VITAL SIGNS: Temperature is 99.1, hear rate is 71, respiratory rate is 30, blood pressure 128/66 and pulse ox is 98% on 40% oxygen. HEENT: Moist mucous membrane. ET tube with no secretion. NECK: Supple. No JVD. Ventriculostomy site looks okay. bloody secretion. LUNGS: Fair airflow with rhonchi. HEART: S1 and S2. ABDOMEN: Soft, nontender and nondistended. EXTREMITIES: There is no edema. NEUROLOGICAL: Unresponsive. MEDICATIONS: He is on hydralazine 10 mg q. 6 hours p.r.n., nicardipine IV drip, Catapres 0.2 mg weekly, IV fluid D5 half normal saline 100 mL/hour, Diprivan IV drip, DuoNeb q. 6 hours, insulin coverage, levetiracetam 500 mg q. 12 hours, cefepime 1 g IV q. 8 hours, Norvasc 2.5 mg daily, Peridex 15 mL twice a day, Protonix 40 mg daily, Solu-Medrol 40 mg q. 12 hours, Tylenol p.r.n. basis, vancomycin 1 g IV q. 12 hours and Xopenex 1.25 mg q. 6 hours p.r.n. LABORATORY DATA: Shows hemoglobin 14.2, hematocrit 41.1, WBC 6.6 and platelet count is 225. Blood gas shows pH 7.47, pCO2 35, O2 157, this on ventilator. Sodium 134, potassium 4.0, chloride 97, bicarbonate 27, BUN 13, creatinine 0.6, glucose is 230, calcium 8.4, phosphorus 3.6, magnesium 1.9, AST is 97, ALT 132, alkaline phosphatase is 74 and albumin is 3.1. Chest x-ray shows no infiltrate or effusion. IMPRESSION AND PLAN: Intraventricular bleed, intracerebral bleed, hydrocephalus, chronic obstructive lung disease, hypertension and paroxysmal atrial fibrillation. Case discussed with medical cost consultant. Spoke to the patient's daughter at bedside. All the questions answered. Overall, the patient has a poor prognosis. Family does not want to consider DNR or DNI. For continued care, the patient needs tracheostomy and J-tube. Daughter agreed to it. Spoke to medical cost consultant to call surgical team. Follow up on it. I will keep as in vent setting. Continue vasodilator. Continue hydration. Follow up ABG, chest x-ray, CBC and CMP in the morning. CRITICAL CARE TIME: More than 35 minutes. Thank you and we will follow with you. Travis Wilcox MD
[2017-03-28] MEDS: Nicardipine 20 MG/200 ML 20 MG/200 ML BAG IV PRN ×8 (01:22→20:56)
[2017-03-28] MEDS: Albuterol-Ipratrop 3 mg / 0.5 (3 ml) UD IH SCH ×4 (03:36→20:30)
[2017-03-28] MEDS: Cefepime 1gm in NS 100ml 1 GM/100 ML BAG IVPB SCH (05:05)
--- NOTE | 2017-03-28 06:01 | CP.CCUPN ---
<Kehinde Ritchie - Last Filed: 03/28/17 13:47> CCU Subjective - Physician Review Subjective (Free Text): 03/28/17 05:53 Patient seen and examined at bedside in the ICU. Back off sedation, still unresponsive. Ventriculostomy drain still in place, minimal drainage. Family still wishes to pursue all measures; consented for gastrostomy tube and Trach, tentatively as per Surgery. CCU Objective - Vital Signs / Intake & Output Vital Signs (Last 4 hours): Vital Signs Temp Pulse BP Pulse Ox 03/28/17 02:50 98.4 F 72 98 03/28/17 02:40 98.4 F 76 99 03/28/17 02:30 98.4 F 73 98 03/28/17 02:20 98.6 F 74 98 03/28/17 02:10 98.4 F 73 98 03/28/17 02:00 98.4 F 74 170/77 H 95 Intake and Output (Last 8hrs): Intake & Output 03/27/17 03/27/17 03/28/17 14:59 22:59 06:59 Intake Total 228.4 2060 400 Output Total 1540 Balance 228.4 520 400 Weight 76.294 kg Intake: IV 228.4 1960 400 Left External Jugular 200 Left Wrist 1400 Right Hand 200 Oral 100 Output: Drainage 140 Head 140 Urine 1400 Urethral (Mccord) 1400 - Physical Exam Head: Positive for: Atraumatic. Negative for: Normocephalic (drain exiting from R skull, serosanguinous drainage in tubing and drain, minimal drainage as compared to prior days), Ecchymosis, Abrasion Pupils: Positive for: Non-Reactive, Pinpoint. Negative for: PERRL Extroacular Muscles: Negative for: EOMI (no spontaneous eye movements, no movements on commands, no avoidance of direct light challenge for PERRL assessment) Conjunctiva: Positive for: Normal. Negative for: Injected, Icteric Mouth: Positive for: Moist Mucous Membranes, Other (ETT and OGT in place) Nose (External): Positive for: Atraumatic. Negative for: Abrasion, Contusion, Laceration Neck: Positive for: Trachea Midline. Negative for: JVD, Lymphadenopathy Respiratory/Chest: Positive for: Clear to Auscultation, Good Air Exchange, Other (intubated and on mechanical ventilation, no spontaneous or self- initiated breaths on pressure support trial). Negative for: Respiratory Distress, Accessory Muscle Use Cardiovascular: Positive for: Regular Rate and Rhythm, Normal S1, S2, Bradycardic (intermittently bradycardic to 50's on bedside monitor). Negative for: Murmurs, Irregular Rhythm, Tachycardic Abdomen: Positive for: Normal Bowel Sounds, Other (no palpable pulsatile mass). Negative for: Tenderness, Distention Upper Extremity: Positive for: Normal Inspection, NORMAL PULSES. Negative for: Cyanosis, Edema, Swelling, Erythema, Temperature Abnormalties, Deformity Lower Extremity: Positive for: Normal Inspection, NORMAL PULSES. Negative for: Edema, CALF TENDERNESS, Cyanosis, Swelling, Erythema, Deformity, Temperature Abnormalties Neurological: Positive for: Other (intubated, not sedated but unresponsive, no purposeful movements, some posturing on the left likely decerebrate). Negative for: GCS=15 (Score of 3 (E1 V1t M1)), CN II-XII Intact, Speech Normal, Motor Func Grossly Intact Skin: Positive for: Warm, Dry, Normal Color. Negative for: Rashes, Diaphoretic Psychiatric: Positive for: Other (Intubated, not sedated but unresponsive). Negative for: Alert, Oriented x 3, Normal Insight, Normal Concentration, Normal Affect - Medications Active Medications: Active Medications Generic Name Dose Route Start Last Admin Trade Name Freq PRN Reason Stop Dose Admin Acetaminophen 650 mg 03/26/17 23:43 03/27/17 12:27 Tylenol 325mg Tab PO 650 mg Q6H PRN Administration Fever >100.4 F Albuterol/Ipratropium 3 ml 03/27/17 02:00 03/28/17 03:36 Duoneb 3 Mg/0.5 Mg (3 Ml) Ud IH 3 ml [id number] SRINATH Administration Amlodipine Besylate 2.5 mg 03/27/17 11:30 03/27/17 12:03 Norvasc PO Not Given DAILY SRINATH Chlorhexidine Gluconate 15 ml 03/25/17 10:00 03/27/17 17:41 Peridex PO 15 ml BID SRINATH Administration Clonidine HCl 1 patch 03/27/17 11:00 03/27/17 12:27 Catapres-Tts2 0.2 Mg/24 Hr TD 1 patch Q7D@1000 SRINATH Administration Hydralazine HCl 10 mg 03/27/17 10:56 03/27/17 12:26 Apresoline IVP 10 mg Q6 PRN Administration for SBP>140 Propofol 1,000 mg in 100 mls @ 0 mls/hr 03/22/17 09:41 03/27/17 11:56 Diprivan IV 0 mcg/kg/min .Q0M PRN 0 mls/hr TITRATE PER MD ORDER Titration Protocol 5 MCG/KG/MIN Nicardipine HCl 20 mg in 200 mls @ 50 mls/hr 03/22/17 11:16 03/28/17 05:07 Cardene Iv Premix IV 7.5 mg/hr .Q4H PRN 75 mls/hr TITRATE PER MD ORDER Administration Protocol 5 MG/HR Dextrose/Sodium Chloride 1,000 mls @ 100 mls/hr 03/23/17 10:15 03/27/17 21:45 Dextrose 5%/0.9% Ns 1000 Ml IV 100 mls/hr .Q10H SRINATH Administration Cefepime HCl 1 gm in 100 mls @ 100 mls/hr 03/25/17 10:00 03/28/17 05:05 Maxipime 1gm IVPB 100 mls/hr Q8 SRINATH Administration Protocol Vancomycin HCl 1 gm in 250 mls @ 167 mls/hr 03/25/17 10:00 03/27/17 21:48 Vancomycin 1gm IVPB 167 mls/hr Q12H SRINATH Administration Protocol Levetiracetam 500 mg/ Sodium 105 mls @ 460 mls/hr 03/26/17 22:00 03/27/17 21: 46 Chloride IV 460 mls/hr Q12 SRINATH Administration Insulin Human Regular 0 units 03/27/17 11:30 03/27/17 21:46 Humulin R Low SC Not Given ACHS SRINATH Protocol Levalbuterol HCl 1.25 mg 03/25/17 19:40 03/26/17 19:42 Xopenex IH 1.25 mg [id number] PRN Administration Shortness of Breath Methylprednisolone 40 mg 03/26/17 22:00 03/27/17 21:47 Solu-Medrol IVP 40 mg Q12 SRINATH Administration Pantoprazole Sodium 40 mg 03/26/17 10:00 03/27/17 09:54 Protonix Inj IVP 40 mg DAILY SRINATH Administration - Patient Studies Lab Studies: Microbiology Studies 03/25/17 10:15 Blood Culture - Preliminary Blood-Venous NO GROWTH AFTER 48 HOURS 03/25/17 10:00 Blood Culture - Preliminary Blood-Venous NO GROWTH AFTER 48 HOURS 03/26/17 12:30 Urine Culture - Final Urine,Catheterized No Growth (<1,000 CFU/ML) Lab Studies 03/28/17 03/27/17 03/27/17 Range/Units 04:09 23:40 19:42 WBC (4.5-11.0) 10^3/ul RBC (3.5-6.1) 10^6/uL Hgb (14.0-18.0) g/dL Hct (42.0-52.0) % MCV (80.0-105.0) fl MCH (25.0-35.0) pg MCHC (31.0-37.0) g/dl RDW (11.5-14.5) % Plt Count (120.0-450.0) 10^3/uL MPV (7.0-11.0) fl Gran % (50.0-68.0) % Lymph % (Auto) (22.0-35.0) % [place] % (Auto) (1.0-6.0) % Eos % (Auto) (1.5-5.0) % Baso % (Auto) (0.0-3.0) % Gran # (1.4-6.5) Lymph # (1.2-3.4) [place] # (0.1-0.6) Eos # (0.0-0.7) Baso # (0.0-2.0) K/mm3 Neutrophils % (Manual) (50.0-70.0) % Band Neutrophils % (0-2) % Lymphocytes % (Manual) (22.0-35.0) % Monocytes % (Manual) (1.0-6.0) % Basophils % (Manual) (0.0-1.0) % Platelet Evaluation (NORMAL) pCO2 (35-45) mm/Hg pO2 (80-100) mm/Hg HCO3 (21-28) mmol/L ABG pH (7.35-7.45) ABG Total CO2 (22-28) mmol.L ABG O2 Saturation (95-98) % ABG Base Excess (-2.0-3.0) mmol/L ABG Potassium (3.6-5.2) mmol/L Sodium (132-148) mmol/L Chloride (98-107) mmol/L Glucose (75-110) mg/dl Lactate (0.7-2.1) mmol/L FiO2 % Potassium (3.6-5.0) mmol/L Carbon Dioxide (21-33) mmol/L Anion Gap (10-20) BUN (7-21) mg/dL Creatinine (0.8-1.5) mg/dL Est GFR ( Amer) Est GFR (Non-Af Amer) POC Glucose (mg/dL) 216 H 173 H 226 H (65-110) mg/dL Random Glucose (70-110) mg/dL Calcium (8.4-10.5) mg/dL Phosphorus (2.5-4.5) mg/dL Magnesium (1.7-2.2) mg/dL Total Bilirubin (0.2-1.3) mg/dL AST (17-59) U/L ALT (7-56) U/L Alkaline Phosphatase (38-126) U/L Total Protein (5.8-8.3) g/dL Albumin (3.0-4.8) g/dL Globulin gm/dL Albumin/Globulin Ratio (1.1-1.8) Arterial Blood Potassium (3.6-5.2) mmol/L 03/27/17 03/27/17 03/27/17 Range/Units 15:36 11:31 07:28 WBC (4.5-11.0) 10^3/ul RBC (3.5-6.1) 10^6/uL Hgb (14.0-18.0) g/dL Hct (42.0-52.0) % MCV (80.0-105.0) fl MCH (25.0-35.0) pg MCHC (31.0-37.0) g/dl RDW (11.5-14.5) % Plt Count (120.0-450.0) 10^3/uL MPV (7.0-11.0) fl Gran % (50.0-68.0) % Lymph % (Auto) (22.0-35.0) % [place] % (Auto) (1.0-6.0) % Eos % (Auto) (1.5-5.0) % Baso % (Auto) (0.0-3.0) % Gran # (1.4-6.5) Lymph # (1.2-3.4) [place] # (0.1-0.6) Eos # (0.0-0.7) Baso # (0.0-2.0) K/mm3 Neutrophils % (Manual) (50.0-70.0) % Band Neutrophils % (0-2) % Lymphocytes % (Manual) (22.0-35.0) % Monocytes % (Manual) (1.0-6.0) % Basophils % (Manual) (0.0-1.0) % Platelet Evaluation (NORMAL) pCO2 (35-45) mm/Hg pO2 (80-100) mm/Hg HCO3 (21-28) mmol/L ABG pH (7.35-7.45) ABG Total CO2 (22-28) mmol.L ABG O2 Saturation (95-98) % ABG Base Excess (-2.0-3.0) mmol/L ABG Potassium (3.6-5.2) mmol/L Sodium (132-148) mmol/L Chloride (98-107) mmol/L Glucose (75-110) mg/dl Lactate (0.7-2.1) mmol/L FiO2 % Potassium (3.6-5.0) mmol/L Carbon Dioxide (21-33) mmol/L Anion Gap (10-20) BUN (7-21) mg/dL Creatinine (0.8-1.5) mg/dL Est GFR ( Amer) Est GFR (Non-Af Amer) POC Glucose (mg/dL) 230 H 193 H 239 H (65-110) mg/dL Random Glucose (70-110) mg/dL Calcium (8.4-10.5) mg/dL Phosphorus (2.5-4.5) mg/dL Magnesium (1.7-2.2) mg/dL Total Bilirubin (0.2-1.3) mg/dL AST (17-59) U/L ALT (7-56) U/L Alkaline Phosphatase (38-126) U/L Total Protein (5.8-8.3) g/dL Albumin (3.0-4.8) g/dL Globulin gm/dL Albumin/Globulin Ratio (1.1-1.8) Arterial Blood Potassium (3.6-5.2) mmol/L 03/27/17 03/27/17 03/27/17 Range/Units 06:00 06:00 05:18 WBC 6.6 (4.5-11.0) 10^3/ul RBC 4.98 (3.5-6.1) 10^6/uL Hgb 14.2 (14.0-18.0) g/dL Hct 41.1 L (42.0-52.0) % MCV 82.5 (80.0-105.0) fl MCH 28.5 (25.0-35.0) pg MCHC 34.5 (31.0-37.0) g/dl RDW 11.9 (11.5-14.5) % Plt Count 225 (120.0-450.0) 10^3/uL MPV 9.8 (7.0-11.0) fl Gran % 91.7 H (50.0-68.0) % Lymph % (Auto) 6.8 L (22.0-35.0) % [place] % (Auto) 1.5 (1.0-6.0) % Eos % (Auto) 0.0 L (1.5-5.0) % Baso % (Auto) 0.0 (0.0-3.0) % Gran # 6.02 (1.4-6.5) Lymph # 0.5 L (1.2-3.4) [place] # 0.1 (0.1-0.6) Eos # 0.0 (0.0-0.7) Baso # 0.00 (0.0-2.0) K/mm3 Neutrophils % (Manual) 88 H (50.0-70.0) % Band Neutrophils % 1 (0-2) % Lymphocytes % (Manual) 9 L (22.0-35.0) % Monocytes % (Manual) 1 (1.0-6.0) % Basophils % (Manual) 1 (0.0-1.0) % Platelet Evaluation Normal (NORMAL) pCO2 35 (35-45) mm/Hg pO2 157.0 H (80-100) mm/Hg HCO3 25.5 (21-28) mmol/L ABG pH 7.47 H (7.35-7.45) ABG Total CO2 26.6 (22-28) mmol.L ABG O2 Saturation 99.6 H (95-98) % ABG Base Excess 2.1 (-2.0-3.0) mmol/L ABG Potassium 3.7 (3.6-5.2) mmol/L Sodium 134 132.0 (132-148) mmol/L Chloride 97 100.0 (98-107) mmol/L Glucose 237 H (75-110) mg/dl Lactate 1.5 (0.7-2.1) mmol/L FiO2 40.0 % Potassium 4.0 (3.6-5.0) mmol/L Carbon Dioxide 27 (21-33) mmol/L Anion Gap 14 (10-20) BUN 13 (7-21) mg/dL Creatinine 0.6 L (0.8-1.5) mg/dL Est GFR ( Amer) > 60 Est GFR (Non-Af Amer) > 60 POC Glucose (mg/dL) (65-110) mg/dL Random Glucose 234 H (70-110) mg/dL Calcium 8.4 (8.4-10.5) mg/dL Phosphorus 3.6 (2.5-4.5) mg/dL Magnesium 1.9 (1.7-2.2) mg/dL Total Bilirubin 1.2 (0.2-1.3) mg/dL AST 97 H D (17-59) U/L ALT 132 H (7-56) U/L Alkaline Phosphatase 74 (38-126) U/L Total Protein 6.2 (5.8-8.3) g/dL Albumin 3.1 (3.0-4.8) g/dL Globulin 3.1 gm/dL Albumin/Globulin Ratio 1.0 L (1.1-1.8) Arterial Blood Potassium 3.7 (3.6-5.2) mmol/L Laboratory Results - last 24 hr 03/27/17 03/27/17 03/27/17 05:18 06:00 06:00 WBC 6.6 RBC 4.98 Hgb 14.2 Hct 41.1 L MCV 82.5 MCH 28.5 MCHC 34.5 RDW 11.9 Plt Count 225 MPV 9.8 Gran % 91.7 H Lymph % (Auto) 6.8 L [place] % (Auto) 1.5 Eos % (Auto) 0.0 L Baso % (Auto) 0.0 Gran # 6.02 Lymph # 0.5 L [place] # 0.1 Eos # 0.0 Baso # 0.00 Neutrophils % (Manual) 88 H Band Neutrophils % 1 Lymphocytes % (Manual) 9 L Monocytes % (Manual) 1 Basophils % (Manual) 1 Platelet Evaluation Normal pCO2 35 pO2 157.0 H HCO3 25.5 ABG pH 7.47 H ABG Total CO2 26.6 ABG O2 Saturation 99.6 H ABG Base Excess 2.1 ABG Potassium 3.7 Sodium 132.0 134 Chloride 100.0 97 Glucose 237 H Lactate 1.5 FiO2 40.0 Potassium 4.0 Carbon Dioxide 27 Anion Gap 14 BUN 13 Creatinine 0.6 L Est GFR ( Amer) > 60 Est GFR (Non-Af Amer) > 60 POC Glucose (mg/dL) Random Glucose 234 H Calcium 8.4 Phosphorus 3.6 Magnesium 1.9 Total Bilirubin 1.2 AST 97 H D ALT 132 H Alkaline Phosphatase 74 Total Protein 6.2 Albumin 3.1 Globulin 3.1 Albumin/Globulin Ratio 1.0 L Arterial Blood Potassium 3.7 03/27/17 03/27/17 03/27/17 07:28 11:31 15:36 WBC RBC Hgb Hct MCV MCH MCHC RDW Plt Count MPV Gran % Lymph % (Auto) [place] % (Auto) Eos % (Auto) Baso % (Auto) Gran # Lymph # [place] # Eos # Baso # Neutrophils % (Manual) Band Neutrophils % Lymphocytes % (Manual) Monocytes % (Manual) Basophils % (Manual) Platelet Evaluation pCO2 pO2 HCO3 ABG pH ABG Total CO2 ABG O2 Saturation ABG Base Excess ABG Potassium Sodium Chloride Glucose Lactate FiO2 Potassium Carbon Dioxide Anion Gap BUN Creatinine Est GFR ( Amer) Est GFR (Non-Af Amer) POC Glucose (mg/dL) 239 H 193 H 230 H Random Glucose Calcium Phosphorus Magnesium Total Bilirubin AST ALT Alkaline Phosphatase Total Protein Albumin Globulin Albumin/Globulin Ratio Arterial Blood Potassium 03/27/17 03/27/17 03/28/17 19:42 23:40 04:09 WBC RBC Hgb Hct MCV MCH MCHC RDW Plt Count MPV Gran % Lymph % (Auto) [place] % (Auto) Eos % (Auto) Baso % (Auto) Gran # Lymph # [place] # Eos # Baso # Neutrophils % (Manual) Band Neutrophils % Lymphocytes % (Manual) Monocytes % (Manual) Basophils % (Manual) Platelet Evaluation pCO2 pO2 HCO3 ABG pH ABG Total CO2 ABG O2 Saturation ABG Base Excess ABG Potassium Sodium Chloride Glucose Lactate FiO2 Potassium Carbon Dioxide Anion Gap BUN Creatinine Est GFR ( Amer) Est GFR (Non-Af Amer) POC Glucose (mg/dL) 226 H 173 H 216 H Random Glucose Calcium Phosphorus Magnesium Total Bilirubin AST ALT Alkaline Phosphatase Total Protein Albumin Globulin Albumin/Globulin Ratio Arterial Blood Potassium Fingerstick Blood Sugar Results: 173 Review of Systems - Review of Systems Systems not reviewed;Unavailable: Other (intubated, complete unresponsive even off sedation) Critical Care Progress Note - Nutrition Nutrition: Nutrition Category Date Time Status NPO Diet [DIET] Diets 03/25/17 Breakfast Ordered Assessment/Plan - Assessment and Plan (Free Text) Assessment: This is an 82 yo [place] M with PMH of CAD, COPD, Afib (on Eliquis), BPH, DM, and HTN who was brought to [facility] after being found down on the ground by family, and was found to be hypotensive with extensive intracerebral bleed with ventricular extension and mass effect. S/p ventriculostomy with drain placement , POD #6, now minimally draining. He was again removed from sedation, but is still unresponsive; however he is now able to initiate his own breaths on pressure support trial. Pending Trach and Gastrostomy tube placement as per Surgery. Plan: Neuro: -extensive ICH with bilateral ventricular extension, notable edema; s/p Ventriculostomy, POD#6 -intubated, off sedation, but remains completely unresponsive to physical or verbal stimuli -pinpoint pupils, holding extremities flacidly, previously noted to have intermittent twitches and mastication-like movements with jaw, but no purposeful movements -Neuro (Dr. Steen) and Neurosurgery (Dr. Mcintyre) on board, appreciate all recs -As per Neurosurg, keep head of bed to 30 degrees and monitor bloody CSF drainage, monitoring for possible removal of drain, would avoid any further scans of brain until drain removed or if urgently indicated -Hold all AC due to ICH, maintain euglycemia, maintain SBP 140-160 (cardine drip as needed for BP control) -EEG obtained, severe bilateral cerebral dysfxn, no epileptiform activity Pulm: -Intubated, on mechanical ventilation -maintain SaO2 > 88% (COD pt) and paO2 > 55 -Protective lung ventilation strategies, low tidal volumes, VAP bundle -most recent ABG reviewed, continue current management, wean down FiO2 as tolerable -Now tolerating pressure-support trials; pending Trach as per Surgery, possibly (03/29) -Pulm (Dr. Wilcox) following, appreciate all recs Cardio: -Intermittently bradycardic to low 50's, currently stable in 60's -BP control in setting of ICH, SBP 140-160, switched from Cardine drip to amlodipine and Clonidine patch -most recent trop 0.15, but avoid all AC in setting of ICH -Cardio (Dr. Beltrán) GI: -NPO -Protonix for GI ppx -Pending Gastrostomy tube as per Surgery, possibly (03/29) Renal: -monitor and replete electrolytes as needed -mccord in place, draining clear yellow urine, monitor I's and O's Heme: -Hgb stable at 13's-14s, today was -NO AC in setting of ICH, SCDs for DVT ppx ID: -no leukocytosis, afebrile -empiric coverage with Vanco and Cefepime as per ID -ID following, appreciate all recs Endo: -on D5NS for nutrition at 100cc/hr -Fingersticks q6, maintain BG 140-180 Dispo: ICU, intubated but not sedated, monitoring for 48-72 hours off sedation, pending Trach and Gastrotomy tube FEN: NPO, D5NS 100cc/hr Access: Peripheral IV, R-ventriculostomy drain Consults: Neurosurgery, Neuro, ID, Cardio, Pulm, Surgery Ppx: Protonix for GI, SCDs for DVT Patient seen and reviewed with attending, Dr Quintana. <Mariano WEBSTER,Tracy H - Last Filed: 03/28/17 14:14> CCU Objective - Vital Signs / Intake & Output Vital Signs (Last 4 hours): Vital Signs Temp Pulse BP Pulse Ox 03/28/17 13:20 98.1 F 73 99 03/28/17 13:10 98.1 F 72 98 03/28/17 13:00 98.1 F 73 148/71 96 03/28/17 12:50 98.2 F 72 99 03/28/17 12:40 98.4 F 72 99 03/28/17 12:30 98.4 F 67 99 03/28/17 12:20 98.2 F 73 99 03/28/17 12:10 98.4 F 70 99 03/28/17 12:00 98.4 F 67 148/62 98 03/28/17 11:50 98.2 F 67 99 03/28/17 11:40 98.2 F 74 98 03/28/17 11:30 98.2 F 69 98 03/28/17 11:20 98.2 F 68 98 03/28/17 11:10 98.1 F 70 98 03/28/17 11:00 98.1 F 70 150/67 96 03/28/17 10:50 98.2 F 74 98 03/28/17 10:40 98.1 F 78 98 03/28/17 10:30 98.1 F 69 96 03/28/17 10:24 70 148/70 03/28/17 10:20 98.1 F 71 98 Intake and Output (Last 8hrs): Intake & Output 03/27/17 03/28/17 03/28/17 22:59 06:59 14:59 Intake Total 2060 3050 600 Output Total 1540 1100 Balance 520 1950 600 Weight 164 lb 6.4 oz Intake: IV 1960 2550 600 Left External Jugular 200 Left Forearm 2150 Left Wrist 1400 Right Hand 200 Oral 100 500 Output: Drainage 140 Head 140 Urine 1400 1100 Urethral (Mccord) 1400 1100 - Medications Active Medications: Active Medications Generic Name Dose Route Start Last Admin Trade Name Freq PRN Reason Stop Dose Admin Acetaminophen 650 mg 03/26/17 23:43 03/27/17 12:27 Tylenol 325mg Tab PO 650 mg Q6H PRN Administration Fever >100.4 F Albuterol/Ipratropium 3 ml 03/27/17 02:00 03/28/17 13:23 Duoneb 3 Mg/0.5 Mg (3 Ml) Ud IH 3 ml [id number] SRINATH Administration Chlorhexidine Gluconate 15 ml 03/25/17 10:00 03/27/17 17:41 Peridex PO 15 ml BID SRINATH Administration Clonidine HCl 1 patch 03/28/17 10:00 03/28/17 09:22 Catapres-Tts3 0.3 Mg/24 Hr TD 1 patch Q7D@1000 SRINATH Administration Hydralazine HCl 10 mg 03/27/17 10:56 03/27/17 12:26 Apresoline IVP 10 mg Q6 PRN Administration for SBP>140 Hydralazine HCl 50 mg 03/28/17 10:00 03/28/17 09:21 Apresoline PO 50 mg BID SRINATH Administration Propofol 1,000 mg in 100 mls @ 0 mls/hr 03/22/17 09:41 03/27/17 11:56 Diprivan IV 0 mcg/kg/min .Q0M PRN 0 mls/hr TITRATE PER MD ORDER Titration Protocol 5 MCG/KG/MIN Nicardipine HCl 20 mg in 200 mls @ 50 mls/hr 03/22/17 11:16 03/28/17 13:06 Cardene Iv Premix IV 7.5 mg/hr .Q4H PRN 75 mls/hr TITRATE PER MD ORDER Administration Protocol 5 MG/HR Dextrose/Sodium Chloride 1,000 mls @ 100 mls/hr 03/23/17 10:15 03/28/17 08:24 Dextrose 5%/0.9% Ns 1000 Ml IV 100 mls/hr .Q10H SRINATH Administration Cefepime HCl 1 gm in 100 mls @ 100 mls/hr 03/25/17 10:00 03/28/17 05:05 Maxipime 1gm IVPB 100 mls/hr Q8 SRINATH Administration Protocol Vancomycin HCl 1 gm in 250 mls @ 167 mls/hr 03/25/17 10:00 03/28/17 09:21 Vancomycin 1gm IVPB 167 mls/hr Q12H SRINATH Administration Protocol Levetiracetam 500 mg/ Sodium 105 mls @ 460 mls/hr 03/26/17 22:00 03/28/17 09: 20 Chloride IV 460 mls/hr Q12 SRINATH Administration Insulin Human Regular 0 units 03/27/17 11:30 03/28/17 12:10 Humulin R Low SC 2 units ACHS SRINATH Administration Protocol Levalbuterol HCl 1.25 mg 03/25/17 19:40 03/26/17 19:42 Xopenex IH 1.25 mg [id number] PRN Administration Shortness of Breath Methylprednisolone 40 mg 03/26/17 22:00 03/28/17 09:21 Solu-Medrol IVP 40 mg Q12 SRINATH Administration Pantoprazole Sodium 40 mg 03/26/17 10:00 03/28/17 09:21 Protonix Inj IVP 40 mg DAILY SRINATH Administration - Patient Studies Lab Studies: Microbiology Studies 03/25/17 10:15 Blood Culture - Preliminary Blood-Venous NO GROWTH AFTER 3 DAYS 03/25/17 10:00 Blood Culture - Preliminary Blood-Venous NO GROWTH AFTER 3 DAYS Lab Studies 03/28/17 03/28/17 03/28/17 Range/Units 06:45 05:20 05:20 WBC (4.5-11.0) 10^3/ul RBC (3.5-6.1) 10^6/uL Hgb (14.0-18.0) g/dL Hct (42.0-52.0) % MCV (80.0-105.0) fl MCH (25.0-35.0) pg MCHC (31.0-37.0) g/dl RDW (11.5-14.5) % Plt Count (120.0-450.0) 10^3/uL MPV (7.0-11.0) fl Gran % (50.0-68.0) % Lymph % (Auto) (22.0-35.0) % [place] % (Auto) (1.0-6.0) % Eos % (Auto) (1.5-5.0) % Baso % (Auto) (0.0-3.0) % Gran # (1.4-6.5) Lymph # (1.2-3.4) [place] # (0.1-0.6) Eos # (0.0-0.7) Baso # (0.0-2.0) K/mm3 PT 12.7 H (9.9-11.8) Seconds INR 1.18 H (0.93-1.08) APTT 27.3 (23.7-30.8) Seconds pCO2 36 (35-45) mm/Hg pO2 78.0 L (80-100) mm/Hg HCO3 24.5 (21-28) mmol/L ABG pH 7.44 (7.35-7.45) ABG Total CO2 25.6 (22-28) mmol.L ABG O2 Saturation 98.0 (95-98) % ABG O2 Content 24.2 H (15-23) ML/dl ABG Base Excess 0.8 (-2.0-3.0) mmol/L ABG Hemoglobin 18.1 H (11.7-17.4) g/dL ABG Carboxyhemoglobin 1.8 H (0.5-1.5) % POC ABG HHb (Measured) 1.9 (0-5) % ABG Methemoglobin 0.9 (0.0-3.0) % ABG O2 Capacity 24.7 H (16-24) mL/dl Hgb O2 Saturation 95.4 (95.0-98.0) % FiO2 35.0 % Sodium 132 (132-148) mmol/L Potassium 3.9 (3.6-5.0) mmol/L Chloride 94 L (95-110) mmol/L Carbon Dioxide 29 (21-33) mmol/L Anion Gap 13 (10-20) BUN 19 (7-21) mg/dL Creatinine 0.6 L (0.8-1.5) mg/dL Est GFR ( Amer) > 60 Est GFR (Non-Af Amer) > 60 POC Glucose (mg/dL) (65-110) mg/dL Random Glucose 222 H (70-110) mg/dL Calcium 8.6 (8.4-10.5) mg/dL Phosphorus 3.1 (2.5-4.5) mg/dL Magnesium 1.9 (1.7-2.2) mg/dL Total Bilirubin 1.0 (0.2-1.3) mg/dL AST 69 H D (17-59) U/L ALT 132 H (7-56) U/L Alkaline Phosphatase 77 (38-126) U/L Total Protein 6.5 (5.8-8.3) g/dL Albumin 3.4 (3.0-4.8) g/dL Globulin 3.1 gm/dL Albumin/Globulin Ratio 1.1 (1.1-1.8) 03/28/17 03/28/17 03/27/17 Range/Units 05:20 04:09 23:40 WBC 9.7 D (4.5-11.0) 10^3/ul RBC 5.11 (3.5-6.1) 10^6/uL Hgb 14.8 (14.0-18.0) g/dL Hct 41.8 L (42.0-52.0) % MCV 81.8 (80.0-105.0) fl MCH 29.0 (25.0-35.0) pg MCHC 35.4 (31.0-37.0) g/dl RDW 11.7 (11.5-14.5) % Plt Count 247 (120.0-450.0) 10^3/uL MPV 9.3 (7.0-11.0) fl Gran % 90.4 H (50.0-68.0) % Lymph % (Auto) 6.9 L (22.0-35.0) % [place] % (Auto) 2.7 (1.0-6.0) % Eos % (Auto) 0.0 L (1.5-5.0) % Baso % (Auto) 0.0 (0.0-3.0) % Gran # 8.77 H (1.4-6.5) Lymph # 0.7 L (1.2-3.4) [place] # 0.3 (0.1-0.6) Eos # 0.0 (0.0-0.7) Baso # 0.00 (0.0-2.0) K/mm3 PT (9.9-11.8) Seconds INR (0.93-1.08) APTT (23.7-30.8) Seconds pCO2 (35-45) mm/Hg pO2 (80-100) mm/Hg HCO3 (21-28) mmol/L ABG pH (7.35-7.45) ABG Total CO2 (22-28) mmol.L ABG O2 Saturation (95-98) % ABG O2 Content (15-23) ML/dl ABG Base Excess (-2.0-3.0) mmol/L ABG Hemoglobin (11.7-17.4) g/dL ABG Carboxyhemoglobin (0.5-1.5) % POC ABG HHb (Measured) (0-5) % ABG Methemoglobin (0.0-3.0) % ABG O2 Capacity (16-24) mL/dl Hgb O2 Saturation (95.0-98.0) % FiO2 % Sodium (132-148) mmol/L Potassium (3.6-5.0) mmol/L Chloride (95-110) mmol/L Carbon Dioxide (21-33) mmol/L Anion Gap (10-20) BUN (7-21) mg/dL Creatinine (0.8-1.5) mg/dL Est GFR ( Amer) Est GFR (Non-Af Amer) POC Glucose (mg/dL) 216 H 173 H (65-110) mg/dL Random Glucose (70-110) mg/dL Calcium (8.4-10.5) mg/dL Phosphorus (2.5-4.5) mg/dL Magnesium (1.7-2.2) mg/dL Total Bilirubin (0.2-1.3) mg/dL AST (17-59) U/L ALT (7-56) U/L Alkaline Phosphatase (38-126) U/L Total Protein (5.8-8.3) g/dL Albumin (3.0-4.8) g/dL Globulin gm/dL Albumin/Globulin Ratio (1.1-1.8) 03/27/17 03/27/17 03/27/17 Range/Units 19:42 15:36 11:31 WBC (4.5-11.0) 10^3/ul RBC (3.5-6.1) 10^6/uL Hgb (14.0-18.0) g/dL Hct (42.0-52.0) % MCV (80.0-105.0) fl MCH (25.0-35.0) pg MCHC (31.0-37.0) g/dl RDW (11.5-14.5) % Plt Count (120.0-450.0) 10^3/uL MPV (7.0-11.0) fl Gran % (50.0-68.0) % Lymph % (Auto) (22.0-35.0) % [place] % (Auto) (1.0-6.0) % Eos % (Auto) (1.5-5.0) % Baso % (Auto) (0.0-3.0) % Gran # (1.4-6.5) Lymph # (1.2-3.4) [place] # (0.1-0.6) Eos # (0.0-0.7) Baso # (0.0-2.0) K/mm3 PT (9.9-11.8) Seconds INR (0.93-1.08) APTT (23.7-30.8) Seconds pCO2 (35-45) mm/Hg pO2 (80-100) mm/Hg HCO3 (21-28) mmol/L ABG pH (7.35-7.45) ABG Total CO2 (22-28) mmol.L ABG O2 Saturation (95-98) % ABG O2 Content (15-23) ML/dl ABG Base Excess (-2.0-3.0) mmol/L ABG Hemoglobin (11.7-17.4) g/dL ABG Carboxyhemoglobin (0.5-1.5) % POC ABG HHb (Measured) (0-5) % ABG Methemoglobin (0.0-3.0) % ABG O2 Capacity (16-24) mL/dl Hgb O2 Saturation (95.0-98.0) % FiO2 % Sodium (132-148) mmol/L Potassium (3.6-5.0) mmol/L Chloride (95-110) mmol/L Carbon Dioxide (21-33) mmol/L Anion Gap (10-20) BUN (7-21) mg/dL Creatinine (0.8-1.5) mg/dL Est GFR ( Amer) Est GFR (Non-Af Amer) POC Glucose (mg/dL) 226 H 230 H 193 H (65-110) mg/dL Random Glucose (70-110) mg/dL Calcium (8.4-10.5) mg/dL Phosphorus (2.5-4.5) mg/dL Magnesium (1.7-2.2) mg/dL Total Bilirubin (0.2-1.3) mg/dL AST (17-59) U/L ALT (7-56) U/L Alkaline Phosphatase (38-126) U/L Total Protein (5.8-8.3) g/dL Albumin (3.0-4.8) g/dL Globulin gm/dL Albumin/Globulin Ratio (1.1-1.8) 03/27/17 Range/Units 07:28 WBC (4.5-11.0) 10^3/ul RBC (3.5-6.1) 10^6/uL Hgb (14.0-18.0) g/dL Hct (42.0-52.0) % MCV (80.0-105.0) fl MCH (25.0-35.0) pg MCHC (31.0-37.0) g/dl RDW (11.5-14.5) % Plt Count (120.0-450.0) 10^3/uL MPV (7.0-11.0) fl Gran % (50.0-68.0) % Lymph % (Auto) (22.0-35.0) % [place] % (Auto) (1.0-6.0) % Eos % (Auto) (1.5-5.0) % Baso % (Auto) (0.0-3.0) % Gran # (1.4-6.5) Lymph # (1.2-3.4) [place] # (0.1-0.6) Eos # (0.0-0.7) Baso # (0.0-2.0) K/mm3 PT (9.9-11.8) Seconds INR (0.93-1.08) APTT (23.7-30.8) Seconds pCO2 (35-45) mm/Hg pO2 (80-100) mm/Hg HCO3 (21-28) mmol/L ABG pH (7.35-7.45) ABG Total CO2 (22-28) mmol.L ABG O2 Saturation (95-98) % ABG O2 Content (15-23) ML/dl ABG Base Excess (-2.0-3.0) mmol/L ABG Hemoglobin (11.7-17.4) g/dL ABG Carboxyhemoglobin (0.5-1.5) % POC ABG HHb (Measured) (0-5) % ABG Methemoglobin (0.0-3.0) % ABG O2 Capacity (16-24) mL/dl Hgb O2 Saturation (95.0-98.0) % FiO2 % Sodium (132-148) mmol/L Potassium (3.6-5.0) mmol/L Chloride (95-110) mmol/L Carbon Dioxide (21-33) mmol/L Anion Gap (10-20) BUN (7-21) mg/dL Creatinine (0.8-1.5) mg/dL Est GFR ( Amer) Est GFR (Non-Af Amer) POC Glucose (mg/dL) 239 H (65-110) mg/dL Random Glucose (70-110) mg/dL Calcium (8.4-10.5) mg/dL Phosphorus (2.5-4.5) mg/dL Magnesium (1.7-2.2) mg/dL Total Bilirubin (0.2-1.3) mg/dL AST (17-59) U/L ALT (7-56) U/L Alkaline Phosphatase (38-126) U/L Total Protein (5.8-8.3) g/dL Albumin (3.0-4.8) g/dL Globulin gm/dL Albumin/Globulin Ratio (1.1-1.8) Laboratory Results - last 24 hr 03/27/17 03/27/17 03/27/17 07:28 11:31 15:36 WBC RBC Hgb Hct MCV MCH MCHC RDW Plt Count MPV Gran % Lymph % (Auto) [place] % (Auto) Eos % (Auto) Baso % (Auto) Gran # Lymph # [place] # Eos # Baso # PT INR APTT pCO2 pO2 HCO3 ABG pH ABG Total CO2 ABG O2 Saturation ABG O2 Content ABG Base Excess ABG Hemoglobin ABG Carboxyhemoglobin POC ABG HHb (Measured) ABG Methemoglobin ABG O2 Capacity Hgb O2 Saturation FiO2 Sodium Potassium Chloride Carbon Dioxide Anion Gap BUN Creatinine Est GFR ( Amer) Est GFR (Non-Af Amer) POC Glucose (mg/dL) 239 H 193 H 230 H Random Glucose Calcium Phosphorus Magnesium Total Bilirubin AST ALT Alkaline Phosphatase Total Protein Albumin Globulin Albumin/Globulin Ratio 03/27/17 03/27/17 03/28/17 19:42 23:40 04:09 WBC RBC Hgb Hct MCV MCH MCHC RDW Plt Count MPV Gran % Lymph % (Auto) [place] % (Auto) Eos % (Auto) Baso % (Auto) Gran # Lymph # [place] # Eos # Baso # PT INR APTT pCO2 pO2 HCO3 ABG pH ABG Total CO2 ABG O2 Saturation ABG O2 Content ABG Base Excess ABG Hemoglobin ABG Carboxyhemoglobin POC ABG HHb (Measured) ABG Methemoglobin ABG O2 Capacity Hgb O2 Saturation FiO2 Sodium Potassium Chloride Carbon Dioxide Anion Gap BUN Creatinine Est GFR ( Amer) Est GFR (Non-Af Amer) POC Glucose (mg/dL) 226 H 173 H 216 H Random Glucose Calcium Phosphorus Magnesium Total Bilirubin AST ALT Alkaline Phosphatase Total Protein Albumin Globulin Albumin/Globulin Ratio 03/28/17 03/28/17 03/28/17 05:20 05:20 05:20 WBC 9.7 D RBC 5.11 Hgb 14.8 Hct 41.8 L MCV 81.8 MCH 29.0 MCHC 35.4 RDW 11.7 Plt Count 247 MPV 9.3 Gran % 90.4 H Lymph % (Auto) 6.9 L [place] % (Auto) 2.7 Eos % (Auto) 0.0 L Baso % (Auto) 0.0 Gran # 8.77 H Lymph # 0.7 L [place] # 0.3 Eos # 0.0 Baso # 0.00 PT 12.7 H INR 1.18 H APTT 27.3 pCO2 pO2 HCO3 ABG pH ABG Total CO2 ABG O2 Saturation ABG O2 Content ABG Base Excess ABG Hemoglobin ABG Carboxyhemoglobin POC ABG HHb (Measured) ABG Methemoglobin ABG O2 Capacity Hgb O2 Saturation FiO2 Sodium 132 Potassium 3.9 Chloride 94 L Carbon Dioxide 29 Anion Gap 13 BUN 19 Creatinine 0.6 L Est GFR ( Amer) > 60 Est GFR (Non-Af Amer) > 60 POC Glucose (mg/dL) Random Glucose 222 H Calcium 8.6 Phosphorus 3.1 Magnesium 1.9 Total Bilirubin 1.0 AST 69 H D ALT 132 H Alkaline Phosphatase 77 Total Protein 6.5 Albumin 3.4 Globulin 3.1 Albumin/Globulin Ratio 1.1 03/28/17 06:45 WBC RBC Hgb Hct MCV MCH MCHC RDW Plt Count MPV Gran % Lymph % (Auto) [place] % (Auto) Eos % (Auto) Baso % (Auto) Gran # Lymph # [place] # Eos # Baso # PT INR APTT pCO2 36 pO2 78.0 L HCO3 24.5 ABG pH 7.44 ABG Total CO2 25.6 ABG O2 Saturation 98.0 ABG O2 Content 24.2 H ABG Base Excess 0.8 ABG Hemoglobin 18.1 H ABG Carboxyhemoglobin 1.8 H POC ABG HHb (Measured) 1.9 ABG Methemoglobin 0.9 ABG O2 Capacity 24.7 H Hgb O2 Saturation 95.4 FiO2 35.0 Sodium Potassium Chloride Carbon Dioxide Anion Gap BUN Creatinine Est GFR ( Amer) Est GFR (Non-Af Amer) POC Glucose (mg/dL) Random Glucose Calcium Phosphorus Magnesium Total Bilirubin AST ALT Alkaline Phosphatase Total Protein Albumin Globulin Albumin/Globulin Ratio Critical Care Progress Note - Nutrition Nutrition: Nutrition Category Date Time Status NPO Diet [DIET] Diets 03/25/17 Breakfast Ordered Attending/Attestation - Attestation I have personally seen and examined this patient.: Yes I have fully participated in the care of the patient.: Yes I have reviewed all pertinent clinical information: Yes Notes (Text): 03/28/17 14:11 82 y/o M w/ 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 Drainage continued appx 100c/ 24hrs. Clamped by NSG today, plan to monitor mental status . If mental status worsens , NSG may have to place a shunt. Minimal neurological improvement . No functional cognitive improvements. Spont moves extremities. Poor prognosis Trach+ Peg placement planned for . dvt p ppi cc time 55 min
[2017-03-28 06:29] LABS: GRAN # 8.77 (1.4-6.5); GRAN % 90.4 % (50.0-68.0); HEMATOCRIT 41.8 % (42.0-52.0); LYMPH # 0.7 (1.2-3.4); LYMPH % 6.9 % (22.0-35.0); MEAN CELL VOLUME 81.8 fl (80.0-105.0); MEAN CORPUSCULAR HGB CONC 35.4 g/dl (31.0-37.0); MEAN PLATELET VOLUME 9.3 fl (7.0-11.0); MONO # 0.3 (0.1-0.6); MONO % 2.7 % (1.0-6.0); RED CELL DISTRIBUTION WIDTH 11.7 % (11.5-14.5); WHITE BLOOD COUNT 9.7 10^3/ul (4.5-11.0)
[2017-03-28 06:36] LABS: ALB/GLOB RATIO 1.1 (1.1-1.8); ALKALINE PHOSPHATASE 77 U/L (38-126); ALT/SGPT 132 U/L (7-56); AST/SGOT 69 U/L (17-59); BLOOD UREA NITROGEN 19 mg/dL (7-21); CALCIUM 8.6 mg/dL (8.4-10.5); CARBON DIOXIDE 29 mmol/L (21-33); CHLORIDE 94 mmol/L (95-110); GFR AFRICAN-AMERICAN > 60; GLUCOSE,RANDOM 222 mg/dL (70-110); MAGNESIUM 1.9 mg/dL (1.7-2.2); PHOSPHOROUS 3.1 mg/dL (2.5-4.5); POTASSIUM 3.9 mmol/L (3.6-5.0); SODIUM 132 mmol/L (132-148); TOTAL PROTEIN 6.5 g/dL (5.8-8.3)
[2017-03-28 06:37] LABS: INR 1.18 (0.93-1.08); PARTIAL THROMBOPLASTIN TIME 27.3 Seconds (23.7-30.8)
[2017-03-28 07:02] LABS: ARTERIAL BLOOD GAS HCO3 24.5 mmol/L (21-28); ARTERIAL BLOOD GAS O2 CAPACITY 24.7 mL/dl (16-24); ARTERIAL BLOOD GAS O2 CONTENT 24.2 ML/dl (15-23); ARTERIAL BLOOD GAS PH 7.44 (7.35-7.45); ARTERIAL BLOOD HGB O2 SAT 95.4 % (95.0-98.0); CARBOXYHEMOGLOBIN 1.8 % (0.5-1.5); HHB 1.9 % (0-5); METHEMOGLOBIN 0.9 % (0.0-3.0)
[2017-03-28] MEDS: Insulin Reg-LOW-Coverage SC SCH ×4 (07:33→23:56)
[2017-03-28] MEDS: Dextrose 5%/0.9% NS 1,000 ML IV SCH ×2 (08:24→21:02)
[2017-03-28] MEDS: levETIRAcetam 500 MG in Sodium Chloride 0.9% 100 ML IV SCH (09:20)
[2017-03-28] MEDS: Vancomycin 1gm in NS 250ml 1 GM/250 ML BAG IVPB SCH (09:21)
[2017-03-28] MEDS: MethylPREDNISolone 40 mg Vial IVP SCH ×2 (09:21→21:02)
--- NOTE | 2017-03-28 09:54 | CP.PCM.PN ---
Subjective - Date & Time of Evaluation Date of Evaluation: 03/28/17 Time of Evaluation: 07:15 - Subjective Subjective: Surgery Note for Dr. Lewis 82M seen and examined at bedside. Patient intubated. Does not respond to verbal/ tactile stimuli. Objective - Vital Signs/Intake and Output Vital Signs (last 24 hours): Temp Pulse Resp BP Pulse Ox 98.4 F 72 20 156/55 H 99 03/28/17 02:50 03/28/17 09:22 03/28/17 07:32 03/28/17 09:22 03/28/17 07:32 Intake and Output: 03/28/17 03/28/17 06:59 18:59 Intake Total 3050 200 Output Total 1240 Balance 1810 200 - Medications Medications: Current Medications Acetaminophen (Tylenol 325mg Tab) 650 mg PO Q6H PRN PRN Reason: Fever >100.4 F Last Admin: 03/27/17 12:27 Dose: 650 mg Albuterol/Ipratropium (Duoneb 3 Mg/0.5 Mg (3 Ml) Ud) 3 ml IH [id number] [facility] Last Admin: 03/28/17 07:23 Dose: 3 ml Chlorhexidine Gluconate (Peridex) 15 ml PO BID [facility] Last Admin: 03/27/17 17:41 Dose: 15 ml Clonidine HCl (Catapres-Tts3 0.3 Mg/24 Hr) 1 patch TD Q7D@1000 [facility] Last Admin: 03/28/17 09:22 Dose: 1 patch Hydralazine HCl (Apresoline) 10 mg IVP Q6 PRN PRN Reason: for SBP>140 Last Admin: 03/27/17 12:26 Dose: 10 mg Hydralazine HCl (Apresoline) 50 mg PO BID [facility] Last Admin: 03/28/17 09:21 Dose: 50 mg Propofol (Diprivan) 1,000 mg in 100 mls @ 0 mls/hr IV .Q0M PRN; Protocol; 5 MCG /KG/MIN PRN Reason: TITRATE PER MD ORDER Last Titration: 03/27/17 11:56 Dose: 0 mcg/kg/min, 0 mls/hr Nicardipine HCl (Cardene Iv Premix) 20 mg in 200 mls @ 50 mls/hr IV .Q4H PRN; Protocol; 5 MG/HR PRN Reason: TITRATE PER MD ORDER Last Admin: 03/28/17 08:25 Dose: 7.5 mg/hr, 75 mls/hr Dextrose/Sodium Chloride (Dextrose 5%/0.9% Ns 1000 Ml) 1,000 mls @ 100 mls/hr IV .Q10H [facility] Last Admin: 03/28/17 08:24 Dose: 100 mls/hr Cefepime HCl (Maxipime 1gm) 1 gm in 100 mls @ 100 mls/hr IVPB Q8 SRINATH PRN Reason: Protocol Last Admin: 03/28/17 05:05 Dose: 100 mls/hr Vancomycin HCl (Vancomycin 1gm) 1 gm in 250 mls @ 167 mls/hr IVPB Q12H SRINATH PRN Reason: Protocol Last Admin: 03/28/17 09:21 Dose: 167 mls/hr Levetiracetam 500 mg/ Sodium (Chloride) 105 mls @ 460 mls/hr IV Q12 [facility] Last Admin: 03/28/17 09:20 Dose: 460 mls/hr Insulin Human Regular (Humulin R Low) 0 units SC ACHS SRINATH PRN Reason: Protocol Last Admin: 03/28/17 07:33 Dose: 1 units Levalbuterol HCl (Xopenex) 1.25 mg IH [id number] PRN PRN Reason: Shortness of Breath Last Admin: 03/26/17 19:42 Dose: 1.25 mg Methylprednisolone (Solu-Medrol) 40 mg IVP Q12 [facility] Last Admin: 03/28/17 09:21 Dose: 40 mg Pantoprazole Sodium (Protonix Inj) 40 mg IVP DAILY [facility] Last Admin: 03/28/17 09:21 Dose: 40 mg - Labs Labs: 03/28/17 05:20 03/28/17 05:20 PT 12.7 Seconds (9.9-11.8) H 03/28/17 05:20 INR 1.18 (0.93-1.08) H 03/28/17 05:20 APTT 27.3 Seconds (23.7-30.8) 03/28/17 05:20 - Constitutional Appears: Other (intubated) - Respiratory Exam Additional comments: Intubated - Cardiovascular Exam Cardiovascular Exam: REGULAR RHYTHM, +S1, +S2 - GI/Abdominal Exam GI & Abdominal Exam: Soft. absent: Firm, Guarding, Rigid - Neurological Exam Neurological Exam: absent: Alert, Awake - Skin Skin Exam: Diaphoretic Assessment and Plan - Assessment and Plan (Free Text) Assessment: 82M with Intra-cranial hemorrhage, respiratory failure, failure to thrive. Surgery consult for Tracheostomy and Gastrostomy Plan: - OR scheduled for tomorrow - Case discussed with daughter and grand-daughter - Consent in Chart - Pre-Op patient Further recs discuss with Dr. Joshua Keita, PGY2
[2017-03-28] MEDS: Chlorhexidine 0.12% Oral Sol 480 ml Bot PO SCH (10:00)
--- NOTE | 2017-03-28 10:10 | PN ---
DATE: 03/27/2017 SUBJECTIVE: The patient had tried to wean it to wake him up, the patient did not respond well. He still respond only to painful stimuli, otherwise, no response, no opening his eyes. Off Diprivan and remained on the vent comfortably. There is no fever. No respiratory distress. PHYSICAL EXAMINATION: On 03/27/2017, his physical examination is as follows: VITAL SIGNS: Temperature still runs low grade fever of 100.4, blood pressure is 136/77, respiration, on the vent, he will go up of the vent rate sometimes and he has 35% FiO2, saturating 98%. HEAD AND NECK: No JVD and no thyromegaly. Still ventriculostomy tube coming out of his vertex of his skull. CHEST: Clear. CARDIAC: First sound and second sound normal. ABDOMEN: Soft and nontender. EXTREMITIES: No edema. Sometimes he does twitch it with his leg in the lower extremity, otherwise seems not responding except for deep painful stimuli occasionally. LABORATORY DATA: As follows: White count of 6.6, hemoglobin of 14.2, hematocrit of 41.1, and platelets of 225. His chemistry linda, his sugar runs 160s to 140, sodium of 134, potassium of 4, chloride of 97, bicarb of 27, BUN of 13, and creatinine of 0.6. His blood sugar is 200 and his phosphorus, magnesium, and globulin is normal. His AST and ALT are elevated. IMPRESSION AND PLAN: 1. Acute intraventricular bleed status post ventriculostomy with drainage of the bleeding, still getting the drainage. We will continue current therapy for now. Continue vent support due to poor mental status and aspiration precautions. The patient also getting vancomycin and Maxipime. 2. Abnormal liver function test, etiology may be drug related, may be start feeding after few days of fasting. We will monitor his liver function test. The patient seems has no leukocytes, so there is no evidence of any infection on exam or tenderness on exam. His belly is soft and nontender. 3. Respiratory failure due to mental status changes. Continue vent support. We will consider tracheostomy, feeding tube placement, and Dr. Lewis in consult. We will continue gastrointestinal and deep venous thrombosis prophylaxis. Discussed the case with his daughter. She understands the situations. Continue current inhaled intravenous bronchodilators for underlying chronic obstructive pulmonary disease. He seems stable and comfortable. 4. Hypertension. The patient is currently on Norvasc and hydralazine p.r.n. Continue blood pressure monitoring. Surendra Ratliff MD
--- NOTE | 2017-03-28 10:59 | CP.PCM.PN ---
Subjective - Date & Time of Evaluation Date of Evaluation: 03/28/17 Time of Evaluation: 10:58 - Subjective Subjective: remains unconscience pupils reman [place] alt decorticate with [id number] drainage has not really done anything to clinically improve pt will clamp drain and follow clinically for now Objective - Vital Signs/Intake and Output Vital Signs (last 24 hours): Temp Pulse Resp BP Pulse Ox 98.2 F 74 20 148/70 98 03/28/17 10:50 03/28/17 10:50 03/28/17 07:32 03/28/17 10:24 03/28/17 10:50 Intake and Output: 03/28/17 03/28/17 06:59 18:59 Intake Total 3050 400 Output Total 1240 Balance 1810 400 - Medications Medications: Current Medications Acetaminophen (Tylenol 325mg Tab) 650 mg PO Q6H PRN PRN Reason: Fever >100.4 F Last Admin: 03/27/17 12:27 Dose: 650 mg Albuterol/Ipratropium (Duoneb 3 Mg/0.5 Mg (3 Ml) Ud) 3 ml IH [id number] [facility] Last Admin: 03/28/17 07:23 Dose: 3 ml Chlorhexidine Gluconate (Peridex) 15 ml PO BID [facility] Last Admin: 03/27/17 17:41 Dose: 15 ml Clonidine HCl (Catapres-Tts3 0.3 Mg/24 Hr) 1 patch TD Q7D@1000 [facility] Last Admin: 03/28/17 09:22 Dose: 1 patch Hydralazine HCl (Apresoline) 10 mg IVP Q6 PRN PRN Reason: for SBP>140 Last Admin: 03/27/17 12:26 Dose: 10 mg Hydralazine HCl (Apresoline) 50 mg PO BID [facility] Last Admin: 03/28/17 09:21 Dose: 50 mg Propofol (Diprivan) 1,000 mg in 100 mls @ 0 mls/hr IV .Q0M PRN; Protocol; 5 MCG /KG/MIN PRN Reason: TITRATE PER MD ORDER Last Titration: 03/27/17 11:56 Dose: 0 mcg/kg/min, 0 mls/hr Nicardipine HCl (Cardene Iv Premix) 20 mg in 200 mls @ 50 mls/hr IV .Q4H PRN; Protocol; 5 MG/HR PRN Reason: TITRATE PER MD ORDER Last Admin: 03/28/17 10:24 Dose: 7.5 mg/hr, 75 mls/hr Dextrose/Sodium Chloride (Dextrose 5%/0.9% Ns 1000 Ml) 1,000 mls @ 100 mls/hr IV .Q10H SRINATH Last Admin: 03/28/17 08:24 Dose: 100 mls/hr Cefepime HCl (Maxipime 1gm) 1 gm in 100 mls @ 100 mls/hr IVPB Q8 SRINATH PRN Reason: Protocol Last Admin: 03/28/17 05:05 Dose: 100 mls/hr Vancomycin HCl (Vancomycin 1gm) 1 gm in 250 mls @ 167 mls/hr IVPB Q12H SRINATH PRN Reason: Protocol Last Admin: 03/28/17 09:21 Dose: 167 mls/hr Levetiracetam 500 mg/ Sodium (Chloride) 105 mls @ 460 mls/hr IV Q12 SRINATH Last Admin: 03/28/17 09:20 Dose: 460 mls/hr Insulin Human Regular (Humulin R Low) 0 units SC ACHS SRINATH PRN Reason: Protocol Last Admin: 03/28/17 07:33 Dose: 1 units Levalbuterol HCl (Xopenex) 1.25 mg IH [id number] PRN PRN Reason: Shortness of Breath Last Admin: 03/26/17 19:42 Dose: 1.25 mg Methylprednisolone (Solu-Medrol) 40 mg IVP Q12 [facility] Last Admin: 03/28/17 09:21 Dose: 40 mg Pantoprazole Sodium (Protonix Inj) 40 mg IVP DAILY [facility] Last Admin: 03/28/17 09:21 Dose: 40 mg - Labs Labs: 03/28/17 05:20 03/28/17 05:20 PT 12.7 Seconds (9.9-11.8) H 03/28/17 05:20 INR 1.18 (0.93-1.08) H 03/28/17 05:20 APTT 27.3 Seconds (23.7-30.8) 03/28/17 05:20
--- NOTE | 2017-03-28 13:36 | RAD ---
HISTORY: intubated, f/u COMPARISON: 03/27/2017 FINDINGS: LUNGS: No active pulmonary disease. PLEURA: No significant pleural effusion identified, no pneumothorax apparent. CARDIOVASCULAR: Normal. OSSEOUS STRUCTURES: No significant abnormalities. VISUALIZED UPPER ABDOMEN: Normal. OTHER FINDINGS: Endotracheal and nasogastric tube in satisfactory position IMPRESSION: No active disease.
--- NOTE | 2017-03-28 15:40 | PN ---
DATE: 03/28/2017 SUBJECTIVE: The patient is in bed, no changes. The patient remains, was seen early this morning in 129, bed 1. No fevers and no chills are reported. The patient's nurse states the patient's status is unchanged. PHYSICAL EXAMINATION: VITAL SIGNS: The patient's temperature is 98, blood pressure is 140/70, respiratory rate of 18, on a vent, heart rate of 73. HEENT: Examination is unremarkable. NECK: Supple. LUNGS: Have decreased breath sounds. HEART: Exam has normal S1, S2. ABDOMEN: [place] is soft, nontender. LABORATORY DATA: Examination reveals a white count of 9.7, hemoglobin of 14, platelets of 247 and the chemistries reveals a BUN of 19, creatinine of 0.6 and last procalcitonin from 03/25/2017 is 0.2. Urinalysis is noted. Microbiology reveals cultures in blood, urine cultures are all negative. Review of orders reveals the patient to be on cefepime and the patient is on Solu-Medrol and the patient is on IV vancomycin. Dr. Rocco Mcintyre's note is reviewed from today. note is reviewed today. Dr. Ratliff's note is reviewed. Chest x-ray is noted. No active disease. Procalcitonin is normal. Dr. Wilcox's note is reviewed and Dr. Valero note is reviewed. ASSESSMENT AND PLAN: An 82-year-old male was seen early this morning 129, bed 1 with hypertension, diabetes, benign prostate hypertrophy, chronic atrial fibrillation with systemic inflammatory response syndrome with a left basal intracerebral bleed, status post ventriculostomy and the patient with hypertensive, diabetes, atrial fibrillation, asthma, benign prostate hypertrophy, and respiratory failure, intubated on a ventilator. We will discontinue the vancomycin and cefepime. No role in antibiotics at this point; however, the patient is at risk for developing nosocomial infections. Overall prognosis quite poor for this patient who is not responsive. Sergio Sommers MD
[2017-03-28] MEDS ORDERED: levETIRAcetam 500mg IVPB 500 MG/100 ML BAG IVPB SCH (22:00)
[2017-03-28] MEDS ORDERED: MethylPREDNISolone 40 mg Vial IVP SCH (23:16)
--- NOTE | 2017-03-29 00:18 | PN ---
DATE: 03/28/2017 PULMONARY CRITICAL CARE PROGRESS NOTE REFERRING PHYSICIAN: Surendra Ratliff MD SUBJECTIVE: He is intubated and unresponsive, not much ET tube secretion. Daughter is at bedside. No hemoptysis, no hematemesis, no hematuria, and no diarrhea reported. OBJECTIVE: GENERAL: No acute distress. VITAL SIGNS: Temperature is 100.4, heart rate is 72, respiratory rate is 20, blood pressure is 163/78, and pulse oximetry is 98% on ventilator, 40% oxygen. HEENT: Moist mucous membrane. ET tube with no secretion. NECK: Supple. No JVD. LUNGS: Fair airflow with rhonchi. HEART: S1 and S2. ABDOMEN: Soft, nontender, and nondistended. EXTREMITIES: There is no edema. NEUROLOGIC: Unresponsive. MEDICATIONS: He is on hydralazine 10 mg q. 6 hours p.r.n., he is on IV Cardene, clonidine 0.3 mg weekly, IV fluid D5 normal saline 100 mL/hour, Diprivan has been discontinued, DuoNeb q. 6 hours, insulin coverage, Peridex 15 mL twice a day, Protonix 40 mg IV daily, Solu-Medrol 40 mg q. 12 hours, Tylenol p.r.n. basis, and Xopenex q. 6 hours p.r.n. LABORATORY DATA: Shows hemoglobin of 14.8, hematocrit of 41.8, WBC of 9.7, and platelet count is 247. INR is 1.18 and PTT is 23. Blood gas shows pH of 7.44, pCO2 of 36, O2 of 78, this is on vent, 35% oxygen. Sodium of 132, potassium of 3.9, chloride of 94, bicarbonate of 29, BUN of 19, and creatinine of 0.6. Glucose of 222, calcium of 8.6, phosphorous of 3.1, and magnesium of 1.9. AST is 69, ALT is 132, and albumin is 3.4. So far, blood culture and urine culture, there is no growth. DIAGNOSTIC DATA: Chest x-ray shows no infiltrate or effusion. IMPRESSION AND PLAN: Intraventricular and intracerebral bleed with hydrocephalus requiring external ventricular drain, chronic obstructive lung disease, hypertension, and paroxysmal atrial fibrillation. I spoke to the patient's daughter at the bedside. All the questions answered. Pulmonary point of view, decrease the Solu-Medrol, has a low-grade fever, antibiotics as per Infectious Diseases, scheduled for tracheostomy, nasogastric tube. Overall, poor prognosis. Critical care time spent more than 35 minutes. Followup ABG, chest x-ray, CBC, and CMP in the morning. Thank you and I will follow with you. Travis Wilcox MD
[2017-03-29] MEDS: Albuterol-Ipratrop 3 mg / 0.5 (3 ml) UD IH SCH ×4 (02:45→21:26)
[2017-03-29] MEDS: Nicardipine 20 MG/200 ML 20 MG/200 ML BAG IV PRN ×6 (02:58→22:04)
[2017-03-29] MEDS: Dextrose 5%/0.9% NS 1,000 ML IV SCH (06:43)
[2017-03-29 06:55] LABS: ARTERIAL BLOOD GAS HCO3 26.3 mmol/L (21-28); ARTERIAL BLOOD GAS O2 CAPACITY 19.4 mL/dl (16-24); ARTERIAL BLOOD GAS O2 CONTENT 19.3 ML/dl (15-23); ARTERIAL BLOOD GAS PH 7.46 (7.35-7.45); ARTERIAL BLOOD HGB O2 SAT 96.7 % (95.0-98.0); CARBOXYHEMOGLOBIN 1.4 % (0.5-1.5); HHB 0.7 % (0-5); METHEMOGLOBIN 1.2 % (0.0-3.0)
[2017-03-29 06:57] LABS: INR 1.16 (0.93-1.08); PARTIAL THROMBOPLASTIN TIME 27.2 Seconds (23.7-30.8)
[2017-03-29 07:16] LABS: GRAN # 8.15 (1.4-6.5); GRAN % 92.7 % (50.0-68.0); HEMATOCRIT 40.6 % (42.0-52.0); LYMPH # 0.4 (1.2-3.4); LYMPH % 4.8 % (22.0-35.0); MEAN CELL VOLUME 81.4 fl (80.0-105.0); MEAN CORPUSCULAR HEMOGLOBIN 28.5 pg (25.0-35.0); MEAN PLATELET VOLUME 9.4 fl (7.0-11.0); MONO # 0.2 (0.1-0.6); MONO % 2.5 % (1.0-6.0); RED CELL DISTRIBUTION WIDTH 11.7 % (11.5-14.5); WHITE BLOOD COUNT 8.8 10^3/ul (4.5-11.0)
[2017-03-29 07:22] LABS: ALKALINE PHOSPHATASE 84 U/L (38-126); ALT/SGPT 99 U/L (7-56); AST/SGOT 57 U/L (17-59); BILIRUBIN,TOTAL 0.7 mg/dL (0.2-1.3); BLOOD UREA NITROGEN 24 mg/dL (7-21); CALCIUM 8.6 mg/dL (8.4-10.5); CARBON DIOXIDE 28 mmol/L (21-33); CHLORIDE 96 mmol/L (98-107); GFR AFRICAN-AMERICAN > 60; GLUCOSE,RANDOM 299 mg/dL (70-110); MAGNESIUM 2.1 mg/dL (1.7-2.2); PHOSPHOROUS 2.9 mg/dL (2.5-4.5); POTASSIUM 3.7 mmol/L (3.6-5.0); SODIUM 132 mmol/L (132-148); TOTAL PROTEIN 6.1 g/dL (5.8-8.3)
--- NOTE | 2017-03-29 08:12 | RAD ---
HISTORY: intubated, f/u COMPARISON: 03/28/2017 FINDINGS: LUNGS: No active pulmonary disease. The patient is rotated to the left PLEURA: No significant pleural effusion identified, no pneumothorax apparent. CARDIOVASCULAR: Normal. OSSEOUS STRUCTURES: No significant abnormalities. VISUALIZED UPPER ABDOMEN: Normal. OTHER FINDINGS: The endotracheal and nasogastric tubes are in satisfactory position IMPRESSION: No active disease.
--- NOTE | 2017-03-29 08:17 | PN ---
DATE: 03/28/2017 REASON FOR CONSULTATION AND FOLLOWUP: Acute CVA, intracerebral bleed, and respiratory failure. SUBJECTIVE: The patient is on vent, sedated. OBJECTIVE: GENERAL: Remains on vent, sedated. VITAL SIGNS: Temperature afebrile, heart rate 72, and blood pressure 172/70. HEENT: PERRLA intact. NECK: Supple. No carotid bruit or thyromegaly. CHEST: Clear to auscultation. HEART: S1 and S2 regular. ABDOMEN: Soft. EXTREMITIES: Clubbing and cyanosis negative. LABORATORY DATA: Blood workup as follows: WBC , hemoglobin , hematocrit 41.8, and platelet count 247. Chemistry shows sodium 130, potassium 3.7, chloride 94, carbon dioxide 20, anion gap of 13, BUN 19, and creatinine 0.9. IMPRESSION: An 82-year-old male with past medical history significant for coronary artery disease, history of chronic obstructive pulmonary disease, history of chronic atrial fibrillation, was on Eliquis at home, admitted with intracerebral bleed, hydrocephalus, status post respiratory failure, and status post ventriculostomy for basal ganglia hemorrhage. The patient had echocardiography done yesterday that revealed normal left ventricular function, mild aortic stenosis, mild tricuspid regurgitation, no mitral regurgitation reported, right ventricular systolic pressure of 42, and calculated ejection fraction 55%. RECOMMENDATIONS: Continue antiseizure medication, history of atrial fibrillation, but the patient is now in normal sinus. Continue vent management, continue as per Neurosurgery, off anticoagulation, obviously intracerebral bleed, and control blood pressure aggressively to prevent further extension of the bleed. Put clonidine patch #2, we will increase to now to #3, and we will also give hydralazine p.r.n. 10 mg, we will increase hydralazine 50 b.i.d., it increase the better blood pressure with holding parameter, hold for SBP less than 130. The patient will be started amlodipine 5; we will discontinue that and continue p.r.n. hydralazine and clonidine patch to #3. Thank you for providing me the opportunity in taking care of [place] . Travis Beltrán MD
[2017-03-29] MEDS: Insulin Reg-LOW-Coverage SC SCH ×4 (08:36→22:45)
[2017-03-29] MEDS: Chlorhexidine 0.12% Oral Sol 480 ml Bot PO SCH ×3 (09:08→17:10)
[2017-03-29] MEDS ORDERED: Bupivacaine 0.5% Inj(30mL) ONE (09:53)
[2017-03-29] MEDS ORDERED: Lidocaine 1% Inj (20ml) ONE (09:53)
--- NOTE | 2017-03-29 10:09 | CP.PCM.PN ---
Subjective - Date & Time of Evaluation Date of Evaluation: 03/29/17 Time of Evaluation: 10:07 - Subjective Subjective: pt remainscomatose intermitant decrebrate, decorticate and attempt to localize pinpoint pupils no eye opening Drain clamped x 24 hrs ICP measured and was less than 10 At this time there is no benifit from continued drainage Removed drain For Trach and peg this am supportice care Objective - Vital Signs/Intake and Output Vital Signs (last 24 hours): Temp Pulse Resp BP Pulse Ox 99.0 F 73 14 159/78 H 99 03/29/17 06:40 03/29/17 09:07 03/28/17 20:00 03/29/17 09:07 03/29/17 06:40 Intake and Output: 03/29/17 03/29/17 06:59 18:59 Intake Total 3190 100 Output Total 1200 Balance 1990 100 - Medications Medications: Current Medications Acetaminophen (Tylenol 325mg Tab) 650 mg PO Q6H PRN PRN Reason: Fever >100.4 F Last Admin: 03/28/17 21:04 Dose: 650 mg Albuterol/Ipratropium (Duoneb 3 Mg/0.5 Mg (3 Ml) Ud) 3 ml IH [id number] [facility] Last Admin: 03/29/17 07:33 Dose: 3 ml Chlorhexidine Gluconate (Peridex) 15 ml PO BID [facility] Last Admin: 03/29/17 09:08 Dose: 15 ml Clonidine HCl (Catapres-Tts3 0.3 Mg/24 Hr) 1 patch TD Q7D@1000 [facility] Last Admin: 03/28/17 09:22 Dose: 1 patch Hydralazine HCl (Apresoline) 10 mg IVP Q6 PRN PRN Reason: for SBP>140 Last Admin: 03/27/17 12:26 Dose: 10 mg Hydralazine HCl (Apresoline) 50 mg PO BID [facility] Last Admin: 03/29/17 09:06 Dose: 50 mg Propofol (Diprivan) 1,000 mg in 100 mls @ 0 mls/hr IV .Q0M PRN; Protocol; 5 MCG /KG/MIN PRN Reason: TITRATE PER MD ORDER Last Titration: 03/27/17 11:56 Dose: 0 mcg/kg/min, 0 mls/hr Nicardipine HCl (Cardene Iv Premix) 20 mg in 200 mls @ 50 mls/hr IV .Q4H PRN; Protocol; 5 MG/HR PRN Reason: TITRATE PER MD ORDER Last Admin: 03/29/17 09:07 Dose: 5 mg/hr, 50 mls/hr Dextrose/Sodium Chloride (Dextrose 5%/0.9% Ns 1000 Ml) 1,000 mls @ 100 mls/hr IV .Q10H [facility] Last Admin: 03/29/17 06:43 Dose: 100 mls/hr Insulin Human Regular (Humulin R Low) 0 units SC ACHS SRINATH PRN Reason: Protocol Last Admin: 03/29/17 08:36 Dose: 3 units Levalbuterol HCl (Xopenex) 1.25 mg IH [id number] PRN PRN Reason: Shortness of Breath Last Admin: 03/26/17 19:42 Dose: 1.25 mg Methylprednisolone (Solu-Medrol) 20 mg IVP Q12 [facility] Last Admin: 03/29/17 09:06 Dose: 20 mg Pantoprazole Sodium (Protonix Inj) 40 mg IVP DAILY [facility] Last Admin: 03/29/17 09:06 Dose: 40 mg - Labs Labs: 03/29/17 05:30 03/29/17 05:30 PT 12.5 Seconds (9.9-11.8) H 03/29/17 05:30 INR 1.16 (0.93-1.08) H 03/29/17 05:30 APTT 27.2 Seconds (23.7-30.8) 03/29/17 05:30
[2017-03-29] MEDS ORDERED: Rocuronium 10 mg/ml (5 ml) ONE (10:33)
--- NOTE | 2017-03-29 13:49 | PCM.SURG1 ---
Surgeon's Initial Post Op Note - Surgeon's Notes Surgeon: Dr. Lewis General Operations Manager: Dominic Power PGY2, Dave PGY2 Type of Anesthesia: General Endo Pre-Operative Diagnosis: Brain injury Operative Findings: Posterior Trachea Post-Operative Diagnosis: Same Operation Performed: Open Anastasiya gastrostomy, Open tracheostomy Specimen/Specimens Removed: None Estimated Blood Loss: EBL {In ML}: 10 Blood Products Given: N/A Post-Op Condition: Good Date of Surgery/Procedure: 03/29/17 Time of Surgery/Procedure: 13:49
--- NOTE | 2017-03-29 14:03 | PN ---
DATE: 03/29/2017 SUBJECTIVE: The patient seen in the 129, bed #1. The patient's condition is poor. There has been no fevers documented and he continues to be intubated on a ventilator. PHYSICAL EXAMINATION: VITAL SIGNS: Temperature is 98, blood pressure is 150/70, respiratory rate on the vent, heart rate of 78. HEENT: Unremarkable. NECK: Supple. LUNGS: Decreased breath sounds. HEART: Normal S1, S2. ABDOMEN: Soft, nontender. LABORATORY EXAMINATION: Reveals a white count of 8.8, hemoglobin of 14, platelets of 267. Coagulation is noted and the chemistries reveals a BUN of 24, creatinine of 0.6. Urinalysis is noted. Blood cultures are no growth. Urine cultures are no growth. Review of order reveals the patient to be off of antibiotics. The patient had a chest x-ray this morning. No active pulmonary disease. Dr. Wilcox's note is reviewed. ASSESSMENT AND PLAN: This is an 82-year-old male, seen early this morning in [facility], bed #1 with hypertension, diabetes, BPH, chronic atrial fibrillation with systemic inflammatory response syndrome with a left basal intracerebral bleed, status post ventriculostomy and currently intubated on a ventilator. The patient is for tracheostomy and a percutaneous endoscopic gastrostomy for today. Currently off of antibiotics. The patient is at risk for developing nosocomial infections. Overall prognosis is poor. Sergio Sommers MD
--- NOTE | 2017-03-29 14:08 | CP.CCUPN ---
<Kehinde Ritchie - Last Filed: 03/29/17 14:05> CCU Subjective - Physician Review Subjective (Free Text): 03/29/17 14:05 Patient seen and examined at bedside in the ICU. Remains off sedation, still unresponsive. Ventriculostomy drain still in place, clamped by Neurosurgeon yesterday. Family still wishes to pursue all measures; pending gastrostomy tube and Trach today as per Surgery. CCU Objective - Vital Signs / Intake & Output Vital Signs (Last 4 hours): Vital Signs Pulse BP Pulse Ox 03/29/17 13:49 88 156/88 H 03/29/17 10:10 84 99 Intake and Output (Last 8hrs): Intake & Output 03/28/17 03/29/17 03/29/17 22:59 06:59 14:59 Intake Total 3600 2990 300 Output Total 1275 1200 Balance 2325 1790 300 Weight 74.474 kg 76.204 kg Intake: IV 3000 2640 300 Cardene/ Left Arm 900 840 D5/ns/left arm 1200 1200 meds 300 100 Tube Feeding 600 250 Other 100 Output: Drainage 25 0 Head 25 0 Urine 1250 1200 Urethral (Mccord) 1250 1200 - Physical Exam Head: Positive for: Atraumatic. Negative for: Normocephalic (drain exiting from R skull, clamped), Ecchymosis, Abrasion Pupils: Positive for: Non-Reactive, Pinpoint. Negative for: PERRL Extroacular Muscles: Negative for: EOMI (no spontaneous eye movements, no movements on commands, no avoidance of direct light challenge for PERRL assessment) Conjunctiva: Positive for: Normal. Negative for: Injected, Icteric Mouth: Positive for: Moist Mucous Membranes, Other (ETT and OGT in place) Pharnyx: Positive for: Normal Nose (External): Positive for: Atraumatic. Negative for: Abrasion, Contusion, Laceration Nose (Internal): Positive for: Normal Inspection Neck: Positive for: Trachea Midline. Negative for: JVD, Lymphadenopathy Respiratory/Chest: Positive for: Clear to Auscultation, Good Air Exchange, Rales (mild rales in all gracia, otherwise CTA), Other (intubated and on mechanical ventilation, no spontaneous or self-initiated breaths on pressure support trial). Negative for: Respiratory Distress, Accessory Muscle Use Cardiovascular: Positive for: Regular Rate and Rhythm, Normal S1, S2, Bradycardic (intermittently bradycardic to 50's on bedside monitor). Negative for: Murmurs, Irregular Rhythm, Tachycardic Abdomen: Positive for: Normal Bowel Sounds, Other (no palpable pulsatile mass). Negative for: Tenderness, Distention Back: Negative for: Midline Tenderness, Paraspinal Tenderness Upper Extremity: Positive for: Normal Inspection, NORMAL PULSES. Negative for: Cyanosis, Edema, Swelling, Erythema, Temperature Abnormalties, Deformity Lower Extremity: Positive for: Normal Inspection, NORMAL PULSES. Negative for: Edema, CALF TENDERNESS, Cyanosis, Swelling, Erythema, Deformity, Temperature Abnormalties Neurological: Positive for: Other (intubated, not sedated but unresponsive, no purposeful movements, some posturing on the left likely decerebrate). Negative for: GCS=15 (Score of 3 (E1 V1t M1)), CN II-XII Intact, Speech Normal, Motor Func Grossly Intact Skin: Positive for: Warm, Dry, Normal Color. Negative for: Rashes, Diaphoretic Psychiatric: Positive for: Other (Intubated, not sedated but unresponsive). Negative for: Alert, Oriented x 3, Normal Insight, Normal Concentration, Normal Affect - Medications Active Medications: Active Medications Generic Name Dose Route Start Last Admin Trade Name Freq PRN Reason Stop Dose Admin Acetaminophen 650 mg 03/26/17 23:43 03/28/17 21:04 Tylenol 325mg Tab PO 650 mg Q6H PRN Administration Fever >100.4 F Albuterol/Ipratropium 3 ml 03/27/17 02:00 03/29/17 13:51 Duoneb 3 Mg/0.5 Mg (3 Ml) Ud IH 3 ml [id number] SRINATH Administration Chlorhexidine Gluconate 15 ml 03/25/17 10:00 03/29/17 13:43 Peridex PO 15 ml BID SRINATH Administration Clonidine HCl 1 patch 03/28/17 10:03/28/17 09:22 Catapres-Tts3 0.3 Mg/24 Hr TD 1 patch Q7D@1000 SRINATH Administration Hydralazine HCl 10 mg 03/27/17 10:56 03/27/17 12:26 Apresoline IVP 10 mg Q6 PRN Administration for SBP>140 Hydralazine HCl 50 mg 03/28/17 10:00 03/29/17 09:06 Apresoline PO 50 mg BID SRINATH Administration Propofol 1,000 mg in 100 mls @ 0 mls/hr 03/22/17 09:41 03/27/17 11:56 Diprivan IV 0 mcg/kg/min .Q0M PRN 0 mls/hr TITRATE PER MD ORDER Titration Protocol 5 MCG/KG/MIN Nicardipine HCl 20 mg in 200 mls @ 50 mls/hr 03/22/17 11:16 03/29/17 13:49 Cardene Iv Premix IV 5 mg/hr .Q4H PRN 50 mls/hr TITRATE PER MD ORDER Administration Protocol 5 MG/HR Dextrose/Sodium Chloride 1,000 mls @ 100 mls/hr 03/23/17 10:15 03/29/17 06:43 Dextrose 5%/0.9% Ns 1000 Ml IV 100 mls/hr .Q10H SRINATH Administration Insulin Human Regular 0 units 03/27/17 11:30 03/29/17 13:42 Humulin R Low SC Not Given ACHS SRINATH Protocol Levalbuterol HCl 1.25 mg 03/25/17 19:40 03/26/17 19:42 Xopenex IH 1.25 mg [id number] PRN Administration Shortness of Breath Methylprednisolone 20 mg 03/28/17 23:16 03/29/17 09:06 Solu-Medrol IVP 20 mg Q12 SRINATH Administration Pantoprazole Sodium 40 mg 03/26/17 10:00 03/29/17 09:06 Protonix Inj IVP 40 mg DAILY SRINATH Administration - Patient Studies Lab Studies: Microbiology Studies 03/25/17 10:15 Blood Culture - Preliminary Blood-Venous NO GROWTH AFTER 4 DAYS 03/25/17 10:00 Blood Culture - Preliminary Blood-Venous NO GROWTH AFTER 4 DAYS Lab Studies 03/29/17 03/29/17 03/29/17 Range/Units 13:32 07:37 05:30 WBC (4.5-11.0) 10^3/ul RBC (3.5-6.1) 10^6/uL Hgb (14.0-18.0) g/dL Hct (42.0-52.0) % MCV (80.0-105.0) fl MCH (25.0-35.0) pg MCHC (31.0-37.0) g/dl RDW (11.5-14.5) % Plt Count (120.0-450.0) 10^3/uL MPV (7.0-11.0) fl Gran % (50.0-68.0) % Lymph % (Auto) (22.0-35.0) % [place] % (Auto) (1.0-6.0) % Eos % (Auto) (1.5-5.0) % Baso % (Auto) (0.0-3.0) % Gran # (1.4-6.5) Lymph # (1.2-3.4) [place] # (0.1-0.6) Eos # (0.0-0.7) Baso # (0.0-2.0) K/mm3 PT 12.5 H (9.9-11.8) Seconds INR 1.16 H (0.93-1.08) APTT 27.2 (23.7-30.8) Seconds pCO2 (35-45) mm/Hg pO2 (80-100) mm/Hg HCO3 (21-28) mmol/L ABG pH (7.35-7.45) ABG Total CO2 (22-28) mmol.L ABG O2 Saturation (95-98) % ABG O2 Content (15-23) ML/dl ABG Base Excess (-2.0-3.0) mmol/L ABG Hemoglobin (11.7-17.4) g/dL ABG Carboxyhemoglobin (0.5-1.5) % POC ABG HHb (Measured) (0-5) % ABG Methemoglobin (0.0-3.0) % ABG O2 Capacity (16-24) mL/dl Hgb O2 Saturation (95.0-98.0) % FiO2 % Sodium (132-148) mmol/L Potassium (3.6-5.0) mmol/L Chloride (98-107) mmol/L Carbon Dioxide (21-33) mmol/L Anion Gap (10-20) BUN (7-21) mg/dL Creatinine (0.8-1.5) mg/dL Est GFR ( Amer) Est GFR (Non-Af Amer) POC Glucose (mg/dL) 254 H 261 H (65-110) mg/dL Random Glucose (70-110) mg/dL Calcium (8.4-10.5) mg/dL Phosphorus (2.5-4.5) mg/dL Magnesium (1.7-2.2) mg/dL Total Bilirubin (0.2-1.3) mg/dL AST (17-59) U/L ALT (7-56) U/L Alkaline Phosphatase (38-126) U/L Total Protein (5.8-8.3) g/dL Albumin (3.0-4.8) g/dL Globulin gm/dL Albumin/Globulin Ratio (1.1-1.8) 03/29/17 03/29/17 03/29/17 Range/Units 05:30 05:30 05:00 WBC 8.8 (4.5-11.0) 10^3/ul RBC 4.99 (3.5-6.1) 10^6/uL Hgb 14.2 (14.0-18.0) g/dL Hct 40.6 L (42.0-52.0) % MCV 81.4 (80.0-105.0) fl MCH 28.5 (25.0-35.0) pg MCHC 35.0 (31.0-37.0) g/dl RDW 11.7 (11.5-14.5) % Plt Count 267 (120.0-450.0) 10^3/uL MPV 9.4 (7.0-11.0) fl Gran % 92.7 H (50.0-68.0) % Lymph % (Auto) 4.8 L (22.0-35.0) % [place] % (Auto) 2.5 (1.0-6.0) % Eos % (Auto) 0.0 L (1.5-5.0) % Baso % (Auto) 0.0 (0.0-3.0) % Gran # 8.15 H (1.4-6.5) Lymph # 0.4 L (1.2-3.4) [place] # 0.2 (0.1-0.6) Eos # 0.0 (0.0-0.7) Baso # 0.00 (0.0-2.0) K/mm3 PT (9.9-11.8) Seconds INR (0.93-1.08) APTT (23.7-30.8) Seconds pCO2 37 (35-45) mm/Hg pO2 140.0 H (80-100) mm/Hg HCO3 26.3 (21-28) mmol/L ABG pH 7.46 H (7.35-7.45) ABG Total CO2 27.4 (22-28) mmol.L ABG O2 Saturation 99.3 H (95-98) % ABG O2 Content 19.3 (15-23) ML/dl ABG Base Excess 2.5 (-2.0-3.0) mmol/L ABG Hemoglobin 14.0 (11.7-17.4) g/dL ABG Carboxyhemoglobin 1.4 (0.5-1.5) % POC ABG HHb (Measured) 0.7 (0-5) % ABG Methemoglobin 1.2 (0.0-3.0) % ABG O2 Capacity 19.4 (16-24) mL/dl Hgb O2 Saturation 96.7 (95.0-98.0) % FiO2 35.0 % Sodium 132 (132-148) mmol/L Potassium 3.7 (3.6-5.0) mmol/L Chloride 96 L (98-107) mmol/L Carbon Dioxide 28 (21-33) mmol/L Anion Gap 12 (10-20) BUN 24 H (7-21) mg/dL Creatinine 0.6 L (0.8-1.5) mg/dL Est GFR ( Amer) > 60 Est GFR (Non-Af Amer) > 60 POC Glucose (mg/dL) (65-110) mg/dL Random Glucose 299 H (70-110) mg/dL Calcium 8.6 (8.4-10.5) mg/dL Phosphorus 2.9 (2.5-4.5) mg/dL Magnesium 2.1 (1.7-2.2) mg/dL Total Bilirubin 0.7 (0.2-1.3) mg/dL AST 57 (17-59) U/L ALT 99 H (7-56) U/L Alkaline Phosphatase 84 (38-126) U/L Total Protein 6.1 (5.8-8.3) g/dL Albumin 3.1 (3.0-4.8) g/dL Globulin 3.0 gm/dL Albumin/Globulin Ratio 1.0 L (1.1-1.8) 03/28/17 03/28/17 03/28/17 Range/Units 21:51 16:37 12:21 WBC (4.5-11.0) 10^3/ul RBC (3.5-6.1) 10^6/uL Hgb (14.0-18.0) g/dL Hct (42.0-52.0) % MCV (80.0-105.0) fl MCH (25.0-35.0) pg MCHC (31.0-37.0) g/dl RDW (11.5-14.5) % Plt Count (120.0-450.0) 10^3/uL MPV (7.0-11.0) fl Gran % (50.0-68.0) % Lymph % (Auto) (22.0-35.0) % [place] % (Auto) (1.0-6.0) % Eos % (Auto) (1.5-5.0) % Baso % (Auto) (0.0-3.0) % Gran # (1.4-6.5) Lymph # (1.2-3.4) [place] # (0.1-0.6) Eos # (0.0-0.7) Baso # (0.0-2.0) K/mm3 PT (9.9-11.8) Seconds INR (0.93-1.08) APTT (23.7-30.8) Seconds pCO2 (35-45) mm/Hg pO2 (80-100) mm/Hg HCO3 (21-28) mmol/L ABG pH (7.35-7.45) ABG Total CO2 (22-28) mmol.L ABG O2 Saturation (95-98) % ABG O2 Content (15-23) ML/dl ABG Base Excess (-2.0-3.0) mmol/L ABG Hemoglobin (11.7-17.4) g/dL ABG Carboxyhemoglobin (0.5-1.5) % POC ABG HHb (Measured) (0-5) % ABG Methemoglobin (0.0-3.0) % ABG O2 Capacity (16-24) mL/dl Hgb O2 Saturation (95.0-98.0) % FiO2 % Sodium (132-148) mmol/L Potassium (3.6-5.0) mmol/L Chloride (98-107) mmol/L Carbon Dioxide (21-33) mmol/L Anion Gap (10-20) BUN (7-21) mg/dL Creatinine (0.8-1.5) mg/dL Est GFR ( Amer) Est GFR (Non-Af Amer) POC Glucose (mg/dL) 299 H 269 H 245 H (65-110) mg/dL Random Glucose (70-110) mg/dL Calcium (8.4-10.5) mg/dL Phosphorus (2.5-4.5) mg/dL Magnesium (1.7-2.2) mg/dL Total Bilirubin (0.2-1.3) mg/dL AST (17-59) U/L ALT (7-56) U/L Alkaline Phosphatase (38-126) U/L Total Protein (5.8-8.3) g/dL Albumin (3.0-4.8) g/dL Globulin gm/dL Albumin/Globulin Ratio (1.1-1.8) 03/28/17 03/28/17 Range/Units 11:37 07:43 WBC (4.5-11.0) 10^3/ul RBC (3.5-6.1) 10^6/uL Hgb (14.0-18.0) g/dL Hct (42.0-52.0) % MCV (80.0-105.0) fl MCH (25.0-35.0) pg MCHC (31.0-37.0) g/dl RDW (11.5-14.5) % Plt Count (120.0-450.0) 10^3/uL MPV (7.0-11.0) fl Gran % (50.0-68.0) % Lymph % (Auto) (22.0-35.0) % [place] % (Auto) (1.0-6.0) % Eos % (Auto) (1.5-5.0) % Baso % (Auto) (0.0-3.0) % Gran # (1.4-6.5) Lymph # (1.2-3.4) [place] # (0.1-0.6) Eos # (0.0-0.7) Baso # (0.0-2.0) K/mm3 PT (9.9-11.8) Seconds INR (0.93-1.08) APTT (23.7-30.8) Seconds pCO2 (35-45) mm/Hg pO2 (80-100) mm/Hg HCO3 (21-28) mmol/L ABG pH (7.35-7.45) ABG Total CO2 (22-28) mmol.L ABG O2 Saturation (95-98) % ABG O2 Content (15-23) ML/dl ABG Base Excess (-2.0-3.0) mmol/L ABG Hemoglobin (11.7-17.4) g/dL ABG Carboxyhemoglobin (0.5-1.5) % POC ABG HHb (Measured) (0-5) % ABG Methemoglobin (0.0-3.0) % ABG O2 Capacity (16-24) mL/dl Hgb O2 Saturation (95.0-98.0) % FiO2 % Sodium (132-148) mmol/L Potassium (3.6-5.0) mmol/L Chloride (98-107) mmol/L Carbon Dioxide (21-33) mmol/L Anion Gap (10-20) BUN (7-21) mg/dL Creatinine (0.8-1.5) mg/dL Est GFR ( Amer) Est GFR (Non-Af Amer) POC Glucose (mg/dL) 224 H 267 H (65-110) mg/dL Random Glucose (70-110) mg/dL Calcium (8.4-10.5) mg/dL Phosphorus (2.5-4.5) mg/dL Magnesium (1.7-2.2) mg/dL Total Bilirubin (0.2-1.3) mg/dL AST (17-59) U/L ALT (7-56) U/L Alkaline Phosphatase (38-126) U/L Total Protein (5.8-8.3) g/dL Albumin (3.0-4.8) g/dL Globulin gm/dL Albumin/Globulin Ratio (1.1-1.8) Laboratory Results - last 24 hr 03/28/17 03/28/17 03/28/17 07:43 11:37 12:21 WBC RBC Hgb Hct MCV MCH MCHC RDW Plt Count MPV Gran % Lymph % (Auto) [place] % (Auto) Eos % (Auto) Baso % (Auto) Gran # Lymph # [place] # Eos # Baso # PT INR APTT pCO2 pO2 HCO3 ABG pH ABG Total CO2 ABG O2 Saturation ABG O2 Content ABG Base Excess ABG Hemoglobin ABG Carboxyhemoglobin POC ABG HHb (Measured) ABG Methemoglobin ABG O2 Capacity Hgb O2 Saturation FiO2 Sodium Potassium Chloride Carbon Dioxide Anion Gap BUN Creatinine Est GFR ( Amer) Est GFR (Non-Af Amer) POC Glucose (mg/dL) 267 H 224 H 245 H Random Glucose Calcium Phosphorus Magnesium Total Bilirubin AST ALT Alkaline Phosphatase Total Protein Albumin Globulin Albumin/Globulin Ratio 03/28/17 03/28/17 03/29/17 16:37 21:51 05:00 WBC RBC Hgb Hct MCV MCH MCHC RDW Plt Count MPV Gran % Lymph % (Auto) [place] % (Auto) Eos % (Auto) Baso % (Auto) Gran # Lymph # [place] # Eos # Baso # PT INR APTT pCO2 37 pO2 140.0 H HCO3 26.3 ABG pH 7.46 H ABG Total CO2 27.4 ABG O2 Saturation 99.3 H ABG O2 Content 19.3 ABG Base Excess 2.5 ABG Hemoglobin 14.0 ABG Carboxyhemoglobin 1.4 POC ABG HHb (Measured) 0.7 ABG Methemoglobin 1.2 ABG O2 Capacity 19.4 Hgb O2 Saturation 96.7 FiO2 35.0 Sodium Potassium Chloride Carbon Dioxide Anion Gap BUN Creatinine Est GFR ( Amer) Est GFR (Non-Af Amer) POC Glucose (mg/dL) 269 H 299 H Random Glucose Calcium Phosphorus Magnesium Total Bilirubin AST ALT Alkaline Phosphatase Total Protein Albumin Globulin Albumin/Globulin Ratio 03/29/17 03/29/17 03/29/17 05:30 05:30 05:30 WBC 8.8 RBC 4.99 Hgb 14.2 Hct 40.6 L MCV 81.4 MCH 28.5 MCHC 35.0 RDW 11.7 Plt Count 267 MPV 9.4 Gran % 92.7 H Lymph % (Auto) 4.8 L [place] % (Auto) 2.5 Eos % (Auto) 0.0 L Baso % (Auto) 0.0 Gran # 8.15 H Lymph # 0.4 L [place] # 0.2 Eos # 0.0 Baso # 0.00 PT 12.5 H INR 1.16 H APTT 27.2 pCO2 pO2 HCO3 ABG pH ABG Total CO2 ABG O2 Saturation ABG O2 Content ABG Base Excess ABG Hemoglobin ABG Carboxyhemoglobin POC ABG HHb (Measured) ABG Methemoglobin ABG O2 Capacity Hgb O2 Saturation FiO2 Sodium 132 Potassium 3.7 Chloride 96 L Carbon Dioxide 28 Anion Gap 12 BUN 24 H Creatinine 0.6 L Est GFR ( Amer) > 60 Est GFR (Non-Af Amer) > 60 POC Glucose (mg/dL) Random Glucose 299 H Calcium 8.6 Phosphorus 2.9 Magnesium 2.1 Total Bilirubin 0.7 AST 57 ALT 99 H Alkaline Phosphatase 84 Total Protein 6.1 Albumin 3.1 Globulin 3.0 Albumin/Globulin Ratio 1.0 L 03/29/17 03/29/17 07:37 13:32 WBC RBC Hgb Hct MCV MCH MCHC RDW Plt Count MPV Gran % Lymph % (Auto) [place] % (Auto) Eos % (Auto) Baso % (Auto) Gran # Lymph # [place] # Eos # Baso # PT INR APTT pCO2 pO2 HCO3 ABG pH ABG Total CO2 ABG O2 Saturation ABG O2 Content ABG Base Excess ABG Hemoglobin ABG Carboxyhemoglobin POC ABG HHb (Measured) ABG Methemoglobin ABG O2 Capacity Hgb O2 Saturation FiO2 Sodium Potassium Chloride Carbon Dioxide Anion Gap BUN Creatinine Est GFR ( Amer) Est GFR (Non-Af Amer) POC Glucose (mg/dL) 261 H 254 H Random Glucose Calcium Phosphorus Magnesium Total Bilirubin AST ALT Alkaline Phosphatase Total Protein Albumin Globulin Albumin/Globulin Ratio Fingerstick Blood Sugar Results: 231 Review of Systems - Review of Systems Systems not reviewed;Unavailable: Intubated Critical Care Progress Note - Nutrition Nutrition: Nutrition Category Date Time Status NPO Diet [DIET] Diets 03/25/17 Breakfast Ordered Assessment/Plan - Assessment and Plan (Free Text) Assessment: This is an 82 yo [place] M with PMH of CAD, COPD, Afib (on Eliquis), BPH, DM, and HTN who was brought to [facility] after being found down on the ground by family, and was found to be hypotensive with extensive intracerebral bleed with ventricular extension and mass effect. S/p ventriculostomy with drain placement , POD #7, now clamped. He remains off sedation, but is still unresponsive. Full code and all measures as per family; pending Trach and Gastrostomy tube placement as per Surgery. Plan: Neuro: -extensive ICH with bilateral ventricular extension, notable edema; s/p Ventriculostomy, POD#7; drain clamped by Neurosurgeon -intubated, off sedation, but remains completely unresponsive to physical or verbal stimuli -pinpoint pupils, holding extremities flacidly, previously noted to have intermittent twitches and mastication-like movements with jaw, but no purposeful movements; appears to be decerebrate posturing on L-side -Neuro (Dr. Steen) and Neurosurgery (Dr. Mcintyre) on board, appreciate all recs -As per Neurosurg, drain clamped for 24 hours, ICP < 10, will remove -Hold all AC due to ICH, maintain euglycemia, maintain SBP 140-160 (now off cardine drip) -EEG obtained, severe bilateral cerebral dysfxn, no epileptiform activity Pulm: -Intubated, on mechanical ventilation -maintain SaO2 > 88% (COD pt) and paO2 > 55 -Protective lung ventilation strategies, low tidal volumes, VAP bundle -most recent ABG reviewed, continue current management -Now tolerating pressure-support trials; pending Trach as per Surgery -Mild rales on exam (new finding), CXR today appeared consistent with some fluid overload, and Net Positive ~11L over the last 3 days; held IVF and ordered lasix 60mg IVP x1 -Pulm (Dr. Wilcox) following, appreciate all recs Cardio: -No new bradycardic episodes, currently stable in 80's -BP control in setting of ICH, SBP 140-160, switched from Cardine drip to amlodipine and Clonidine patch -most recent trop 0.15, but avoid all AC in setting of ICH -Cardio (Dr. Beltrán) following, appreciate all recs GI: -NPO -Protonix for GI ppx -Pending Gastrostomy tube as per Surgery Renal: -monitor and replete electrolytes as needed -mccord in place, draining clear yellow urine, monitor I's and O's Heme: -Hgb stable at 13's-14s, today was 14.2 -NO AC in setting of ICH, SCDs for DVT ppx ID: -no leukocytosis, afebrile -empiric coverage with Vanco and Cefepime as per ID -ID following, appreciate all recs Endo: -D5NS on hold due to possible fluid overload -Fingersticks q6, maintain BG 140-180 -pending Gtube placement, can consider starting feeds after Dispo: ICU, intubated but not sedated, monitoring for 48-72 hours off sedation, pending Trach and Gastrotomy tube FEN: NPO, pending G-tube and feeds Access: Peripheral IV, R-ventriculostomy drain (clamped, pending removal) Consults: Neurosurgery, Neuro, ID, Cardio, Pulm, Surgery Ppx: Protonix for GI, SCDs for DVT Patient seen and reviewed with attending, Dr Astorga <Tony Astorga - Last Filed: 03/29/17 14:27> CCU Objective - Vital Signs / Intake & Output Vital Signs (Last 4 hours): Vital Signs Pulse BP 03/29/17 13:49 88 156/88 H Intake and Output (Last 8hrs): Intake & Output 03/28/17 03/29/17 03/29/17 22:59 06:59 14:59 Intake Total 3600 2990 300 Output Total 1275 1200 Balance 2325 1790 300 Weight 164 lb 3 oz 168 lb Intake: IV 3000 2640 300 Cardene/ Left Arm 900 840 D5/ns/left arm 1200 1200 meds 300 100 Tube Feeding 600 250 Other 100 Output: Drainage 25 0 Head 25 0 Urine 1250 1200 Urethral (Mccord) 1250 1200 - Medications Active Medications: Active Medications Generic Name Dose Route Start Last Admin Trade Name Freq PRN Reason Stop Dose Admin Acetaminophen 650 mg 03/26/17 23:43 03/28/17 21:04 Tylenol 325mg Tab PO 650 mg Q6H PRN Administration Fever >100.4 F Albuterol/Ipratropium 3 ml 03/27/17 02:00 03/29/17 13:51 Duoneb 3 Mg/0.5 Mg (3 Ml) Ud IH 3 ml [id number] SRINATH Administration Chlorhexidine Gluconate 15 ml 03/25/17 10:00 03/29/17 13:43 Peridex PO 15 ml BID SRINATH Administration Clonidine HCl 1 patch 03/28/17 10:00 03/28/17 09:22 Catapres-Tts3 0.3 Mg/24 Hr TD 1 patch Q7D@1000 SRINATH Administration Hydralazine HCl 10 mg 03/27/17 10:56 03/27/17 12:26 Apresoline IVP 10 mg Q6 PRN Administration for SBP>140 Hydralazine HCl 50 mg 03/28/17 10:00 03/29/17 09:06 Apresoline PO 50 mg BID SRINATH Administration Propofol 1,000 mg in 100 mls @ 0 mls/hr 03/22/17 09:41 03/27/17 11:56 Diprivan IV 0 mcg/kg/min .Q0M PRN 0 mls/hr TITRATE PER MD ORDER Titration Protocol 5 MCG/KG/MIN Nicardipine HCl 20 mg in 200 mls @ 50 mls/hr 03/22/17 11:16 03/29/17 13:49 Cardene Iv Premix IV 5 mg/hr .Q4H PRN 50 mls/hr TITRATE PER MD ORDER Administration Protocol 5 MG/HR Dextrose/Sodium Chloride 1,000 mls @ 100 mls/hr 03/23/17 10:15 03/29/17 06:43 Dextrose 5%/0.9% Ns 1000 Ml IV 100 mls/hr .Q10H SRINATH Administration Insulin Human Regular 0 units 03/27/17 11:30 03/29/17 13:42 Humulin R Low SC Not Given ACHS [facility] Protocol Levalbuterol HCl 1.25 mg 03/25/17 19:40 03/26/17 19:42 Xopenex IH 1.25 mg [id number] PRN Administration Shortness of Breath Methylprednisolone 20 mg 03/28/17 23:16 03/29/17 09:06 Solu-Medrol IVP 20 mg Q12 SRINATH Administration Pantoprazole Sodium 40 mg 03/26/17 10:00 03/29/17 09:06 Protonix Inj IVP 40 mg DAILY SRINATH Administration - Patient Studies Lab Studies: Microbiology Studies 03/25/17 10:15 Blood Culture - Preliminary Blood-Venous NO GROWTH AFTER 4 DAYS 03/25/17 10:00 Blood Culture - Preliminary Blood-Venous NO GROWTH AFTER 4 DAYS Lab Studies 03/29/17 03/29/17 03/29/17 Range/Units 13:32 07:37 05:30 WBC (4.5-11.0) 10^3/ul RBC (3.5-6.1) 10^6/uL Hgb (14.0-18.0) g/dL Hct (42.0-52.0) % MCV (80.0-105.0) fl MCH (25.0-35.0) pg MCHC (31.0-37.0) g/dl RDW (11.5-14.5) % Plt Count (120.0-450.0) 10^3/uL MPV (7.0-11.0) fl Gran % (50.0-68.0) % Lymph % (Auto) (22.0-35.0) % [place] % (Auto) (1.0-6.0) % Eos % (Auto) (1.5-5.0) % Baso % (Auto) (0.0-3.0) % Gran # (1.4-6.5) Lymph # (1.2-3.4) [place] # (0.1-0.6) Eos # (0.0-0.7) Baso # (0.0-2.0) K/mm3 PT 12.5 H (9.9-11.8) Seconds INR 1.16 H (0.93-1.08) APTT 27.2 (23.7-30.8) Seconds pCO2 (35-45) mm/Hg pO2 (80-100) mm/Hg HCO3 (21-28) mmol/L ABG pH (7.35-7.45) ABG Total CO2 (22-28) mmol.L ABG O2 Saturation (95-98) % ABG O2 Content (15-23) ML/dl ABG Base Excess (-2.0-3.0) mmol/L ABG Hemoglobin (11.7-17.4) g/dL ABG Carboxyhemoglobin (0.5-1.5) % POC ABG HHb (Measured) (0-5) % ABG Methemoglobin (0.0-3.0) % ABG O2 Capacity (16-24) mL/dl Hgb O2 Saturation (95.0-98.0) % FiO2 % Sodium (132-148) mmol/L Potassium (3.6-5.0) mmol/L Chloride (98-107) mmol/L Carbon Dioxide (21-33) mmol/L Anion Gap (10-20) BUN (7-21) mg/dL Creatinine (0.8-1.5) mg/dL Est GFR ( Amer) Est GFR (Non-Af Amer) POC Glucose (mg/dL) 254 H 261 H (65-110) mg/dL Random Glucose (70-110) mg/dL Calcium (8.4-10.5) mg/dL Phosphorus (2.5-4.5) mg/dL Magnesium (1.7-2.2) mg/dL Total Bilirubin (0.2-1.3) mg/dL AST (17-59) U/L ALT (7-56) U/L Alkaline Phosphatase (38-126) U/L Total Protein (5.8-8.3) g/dL Albumin (3.0-4.8) g/dL Globulin gm/dL Albumin/Globulin Ratio (1.1-1.8) 03/29/17 03/29/17 03/29/17 Range/Units 05:30 05:30 05:00 WBC 8.8 (4.5-11.0) 10^3/ul RBC 4.99 (3.5-6.1) 10^6/uL Hgb 14.2 (14.0-18.0) g/dL Hct 40.6 L (42.0-52.0) % MCV 81.4 (80.0-105.0) fl MCH 28.5 (25.0-35.0) pg MCHC 35.0 (31.0-37.0) g/dl RDW 11.7 (11.5-14.5) % Plt Count 267 (120.0-450.0) 10^3/uL MPV 9.4 (7.0-11.0) fl Gran % 92.7 H (50.0-68.0) % Lymph % (Auto) 4.8 L (22.0-35.0) % [place] % (Auto) 2.5 (1.0-6.0) % Eos % (Auto) 0.0 L (1.5-5.0) % Baso % (Auto) 0.0 (0.0-3.0) % Gran # 8.15 H (1.4-6.5) Lymph # 0.4 L (1.2-3.4) [place] # 0.2 (0.1-0.6) Eos # 0.0 (0.0-0.7) Baso # 0.00 (0.0-2.0) K/mm3 PT (9.9-11.8) Seconds INR (0.93-1.08) APTT (23.7-30.8) Seconds pCO2 37 (35-45) mm/Hg pO2 140.0 H (80-100) mm/Hg HCO3 26.3 (21-28) mmol/L ABG pH 7.46 H (7.35-7.45) ABG Total CO2 27.4 (22-28) mmol.L ABG O2 Saturation 99.3 H (95-98) % ABG O2 Content 19.3 (15-23) ML/dl ABG Base Excess 2.5 (-2.0-3.0) mmol/L ABG Hemoglobin 14.0 (11.7-17.4) g/dL ABG Carboxyhemoglobin 1.4 (0.5-1.5) % POC ABG HHb (Measured) 0.7 (0-5) % ABG Methemoglobin 1.2 (0.0-3.0) % ABG O2 Capacity 19.4 (16-24) mL/dl Hgb O2 Saturation 96.7 (95.0-98.0) % FiO2 35.0 % Sodium 132 (132-148) mmol/L Potassium 3.7 (3.6-5.0) mmol/L Chloride 96 L (98-107) mmol/L Carbon Dioxide 28 (21-33) mmol/L Anion Gap 12 (10-20) BUN 24 H (7-21) mg/dL Creatinine 0.6 L (0.8-1.5) mg/dL Est GFR ( Amer) > 60 Est GFR (Non-Af Amer) > 60 POC Glucose (mg/dL) (65-110) mg/dL Random Glucose 299 H (70-110) mg/dL Calcium 8.6 (8.4-10.5) mg/dL Phosphorus 2.9 (2.5-4.5) mg/dL Magnesium 2.1 (1.7-2.2) mg/dL Total Bilirubin 0.7 (0.2-1.3) mg/dL AST 57 (17-59) U/L ALT 99 H (7-56) U/L Alkaline Phosphatase 84 (38-126) U/L Total Protein 6.1 (5.8-8.3) g/dL Albumin 3.1 (3.0-4.8) g/dL Globulin 3.0 gm/dL Albumin/Globulin Ratio 1.0 L (1.1-1.8) 03/28/17 03/28/17 03/28/17 Range/Units 21:51 16:37 12:21 WBC (4.5-11.0) 10^3/ul RBC (3.5-6.1) 10^6/uL Hgb (14.0-18.0) g/dL Hct (42.0-52.0) % MCV (80.0-105.0) fl MCH (25.0-35.0) pg MCHC (31.0-37.0) g/dl RDW (11.5-14.5) % Plt Count (120.0-450.0) 10^3/uL MPV (7.0-11.0) fl Gran % (50.0-68.0) % Lymph % (Auto) (22.0-35.0) % [place] % (Auto) (1.0-6.0) % Eos % (Auto) (1.5-5.0) % Baso % (Auto) (0.0-3.0) % Gran # (1.4-6.5) Lymph # (1.2-3.4) [place] # (0.1-0.6) Eos # (0.0-0.7) Baso # (0.0-2.0) K/mm3 PT (9.9-11.8) Seconds INR (0.93-1.08) APTT (23.7-30.8) Seconds pCO2 (35-45) mm/Hg pO2 (80-100) mm/Hg HCO3 (21-28) mmol/L ABG pH (7.35-7.45) ABG Total CO2 (22-28) mmol.L ABG O2 Saturation (95-98) % ABG O2 Content (15-23) ML/dl ABG Base Excess (-2.0-3.0) mmol/L ABG Hemoglobin (11.7-17.4) g/dL ABG Carboxyhemoglobin (0.5-1.5) % POC ABG HHb (Measured) (0-5) % ABG Methemoglobin (0.0-3.0) % ABG O2 Capacity (16-24) mL/dl Hgb O2 Saturation (95.0-98.0) % FiO2 % Sodium (132-148) mmol/L Potassium (3.6-5.0) mmol/L Chloride (98-107) mmol/L Carbon Dioxide (21-33) mmol/L Anion Gap (10-20) BUN (7-21) mg/dL Creatinine (0.8-1.5) mg/dL Est GFR ( Amer) Est GFR (Non-Af Amer) POC Glucose (mg/dL) 299 H 269 H 245 H (65-110) mg/dL Random Glucose (70-110) mg/dL Calcium (8.4-10.5) mg/dL Phosphorus (2.5-4.5) mg/dL Magnesium (1.7-2.2) mg/dL Total Bilirubin (0.2-1.3) mg/dL AST (17-59) U/L ALT (7-56) U/L Alkaline Phosphatase (38-126) U/L Total Protein (5.8-8.3) g/dL Albumin (3.0-4.8) g/dL Globulin gm/dL Albumin/Globulin Ratio (1.1-1.8) 03/28/17 03/28/17 Range/Units 11:37 07:43 WBC (4.5-11.0) 10^3/ul RBC (3.5-6.1) 10^6/uL Hgb (14.0-18.0) g/dL Hct (42.0-52.0) % MCV (80.0-105.0) fl MCH (25.0-35.0) pg MCHC (31.0-37.0) g/dl RDW (11.5-14.5) % Plt Count (120.0-450.0) 10^3/uL MPV (7.0-11.0) fl Gran % (50.0-68.0) % Lymph % (Auto) (22.0-35.0) % [place] % (Auto) (1.0-6.0) % Eos % (Auto) (1.5-5.0) % Baso % (Auto) (0.0-3.0) % Gran # (1.4-6.5) Lymph # (1.2-3.4) [place] # (0.1-0.6) Eos # (0.0-0.7) Baso # (0.0-2.0) K/mm3 PT (9.9-11.8) Seconds INR (0.93-1.08) APTT (23.7-30.8) Seconds pCO2 (35-45) mm/Hg pO2 (80-100) mm/Hg HCO3 (21-28) mmol/L ABG pH (7.35-7.45) ABG Total CO2 (22-28) mmol.L ABG O2 Saturation (95-98) % ABG O2 Content (15-23) ML/dl ABG Base Excess (-2.0-3.0) mmol/L ABG Hemoglobin (11.7-17.4) g/dL ABG Carboxyhemoglobin (0.5-1.5) % POC ABG HHb (Measured) (0-5) % ABG Methemoglobin (0.0-3.0) % ABG O2 Capacity (16-24) mL/dl Hgb O2 Saturation (95.0-98.0) % FiO2 % Sodium (132-148) mmol/L Potassium (3.6-5.0) mmol/L Chloride (98-107) mmol/L Carbon Dioxide (21-33) mmol/L Anion Gap (10-20) BUN (7-21) mg/dL Creatinine (0.8-1.5) mg/dL Est GFR ( Amer) Est GFR (Non-Af Amer) POC Glucose (mg/dL) 224 H 267 H (65-110) mg/dL Random Glucose (70-110) mg/dL Calcium (8.4-10.5) mg/dL Phosphorus (2.5-4.5) mg/dL Magnesium (1.7-2.2) mg/dL Total Bilirubin (0.2-1.3) mg/dL AST (17-59) U/L ALT (7-56) U/L Alkaline Phosphatase (38-126) U/L Total Protein (5.8-8.3) g/dL Albumin (3.0-4.8) g/dL Globulin gm/dL Albumin/Globulin Ratio (1.1-1.8) Laboratory Results - last 24 hr 03/28/17 03/28/17 03/28/17 07:43 11:37 12:21 WBC RBC Hgb Hct MCV MCH MCHC RDW Plt Count MPV Gran % Lymph % (Auto) [place] % (Auto) Eos % (Auto) Baso % (Auto) Gran # Lymph # [place] # Eos # Baso # PT INR APTT pCO2 pO2 HCO3 ABG pH ABG Total CO2 ABG O2 Saturation ABG O2 Content ABG Base Excess ABG Hemoglobin ABG Carboxyhemoglobin POC ABG HHb (Measured) ABG Methemoglobin ABG O2 Capacity Hgb O2 Saturation FiO2 Sodium Potassium Chloride Carbon Dioxide Anion Gap BUN Creatinine Est GFR ( Amer) Est GFR (Non-Af Amer) POC Glucose (mg/dL) 267 H 224 H 245 H Random Glucose Calcium Phosphorus Magnesium Total Bilirubin AST ALT Alkaline Phosphatase Total Protein Albumin Globulin Albumin/Globulin Ratio 03/28/17 03/28/17 03/29/17 16:37 21:51 05:00 WBC RBC Hgb Hct MCV MCH MCHC RDW Plt Count MPV Gran % Lymph % (Auto) [place] % (Auto) Eos % (Auto) Baso % (Auto) Gran # Lymph # [place] # Eos # Baso # PT INR APTT pCO2 37 pO2 140.0 H HCO3 26.3 ABG pH 7.46 H ABG Total CO2 27.4 ABG O2 Saturation 99.3 H ABG O2 Content 19.3 ABG Base Excess 2.5 ABG Hemoglobin 14.0 ABG Carboxyhemoglobin 1.4 POC ABG HHb (Measured) 0.7 ABG Methemoglobin 1.2 ABG O2 Capacity 19.4 Hgb O2 Saturation 96.7 FiO2 35.0 Sodium Potassium Chloride Carbon Dioxide Anion Gap BUN Creatinine Est GFR ( Amer) Est GFR (Non-Af Amer) POC Glucose (mg/dL) 269 H 299 H Random Glucose Calcium Phosphorus Magnesium Total Bilirubin AST ALT Alkaline Phosphatase Total Protein Albumin Globulin Albumin/Globulin Ratio 03/29/17 03/29/17 03/29/17 05:30 05:30 05:30 WBC 8.8 RBC 4.99 Hgb 14.2 Hct 40.6 L MCV 81.4 MCH 28.5 MCHC 35.0 RDW 11.7 Plt Count 267 MPV 9.4 Gran % 92.7 H Lymph % (Auto) 4.8 L [place] % (Auto) 2.5 Eos % (Auto) 0.0 L Baso % (Auto) 0.0 Gran # 8.15 H Lymph # 0.4 L [place] # 0.2 Eos # 0.0 Baso # 0.00 PT 12.5 H INR 1.16 H APTT 27.2 pCO2 pO2 HCO3 ABG pH ABG Total CO2 ABG O2 Saturation ABG O2 Content ABG Base Excess ABG Hemoglobin ABG Carboxyhemoglobin POC ABG HHb (Measured) ABG Methemoglobin ABG O2 Capacity Hgb O2 Saturation FiO2 Sodium 132 Potassium 3.7 Chloride 96 L Carbon Dioxide 28 Anion Gap 12 BUN 24 H Creatinine 0.6 L Est GFR ( Amer) > 60 Est GFR (Non-Af Amer) > 60 POC Glucose (mg/dL) Random Glucose 299 H Calcium 8.6 Phosphorus 2.9 Magnesium 2.1 Total Bilirubin 0.7 AST 57 ALT 99 H Alkaline Phosphatase 84 Total Protein 6.1 Albumin 3.1 Globulin 3.0 Albumin/Globulin Ratio 1.0 L 03/29/17 03/29/17 07:37 13:32 WBC RBC Hgb Hct MCV MCH MCHC RDW Plt Count MPV Gran % Lymph % (Auto) [place] % (Auto) Eos % (Auto) Baso % (Auto) Gran # Lymph # [place] # Eos # Baso # PT INR APTT pCO2 pO2 HCO3 ABG pH ABG Total CO2 ABG O2 Saturation ABG O2 Content ABG Base Excess ABG Hemoglobin ABG Carboxyhemoglobin POC ABG HHb (Measured) ABG Methemoglobin ABG O2 Capacity Hgb O2 Saturation FiO2 Sodium Potassium Chloride Carbon Dioxide Anion Gap BUN Creatinine Est GFR ( Amer) Est GFR (Non-Af Amer) POC Glucose (mg/dL) 261 H 254 H Random Glucose Calcium Phosphorus Magnesium Total Bilirubin AST ALT Alkaline Phosphatase Total Protein Albumin Globulin Albumin/Globulin Ratio Critical Care Progress Note - Nutrition Nutrition: Nutrition Category Date Time Status NPO Diet [DIET] Diets 03/25/17 Breakfast Ordered Assessment/Plan - Assessment and Plan (Free Text) Plan: Patient seen and examined, with resident, agree with note with following additions/exceptions: Patient is 82 yo M with PMH of CAD, COPD, Afib (on Eliquis), BPH, DM, and HTN with extensive intracerebral bleed with ventricular extension and mass effect. S/p ventriculostomy with drain placement, POD #7, now removed Patient to get PEG/Trach today. Catastrophic ICH, s/p EVD now removed HTN COPD Afib Recommend - cont with ventilatory support, CPAP trials - monitor for fever, WBC - BP control - EVD has been taken out by NSG - Patient s/p Peg/Trach - follow up NSG, ID, Cardio - hold off further IVF - Abx as per ID - DVT ppx, SCDs - Extremely poor prognosis, needs terminal computer operator placement in terminal computer operator care facility
[2017-03-29 15:45] LABS: ALB/GLOB RATIO 1.1 (1.1-1.8); ALKALINE PHOSPHATASE 80 U/L (38-126); ALT/SGPT 109 U/L (7-56); AST/SGOT 54 U/L (17-59); BILIRUBIN,TOTAL 0.9 mg/dL (0.2-1.3); BLOOD UREA NITROGEN 25 mg/dL (7-21); CALCIUM 8.3 mg/dL (8.4-10.5); CARBON DIOXIDE 30 mmol/L (21-33); CHLORIDE 94 mmol/L (98-107); GFR AFRICAN-AMERICAN > 60; GLUCOSE,RANDOM 262 mg/dL (70-110); MAGNESIUM 1.9 mg/dL (1.7-2.2); PHOSPHOROUS 3.5 mg/dL (2.5-4.5); POTASSIUM 3.6 mmol/L (3.6-5.0); SODIUM 131 mmol/L (132-148); TOTAL PROTEIN 6.1 g/dL (5.8-8.3)
--- NOTE | 2017-03-29 19:23 | PN ---
DATE: 03/29/2017 REASON FOR CONSULTATION AND FOLLOWUP: Acute CVA, intracerebral bleed, and respiratory failure. SUBJECTIVE: The patient remains on the vent, sedated. OBJECTIVE: GENERAL: Remains on the vent, sedated. VITAL SIGNS: Temperature afebrile, heart rate 88, blood pressure 156/88. HEENT: PERRLA. Extraocular muscles intact. NECK: Supple. No carotid bruit or thyromegaly. CHEST: Clear to auscultation. HEART: S1 and S2 regular. ABDOMEN: Soft. EXTREMITIES: Clubbing and cyanosis negative. LABORATORY DATA: Blood workup as follows: WBC 8.8, hemoglobin 14, hematocrit 40.6, platelet count 267. Chemistry shows sodium 138, potassium 3.7, chloride 96, carbon dioxide 28, anion gap of 12, BUN 24, creatinine 0.6. Total protein 6, albumin 3, albumin-globulin ratio 1. IMPRESSION: The patient is an 82-year-old with a past medical history significant for coronary artery disease, history of chronic obstructive pulmonary disease, history of chronic atrial fibrillation, was on Eliquis at home, admitted with intracerebral bleed, hydrocephalus status post respiratory failure status post ventriculostomy and drainage at the basal ganglia. The patient had an echo done yesterday that revealed normal left ventricular function, mild valvular aortic stenosis, mild tricuspid regurgitation, mild pulmonary insufficiency, no mitral regurgitation, right ventricular systolic pressure 42. No surgical surgeon note reviewed. The patient's pupil is pinpoint. No significant problem neurologically. PLAN: Probably plan is the patient to go for PEG and tracheostomy today. Interim, continue clonidine as the patient is n.p.o. Clonidine patch #3. Continue hydralazine 50 mg b.i.d. Possible PEG and tracheostomy today. After this, we will reevaluate the medical need when the p.o. is resumed back. We will follow up with the patient. The patient's clinical prognosis is guarded. Thank you Dr. Ratliff for providing me the opportunity in taking care of patient, Angely Magdaleno. Travis Beltrán MD
--- NOTE | 2017-03-30 00:37 | PN ---
DATE: 03/29/2017 PULMONARY CRITICAL CARE PROGRESS NOTE REFERRING PHYSICIAN: Surendra Ratliff MD SUBJECTIVE: He is intubated, has a tracheostomy done. G-tube in place, not much tracheostomy secretion. No hemoptysis, no hematemesis, no hematuria, no diarrhea. No leg swelling. EVD had been removed. OBJECTIVELY: GENERAL: Intubated and responsive. VITAL SIGNS: Afebrile, heart rate is 80, respiratory rate is 20, blood pressure 122/64, pulse ox 99% on 35% oxygen. HEENT: Moist mucous membrane. Trachea and stoma looks okay, not much secretion. LUNGS: Fair airflow with few rhonchi. HEART: S1 and S2. ABDOMEN: Soft, nontender and nondistended. G-tube area looks okay. EXTREMITIES: No edema. NEUROLOGIC: On a ventilator. LABORATORY DATA: Shows hemoglobin 14.2, hematocrit 40.6, WBC 8.8, platelet is 267, INR 1.16, PTT 27. Blood gas shows pH 7.46, PCO2 37, O2 of 140 this is on assist control 35% oxygen on ventilator. Sodium 131, potassium 3.6, chloride 94, bicarbonate 30, BUN 25, creatinine 0.6. Glucose 262. Calcium 8.3, magnesium 1.9, AST 109, ALT 80, albumin is 3.2. Chest x-ray done today shows no active disease. MEDICATIONS: He is on hydralazine 10 mg q. 6 hours p.r.n., nicardipine IV, Catapres 0.3 mg weekly, IV fluid D5 normal saline 30 mL per hour, Diprivan, DuoNeb q. 6 hours, insulin coverage, Peridex 50 mg twice a day, Protonix 40 mg daily, Solu-Medrol 20 mg q. 12 hours, Tylenol p.r.n., Xopenex inhaled q. 6 hours. IMPRESSION AND PLAN: Intraventricular intracerebral bleed with hydrocephalus requiring external ventricular drainage, which had been removed, chronic obstructive lung disease, hypertension, paroxysmal atrial fibrillation, respiratory failure requiring tracheostomy, feeding difficulties requiring G-tube. Case discussed with daughter at bedside. I spoke to granddaughter who is a medical student. All the questions answered. Overall, poor prognosis. We will decrease Solu-Medrol to 20 mg once a day or so and then discontinue it. Continue inhaled bronchodilators, antibiotics as per infectious diseases. He will benefit from long-term care for neuro rehab. Followup labs in the morning. CRITICAL CARE TIME: More than 35 minutes.. Thank you and we will follow with you. Travis Wilcox MD
[2017-03-30] MEDS: Albuterol-Ipratrop 3 mg / 0.5 (3 ml) UD IH SCH ×4 (01:20→20:05)
[2017-03-30] MEDS: Nicardipine 20 MG/200 ML 20 MG/200 ML BAG IV PRN (02:00)
[2017-03-30 05:57] LABS: ARTERIAL BLOOD GAS O2 CAPACITY 18.7 mL/dl (16-24); ARTERIAL BLOOD GAS O2 CONTENT 18.6 ML/dl (15-23); ARTERIAL BLOOD GAS PH 7.44 (7.35-7.45); ARTERIAL BLOOD HGB O2 SAT 96.5 % (95.0-98.0); CARBOXYHEMOGLOBIN 1.8 % (0.5-1.5); HHB 0.7 % (0-5); METHEMOGLOBIN 0.9 % (0.0-3.0)
--- NOTE | 2017-03-30 06:31 | CP.CCUPN ---
<Kehinde Ritchie - Last Filed: 03/30/17 12:19> CCU Subjective - Physician Review Subjective (Free Text): 03/30/17 06:27 Patient seen and examined at bedside in the ICU. Remains off sedation, still unresponsive. Ventriculostomy drain removed by Neurosurgeon yesterday. Family still wishes to pursue all measures; s/p Trach and Gastrostomy tube, POD#1. CCU Objective - Vital Signs / Intake & Output Vital Signs (Last 4 hours): Vital Signs Temp Pulse BP Pulse Ox 03/30/17 05:40 99.9 F H 83 97 03/30/17 05:30 99.7 F H 83 94 L 03/30/17 05:20 99.7 F H 78 96 03/30/17 05:10 99.7 F H 81 96 03/30/17 05:01 99.7 F H 80 131/69 98 03/30/17 05:00 99.7 F H 79 97 03/30/17 04:50 99.7 F H 76 96 03/30/17 04:40 99.7 F H 72 98 03/30/17 04:30 99.9 F H 72 98 03/30/17 04:20 99.9 F H 70 97 03/30/17 04:10 99.9 F H 72 98 03/30/17 04:00 99.9 F H 72 112/66 98 03/30/17 03:50 100.0 F H 72 98 03/30/17 03:40 100.0 F H 72 98 03/30/17 03:30 100.0 F H 84 94 L 03/30/17 03:20 100.2 F H 80 98 03/30/17 03:10 100.2 F H 79 97 03/30/17 03:01 100.2 F H 84 131/78 97 03/30/17 03:00 100.2 F H 84 96 03/30/17 02:50 100.0 F H 80 95 03/30/17 02:40 100.0 F H 83 94 L 03/30/17 02:30 100.2 F H 81 94 L Intake and Output (Last 8hrs): Intake & Output 03/29/17 03/29/17 03/30/17 14:59 22:59 06:59 Intake Total 300 1130 200 Output Total 2600 Balance 300 -1470 200 Weight 76.204 kg Intake: IV 300 1000 200 Right Hand 600 Oral 100 Other 30 Output: Urine 2600 Urethral (Mccord) 2600 - Physical Exam Head: Positive for: Atraumatic. Negative for: Normocephalic (Drain removed, still bandaging along R side of head), Ecchymosis, Abrasion Pupils: Positive for: Non-Reactive, Pinpoint. Negative for: PERRL Extroacular Muscles: Negative for: EOMI (no spontaneous eye movements, no movements on commands, no avoidance of direct light challenge for PERRL assessment; reported by family to have spontaneous eye openings, but at bedside only exhibits half open lids which slide closed when openned by examiner) Conjunctiva: Positive for: Normal. Negative for: Injected, Icteric Mouth: Positive for: Moist Mucous Membranes, Other (ETT removed) Nose (External): Positive for: Atraumatic, Other (NGT in place). Negative for: Abrasion, Contusion, Laceration Neck: Positive for: Trachea Midline, Other (Trach in place, held by trach collar , no active bleeding or oozing from site noted, trach connected to vent). Negative for: JVD, Lymphadenopathy Respiratory/Chest: Positive for: Clear to Auscultation, Good Air Exchange, Rales (mild rales in all gracia, otherwise CTA, unchanged from prior exam), Other (intubated and on mechanical ventilation via trach). Negative for: Respiratory Distress, Accessory Muscle Use Cardiovascular: Positive for: Regular Rate and Rhythm, Normal S1, S2. Negative for: Murmurs, Irregular Rhythm, Tachycardic Abdomen: Positive for: Normal Bowel Sounds, Other (no palpable pulsatile mass). Negative for: Distention Back: Negative for: Midline Tenderness, Paraspinal Tenderness Upper Extremity: Positive for: Normal Inspection, NORMAL PULSES. Negative for: Cyanosis, Edema, Swelling, Erythema, Temperature Abnormalties, Deformity Lower Extremity: Positive for: Normal Inspection, NORMAL PULSES. Negative for: Edema, CALF TENDERNESS, Cyanosis, Swelling, Erythema, Deformity, Temperature Abnormalties Neurological: Positive for: Other (intubated, not sedated but unresponsive, no purposeful movements, some posturing on the left likely decerebrate). Negative for: GCS=15 (Score of 3 (E1 V1t M1)), CN II-XII Intact, Speech Normal, Motor Func Grossly Intact Skin: Positive for: Warm, Dry, Normal Color. Negative for: Rashes, Diaphoretic Psychiatric: Positive for: Other (Intubated, not sedated but unresponsive). Negative for: Alert, Oriented x 3, Normal Insight, Normal Concentration, Normal Affect - Medications Active Medications: Active Medications Generic Name Dose Route Start Last Admin Trade Name Freq PRN Reason Stop Dose Admin Acetaminophen 650 mg 03/26/17 23:43 03/28/17 21:04 Tylenol 325mg Tab PO 650 mg Q6H PRN Administration Fever >100.4 F Albuterol/Ipratropium 3 ml 03/27/17 02:00 03/30/17 01:20 Duoneb 3 Mg/0.5 Mg (3 Ml) Ud IH 3 ml [id number] SRINATH Administration Chlorhexidine Gluconate 15 ml 03/25/17 10:00 03/29/17 17:10 Peridex PO 15 ml BID SRINATH Administration Clonidine HCl 1 patch 03/28/17 10:00 03/28/17 09:22 Catapres-Tts3 0.3 Mg/24 Hr TD 1 patch Q7D@1000 SRINATH Administration Hydralazine HCl 10 mg 03/27/17 10:56 03/27/17 12:26 Apresoline IVP 10 mg Q6 PRN Administration for SBP>140 Hydralazine HCl 50 mg 03/28/17 10:00 03/29/17 17:08 Apresoline PO 50 mg BID SRINATH Administration Propofol 1,000 mg in 100 mls @ 0 mls/hr 03/22/17 09:41 03/27/17 11:56 Diprivan IV 0 mcg/kg/min .Q0M PRN 0 mls/hr TITRATE PER MD ORDER Titration Protocol 5 MCG/KG/MIN Nicardipine HCl 20 mg in 200 mls @ 50 mls/hr 03/22/17 11:16 03/30/17 06:02 Cardene Iv Premix IV 5 mg/hr .Q4H PRN 50 mls/hr TITRATE PER MD ORDER Titration Protocol 5 MG/HR Dextrose/Sodium Chloride 1,000 mls @ 100 mls/hr 03/23/17 10:15 03/29/17 06:43 Dextrose 5%/0.9% Ns 1000 Ml IV 100 mls/hr .Q10H SRINATH Administration Dextrose 1,000 mls @ 30 mls/hr 03/29/17 18:15 03/29/17 18:17 Dextrose 5% In Water 1000 Ml IV 30 mls/hr .Q24H SRINATH Administration Insulin Human Regular 0 units 03/27/17 11:30 03/29/17 22:45 Humulin R Low SC Not Given ACHS SRINATH Protocol Levalbuterol HCl 1.25 mg 03/25/17 19:40 03/26/17 19:42 Xopenex IH 1.25 mg [id number] PRN Administration Shortness of Breath Methylprednisolone 20 mg 03/30/17 10:00 Solu-Medrol IVP DAILY SRINATH Pantoprazole Sodium 40 mg 03/26/17 10:00 03/29/17 09:06 Protonix Inj IVP 40 mg DAILY SRINATH Administration - Patient Studies Lab Studies: Microbiology Studies 03/25/17 10:15 Blood Culture - Preliminary Blood-Venous NO GROWTH AFTER 4 DAYS 03/25/17 10:00 Blood Culture - Preliminary Blood-Venous NO GROWTH AFTER 4 DAYS Lab Studies 03/30/17 03/29/17 03/29/17 Range/Units 05:50 22:15 16:22 WBC (4.5-11.0) 10^3/ul RBC (3.5-6.1) 10^6/uL Hgb (14.0-18.0) g/dL Hct (42.0-52.0) % MCV (80.0-105.0) fl MCH (25.0-35.0) pg MCHC (31.0-37.0) g/dl RDW (11.5-14.5) % Plt Count (120.0-450.0) 10^3/uL MPV (7.0-11.0) fl Gran % (50.0-68.0) % Lymph % (Auto) (22.0-35.0) % Harrison % (Auto) (1.0-6.0) % Eos % (Auto) (1.5-5.0) % Baso % (Auto) (0.0-3.0) % Gran # (1.4-6.5) Lymph # (1.2-3.4) Harrison # (0.1-0.6) Eos # (0.0-0.7) Baso # (0.0-2.0) K/mm3 PT (9.9-11.8) Seconds INR (0.93-1.08) APTT (23.7-30.8) Seconds pCO2 25 L (35-45) mm/Hg pO2 110.0 H (80-100) mm/Hg HCO3 17.0 L (21-28) mmol/L ABG pH 7.44 (7.35-7.45) ABG Total CO2 17.8 L (22-28) mmol.L ABG O2 Saturation 99.3 H (95-98) % ABG O2 Content 18.6 (15-23) ML/dl ABG Base Excess -5.4 L (-2.0-3.0) mmol/L ABG Hemoglobin 13.6 (11.7-17.4) g/dL ABG Carboxyhemoglobin 1.8 H (0.5-1.5) % POC ABG HHb (Measured) 0.7 (0-5) % ABG Methemoglobin 0.9 (0.0-3.0) % ABG O2 Capacity 18.7 (16-24) mL/dl Hgb O2 Saturation 96.5 (95.0-98.0) % FiO2 40.0 % Sodium (132-148) mmol/L Potassium (3.6-5.0) mmol/L Chloride (98-107) mmol/L Carbon Dioxide (21-33) mmol/L Anion Gap (10-20) BUN (7-21) mg/dL Creatinine (0.8-1.5) mg/dL Est GFR ( Amer) Est GFR (Non-Af Amer) POC Glucose (mg/dL) 222 H 239 H (65-110) mg/dL Random Glucose (70-110) mg/dL Calcium (8.4-10.5) mg/dL Phosphorus (2.5-4.5) mg/dL Magnesium (1.7-2.2) mg/dL Total Bilirubin (0.2-1.3) mg/dL AST (17-59) U/L ALT (7-56) U/L Alkaline Phosphatase (38-126) U/L Total Protein (5.8-8.3) g/dL Albumin (3.0-4.8) g/dL Globulin gm/dL Albumin/Globulin Ratio (1.1-1.8) 03/29/17 03/29/17 03/29/17 Range/Units 15:25 13:32 07:37 WBC (4.5-11.0) 10^3/ul RBC (3.5-6.1) 10^6/uL Hgb (14.0-18.0) g/dL Hct (42.0-52.0) % MCV (80.0-105.0) fl MCH (25.0-35.0) pg MCHC (31.0-37.0) g/dl RDW (11.5-14.5) % Plt Count (120.0-450.0) 10^3/uL MPV (7.0-11.0) fl Gran % (50.0-68.0) % Lymph % (Auto) (22.0-35.0) % Harrison % (Auto) (1.0-6.0) % Eos % (Auto) (1.5-5.0) % Baso % (Auto) (0.0-3.0) % Gran # (1.4-6.5) Lymph # (1.2-3.4) Harrison # (0.1-0.6) Eos # (0.0-0.7) Baso # (0.0-2.0) K/mm3 PT (9.9-11.8) Seconds INR (0.93-1.08) APTT (23.7-30.8) Seconds pCO2 (35-45) mm/Hg pO2 (80-100) mm/Hg HCO3 (21-28) mmol/L ABG pH (7.35-7.45) ABG Total CO2 (22-28) mmol.L ABG O2 Saturation (95-98) % ABG O2 Content (15-23) ML/dl ABG Base Excess (-2.0-3.0) mmol/L ABG Hemoglobin (11.7-17.4) g/dL ABG Carboxyhemoglobin (0.5-1.5) % POC ABG HHb (Measured) (0-5) % ABG Methemoglobin (0.0-3.0) % ABG O2 Capacity (16-24) mL/dl Hgb O2 Saturation (95.0-98.0) % FiO2 % Sodium 131 L (132-148) mmol/L Potassium 3.6 (3.6-5.0) mmol/L Chloride 94 L (98-107) mmol/L Carbon Dioxide 30 (21-33) mmol/L Anion Gap 11 (10-20) BUN 25 H (7-21) mg/dL Creatinine 0.6 L (0.8-1.5) mg/dL Est GFR ( Amer) > 60 Est GFR (Non-Af Amer) > 60 POC Glucose (mg/dL) 254 H 261 H (65-110) mg/dL Random Glucose 262 H (70-110) mg/dL Calcium 8.3 L (8.4-10.5) mg/dL Phosphorus 3.5 (2.5-4.5) mg/dL Magnesium 1.9 (1.7-2.2) mg/dL Total Bilirubin 0.9 (0.2-1.3) mg/dL AST 54 (17-59) U/L ALT 109 H (7-56) U/L Alkaline Phosphatase 80 (38-126) U/L Total Protein 6.1 (5.8-8.3) g/dL Albumin 3.2 (3.0-4.8) g/dL Globulin 2.9 gm/dL Albumin/Globulin Ratio 1.1 (1.1-1.8) 03/29/17 03/29/17 03/29/17 Range/Units 05:30 05:30 05:30 WBC 8.8 (4.5-11.0) 10^3/ul RBC 4.99 (3.5-6.1) 10^6/uL Hgb 14.2 (14.0-18.0) g/dL Hct 40.6 L (42.0-52.0) % MCV 81.4 (80.0-105.0) fl MCH 28.5 (25.0-35.0) pg MCHC 35.0 (31.0-37.0) g/dl RDW 11.7 (11.5-14.5) % Plt Count 267 (120.0-450.0) 10^3/uL MPV 9.4 (7.0-11.0) fl Gran % 92.7 H (50.0-68.0) % Lymph % (Auto) 4.8 L (22.0-35.0) % Harrison % (Auto) 2.5 (1.0-6.0) % Eos % (Auto) 0.0 L (1.5-5.0) % Baso % (Auto) 0.0 (0.0-3.0) % Gran # 8.15 H (1.4-6.5) Lymph # 0.4 L (1.2-3.4) Harrison # 0.2 (0.1-0.6) Eos # 0.0 (0.0-0.7) Baso # 0.00 (0.0-2.0) K/mm3 PT 12.5 H (9.9-11.8) Seconds INR 1.16 H (0.93-1.08) APTT 27.2 (23.7-30.8) Seconds pCO2 (35-45) mm/Hg pO2 (80-100) mm/Hg HCO3 (21-28) mmol/L ABG pH (7.35-7.45) ABG Total CO2 (22-28) mmol.L ABG O2 Saturation (95-98) % ABG O2 Content (15-23) ML/dl ABG Base Excess (-2.0-3.0) mmol/L ABG Hemoglobin (11.7-17.4) g/dL ABG Carboxyhemoglobin (0.5-1.5) % POC ABG HHb (Measured) (0-5) % ABG Methemoglobin (0.0-3.0) % ABG O2 Capacity (16-24) mL/dl Hgb O2 Saturation (95.0-98.0) % FiO2 % Sodium 132 (132-148) mmol/L Potassium 3.7 (3.6-5.0) mmol/L Chloride 96 L (98-107) mmol/L Carbon Dioxide 28 (21-33) mmol/L Anion Gap 12 (10-20) BUN 24 H (7-21) mg/dL Creatinine 0.6 L (0.8-1.5) mg/dL Est GFR ( Amer) > 60 Est GFR (Non-Af Amer) > 60 POC Glucose (mg/dL) (65-110) mg/dL Random Glucose 299 H (70-110) mg/dL Calcium 8.6 (8.4-10.5) mg/dL Phosphorus 2.9 (2.5-4.5) mg/dL Magnesium 2.1 (1.7-2.2) mg/dL Total Bilirubin 0.7 (0.2-1.3) mg/dL AST 57 (17-59) U/L ALT 99 H (7-56) U/L Alkaline Phosphatase 84 (38-126) U/L Total Protein 6.1 (5.8-8.3) g/dL Albumin 3.1 (3.0-4.8) g/dL Globulin 3.0 gm/dL Albumin/Globulin Ratio 1.0 L (1.1-1.8) 03/29/17 Range/Units 05:00 WBC (4.5-11.0) 10^3/ul RBC (3.5-6.1) 10^6/uL Hgb (14.0-18.0) g/dL Hct (42.0-52.0) % MCV (80.0-105.0) fl MCH (25.0-35.0) pg MCHC (31.0-37.0) g/dl RDW (11.5-14.5) % Plt Count (120.0-450.0) 10^3/uL MPV (7.0-11.0) fl Gran % (50.0-68.0) % Lymph % (Auto) (22.0-35.0) % Harrison % (Auto) (1.0-6.0) % Eos % (Auto) (1.5-5.0) % Baso % (Auto) (0.0-3.0) % Gran # (1.4-6.5) Lymph # (1.2-3.4) Harrison # (0.1-0.6) Eos # (0.0-0.7) Baso # (0.0-2.0) K/mm3 PT (9.9-11.8) Seconds INR (0.93-1.08) APTT (23.7-30.8) Seconds pCO2 37 (35-45) mm/Hg pO2 140.0 H (80-100) mm/Hg HCO3 26.3 (21-28) mmol/L ABG pH 7.46 H (7.35-7.45) ABG Total CO2 27.4 (22-28) mmol.L ABG O2 Saturation 99.3 H (95-98) % ABG O2 Content 19.3 (15-23) ML/dl ABG Base Excess 2.5 (-2.0-3.0) mmol/L ABG Hemoglobin 14.0 (11.7-17.4) g/dL ABG Carboxyhemoglobin 1.4 (0.5-1.5) % POC ABG HHb (Measured) 0.7 (0-5) % ABG Methemoglobin 1.2 (0.0-3.0) % ABG O2 Capacity 19.4 (16-24) mL/dl Hgb O2 Saturation 96.7 (95.0-98.0) % FiO2 35.0 % Sodium (132-148) mmol/L Potassium (3.6-5.0) mmol/L Chloride (98-107) mmol/L Carbon Dioxide (21-33) mmol/L Anion Gap (10-20) BUN (7-21) mg/dL Creatinine (0.8-1.5) mg/dL Est GFR ( Amer) Est GFR (Non-Af Amer) POC Glucose (mg/dL) (65-110) mg/dL Random Glucose (70-110) mg/dL Calcium (8.4-10.5) mg/dL Phosphorus (2.5-4.5) mg/dL Magnesium (1.7-2.2) mg/dL Total Bilirubin (0.2-1.3) mg/dL AST (17-59) U/L ALT (7-56) U/L Alkaline Phosphatase (38-126) U/L Total Protein (5.8-8.3) g/dL Albumin (3.0-4.8) g/dL Globulin gm/dL Albumin/Globulin Ratio (1.1-1.8) Laboratory Results - last 24 hr 03/29/17 03/29/17 03/29/17 05:00 05:30 05:30 WBC 8.8 RBC 4.99 Hgb 14.2 Hct 40.6 L MCV 81.4 MCH 28.5 MCHC 35.0 RDW 11.7 Plt Count 267 MPV 9.4 Gran % 92.7 H Lymph % (Auto) 4.8 L Harrison % (Auto) 2.5 Eos % (Auto) 0.0 L Baso % (Auto) 0.0 Gran # 8.15 H Lymph # 0.4 L Harrison # 0.2 Eos # 0.0 Baso # 0.00 PT INR APTT pCO2 37 pO2 140.0 H HCO3 26.3 ABG pH 7.46 H ABG Total CO2 27.4 ABG O2 Saturation 99.3 H ABG O2 Content 19.3 ABG Base Excess 2.5 ABG Hemoglobin 14.0 ABG Carboxyhemoglobin 1.4 POC ABG HHb (Measured) 0.7 ABG Methemoglobin 1.2 ABG O2 Capacity 19.4 Hgb O2 Saturation 96.7 FiO2 35.0 Sodium 132 Potassium 3.7 Chloride 96 L Carbon Dioxide 28 Anion Gap 12 BUN 24 H Creatinine 0.6 L Est GFR ( Amer) > 60 Est GFR (Non-Af Amer) > 60 POC Glucose (mg/dL) Random Glucose 299 H Calcium 8.6 Phosphorus 2.9 Magnesium 2.1 Total Bilirubin 0.7 AST 57 ALT 99 H Alkaline Phosphatase 84 Total Protein 6.1 Albumin 3.1 Globulin 3.0 Albumin/Globulin Ratio 1.0 L 03/29/17 03/29/17 03/29/17 05:30 07:37 13:32 WBC RBC Hgb Hct MCV MCH MCHC RDW Plt Count MPV Gran % Lymph % (Auto) Harrison % (Auto) Eos % (Auto) Baso % (Auto) Gran # Lymph # Harrison # Eos # Baso # PT 12.5 H INR 1.16 H APTT 27.2 pCO2 pO2 HCO3 ABG pH ABG Total CO2 ABG O2 Saturation ABG O2 Content ABG Base Excess ABG Hemoglobin ABG Carboxyhemoglobin POC ABG HHb (Measured) ABG Methemoglobin ABG O2 Capacity Hgb O2 Saturation FiO2 Sodium Potassium Chloride Carbon Dioxide Anion Gap BUN Creatinine Est GFR ( Amer) Est GFR (Non-Af Amer) POC Glucose (mg/dL) 261 H 254 H Random Glucose Calcium Phosphorus Magnesium Total Bilirubin AST ALT Alkaline Phosphatase Total Protein Albumin Globulin Albumin/Globulin Ratio 03/29/17 03/29/17 03/29/17 15:25 16:22 22:15 WBC RBC Hgb Hct MCV MCH MCHC RDW Plt Count MPV Gran % Lymph % (Auto) Harrison % (Auto) Eos % (Auto) Baso % (Auto) Gran # Lymph # Harrison # Eos # Baso # PT INR APTT pCO2 pO2 HCO3 ABG pH ABG Total CO2 ABG O2 Saturation ABG O2 Content ABG Base Excess ABG Hemoglobin ABG Carboxyhemoglobin POC ABG HHb (Measured) ABG Methemoglobin ABG O2 Capacity Hgb O2 Saturation FiO2 Sodium 131 L Potassium 3.6 Chloride 94 L Carbon Dioxide 30 Anion Gap 11 BUN 25 H Creatinine 0.6 L Est GFR ( Amer) > 60 Est GFR (Non-Af Amer) > 60 POC Glucose (mg/dL) 239 H 222 H Random Glucose 262 H Calcium 8.3 L Phosphorus 3.5 Magnesium 1.9 Total Bilirubin 0.9 AST 54 ALT 109 H Alkaline Phosphatase 80 Total Protein 6.1 Albumin 3.2 Globulin 2.9 Albumin/Globulin Ratio 1.1 03/30/17 05:50 WBC RBC Hgb Hct MCV MCH MCHC RDW Plt Count MPV Gran % Lymph % (Auto) Harrison % (Auto) Eos % (Auto) Baso % (Auto) Gran # Lymph # Harrison # Eos # Baso # PT INR APTT pCO2 25 L pO2 110.0 H HCO3 17.0 L ABG pH 7.44 ABG Total CO2 17.8 L ABG O2 Saturation 99.3 H ABG O2 Content 18.6 ABG Base Excess -5.4 L ABG Hemoglobin 13.6 ABG Carboxyhemoglobin 1.8 H POC ABG HHb (Measured) 0.7 ABG Methemoglobin 0.9 ABG O2 Capacity 18.7 Hgb O2 Saturation 96.5 FiO2 40.0 Sodium Potassium Chloride Carbon Dioxide Anion Gap BUN Creatinine Est GFR ( Amer) Est GFR (Non-Af Amer) POC Glucose (mg/dL) Random Glucose Calcium Phosphorus Magnesium Total Bilirubin AST ALT Alkaline Phosphatase Total Protein Albumin Globulin Albumin/Globulin Ratio Fingerstick Blood Sugar Results: 139 Review of Systems - Review of Systems Systems not reviewed;Unavailable: Intubated Critical Care Progress Note - Nutrition Nutrition: Nutrition Category Date Time Status NPO Diet [DIET] Diets 03/25/17 Breakfast Ordered Assessment/Plan - Assessment and Plan (Free Text) Assessment: This is an 82 yo [place] M with PMH of CAD, COPD, Afib (on Eliquis), BPH, DM, and HTN who was brought to [facility] [place] after being found down on the ground by family, and was found to be hypotensive with extensive intracerebral bleed with ventricular extension and mass effect. S/p ventriculostomy with drain placement , POD #8, removed by Neurosurg yesterday. He remains off sedation, but is still unresponsive. Full code and all measures as per family; s/p Trach and Gastrostomy tube POD#1, [facility] Plan: Neuro: -extensive ICH with bilateral ventricular extension, notable edema; s/p Ventriculostomy, POD#8; drain removed by Neurosurgeon yesterday -intubated, off sedation, but remains completely unresponsive to physical or verbal stimuli -pinpoint pupils, holding extremities flacidly, previously noted to have intermittent twitches and mastication-like movements with jaw, but no purposeful movements; appears to be decerebrate posturing on L-side -Neuro (Dr. Steen) and Neurosurgery (Dr. Mcintyre) on board, appreciate all recs -Hold all AC due to ICH, maintain euglycemia, maintain SBP 140-160 (now off cardine drip) -EEG obtained, severe bilateral cerebral dysfxn, no epileptiform activity Pulm: -Intubated, on mechanical ventilation -maintain SaO2 > 88% (COD pt) and paO2 > 55 -Protective lung ventilation strategies, low tidal volumes, VAP bundle -most recent ABG reviewed, continue current management, -Continues to tolerate pressure-support trials; s/p Trach POD#1 -Mild rales on exam (unchanged from yesterday), but does not appear grossly fluid overloading on CXR -Pulm (Dr. Wilcox) following, appreciate all recs Cardio: -No new bradycardic episodes, currently stable in 80's -BP control in setting of ICH, SBP 140-160, continue amlodipine and Clonidine patch -Cardio (Dr. Beltrán) following, appreciate all recs GI: -NPO -Protonix for GI ppx -S/p Gastrostomy tube POD#1, pending clearance to use for feeds, then can d/c OGT Renal: -monitor and replete electrolytes as needed -mccord in place, draining clear yellow urine, monitor I's and O's Heme: -Hgb stable at 13's-14s, today was 14.3 -NO AC in setting of ICH, SCDs for DVT ppx ID: -mild fever of 100F overnight, leukocytosis of 17.3 -leukocytosis likely 2/2 trach/g-tube procedure, but in setting of low grade temp overnight, will obtain new set of cultures to rule out new infxn -empiric coverage with Vanco and Cefepime as per ID, continue -ID following, appreciate all recs Endo: -NS 100cc/hr -Fingersticks q6, maintain BG 140-180 -S/p Gastrostomy tube POD#1, pending clearance to use for feeds, then can d/c NGT Dispo: ICU, intubated but not sedated, s/p Trach and Gastrotomy tube POD#1, new cultures to rule out new infxn while on empiric abx FEN: NPO, pending G-tube and feeds Access: Peripheral IV, R-ventriculostomy drain (clamped, pending removal) Consults: Neurosurgery, Neuro, ID, Cardio, Pulm, Surgery Ppx: Protonix for GI, SCDs for DVT Patient seen and reviewed with attending, Dr Astorga <Tony Astorga - Last Filed: 03/30/17 12:34> CCU Objective - Vital Signs / Intake & Output Vital Signs (Last 4 hours): Vital Signs Pulse BP 03/30/17 09:31 76 121/62 Intake and Output (Last 8hrs): Intake & Output 03/29/17 03/30/17 03/30/17 22:59 06:59 14:59 Intake Total 1130 800 Output Total 2600 750 Balance -1470 50 Intake: IV 1000 800 Right Hand 600 meds 600 Oral 100 Other 30 Output: Urine 2600 750 Urethral (Mccord) 2600 750 - Medications Active Medications: Active Medications Generic Name Dose Route Start Last Admin Trade Name Freq PRN Reason Stop Dose Admin Acetaminophen 650 mg 03/26/17 23:43 03/28/17 21:04 Tylenol 325mg Tab PO 650 mg Q6H PRN Administration Fever >100.4 F Albuterol/Ipratropium 3 ml 03/27/17 02:00 03/30/17 07:36 Duoneb 3 Mg/0.5 Mg (3 Ml) Ud IH 3 ml [id number] SRINATH Administration Chlorhexidine Gluconate 15 ml 03/25/17 10:00 03/29/17 17:10 Peridex PO 15 ml BID SRINATH Administration Clonidine HCl 1 patch 03/28/17 10:00 03/28/17 09:22 Catapres-Tts3 0.3 Mg/24 Hr TD 1 patch Q7D@1000 SRINATH Administration Hydralazine HCl 10 mg 03/27/17 10:56 03/27/17 12:26 Apresoline IVP 10 mg Q6 PRN Administration for SBP>140 Hydralazine HCl 50 mg 03/28/17 10:00 03/30/17 09:31 Apresoline PO 50 mg BID SRINATH Administration Propofol 1,000 mg in 100 mls @ 0 mls/hr 03/22/17 09:41 03/27/17 11:56 Diprivan IV 0 mcg/kg/min .Q0M PRN 0 mls/hr TITRATE PER MD ORDER Titration Protocol 5 MCG/KG/MIN Nicardipine HCl 20 mg in 200 mls @ 50 mls/hr 03/22/17 11:16 03/30/17 06:02 Cardene Iv Premix IV 5 mg/hr .Q4H PRN 50 mls/hr TITRATE PER MD ORDER Titration Protocol 5 MG/HR Dextrose/Sodium Chloride 1,000 mls @ 100 mls/hr 03/23/17 10:15 03/29/17 06:43 Dextrose 5%/0.9% Ns 1000 Ml IV 100 mls/hr .Q10H SRINATH Administration Sodium Chloride 1,000 mls @ 100 mls/hr 03/30/17 11:45 Sodium Chloride 0.9% IV .Q10H SRINATH Insulin Human Regular 0 units 03/27/17 11:30 03/30/17 07:55 Humulin R Low SC 1 units ACHS SRINATH Administration Protocol Levalbuterol HCl 1.25 mg 03/25/17 19:40 03/26/17 19:42 Xopenex IH 1.25 mg [id number] PRN Administration Shortness of Breath Methylprednisolone 20 mg 03/30/17 10:00 03/30/17 09:31 Solu-Medrol IVP 20 mg DAILY SRINATH Administration Pantoprazole Sodium 40 mg 03/26/17 10:00 03/30/17 09:30 Protonix Inj IVP 40 mg DAILY SRINATH Administration - Patient Studies Lab Studies: Microbiology Studies 03/25/17 10:15 Blood Culture - Final Blood-Venous NO GROWTH AFTER 5 DAYS Gram Stain - Final TEST NOT PERFORMED 03/25/17 10:00 Blood Culture - Final Blood-Venous NO GROWTH AFTER 5 DAYS Gram Stain - Final TEST NOT PERFORMED Lab Studies 03/30/17 03/30/17 03/30/17 Range/Units 11:43 08:40 08:15 WBC (4.5-11.0) 10^3/ul RBC (3.5-6.1) 10^6/uL Hgb (14.0-18.0) g/dL Hct (42.0-52.0) % MCV (80.0-105.0) fl MCH (25.0-35.0) pg MCHC (31.0-37.0) g/dl RDW (11.5-14.5) % Plt Count (120.0-450.0) 10^3/uL MPV (7.0-11.0) fl Gran % (50.0-68.0) % Lymph % (Auto) (22.0-35.0) % Harrison % (Auto) (1.0-6.0) % Eos % (Auto) (1.5-5.0) % Baso % (Auto) (0.0-3.0) % Gran # (1.4-6.5) Lymph # (1.2-3.4) Harrison # (0.1-0.6) Eos # (0.0-0.7) Baso # (0.0-2.0) K/mm3 PT (9.9-11.8) Seconds INR (0.93-1.08) APTT (23.7-30.8) Seconds pCO2 (35-45) mm/Hg pO2 (80-100) mm/Hg HCO3 (21-28) mmol/L ABG pH (7.35-7.45) ABG Total CO2 (22-28) mmol.L ABG O2 Saturation (95-98) % ABG O2 Content (15-23) ML/dl ABG Base Excess (-2.0-3.0) mmol/L ABG Hemoglobin (11.7-17.4) g/dL ABG Carboxyhemoglobin (0.5-1.5) % POC ABG HHb (Measured) (0-5) % ABG Methemoglobin (0.0-3.0) % ABG O2 Capacity (16-24) mL/dl Hgb O2 Saturation (95.0-98.0) % FiO2 % Sodium (132-148) mmol/L Potassium (3.6-5.0) mmol/L Chloride (98-107) mmol/L Carbon Dioxide (21-33) mmol/L Anion Gap (10-20) BUN (7-21) mg/dL Creatinine (0.8-1.5) mg/dL Est GFR ( Amer) Est GFR (Non-Af Amer) POC Glucose (mg/dL) 149 H 196 H (65-110) mg/dL Random Glucose (70-110) mg/dL Calcium (8.4-10.5) mg/dL Phosphorus (2.5-4.5) mg/dL Magnesium (1.7-2.2) mg/dL Total Bilirubin (0.2-1.3) mg/dL AST (17-59) U/L ALT (7-56) U/L Alkaline Phosphatase (38-126) U/L Total Protein (5.8-8.3) g/dL Albumin (3.0-4.8) g/dL Globulin gm/dL Albumin/Globulin Ratio (1.1-1.8) Procalcitonin 0.41 (0.19-0.49) NG/ML 03/30/17 03/30/17 03/30/17 Range/Units 05:50 05:30 05:30 WBC (4.5-11.0) 10^3/ul RBC (3.5-6.1) 10^6/uL Hgb (14.0-18.0) g/dL Hct (42.0-52.0) % MCV (80.0-105.0) fl MCH (25.0-35.0) pg MCHC (31.0-37.0) g/dl RDW (11.5-14.5) % Plt Count (120.0-450.0) 10^3/uL MPV (7.0-11.0) fl Gran % (50.0-68.0) % Lymph % (Auto) (22.0-35.0) % Harrison % (Auto) (1.0-6.0) % Eos % (Auto) (1.5-5.0) % Baso % (Auto) (0.0-3.0) % Gran # (1.4-6.5) Lymph # (1.2-3.4) Harrison # (0.1-0.6) Eos # (0.0-0.7) Baso # (0.0-2.0) K/mm3 PT 13.0 H (9.9-11.8) Seconds INR 1.20 H (0.93-1.08) APTT 27.8 (23.7-30.8) Seconds pCO2 25 L (35-45) mm/Hg pO2 110.0 H (80-100) mm/Hg HCO3 17.0 L (21-28) mmol/L ABG pH 7.44 (7.35-7.45) ABG Total CO2 17.8 L (22-28) mmol.L ABG O2 Saturation 99.3 H (95-98) % ABG O2 Content 18.6 (15-23) ML/dl ABG Base Excess -5.4 L (-2.0-3.0) mmol/L ABG Hemoglobin 13.6 (11.7-17.4) g/dL ABG Carboxyhemoglobin 1.8 H (0.5-1.5) % POC ABG HHb (Measured) 0.7 (0-5) % ABG Methemoglobin 0.9 (0.0-3.0) % ABG O2 Capacity 18.7 (16-24) mL/dl Hgb O2 Saturation 96.5 (95.0-98.0) % FiO2 40.0 % Sodium 131 L (132-148) mmol/L Potassium 3.6 (3.6-5.0) mmol/L Chloride 93 L (98-107) mmol/L Carbon Dioxide 31 (21-33) mmol/L Anion Gap 11 (10-20) BUN 25 H (7-21) mg/dL Creatinine 0.6 L (0.8-1.5) mg/dL Est GFR ( Amer) > 60 Est GFR (Non-Af Amer) > 60 POC Glucose (mg/dL) (65-110) mg/dL Random Glucose 207 H (70-110) mg/dL Calcium 8.5 (8.4-10.5) mg/dL Phosphorus 3.0 (2.5-4.5) mg/dL Magnesium 2.1 (1.7-2.2) mg/dL Total Bilirubin 1.2 (0.2-1.3) mg/dL AST 34 (17-59) U/L ALT 85 H (7-56) U/L Alkaline Phosphatase 63 (38-126) U/L Total Protein 6.1 (5.8-8.3) g/dL Albumin 3.1 (3.0-4.8) g/dL Globulin 2.9 gm/dL Albumin/Globulin Ratio 1.1 (1.1-1.8) Procalcitonin (0.19-0.49) NG/ML 03/30/17 03/29/17 03/29/17 Range/Units 05:30 22:15 16:22 WBC 17.3 H D (4.5-11.0) 10^3/ul RBC 5.02 (3.5-6.1) 10^6/uL Hgb 14.3 (14.0-18.0) g/dL Hct 41.2 L (42.0-52.0) % MCV 82.1 (80.0-105.0) fl MCH 28.5 (25.0-35.0) pg MCHC 34.7 (31.0-37.0) g/dl RDW 11.9 (11.5-14.5) % Plt Count 283 (120.0-450.0) 10^3/uL MPV 9.2 (7.0-11.0) fl Gran % 86.3 H (50.0-68.0) % Lymph % (Auto) 7.1 L (22.0-35.0) % Harrison % (Auto) 6.5 H (1.0-6.0) % Eos % (Auto) 0.0 L (1.5-5.0) % Baso % (Auto) 0.1 (0.0-3.0) % Gran # 14.90 H (1.4-6.5) Lymph # 1.2 (1.2-3.4) Harrison # 1.1 H (0.1-0.6) Eos # 0.0 (0.0-0.7) Baso # 0.01 (0.0-2.0) K/mm3 PT (9.9-11.8) Seconds INR (0.93-1.08) APTT (23.7-30.8) Seconds pCO2 (35-45) mm/Hg pO2 (80-100) mm/Hg HCO3 (21-28) mmol/L ABG pH (7.35-7.45) ABG Total CO2 (22-28) mmol.L ABG O2 Saturation (95-98) % ABG O2 Content (15-23) ML/dl ABG Base Excess (-2.0-3.0) mmol/L ABG Hemoglobin (11.7-17.4) g/dL ABG Carboxyhemoglobin (0.5-1.5) % POC ABG HHb (Measured) (0-5) % ABG Methemoglobin (0.0-3.0) % ABG O2 Capacity (16-24) mL/dl Hgb O2 Saturation (95.0-98.0) % FiO2 % Sodium (132-148) mmol/L Potassium (3.6-5.0) mmol/L Chloride (98-107) mmol/L Carbon Dioxide (21-33) mmol/L Anion Gap (10-20) BUN (7-21) mg/dL Creatinine (0.8-1.5) mg/dL Est GFR ( Amer) Est GFR (Non-Af Amer) POC Glucose (mg/dL) 222 H 239 H (65-110) mg/dL Random Glucose (70-110) mg/dL Calcium (8.4-10.5) mg/dL Phosphorus (2.5-4.5) mg/dL Magnesium (1.7-2.2) mg/dL Total Bilirubin (0.2-1.3) mg/dL AST (17-59) U/L ALT (7-56) U/L Alkaline Phosphatase (38-126) U/L Total Protein (5.8-8.3) g/dL Albumin (3.0-4.8) g/dL Globulin gm/dL Albumin/Globulin Ratio (1.1-1.8) Procalcitonin (0.19-0.49) NG/ML 03/29/17 03/29/17 03/29/17 Range/Units 15:25 13:32 07:37 WBC (4.5-11.0) 10^3/ul RBC (3.5-6.1) 10^6/uL Hgb (14.0-18.0) g/dL Hct (42.0-52.0) % MCV (80.0-105.0) fl MCH (25.0-35.0) pg MCHC (31.0-37.0) g/dl RDW (11.5-14.5) % Plt Count (120.0-450.0) 10^3/uL MPV (7.0-11.0) fl Gran % (50.0-68.0) % Lymph % (Auto) (22.0-35.0) % Harrison % (Auto) (1.0-6.0) % Eos % (Auto) (1.5-5.0) % Baso % (Auto) (0.0-3.0) % Gran # (1.4-6.5) Lymph # (1.2-3.4) Harrison # (0.1-0.6) Eos # (0.0-0.7) Baso # (0.0-2.0) K/mm3 PT (9.9-11.8) Seconds INR (0.93-1.08) APTT (23.7-30.8) Seconds pCO2 (35-45) mm/Hg pO2 (80-100) mm/Hg HCO3 (21-28) mmol/L ABG pH (7.35-7.45) ABG Total CO2 (22-28) mmol.L ABG O2 Saturation (95-98) % ABG O2 Content (15-23) ML/dl ABG Base Excess (-2.0-3.0) mmol/L ABG Hemoglobin (11.7-17.4) g/dL ABG Carboxyhemoglobin (0.5-1.5) % POC ABG HHb (Measured) (0-5) % ABG Methemoglobin (0.0-3.0) % ABG O2 Capacity (16-24) mL/dl Hgb O2 Saturation (95.0-98.0) % FiO2 % Sodium 131 L (132-148) mmol/L Potassium 3.6 (3.6-5.0) mmol/L Chloride 94 L (98-107) mmol/L Carbon Dioxide 30 (21-33) mmol/L Anion Gap 11 (10-20) BUN 25 H (7-21) mg/dL Creatinine 0.6 L (0.8-1.5) mg/dL Est GFR ( Amer) > 60 Est GFR (Non-Af Amer) > 60 POC Glucose (mg/dL) 254 H 261 H (65-110) mg/dL Random Glucose 262 H (70-110) mg/dL Calcium 8.3 L (8.4-10.5) mg/dL Phosphorus 3.5 (2.5-4.5) mg/dL Magnesium 1.9 (1.7-2.2) mg/dL Total Bilirubin 0.9 (0.2-1.3) mg/dL AST 54 (17-59) U/L ALT 109 H (7-56) U/L Alkaline Phosphatase 80 (38-126) U/L Total Protein 6.1 (5.8-8.3) g/dL Albumin 3.2 (3.0-4.8) g/dL Globulin 2.9 gm/dL Albumin/Globulin Ratio 1.1 (1.1-1.8) Procalcitonin (0.19-0.49) NG/ML Laboratory Results - last 24 hr 03/29/17 03/29/17 03/29/17 07:37 13:32 15:25 WBC RBC Hgb Hct MCV MCH MCHC RDW Plt Count MPV Gran % Lymph % (Auto) Harrison % (Auto) Eos % (Auto) Baso % (Auto) Gran # Lymph # Harrison # Eos # Baso # PT INR APTT pCO2 pO2 HCO3 ABG pH ABG Total CO2 ABG O2 Saturation ABG O2 Content ABG Base Excess ABG Hemoglobin ABG Carboxyhemoglobin POC ABG HHb (Measured) ABG Methemoglobin ABG O2 Capacity Hgb O2 Saturation FiO2 Sodium 131 L Potassium 3.6 Chloride 94 L Carbon Dioxide 30 Anion Gap 11 BUN 25 H Creatinine 0.6 L Est GFR ( Amer) > 60 Est GFR (Non-Af Amer) > 60 POC Glucose (mg/dL) 261 H 254 H Random Glucose 262 H Calcium 8.3 L Phosphorus 3.5 Magnesium 1.9 Total Bilirubin 0.9 AST 54 ALT 109 H Alkaline Phosphatase 80 Total Protein 6.1 Albumin 3.2 Globulin 2.9 Albumin/Globulin Ratio 1.1 Procalcitonin 03/29/17 03/29/17 03/30/17 16:22 22:15 05:30 WBC 17.3 H D RBC 5.02 Hgb 14.3 Hct 41.2 L MCV 82.1 MCH 28.5 MCHC 34.7 RDW 11.9 Plt Count 283 MPV 9.2 Gran % 86.3 H Lymph % (Auto) 7.1 L Harrison % (Auto) 6.5 H Eos % (Auto) 0.0 L Baso % (Auto) 0.1 Gran # 14.90 H Lymph # 1.2 Harrison # 1.1 H Eos # 0.0 Baso # 0.01 PT INR APTT pCO2 pO2 HCO3 ABG pH ABG Total CO2 ABG O2 Saturation ABG O2 Content ABG Base Excess ABG Hemoglobin ABG Carboxyhemoglobin POC ABG HHb (Measured) ABG Methemoglobin ABG O2 Capacity Hgb O2 Saturation FiO2 Sodium Potassium Chloride Carbon Dioxide Anion Gap BUN Creatinine Est GFR ( Amer) Est GFR (Non-Af Amer) POC Glucose (mg/dL) 239 H 222 H Random Glucose Calcium Phosphorus Magnesium Total Bilirubin AST ALT Alkaline Phosphatase Total Protein Albumin Globulin Albumin/Globulin Ratio Procalcitonin 03/30/17 03/30/17 03/30/17 05:30 05:30 05:50 WBC RBC Hgb Hct MCV MCH MCHC RDW Plt Count MPV Gran % Lymph % (Auto) Harrison % (Auto) Eos % (Auto) Baso % (Auto) Gran # Lymph # Harrison # Eos # Baso # PT 13.0 H INR 1.20 H APTT 27.8 pCO2 25 L pO2 110.0 H HCO3 17.0 L ABG pH 7.44 ABG Total CO2 17.8 L ABG O2 Saturation 99.3 H ABG O2 Content 18.6 ABG Base Excess -5.4 L ABG Hemoglobin 13.6 ABG Carboxyhemoglobin 1.8 H POC ABG HHb (Measured) 0.7 ABG Methemoglobin 0.9 ABG O2 Capacity 18.7 Hgb O2 Saturation 96.5 FiO2 40.0 Sodium 131 L Potassium 3.6 Chloride 93 L Carbon Dioxide 31 Anion Gap 11 BUN 25 H Creatinine 0.6 L Est GFR ( Amer) > 60 Est GFR (Non-Af Amer) > 60 POC Glucose (mg/dL) Random Glucose 207 H Calcium 8.5 Phosphorus 3.0 Magnesium 2.1 Total Bilirubin 1.2 AST 34 ALT 85 H Alkaline Phosphatase 63 Total Protein 6.1 Albumin 3.1 Globulin 2.9 Albumin/Globulin Ratio 1.1 Procalcitonin 03/30/17 03/30/17 03/30/17 08:15 08:40 11:43 WBC RBC Hgb Hct MCV MCH MCHC RDW Plt Count MPV Gran % Lymph % (Auto) Harrison % (Auto) Eos % (Auto) Baso % (Auto) Gran # Lymph # Harrison # Eos # Baso # PT INR APTT pCO2 pO2 HCO3 ABG pH ABG Total CO2 ABG O2 Saturation ABG O2 Content ABG Base Excess ABG Hemoglobin ABG Carboxyhemoglobin POC ABG HHb (Measured) ABG Methemoglobin ABG O2 Capacity Hgb O2 Saturation FiO2 Sodium Potassium Chloride Carbon Dioxide Anion Gap BUN Creatinine Est GFR ( Amer) Est GFR (Non-Af Amer) POC Glucose (mg/dL) 196 H 149 H Random Glucose Calcium Phosphorus Magnesium Total Bilirubin AST ALT Alkaline Phosphatase Total Protein Albumin Globulin Albumin/Globulin Ratio Procalcitonin 0.41 Critical Care Progress Note - Nutrition Nutrition: Nutrition Category Date Time Status NPO Diet [DIET] Diets 03/25/17 Breakfast Ordered Assessment/Plan - Assessment and Plan (Free Text) Plan: atient seen and examined, with resident, agree with note with following additions/exceptions: Patient is 82 yo M with PMH of CAD, COPD, Afib (on Eliquis), BPH, DM, and HTN with extensive intracerebral bleed with ventricular extension and mass effect. S/p ventriculostomy with drain placement, now removed Patient s/p PEG/Trach yesterday Catastrophic ICH, s/p EVD now removed HTN COPD Afib Recommend - cont with ventilatory support, CPAP trials - BP control - increasing WBC, camp culture - EVD has been taken out by NSG - Patient s/p Peg/Trach - follow up NSG, ID, Cardio - hold off further IVF - Abx as per ID - resume feeds if OK by surgery - DVT ppx, SCDs - Extremely poor prognosis, [facility]
[2017-03-30 06:38] LABS: BASO # 0.01 K/mm3 (0.0-2.0); BASO % 0.1 % (0.0-3.0); GRAN # 14.9 (1.4-6.5); GRAN % 86.3 % (50.0-68.0); HEMATOCRIT 41.2 % (42.0-52.0); LYMPH # 1.2 (1.2-3.4); LYMPH % 7.1 % (22.0-35.0); MEAN CELL VOLUME 82.1 fl (80.0-105.0); MEAN CORPUSCULAR HEMOGLOBIN 28.5 pg (25.0-35.0); MEAN CORPUSCULAR HGB CONC 34.7 g/dl (31.0-37.0); MEAN PLATELET VOLUME 9.2 fl (7.0-11.0); MONO # 1.1 (0.1-0.6); MONO % 6.5 % (1.0-6.0); RED CELL DISTRIBUTION WIDTH 11.9 % (11.5-14.5); WHITE BLOOD COUNT 17.3 10^3/ul (4.5-11.0)
[2017-03-30 06:49] LABS: INR 1.2 (0.93-1.08); PARTIAL THROMBOPLASTIN TIME 27.8 Seconds (23.7-30.8)
[2017-03-30 06:57] LABS: ALB/GLOB RATIO 1.1 (1.1-1.8); ALKALINE PHOSPHATASE 63 U/L (38-126); ALT/SGPT 85 U/L (7-56); AST/SGOT 34 U/L (17-59); BILIRUBIN,TOTAL 1.2 mg/dL (0.2-1.3); BLOOD UREA NITROGEN 25 mg/dL (7-21); CALCIUM 8.5 mg/dL (8.4-10.5); CARBON DIOXIDE 31 mmol/L (21-33); CHLORIDE 93 mmol/L (98-107); GFR AFRICAN-AMERICAN > 60; GLUCOSE,RANDOM 207 mg/dL (70-110); MAGNESIUM 2.1 mg/dL (1.7-2.2); POTASSIUM 3.6 mmol/L (3.6-5.0); SODIUM 131 mmol/L (132-148); TOTAL PROTEIN 6.1 g/dL (5.8-8.3)
[2017-03-30] MEDS: Insulin Reg-LOW-Coverage SC SCH ×3 (07:55→16:30)
--- NOTE | 2017-03-30 08:20 | CP.PCM.PN ---
Subjective - Date & Time of Evaluation Date of Evaluation: 03/30/17 Time of Evaluation: 07:15 - Subjective Subjective: General Surgery Note for Dr. Lewis Patient seen and examined at bedside. No acute event overnight. He is s/p Tracheostomy and Gastrostomy POD#1. Patient on vent support. Does not respond to verbal/tactile stimuli. ROS unobtainable. Objective - Vital Signs/Intake and Output Vital Signs (last 24 hours): Temp Pulse Resp BP Pulse Ox 99.9 F H 77 14 119/73 97 03/30/17 06:30 03/30/17 06:30 03/28/17 20:00 03/30/17 06:00 03/30/17 06:30 Intake and Output: 03/30/17 03/30/17 06:59 18:59 Intake Total 1000 Output Total 750 Balance 250 - Medications Medications: Current Medications Acetaminophen (Tylenol 325mg Tab) 650 mg PO Q6H PRN PRN Reason: Fever >100.4 F Last Admin: 03/28/17 21:04 Dose: 650 mg Albuterol/Ipratropium (Duoneb 3 Mg/0.5 Mg (3 Ml) Ud) 3 ml IH [id number] [facility] Last Admin: 03/30/17 07:36 Dose: 3 ml Chlorhexidine Gluconate (Peridex) 15 ml PO BID [facility] Last Admin: 03/29/17 17:10 Dose: 15 ml Clonidine HCl (Catapres-Tts3 0.3 Mg/24 Hr) 1 patch TD Q7D@1000 [facility] Last Admin: 03/28/17 09:22 Dose: 1 patch Hydralazine HCl (Apresoline) 10 mg IVP Q6 PRN PRN Reason: for SBP>140 Last Admin: 03/27/17 12:26 Dose: 10 mg Hydralazine HCl (Apresoline) 50 mg PO BID [facility] Last Admin: 03/29/17 17:08 Dose: 50 mg Propofol (Diprivan) 1,000 mg in 100 mls @ 0 mls/hr IV .Q0M PRN; Protocol; 5 MCG /KG/MIN PRN Reason: TITRATE PER MD ORDER Last Titration: 03/27/17 11:56 Dose: 0 mcg/kg/min, 0 mls/hr Nicardipine HCl (Cardene Iv Premix) 20 mg in 200 mls @ 50 mls/hr IV .Q4H PRN; Protocol; 5 MG/HR PRN Reason: TITRATE PER MD ORDER Last Titration: 03/30/17 06:02 Dose: 5 mg/hr, 50 mls/hr Dextrose/Sodium Chloride (Dextrose 5%/0.9% Ns 1000 Ml) 1,000 mls @ 100 mls/hr IV .Q10H [facility]INATH Last Admin: 03/29/17 06:43 Dose: 100 mls/hr Dextrose (Dextrose 5% In Water 1000 Ml) 1,000 mls @ 30 mls/hr IV .Q24H [facility]IN[facility] Last Admin: 03/29/17 18:17 Dose: 30 mls/hr Insulin Human Regular (Humulin R Low) 0 units SC ACHS SRINATH PRN Reason: Protocol Last Admin: 03/29/17 22:45 Dose: Not Given Levalbuterol HCl (Xopenex) 1.25 mg IH [id number] PRN PRN Reason: Shortness of Breath Last Admin: 03/26/17 19:42 Dose: 1.25 mg Methylprednisolone (Solu-Medrol) 20 mg IVP DAILY [facility] Pantoprazole Sodium (Protonix Inj) 40 mg IVP DAILY [facility] Last Admin: 03/29/17 09:06 Dose: 40 mg - Labs Labs: 03/30/17 05:30 03/30/17 05:30 PT 13.0 Seconds (9.9-11.8) H 03/30/17 05:30 INR 1.20 (0.93-1.08) H 03/30/17 05:30 APTT 27.8 Seconds (23.7-30.8) 03/30/17 05:30 - Constitutional Appears: No Acute Distress, Chronically Ill - Head Exam Head Exam: ATRAUMATIC, NORMOCEPHALIC - ENT Exam ENT Exam: Mucous Membranes Moist - Neck Exam Additional comments: s/p tracheostomy - Respiratory Exam Additional comments: s/p trach and on vent support - Cardiovascular Exam Cardiovascular Exam: REGULAR RHYTHM - GI/Abdominal Exam GI & Abdominal Exam: Soft. absent: Distended, Tenderness Additional comments: g tube in place and functioning properly - Neurological Exam Neurological Exam: Altered - Psychiatric Exam Psychiatric exam: Flat Affect - Skin Skin Exam: Normal Color, Warm Assessment and Plan - Assessment and Plan (Free Text) Plan: 82M with Intra-cranial hemorrhage, respiratory failure, failure to thrive. s/p Tracheostomy and Gastrostomy POD#1 -Check residuals (need to be less <200) -May start tube feeds this afternoon if residuals low -Further recs discuss with Dr. Joshua Reece PGY1
[2017-03-30] MEDS ORDERED: MethylPREDNISolone 40 mg Vial IVP SCH (10:00)
[2017-03-30] MEDS: Chlorhexidine 0.12% Oral Sol 480 ml Bot PO SCH ×2 (10:10→18:35)
--- NOTE | 2017-03-30 10:32 | RAD ---
HISTORY: intubated, f/u COMPARISON: 03/29/2017 FINDINGS: LUNGS: No active pulmonary disease. PLEURA: No significant pleural effusion identified, no pneumothorax apparent. CARDIOVASCULAR: Normal. OSSEOUS STRUCTURES: No significant abnormalities. VISUALIZED UPPER ABDOMEN: The feeding tube is in satisfactory position in the gastric fundus. OTHER FINDINGS: A tracheostomy is now seen IMPRESSION: No active disease.
--- NOTE | 2017-03-30 11:15 | PN ---
DATE: 03/30/2017 SUBJECTIVE: The patient is seen early this morning in 129, bed 1. The patient remains trached on a vent, has low grade fevers. He is unresponsive. PHYSICAL EXAMINATION: VITAL SIGNS: Temperature is 100, blood pressure is 119/70, respiratory rate on a vent, and heart rate of 75. HEENT: Examination reveals unremarkable. The patient has a tracheostomy now. NECK: Supple. LUNGS: Have decreased breath sounds. HEART: Exam normal S1 and S2. ABDOMEN: Examination is soft. He has a new PEG. LABORATORY DATA: Examination reveals a white count of 17,300, hemoglobin of 14, and platelets of 283. Chemistries are noted; the BUN of 25, creatinine of 0.6 and the patient's last procalcitonin was 0.26. Urinalysis is unremarkable. Microbiology; blood cultures, urine cultures are all negative. Review of orders reveals the patient is on Solu-Medrol and the patient is off of antibiotics and had a low grade fevers. Review of the x-rays from yesterday, no active pulmonary disease; this morning's x-ray results are pending. Dr. Nj Lewis's surgical postoperative note is reviewed. The patient had gastrostomy tube and open tracheostomy yesterday. ASSESSMENT AND PLAN: This is an 82-year-old male seen early this morning in 129, bed 1, unresponsive with a history of hypertension, diabetes, benign prostatic hypertrophy, chronic atrial fibrillation with a left basal intracerebral bleed, status post ventriculostomy, currently now trached on a ventilator and has a percutaneous endoscopic gastrostomy, now with new leukocytosis and systemic inflammatory response syndrome, most likely secondary to the Solu-Medrol use, however, we will order blood cultures x2, urine cultures, sputum cultures, and urinalysis; and check on the procalcitonin and check on the chest x-ray results. Since the patient's antibiotics were justly discontinued, we will hold off any antibiotics at this time. Clinically, the patient has not changed other than leukocytosis, which may be secondary to the Solu-Medrol, and we will make further recommendations and follow the patient closely. If necessary, we will start empiric antibiotics. We will follow closely with you. Overall prognosis is quite poor for this patient, who is unresponsive. Sergio Sommers MD
[2017-03-30] MEDS: Sodium Chloride 0.9% 1,000 ML IV SCH (12:54)
--- NOTE | 2017-03-30 16:11 | PN ---
DATE: 03/30/2017 REASON FOR CONSULTATION: Acute CVA, intracerebral bleed and respiratory failure, status post PEG and status post tracheostomy. SUBJECTIVE: The patient remained on vent, sedated. PHYSICAL EXAMINATION: GENERAL: Remains on vent. VITAL SIGNS: Temperature is afebrile, heart rate is 77 and blood pressure 121/62. HEENT: PERRLA. Extraocular muscles intact. NECK: Supple. No carotid bruit or thyromegaly. CHEST: Clear to auscultation. HEART: S1 and S2 regular. ABDOMEN: Soft. EXTREMITIES: Clubbing and cyanosis negative. LABORATORY DATA: Blood workup as follows: WBC of 17. , hemoglobin of 14, hematocrit of 41.2 and platelet count of 283. Chemistry shows sodium 131, potassium 3.6, chloride 93, carbon dioxide 31, anion gap 11, BUN 25 and creatinine 0.6. IMPRESSION: Acute cerebrovascular accident, intracerebral bleed, comatose, respiratory failure, history of coronary artery disease, history of chronic obstructive pulmonary disease, was on Eliquis at home for atrial fibrillation, hydrocephalus, status post respiratory failure, status post ventriculostomy drainage at the basal ganglia, status post PEG and status post tracheostomy. Last echocardiogram done revealed normal left ventricular function. Last echocardiogram done yesterday; mild aortic stenosis, mild tricuspid regurgitation, mild pulmonary insufficiency, no mitral regurgitation and right ventricular systolic pressure of 42. Neurosurgery note noted. The patient has a pinpoint pupil and no significant neurological improvement. RECOMMENDATIONS: Continue supportive care. Continue PEG tube placement. Continue Catapres patch. Continue hydralazine and avoid acute blood pressure loss of less than 130 to prevent further extension. Overall, the patient is critical. Long-term prognosis is guarded. Thank you Dr. Ratliff for providing us the opportunity in taking care of the patient, Sharla Au. Travis Beltrán MD cc: Surendra Ratliff MD
--- NOTE | 2017-03-30 21:19 | PN ---
DATE: 03/30/2017 PULMONARY CRITICAL CARE PROGRESS NOTE REFERRING PHYSICIAN: Dr. Ratliff. SUBJECTIVE: The patient is unresponsive, on ventilator, status post trach and G-tube, not much trach secretion. No hemoptysis, no hematemesis, no hematuria, no diarrhea reported. OBJECTIVELY: GENERAL: Unresponsive, on ventilator. VITAL SIGNS: Temp 100.2, heart rate is 77, respiratory rate is 24, blood pressure 113/71, pulse ox 77%, 35% oxygen ventilator. HEENT: Moist mucous membrane. Trach stoma looks okay, not much secretion. LUNGS: Fair airflow with few rhonchi. HEART: S1 and S2. ABDOMEN: Soft, nontender and nondistended. G-tube area looks okay. EXTREMITIES: There is no edema. NEUROLOGIC: Unresponsive. MEDICATIONS: He is on hydralazine 10 mg IV q. 6 hours p.r.n., IV nicardipine, Catapres patch weekly, IV fluid D5 normal saline 100 mL/hour, DuoNeb q. 6 hours, insulin coverage, Peridex 10 mL b.i.d., Protonix 40 mg daily, IV fluid normal saline, Solu-Medrol 20 mg IV daily, Tylenol p.r.n. and Xopenex q. 6 hours p.r.n. LABORATORY DATA: Microbiology: Blood culture, urine culture and trach culture, there is no growth. Chest x-ray done this morning shows no active pulmonary disease. IMPRESSION AND PLAN: Intraventricular and intracerebral bleed, mild hydrocephalus, status post external ventricular drainage, chronic obstructive lung disease, hypertension, paroxysmal atrial fibrillation, respiratory failure requiring tracheostomy, feeding difficulty requiring G-tube. Spoke to the patient's daughter on bedside, all the questions answered. From pulmonary point of view, he is doing okay. Continue nebulizer treatment. Keep present vent setting. Discontinue Solu-Medrol, exception, gastric prophylaxis, sequential compression device to lower extremity. Follow up labs in the morning. CRITICAL CARE TIME: More than 35 minutes. Thank you and we will follow with you. Travis Wilcox MD
[2017-03-31] MEDS: Sodium Chloride 0.9% 1,000 ML IV SCH
[2017-03-31] MEDS: Albuterol-Ipratrop 3 mg / 0.5 (3 ml) UD IH SCH ×4 (02:01→20:30)
[2017-03-31 05:28] LABS: ARTERIAL BLOOD GAS HCO3 30.4 mmol/L (21-28); ARTERIAL BLOOD GAS O2 CAPACITY 18.2 mL/dl (16-24); ARTERIAL BLOOD GAS O2 CONTENT 18.1 ML/dl (15-23); ARTERIAL BLOOD HGB O2 SAT 96.6 % (95.0-98.0); CARBOXYHEMOGLOBIN 1.6 % (0.5-1.5); HHB 0.5 % (0-5); METHEMOGLOBIN 1.3 % (0.0-3.0)
[2017-03-31 06:17] LABS: ALKALINE PHOSPHATASE 61 U/L (38-126); ALT/SGPT 73 U/L (7-56); AST/SGOT 32 U/L (17-59); BILIRUBIN,TOTAL 0.7 mg/dL (0.2-1.3); BLOOD UREA NITROGEN 22 mg/dL (7-21); CALCIUM 8.3 mg/dL (8.4-10.5); CARBON DIOXIDE 30 mmol/L (21-33); CHLORIDE 96 mmol/L (98-107); GFR AFRICAN-AMERICAN > 60; GLUCOSE,RANDOM 152 mg/dL (70-110); MAGNESIUM 2.1 mg/dL (1.7-2.2); PHOSPHOROUS 2.8 mg/dL (2.5-4.5); POTASSIUM 3.7 mmol/L (3.6-5.0); SODIUM 132 mmol/L (132-148); TOTAL PROTEIN 5.5 g/dL (5.8-8.3)
[2017-03-31 06:19] LABS: BASO # 0.01 K/mm3 (0.0-2.0); BASO % 0.1 % (0.0-3.0); GRAN # 9.89 (1.4-6.5); GRAN % 80.5 % (50.0-68.0); HEMATOCRIT 39.3 % (42.0-52.0); LYMPH # 0.9 (1.2-3.4); LYMPH % 7.2 % (22.0-35.0); MEAN CELL VOLUME 83.1 fl (80.0-105.0); MEAN CORPUSCULAR HEMOGLOBIN 28.5 pg (25.0-35.0); MEAN CORPUSCULAR HGB CONC 34.4 g/dl (31.0-37.0); MEAN PLATELET VOLUME 9.2 fl (7.0-11.0); MONO # 1.5 (0.1-0.6); MONO % 12.2 % (1.0-6.0); RED CELL DISTRIBUTION WIDTH 11.9 % (11.5-14.5); WHITE BLOOD COUNT 12.3 10^3/ul (4.5-11.0)
[2017-03-31 06:24] LABS: INR 1.18 (0.93-1.08)
--- NOTE | 2017-03-31 08:03 | CP.PCM.PN ---
Subjective - Date & Time of Evaluation Date of Evaluation: 03/31/17 Time of Evaluation: 07:57 - Subjective Subjective: Surgery Pt s&e. Trach collar in place. J tube in place. On tube feeding. Pt doesn't follow commands, doesn't response to pain stimuli . Objective - Vital Signs/Intake and Output Vital Signs (last 24 hours): Temp Pulse Resp BP Pulse Ox 99.0 F 64 16 147/69 100 03/31/17 05:20 03/31/17 05:20 03/31/17 07:31 03/31/17 05:01 03/31/17 07:31 Intake and Output: 03/31/17 03/31/17 06:59 18:59 Intake Total 1500 Output Total 800 Balance 700 - Medications Medications: Current Medications Acetaminophen (Tylenol 325mg Tab) 650 mg PO Q6H PRN PRN Reason: Fever >100.4 F Last Admin: 03/28/17 21:04 Dose: 650 mg Albuterol/Ipratropium (Duoneb 3 Mg/0.5 Mg (3 Ml) Ud) 3 ml IH [id number] [facility] Last Admin: 03/31/17 07:17 Dose: 3 ml Chlorhexidine Gluconate (Peridex) 15 ml PO BID [facility] Last Admin: 03/30/17 18:35 Dose: 15 ml Clonidine HCl (Catapres-Tts3 0.3 Mg/24 Hr) 1 patch TD Q7D@1000 [facility] Last Admin: 03/28/17 09:22 Dose: 1 patch Hydralazine HCl (Apresoline) 10 mg IVP Q6 PRN PRN Reason: for SBP>140 Last Admin: 03/27/17 12:26 Dose: 10 mg Hydralazine HCl (Apresoline) 50 mg PO BID [facility] Last Admin: 03/30/17 19:21 Dose: 50 mg Nicardipine HCl (Cardene Iv Premix) 20 mg in 200 mls @ 50 mls/hr IV .Q4H PRN; Protocol; 5 MG/HR PRN Reason: TITRATE PER MD ORDER Last Titration: 03/30/17 06:02 Dose: 5 mg/hr, 50 mls/hr Dextrose/Sodium Chloride (Dextrose 5%/0.9% Ns 1000 Ml) 1,000 mls @ 100 mls/hr IV .Q10H [facility] Last Admin: 03/29/17 06:43 Dose: 100 mls/hr Sodium Chloride (Sodium Chloride 0.9%) 1,000 mls @ 100 mls/hr IV .Q10H [facility] Last Admin: 03/31/17 00:00 Dose: 100 mls/hr Insulin Human Regular (Humulin R Low) 0 units SC ACHS SRINATH PRN Reason: Protocol Last Admin: 03/30/17 16:30 Dose: Not Given Levalbuterol HCl (Xopenex) 1.25 mg IH [id number] PRN PRN Reason: Shortness of Breath Last Admin: 03/26/17 19:42 Dose: 1.25 mg Pantoprazole Sodium (Protonix Inj) 40 mg IVP DAILY [facility] Last Admin: 03/30/17 09:30 Dose: 40 mg - Labs Labs: 03/31/17 05:30 03/31/17 05:30 PT 12.7 Seconds (9.9-11.8) H 03/31/17 05:30 INR 1.18 (0.93-1.08) H 03/31/17 05:30 APTT 31.0 Seconds (23.7-30.8) H 03/31/17 05:30 - Constitutional Appears: Non-toxic - Head Exam Additional comments: Brain drain in place. - ENT Exam ENT Exam: Mucous Membranes Moist, Normal Exam - Neck Exam Additional comments: Trach collar in place. - Respiratory Exam Respiratory Exam: absent: NORMAL BREATHING PATTERN Additional comments: Trach collar in place - Cardiovascular Exam Cardiovascular Exam: REGULAR RHYTHM, +S1, +S2. absent: Murmur - GI/Abdominal Exam GI & Abdominal Exam: Soft, Normal Bowel Sounds. absent: Distended, Firm, Guarding, Rigid, Tenderness - Extremities Exam Extremities Exam: Normal Capillary Refill, Normal Inspection. absent: Joint Swelling, Pedal Edema - Back Exam Back Exam: NORMAL INSPECTION - Skin Skin Exam: Dry, Intact, Normal Color, Warm Assessment and Plan - Assessment and Plan (Free Text) Assessment: 82M with Intra-cranial hemorrhage, respiratory failure, failure to thrive. s/p Tracheostomy and Gastrostomy POD#2 -Flush G tube PRN with saline -OK to use G tube for tube feed. -Further recs discuss with Dr. Lewis
--- NOTE | 2017-03-31 09:26 | PN ---
DATE: 03/31/2017 SUBJECTIVE: The patient is seen early this morning, in no acute distress. He is trached on a vent, unresponsive. No fevers. PHYSICAL EXAMINATION: VITAL SIGNS: On exam, temperature is 99, blood pressure is 117/80, and respiratory rate of 18. HEENT: Examination of HEENT is unremarkable. LUNGS: Have decreased breath sounds. HEART: Normal S1 and S2. ABDOMEN: Emanation is soft and nontender. No organomegaly, no rebound and no guarding. LABORATORY DATA: Examination reveals a white count of 12,300, hemoglobin of 13, and platelets of 257. BUN of 22 and creatinine of 0.5. Procalcitonin is 0.41. Urinalysis is noted. Microbiology reveals the blood cultures are negative. Review of the orders reveals the patient is off of antibiotics. Procalcitonin from yesterday is 0.41. ASSESSMENT AND PLAN: He is a 82-year-old male seen earlier today in Critical Care Unit 129, bed 1 who was unresponsive, he has history of hypertension, diabetes, benign prostatic hypertrophy, chronic atrial fibrillation, who was admitted with left basal intracerebral bleed, status post ventriculostomy currently on tracheostomy and has percutaneous endoscopic gastrostomy. The patient is on a ventilator. He had new white count and new fever and yesterday with SIRS (systemic inflammatory response syndrome) and the patient was clinically unchanged. The patient was on steroids, currently off of steroids and white count is improved to 12,300. We will check on the repeat panculture, normal procalcitonin, off of antibiotics. We will follow with you. Sergio Sommers MD
[2017-03-31] MEDS: Chlorhexidine 0.12% Oral Sol 480 ml Bot PO SCH ×2 (10:06→17:39)
--- NOTE | 2017-03-31 10:16 | RAD ---
HISTORY: intubated, f/u COMPARISON: Comparison chest dated 03/30/2017. Comparison also made with CTA of the chest 09/06/2013. FINDINGS: In situ tracheostomy tube in good position unchanged. Additionally, there is apparent in situ feeding tube the tip of which is coiled upon itself oriented superiorly and near the EG junction LUNGS: No active pulmonary disease. PLEURA: No significant pleural effusion identified, no pneumothorax apparent. CARDIOVASCULAR: Normal. OSSEOUS STRUCTURES: No significant abnormalities. VISUALIZED UPPER ABDOMEN: Normal. OTHER FINDINGS: None. IMPRESSION: Tracheostomy tube and at feeding tube as above. . No acute consolidation
[2017-03-31] MEDS: Insulin Reg-LOW-Coverage SC SCH ×3 (10:19→17:38)
--- NOTE | 2017-03-31 12:40 | CP.CCUPN ---
CCU Subjective - Physician Review Subjective (Free Text): 03/30/17 06:27 Patient seen and examined at bedside in the ICU. Remains off sedation, still unresponsive. Ventriculostomy drain removed by Neurosurgeon yesterday. Family still wishes to pursue all measures; s/p Trach and Gastrostomy tube, POD#1. CCU Objective - Vital Signs / Intake & Output Vital Signs (Last 4 hours): Vital Signs Temp Pulse BP Pulse Ox 03/31/17 11:10 99.1 F 73 98 03/31/17 11:01 99.1 F 77 140/77 98 03/31/17 11:00 99.3 F 71 98 03/31/17 10:50 99.3 F 77 98 03/31/17 10:40 99.3 F 75 97 03/31/17 10:30 99.3 F 69 99 03/31/17 10:20 99.3 F 71 98 03/31/17 10:10 99.3 F 79 97 03/31/17 10:04 75 108/81 03/31/17 10:00 99.5 F 89 108/81 98 03/31/17 09:50 99.5 F 68 98 03/31/17 09:40 99.7 F H 72 99 03/31/17 09:30 99.5 F 72 99 03/31/17 09:20 99.3 F 67 99 03/31/17 09:10 99.5 F 71 99 03/31/17 09:00 99.3 F 77 107/61 99 03/31/17 08:50 99.3 F 70 99 03/31/17 08:40 99.3 F 74 99 Intake and Output (Last 8hrs): Intake & Output 03/30/17 03/31/17 03/31/17 22:59 06:59 14:59 Intake Total 550 1500 Output Total 700 800 Balance -150 700 Weight 63.594 kg 63.503 kg Intake: IV 500 1200 meds 500 1200 Tube Feeding 50 300 Output: Urine 700 800 Urethral (Wells) 700 800 Other: # Bowel Movements 0 - Physical Exam Head: Positive for: Atraumatic. Negative for: Normocephalic (Drain removed, still bandaging along R side of head), Ecchymosis, Abrasion Pupils: Positive for: Non-Reactive, Pinpoint. Negative for: PERRL Extroacular Muscles: Negative for: EOMI (no spontaneous eye movements, no movements on commands, no avoidance of direct light challenge for PERRL assessment; reported by family to have spontaneous eye openings, but at bedside only exhibits half open lids which slide closed when openned by examiner) Conjunctiva: Positive for: Normal. Negative for: Injected, Icteric Mouth: Positive for: Moist Mucous Membranes, Other (ETT removed) Pharnyx: Positive for: Normal Nose (External): Positive for: Atraumatic, Other (NGT in place). Negative for: Abrasion, Contusion, Laceration Nose (Internal): Positive for: Normal Inspection Neck: Positive for: Trachea Midline, Other (Trach in place, held by trach collar , no active bleeding or oozing from site noted, trach connected to vent). Negative for: JVD, Lymphadenopathy Respiratory/Chest: Positive for: Clear to Auscultation, Good Air Exchange, Rales (mild rales in all gracia, otherwise CTA, unchanged from prior exam), Other (intubated and on mechanical ventilation via trach). Negative for: Respiratory Distress, Accessory Muscle Use Cardiovascular: Positive for: Regular Rate and Rhythm, Normal S1, S2. Negative for: Murmurs, Irregular Rhythm, Tachycardic Abdomen: Positive for: Normal Bowel Sounds, Other (no palpable pulsatile mass). Negative for: Distention Back: Negative for: Midline Tenderness, Paraspinal Tenderness Upper Extremity: Positive for: Normal Inspection, NORMAL PULSES. Negative for: Cyanosis, Edema, Swelling, Erythema, Temperature Abnormalties, Deformity Lower Extremity: Positive for: Normal Inspection, NORMAL PULSES. Negative for: Edema, CALF TENDERNESS, Cyanosis, Swelling, Erythema, Deformity, Temperature Abnormalties Neurological: Positive for: Other (intubated, not sedated but unresponsive, no purposeful movements, some posturing on the left likely decerebrate). Negative for: GCS=15 (Score of 3 (E1 V1t M1)), CN II-XII Intact, Speech Normal, Motor Func Grossly Intact Skin: Positive for: Warm, Dry, Normal Color. Negative for: Rashes, Diaphoretic Psychiatric: Positive for: Other (Intubated, not sedated but unresponsive). Negative for: Alert, Oriented x 3, Normal Insight, Normal Concentration, Normal Affect - Medications Active Medications: Active Medications Generic Name Dose Route Start Last Admin Trade Name Freq PRN Reason Stop Dose Admin Acetaminophen 650 mg 03/26/17 23:43 03/28/17 21:04 Tylenol 325mg Tab PO 650 mg Q6H PRN Administration Fever >100.4 F Albuterol/Ipratropium 3 ml 03/27/17 02:00 03/31/17 07:17 Duoneb 3 Mg/0.5 Mg (3 Ml) Ud IH 3 ml [id number] SRINATH Administration Chlorhexidine Gluconate 15 ml 03/25/17 10:00 03/31/17 10:06 Peridex PO 15 ml BID SRINATH Administration Clonidine HCl 1 patch 03/28/17 10:00 03/28/17 09:22 Catapres-Tts3 0.3 Mg/24 Hr TD 1 patch Q7D@1000 SRINATH Administration Hydralazine HCl 10 mg 03/27/17 10:56 03/27/17 12:26 Apresoline IVP 10 mg Q6 PRN Administration for SBP>140 Hydralazine HCl 50 mg 03/28/17 10:00 03/31/17 10:04 Apresoline PO 50 mg BID SRINATH Administration Nicardipine HCl 20 mg in 200 mls @ 50 mls/hr 03/22/17 11:16 03/30/17 06:02 Cardene Iv Premix IV 5 mg/hr .Q4H PRN 50 mls/hr TITRATE PER MD ORDER Titration Protocol 5 MG/HR Dextrose/Sodium Chloride 1,000 mls @ 100 mls/hr 03/23/17 10:15 03/29/17 06:43 Dextrose 5%/0.9% Ns 1000 Ml IV 100 mls/hr .Q10H SRINATH Administration Sodium Chloride 1,000 mls @ 100 mls/hr 03/30/17 11:45 03/31/17 00:00 Sodium Chloride 0.9% IV 100 mls/hr .Q10H SRINATH Administration Insulin Human Regular 0 units 03/27/17 11:30 03/31/17 10:19 Humulin R Low SC Not Given ACHS SRINATH Protocol Levalbuterol HCl 1.25 mg 03/25/17 19:40 03/26/17 19:42 Xopenex IH 1.25 mg [id number] PRN Administration Shortness of Breath Pantoprazole Sodium 40 mg 03/26/17 10:00 03/31/17 10:05 Protonix Inj IVP 40 mg DAILY SRINATH Administration - Patient Studies Lab Studies: Microbiology Studies 03/30/17 10:10 Urine Culture - Final Urine No Growth (<1,000 CFU/ML) 03/30/17 08:30 Blood Culture - Preliminary Blood NO GROWTH AFTER 24 HOURS 03/30/17 08:40 Blood Culture - Preliminary Blood NO GROWTH AFTER 24 HOURS 03/30/17 13:23 Gram Stain - Final Trachasp 03/25/17 10:15 Blood Culture - Final Blood-Venous NO GROWTH AFTER 5 DAYS Gram Stain - Final TEST NOT PERFORMED 03/25/17 10:00 Blood Culture - Final Blood-Venous NO GROWTH AFTER 5 DAYS Gram Stain - Final TEST NOT PERFORMED Lab Studies 03/31/17 03/31/17 03/31/17 Range/Units 11:32 05:30 05:30 WBC (4.5-11.0) 10^3/ul RBC (3.5-6.1) 10^6/uL Hgb (14.0-18.0) g/dL Hct (42.0-52.0) % MCV (80.0-105.0) fl MCH (25.0-35.0) pg MCHC (31.0-37.0) g/dl RDW (11.5-14.5) % Plt Count (120.0-450.0) 10^3/uL MPV (7.0-11.0) fl Gran % (50.0-68.0) % Lymph % (Auto) (22.0-35.0) % [place] % (Auto) (1.0-6.0) % Eos % (Auto) (1.5-5.0) % Baso % (Auto) (0.0-3.0) % Gran # (1.4-6.5) Lymph # (1.2-3.4) [place] # (0.1-0.6) Eos # (0.0-0.7) Baso # (0.0-2.0) K/mm3 PT 12.7 H (9.9-11.8) Seconds INR 1.18 H (0.93-1.08) APTT 31.0 H (23.7-30.8) Seconds pCO2 (35-45) mm/Hg pO2 (80-100) mm/Hg HCO3 (21-28) mmol/L ABG pH (7.35-7.45) ABG Total CO2 (22-28) mmol.L ABG O2 Saturation (95-98) % ABG O2 Content (15-23) ML/dl ABG Base Excess (-2.0-3.0) mmol/L ABG Hemoglobin (11.7-17.4) g/dL ABG Carboxyhemoglobin (0.5-1.5) % POC ABG HHb (Measured) (0-5) % ABG Methemoglobin (0.0-3.0) % ABG O2 Capacity (16-24) mL/dl Hgb O2 Saturation (95.0-98.0) % FiO2 % Sodium 132 (132-148) mmol/L Potassium 3.7 (3.6-5.0) mmol/L Chloride 96 L (98-107) mmol/L Carbon Dioxide 30 (21-33) mmol/L Anion Gap 10 (10-20) BUN 22 H (7-21) mg/dL Creatinine 0.5 L (0.8-1.5) mg/dL Est GFR ( Amer) > 60 Est GFR (Non-Af Amer) > 60 POC Glucose (mg/dL) 157 H (65-110) mg/dL Random Glucose 152 H (70-110) mg/dL Calcium 8.3 L (8.4-10.5) mg/dL Phosphorus 2.8 (2.5-4.5) mg/dL Magnesium 2.1 (1.7-2.2) mg/dL Total Bilirubin 0.7 (0.2-1.3) mg/dL AST 32 (17-59) U/L ALT 73 H (7-56) U/L Alkaline Phosphatase 61 (38-126) U/L Total Protein 5.5 L (5.8-8.3) g/dL Albumin 2.7 L (3.0-4.8) g/dL Globulin 2.8 gm/dL Albumin/Globulin Ratio 1.0 L (1.1-1.8) 03/31/17 03/31/17 03/30/17 Range/Units 05:30 05:00 21:55 WBC 12.3 H D (4.5-11.0) 10^3/ul RBC 4.73 (3.5-6.1) 10^6/uL Hgb 13.5 L (14.0-18.0) g/dL Hct 39.3 L (42.0-52.0) % MCV 83.1 (80.0-105.0) fl MCH 28.5 (25.0-35.0) pg MCHC 34.4 (31.0-37.0) g/dl RDW 11.9 (11.5-14.5) % Plt Count 257 (120.0-450.0) 10^3/uL MPV 9.2 (7.0-11.0) fl Gran % 80.5 H (50.0-68.0) % Lymph % (Auto) 7.2 L (22.0-35.0) % [place] % (Auto) 12.2 H (1.0-6.0) % Eos % (Auto) 0.0 L (1.5-5.0) % Baso % (Auto) 0.1 (0.0-3.0) % Gran # 9.89 H (1.4-6.5) Lymph # 0.9 L (1.2-3.4) [place] # 1.5 H (0.1-0.6) Eos # 0.0 (0.0-0.7) Baso # 0.01 (0.0-2.0) K/mm3 PT (9.9-11.8) Seconds INR (0.93-1.08) APTT (23.7-30.8) Seconds pCO2 39 (35-45) mm/Hg pO2 148.0 H (80-100) mm/Hg HCO3 30.4 H (21-28) mmol/L ABG pH 7.50 H (7.35-7.45) ABG Total CO2 31.6 H (22-28) mmol.L ABG O2 Saturation 99.5 H (95-98) % ABG O2 Content 18.1 (15-23) ML/dl ABG Base Excess 6.7 H (-2.0-3.0) mmol/L ABG Hemoglobin 13.1 (11.7-17.4) g/dL ABG Carboxyhemoglobin 1.6 H (0.5-1.5) % POC ABG HHb (Measured) 0.5 (0-5) % ABG Methemoglobin 1.3 (0.0-3.0) % ABG O2 Capacity 18.2 (16-24) mL/dl Hgb O2 Saturation 96.6 (95.0-98.0) % FiO2 35.0 % Sodium (132-148) mmol/L Potassium (3.6-5.0) mmol/L Chloride (98-107) mmol/L Carbon Dioxide (21-33) mmol/L Anion Gap (10-20) BUN (7-21) mg/dL Creatinine (0.8-1.5) mg/dL Est GFR ( Amer) Est GFR (Non-Af Amer) POC Glucose (mg/dL) 155 H (65-110) mg/dL Random Glucose (70-110) mg/dL Calcium (8.4-10.5) mg/dL Phosphorus (2.5-4.5) mg/dL Magnesium (1.7-2.2) mg/dL Total Bilirubin (0.2-1.3) mg/dL AST (17-59) U/L ALT (7-56) U/L Alkaline Phosphatase (38-126) U/L Total Protein (5.8-8.3) g/dL Albumin (3.0-4.8) g/dL Globulin gm/dL Albumin/Globulin Ratio (1.1-1.8) Laboratory Results - last 24 hr 03/30/17 03/31/17 03/31/17 21:55 05:00 05:30 WBC 12.3 H D RBC 4.73 Hgb 13.5 L Hct 39.3 L MCV 83.1 MCH 28.5 MCHC 34.4 RDW 11.9 Plt Count 257 MPV 9.2 Gran % 80.5 H Lymph % (Auto) 7.2 L [place] % (Auto) 12.2 H Eos % (Auto) 0.0 L Baso % (Auto) 0.1 Gran # 9.89 H Lymph # 0.9 L [place] # 1.5 H Eos # 0.0 Baso # 0.01 PT INR APTT pCO2 39 pO2 148.0 H HCO3 30.4 H ABG pH 7.50 H ABG Total CO2 31.6 H ABG O2 Saturation 99.5 H ABG O2 Content 18.1 ABG Base Excess 6.7 H ABG Hemoglobin 13.1 ABG Carboxyhemoglobin 1.6 H POC ABG HHb (Measured) 0.5 ABG Methemoglobin 1.3 ABG O2 Capacity 18.2 Hgb O2 Saturation 96.6 FiO2 35.0 Sodium Potassium Chloride Carbon Dioxide Anion Gap BUN Creatinine Est GFR ( Amer) Est GFR (Non-Af Amer) POC Glucose (mg/dL) 155 H Random Glucose Calcium Phosphorus Magnesium Total Bilirubin AST ALT Alkaline Phosphatase Total Protein Albumin Globulin Albumin/Globulin Ratio 03/31/17 03/31/17 03/31/17 05:30 05:30 11:32 WBC RBC Hgb Hct MCV MCH MCHC RDW Plt Count MPV Gran % Lymph % (Auto) [place] % (Auto) Eos % (Auto) Baso % (Auto) Gran # Lymph # [place] # Eos # Baso # PT 12.7 H INR 1.18 H APTT 31.0 H pCO2 pO2 HCO3 ABG pH ABG Total CO2 ABG O2 Saturation ABG O2 Content ABG Base Excess ABG Hemoglobin ABG Carboxyhemoglobin POC ABG HHb (Measured) ABG Methemoglobin ABG O2 Capacity Hgb O2 Saturation FiO2 Sodium 132 Potassium 3.7 Chloride 96 L Carbon Dioxide 30 Anion Gap 10 BUN 22 H Creatinine 0.5 L Est GFR ( Amer) > 60 Est GFR (Non-Af Amer) > 60 POC Glucose (mg/dL) 157 H Random Glucose 152 H Calcium 8.3 L Phosphorus 2.8 Magnesium 2.1 Total Bilirubin 0.7 AST 32 ALT 73 H Alkaline Phosphatase 61 Total Protein 5.5 L Albumin 2.7 L Globulin 2.8 Albumin/Globulin Ratio 1.0 L Fingerstick Blood Sugar Results: 150 Critical Care Progress Note - Nutrition Nutrition: Nutrition Category Date Time Status NPO Diet [DIET] Diets 03/25/17 Breakfast Ordered
--- NOTE | 2017-03-31 12:44 | CP.CCUPN ---
CCU Subjective - Physician Review Events Since Last Encounter (Free Text): 03/31/17 12:41 No acute changes overnight. Trach was placed and comfortable on PS trial today. CCU Objective - Vital Signs / Intake & Output Vital Signs (Last 4 hours): Vital Signs Temp Pulse BP Pulse Ox 03/31/17 11:10 99.1 F 73 98 03/31/17 11:01 99.1 F 77 140/77 98 03/31/17 11:00 99.3 F 71 98 03/31/17 10:50 99.3 F 77 98 03/31/17 10:40 99.3 F 75 97 03/31/17 10:30 99.3 F 69 99 03/31/17 10:20 99.3 F 71 98 03/31/17 10:10 99.3 F 79 97 03/31/17 10:04 75 108/81 03/31/17 10:00 99.5 F 89 108/81 98 03/31/17 09:50 99.5 F 68 98 03/31/17 09:40 99.7 F H 72 99 03/31/17 09:30 99.5 F 72 99 03/31/17 09:20 99.3 F 67 99 03/31/17 09:10 99.5 F 71 99 03/31/17 09:00 99.3 F 77 107/61 99 03/31/17 08:50 99.3 F 70 99 Intake and Output (Last 8hrs): Intake & Output 03/30/17 03/31/17 03/31/17 22:59 06:59 14:59 Intake Total 550 1500 Output Total 700 800 Balance -150 700 Weight 140 lb 3.2 oz 140 lb Intake: IV 500 1200 meds 500 1200 Tube Feeding 50 300 Output: Urine 700 800 Urethral (Wells) 700 800 Other: # Bowel Movements 0 - Physical Exam Physical Exam Limitations: Positive for: Altered Mental Status Head: Positive for: Atraumatic. Negative for: Normocephalic (Drain removed, still bandaging along R side of head), Ecchymosis, Abrasion Pupils: Negative for: PERRL Extroacular Muscles: Negative for: EOMI (no spontaneous eye movements, no movements on commands, no avoidance of direct light challenge for PERRL assessment; reported by family to have spontaneous eye openings, but at bedside only exhibits half open lids which slide closed when openned by examiner) Conjunctiva: Positive for: Normal. Negative for: Injected, Icteric Mouth: Positive for: Moist Mucous Membranes, Other (ETT removed) Pharnyx: Positive for: Normal Nose (External): Positive for: Atraumatic, Other (NGT in place). Negative for: Abrasion, Contusion, Laceration Nose (Internal): Positive for: Normal Inspection Neck: Positive for: Normal Range of Motion, Trachea Midline, Other (Trach in place, held by trach collar, no active bleeding or oozing from site noted, trach connected to vent). Negative for: JVD, Lymphadenopathy Respiratory/Chest: Positive for: Clear to Auscultation, Good Air Exchange, Rales (mild rales in all gracia, otherwise CTA, unchanged from prior exam), Other (intubated and on mechanical ventilation via trach). Negative for: Respiratory Distress, Accessory Muscle Use Cardiovascular: Positive for: Regular Rate and Rhythm, Normal S1, S2. Negative for: Murmurs, Irregular Rhythm, Tachycardic Abdomen: Positive for: Normal Bowel Sounds, Other (no palpable pulsatile mass). Negative for: Distention Back: Negative for: Midline Tenderness, Paraspinal Tenderness Upper Extremity: Positive for: Normal Inspection, NORMAL PULSES. Negative for: Cyanosis, Edema, Swelling, Erythema, Temperature Abnormalties, Deformity Lower Extremity: Positive for: Normal Inspection, NORMAL PULSES. Negative for: Edema, CALF TENDERNESS, Cyanosis, Swelling, Erythema, Deformity, Temperature Abnormalties Neurological: Positive for: Other (intubated, not sedated but unresponsive, no purposeful movements, some posturing on the left likely decerebrate). Negative for: GCS=15 (Score of 3 (E1 V1t M1)), CN II-XII Intact, Speech Normal, Motor Func Grossly Intact Skin: Positive for: Warm, Dry, Normal Color. Negative for: Rashes, Diaphoretic Psychiatric: Positive for: Other (Intubated, not sedated but unresponsive). Negative for: Alert, Oriented x 3, Normal Insight, Normal Concentration, Normal Affect - Medications Active Medications: Active Medications Generic Name Dose Route Start Last Admin Trade Name Freq PRN Reason Stop Dose Admin Acetaminophen 650 mg 03/26/17 23:43 03/28/17 21:04 Tylenol 325mg Tab PO 650 mg Q6H PRN Administration Fever >100.4 F Albuterol/Ipratropium 3 ml 03/27/17 02:00 03/31/17 07:17 Duoneb 3 Mg/0.5 Mg (3 Ml) Ud IH 3 ml [id number] SRINATH Administration Chlorhexidine Gluconate 15 ml 03/25/17 10:00 03/31/17 10:06 Peridex PO 15 ml BID SRINATH Administration Clonidine HCl 1 patch 03/28/17 10:00 03/28/17 09:22 Catapres-Tts3 0.3 Mg/24 Hr TD 1 patch Q7D@1000 SRINATH Administration Hydralazine HCl 10 mg 03/27/17 10:56 03/27/17 12:26 Apresoline IVP 10 mg Q6 PRN Administration for SBP>140 Hydralazine HCl 50 mg 03/28/17 10:00 03/31/17 10:04 Apresoline PO 50 mg BID SRINATH Administration Nicardipine HCl 20 mg in 200 mls @ 50 mls/hr 03/22/17 11:16 03/30/17 06:02 Cardene Iv Premix IV 5 mg/hr .Q4H PRN 50 mls/hr TITRATE PER MD ORDER Titration Protocol 5 MG/HR Dextrose/Sodium Chloride 1,000 mls @ 100 mls/hr 03/23/17 10:15 03/29/17 06:43 Dextrose 5%/0.9% Ns 1000 Ml IV 100 mls/hr .Q10H SRINATH Administration Sodium Chloride 1,000 mls @ 100 mls/hr 03/30/17 11:45 03/31/17 00:00 Sodium Chloride 0.9% IV 100 mls/hr .Q10H SRINATH Administration Insulin Human Regular 0 units 03/27/17 11:30 03/31/17 10:19 Humulin R Low SC Not Given ACHS SRINATH Protocol Levalbuterol HCl 1.25 mg 03/25/17 19:40 03/26/17 19:42 Xopenex IH 1.25 mg [id number] PRN Administration Shortness of Breath Pantoprazole Sodium 40 mg 03/26/17 10:00 03/31/17 10:05 Protonix Inj IVP 40 mg DAILY SRINATH Administration - Patient Studies Lab Studies: Microbiology Studies 03/30/17 10:10 Urine Culture - Final Urine No Growth (<1,000 CFU/ML) 03/30/17 08:30 Blood Culture - Preliminary Blood NO GROWTH AFTER 24 HOURS 03/30/17 08:40 Blood Culture - Preliminary Blood NO GROWTH AFTER 24 HOURS 03/30/17 13:23 Gram Stain - Final Trachasp 03/25/17 10:15 Blood Culture - Final Blood-Venous NO GROWTH AFTER 5 DAYS Gram Stain - Final TEST NOT PERFORMED 03/25/17 10:00 Blood Culture - Final Blood-Venous NO GROWTH AFTER 5 DAYS Gram Stain - Final TEST NOT PERFORMED Lab Studies 03/31/17 03/31/17 03/31/17 Range/Units 11:32 05:30 05:30 WBC (4.5-11.0) 10^3/ul RBC (3.5-6.1) 10^6/uL Hgb (14.0-18.0) g/dL Hct (42.0-52.0) % MCV (80.0-105.0) fl MCH (25.0-35.0) pg MCHC (31.0-37.0) g/dl RDW (11.5-14.5) % Plt Count (120.0-450.0) 10^3/uL MPV (7.0-11.0) fl Gran % (50.0-68.0) % Lymph % (Auto) (22.0-35.0) % [place] % (Auto) (1.0-6.0) % Eos % (Auto) (1.5-5.0) % Baso % (Auto) (0.0-3.0) % Gran # (1.4-6.5) Lymph # (1.2-3.4) [place] # (0.1-0.6) Eos # (0.0-0.7) Baso # (0.0-2.0) K/mm3 PT 12.7 H (9.9-11.8) Seconds INR 1.18 H (0.93-1.08) APTT 31.0 H (23.7-30.8) Seconds pCO2 (35-45) mm/Hg pO2 (80-100) mm/Hg HCO3 (21-28) mmol/L ABG pH (7.35-7.45) ABG Total CO2 (22-28) mmol.L ABG O2 Saturation (95-98) % ABG O2 Content (15-23) ML/dl ABG Base Excess (-2.0-3.0) mmol/L ABG Hemoglobin (11.7-17.4) g/dL ABG Carboxyhemoglobin (0.5-1.5) % POC ABG HHb (Measured) (0-5) % ABG Methemoglobin (0.0-3.0) % ABG O2 Capacity (16-24) mL/dl Hgb O2 Saturation (95.0-98.0) % FiO2 % Sodium 132 (132-148) mmol/L Potassium 3.7 (3.6-5.0) mmol/L Chloride 96 L (98-107) mmol/L Carbon Dioxide 30 (21-33) mmol/L Anion Gap 10 (10-20) BUN 22 H (7-21) mg/dL Creatinine 0.5 L (0.8-1.5) mg/dL Est GFR ( Amer) > 60 Est GFR (Non-Af Amer) > 60 POC Glucose (mg/dL) 157 H (65-110) mg/dL Random Glucose 152 H (70-110) mg/dL Calcium 8.3 L (8.4-10.5) mg/dL Phosphorus 2.8 (2.5-4.5) mg/dL Magnesium 2.1 (1.7-2.2) mg/dL Total Bilirubin 0.7 (0.2-1.3) mg/dL AST 32 (17-59) U/L ALT 73 H (7-56) U/L Alkaline Phosphatase 61 (38-126) U/L Total Protein 5.5 L (5.8-8.3) g/dL Albumin 2.7 L (3.0-4.8) g/dL Globulin 2.8 gm/dL Albumin/Globulin Ratio 1.0 L (1.1-1.8) 03/31/17 03/31/17 03/30/17 Range/Units 05:30 05:00 21:55 WBC 12.3 H D (4.5-11.0) 10^3/ul RBC 4.73 (3.5-6.1) 10^6/uL Hgb 13.5 L (14.0-18.0) g/dL Hct 39.3 L (42.0-52.0) % MCV 83.1 (80.0-105.0) fl MCH 28.5 (25.0-35.0) pg MCHC 34.4 (31.0-37.0) g/dl RDW 11.9 (11.5-14.5) % Plt Count 257 (120.0-450.0) 10^3/uL MPV 9.2 (7.0-11.0) fl Gran % 80.5 H (50.0-68.0) % Lymph % (Auto) 7.2 L (22.0-35.0) % [place] % (Auto) 12.2 H (1.0-6.0) % Eos % (Auto) 0.0 L (1.5-5.0) % Baso % (Auto) 0.1 (0.0-3.0) % Gran # 9.89 H (1.4-6.5) Lymph # 0.9 L (1.2-3.4) [place] # 1.5 H (0.1-0.6) Eos # 0.0 (0.0-0.7) Baso # 0.01 (0.0-2.0) K/mm3 PT (9.9-11.8) Seconds INR (0.93-1.08) APTT (23.7-30.8) Seconds pCO2 39 (35-45) mm/Hg pO2 148.0 H (80-100) mm/Hg HCO3 30.4 H (21-28) mmol/L ABG pH 7.50 H (7.35-7.45) ABG Total CO2 31.6 H (22-28) mmol.L ABG O2 Saturation 99.5 H (95-98) % ABG O2 Content 18.1 (15-23) ML/dl ABG Base Excess 6.7 H (-2.0-3.0) mmol/L ABG Hemoglobin 13.1 (11.7-17.4) g/dL ABG Carboxyhemoglobin 1.6 H (0.5-1.5) % POC ABG HHb (Measured) 0.5 (0-5) % ABG Methemoglobin 1.3 (0.0-3.0) % ABG O2 Capacity 18.2 (16-24) mL/dl Hgb O2 Saturation 96.6 (95.0-98.0) % FiO2 35.0 % Sodium (132-148) mmol/L Potassium (3.6-5.0) mmol/L Chloride (98-107) mmol/L Carbon Dioxide (21-33) mmol/L Anion Gap (10-20) BUN (7-21) mg/dL Creatinine (0.8-1.5) mg/dL Est GFR ( Amer) Est GFR (Non-Af Amer) POC Glucose (mg/dL) 155 H (65-110) mg/dL Random Glucose (70-110) mg/dL Calcium (8.4-10.5) mg/dL Phosphorus (2.5-4.5) mg/dL Magnesium (1.7-2.2) mg/dL Total Bilirubin (0.2-1.3) mg/dL AST (17-59) U/L ALT (7-56) U/L Alkaline Phosphatase (38-126) U/L Total Protein (5.8-8.3) g/dL Albumin (3.0-4.8) g/dL Globulin gm/dL Albumin/Globulin Ratio (1.1-1.8) Laboratory Results - last 24 hr 03/30/17 03/31/17 03/31/17 21:55 05:00 05:30 WBC 12.3 H D RBC 4.73 Hgb 13.5 L Hct 39.3 L MCV 83.1 MCH 28.5 MCHC 34.4 RDW 11.9 Plt Count 257 MPV 9.2 Gran % 80.5 H Lymph % (Auto) 7.2 L [place] % (Auto) 12.2 H Eos % (Auto) 0.0 L Baso % (Auto) 0.1 Gran # 9.89 H Lymph # 0.9 L [place] # 1.5 H Eos # 0.0 Baso # 0.01 PT INR APTT pCO2 39 pO2 148.0 H HCO3 30.4 H ABG pH 7.50 H ABG Total CO2 31.6 H ABG O2 Saturation 99.5 H ABG O2 Content 18.1 ABG Base Excess 6.7 H ABG Hemoglobin 13.1 ABG Carboxyhemoglobin 1.6 H POC ABG HHb (Measured) 0.5 ABG Methemoglobin 1.3 ABG O2 Capacity 18.2 Hgb O2 Saturation 96.6 FiO2 35.0 Sodium Potassium Chloride Carbon Dioxide Anion Gap BUN Creatinine Est GFR ( Amer) Est GFR (Non-Af Amer) POC Glucose (mg/dL) 155 H Random Glucose Calcium Phosphorus Magnesium Total Bilirubin AST ALT Alkaline Phosphatase Total Protein Albumin Globulin Albumin/Globulin Ratio 03/31/17 03/31/17 03/31/17 05:30 05:30 11:32 WBC RBC Hgb Hct MCV MCH MCHC RDW Plt Count MPV Gran % Lymph % (Auto) [place] % (Auto) Eos % (Auto) Baso % (Auto) Gran # Lymph # [place] # Eos # Baso # PT 12.7 H INR 1.18 H APTT 31.0 H pCO2 pO2 HCO3 ABG pH ABG Total CO2 ABG O2 Saturation ABG O2 Content ABG Base Excess ABG Hemoglobin ABG Carboxyhemoglobin POC ABG HHb (Measured) ABG Methemoglobin ABG O2 Capacity Hgb O2 Saturation FiO2 Sodium 132 Potassium 3.7 Chloride 96 L Carbon Dioxide 30 Anion Gap 10 BUN 22 H Creatinine 0.5 L Est GFR ( Amer) > 60 Est GFR (Non-Af Amer) > 60 POC Glucose (mg/dL) 157 H Random Glucose 152 H Calcium 8.3 L Phosphorus 2.8 Magnesium 2.1 Total Bilirubin 0.7 AST 32 ALT 73 H Alkaline Phosphatase 61 Total Protein 5.5 L Albumin 2.7 L Globulin 2.8 Albumin/Globulin Ratio 1.0 L Fingerstick Blood Sugar Results: 150 Review of Systems - Review of Systems Systems not reviewed;Unavailable: Altered Mental Status Critical Care Progress Note - Ventilator Checklist Daily Assessment of Readiness to Wean: Yes Daily Spontaneous Breathing Trial: Yes PUD Prophalyxis: Yes DVT Prophylaxis: Yes Oral Care with Chlorhexidine Gluconate {CHG}: Yes - Nutrition Nutrition: Nutrition Category Date Time Status NPO Diet [DIET] Diets 03/25/17 Breakfast Ordered Assessment/Plan - Assessment and Plan (Free Text) Assessment: 82 y/o M s/p Large ICH s/p Drain placement and removal. Mental status unchanged. No neurological improvement. BP controled [id number]. Feeding tube needed, Trach placed. Placement awaiting. Dailt SBT... try on TC as tolerated. WBC improving off abx, steroids stopped. Likely reactive post -op. dvt p cc time 35 min
[2017-03-31] MEDS ORDERED: Potassium Chloride 20 mEq/15 ml LIQ UD PO STA (13:02)
--- NOTE | 2017-03-31 14:39 | PN ---
DATE: 03/31/2017 REASON FOR THE CONSULTATION: Followup acute cerebrovascular accident intercerebral bleed, respiratory failure, status post percutaneous endoscopic gastrostomy, status post tracheostomy. SUBJECTIVE: The patient remains on vent, sedated. OBJECTIVE/PHYSICAL EXAMINATION: As follows: GENERAL: Not in apparent distress. Getting IV fluids at 100 mL an hour and 25 mL of NG feeding. VITAL SIGNS: Temperature is afebrile, heart rate is 73, and blood pressure is 140/77. HEENT: PERRLA. Extraocular muscles are intact. NECK: Supple. No carotid bruits or thyromegaly. CHEST: Clear to auscultation. HEART: S1 and S2 regular. ABDOMEN: Soft. EXTREMITIES: Clubbing and cyanosis negative. LABORATORY DATA: Blood workup as follows: WBC of 12.7, hemoglobin of 13.9, hematocrit of 39.3, and platelet count of 257. Chemistry shows sodium of 130, potassium of 3.7, chloride of 97, carbon dioxide of 30, anion gap of 10, BUN of 22, and creatinine of 0.5. Total protein of 5.5, albumin of 2.0, and albumin/globulin ratio 1. IMPRESSION: An 82-year-old male with past medical history significant for coronary artery disease, chronic obstructive pulmonary disease and history of chronic atrial fibrillation on Eliquis, admitted with acute cerebrovascular accident intercerebral bleed, status post ventriculostomy. Status post percutaneous endoscopic gastrostomy and status post trach. Last echocardiogram done and revealed normal left ventricular function, mild mitral insufficiency, mild aortic insufficiency, and mild pulmonary insufficiency. No mitral regurgitation. Right ventricular systolic pressure of 42. New surgery was noted, the patient has both pupils are pinpoint and no significant neurological improvement. RECOMMENDATIONS: Discontinue IV fluid. Increase NG feeding to 50 mL an hour and free water to 100 mL q. 6 hours. Supplementary electrolytes as needed. I will supplement 3.7 potassium to KCL 20 mEq. Continue supportive care. Continue Clonidine patch and continue hydralazine p.o. p.r.n. Discontinue IV fluid. KCl Elixir 40 once a day, now stat. Overall, the patient's condition is critical and senior living prognosis is guarded.. We will follow with you. Thank you Dr. Ratliff for providing us the opportunity in taking of the patient, Sharla Au. Travis Beltrán MD [facility] # [id number]
--- NOTE | 2017-03-31 23:13 | PN ---
PULMONARY CRITICAL CARE PROGRESS NOTE DATE: 03/31/2017 REFERRING PHYSICIAN: Dr. Ratliff. SUBJECTIVE: He is intubated, unresponsive. According to daughter, open eye with some loud verbal stimuli. Does not follow command. Not much ET tube secretion. No hemoptysis, no hematemesis, no hematuria, no diarrhea reported. PHYSICAL EXAMINATION: GENERAL: On ventilator. VITAL SIGNS: Temperature is 99, heart rate is 73, respiratory rate is 20, blood pressure 140/77, pulse oximetry 98% on ventilator. HEENT: Moist mucous membrane. ET tube with no secretion. NECK: Supple. No JVD. LUNGS: Has a few scattered rhonchi. HEART: S1 and S2. ABDOMEN: Soft, nontender, and nondistended. G-tube area looks okay. EXTREMITIES: There is no edema. NEUROLOGICALLY: Unresponsive, on ventilator. MEDICATIONS: He is on hydralazine 10 mg q. 6 hours p.r.n., and also hydralazine 50 mg twice a day round the clock, on nicardipine, also on clonidine 0.3 mg patch weekly, DuoNeb q. 6 hours, insulin coverage, Peridex 50 mg twice a day, Protonix 40 mg daily, Tylenol p.r.n., and Xopenex q. 6 hour. LABORATORY DATA: Shows hemoglobin 13.5, hematocrit 39.3, WBC 12.3, platelet count is 257. INR 1.18, PTT 31. PH 7.50, pCO2 39, O2 148, this is on 35% oxygen on ventilator. Sodium 134, potassium 3.7, chloride 96, bicarbonate is 30, BUN 22, creatinine 0.5, glucose 152, calcium 8.3, phosphorus 2.8, magnesium 2.1, AST 32, ALT 73, alkaline phosphatase is 61, albumin is 2.7. Microbiology, trach secretion negative. Urine and blood cultures, there is no growth. Chest x-ray done today shows tracheostomy tube in place, feeding tube is in place, no infiltrate or effusion reported. IMPRESSION AND PLAN: Intraventricular and intracranial bleed, hydrocephalus status post external ventricular drainage placed, which had been discontinued, chronic obstructive lung disease, hypertension, paroxysmal atrial fibrillation, respiratory failure requiring tracheostomy, feeding difficulty requiring G-tube. I spoke to the patient's daughter at bedside, all the questions answered. Case discussed. vice president [employer] did suggest placing the patient on CPAP pressures, but if does well, may place on trach collar. Start physical therapy, getting the patient up in recliner chair if possible. Overall, poor prognosis. Follow up ABG, chest x-ray, CBC, and CMP in the morning. CRITICAL CARE TIME: More than 35 minutes. Thank you and we will follow with you. Travis Wilcox MD
[2017-04-01] MEDS: Albuterol-Ipratrop 3 mg / 0.5 (3 ml) UD IH SCH ×4 (02:57→20:20)
[2017-04-01 06:11] LABS: BASO # 0.01 K/mm3 (0.0-2.0); BASO % 0.1 % (0.0-3.0); EOS % 0.1 % (1.5-5.0); GRAN # 7.83 (1.4-6.5); GRAN % 78.5 % (50.0-68.0); HEMATOCRIT 38.1 % (42.0-52.0); LYMPH # 1.2 (1.2-3.4); LYMPH % 12.4 % (22.0-35.0); MEAN CORPUSCULAR HEMOGLOBIN 28.3 pg (25.0-35.0); MEAN CORPUSCULAR HGB CONC 34.1 g/dl (31.0-37.0); MEAN PLATELET VOLUME 9.2 fl (7.0-11.0); MONO # 0.9 (0.1-0.6); MONO % 8.9 % (1.0-6.0)
[2017-04-01 06:18] LABS: INR 1.19 (0.93-1.08); PARTIAL THROMBOPLASTIN TIME 30.6 Seconds (23.7-30.8)
[2017-04-01 06:20] LABS: ALKALINE PHOSPHATASE 74 U/L (38-126); ALT/SGPT 75 U/L (7-56); AST/SGOT 38 U/L (17-59); BILIRUBIN,TOTAL 0.9 mg/dL (0.2-1.3); BLOOD UREA NITROGEN 16 mg/dL (7-21); CALCIUM 8.1 mg/dL (8.4-10.5); CARBON DIOXIDE 29 mmol/L (21-33); CHLORIDE 93 mmol/L (98-107); GFR AFRICAN-AMERICAN > 60; GLUCOSE,RANDOM 155 mg/dL (70-110); MAGNESIUM 1.9 mg/dL (1.7-2.2); PHOSPHOROUS 2.6 mg/dL (2.5-4.5); POTASSIUM 3.3 mmol/L (3.6-5.0); SODIUM 130 mmol/L (132-148); TOTAL PROTEIN 5.5 g/dL (5.8-8.3)
[2017-04-01 06:52] LABS: ARTERIAL BLOOD GAS O2 CAPACITY 23.5 mL/dl (16-24); ARTERIAL BLOOD GAS O2 CONTENT 23.5 ML/dl (15-23); ARTERIAL BLOOD GAS PH 7.49 (7.35-7.45); ARTERIAL BLOOD HGB O2 SAT 97.3 % (95.0-98.0); CARBOXYHEMOGLOBIN 1.5 % (0.5-1.5); HHB 0.2 % (0-5)
--- NOTE | 2017-04-01 07:17 | CP.CCUPN ---
<Kehinde Ritchie - Last Filed: 04/01/17 10:02> CCU Subjective - Physician Review Subjective (Free Text): 04/01/17 07:14 Patient seen and examined at bedside in the ICU. Remains off sedation, still unresponsive. Ventriculostomy drain removed 3 days prior, no further drainage reported. Family still wishes to pursue all measures; s/p Trach and Gastrostomy tube, POD#3. Pending placement at long-term care facility. CCU Objective - Vital Signs / Intake & Output Vital Signs (Last 4 hours): Vital Signs Temp Pulse Resp BP Pulse Ox 04/01/17 06:57 18 97 04/01/17 06:00 101.5 F H 70 136/74 97 04/01/17 05:50 101.5 F H 80 92 L 04/01/17 05:40 101.3 F H 77 92 L 04/01/17 05:30 101.3 F H 77 93 L 04/01/17 05:20 101.3 F H 81 90 L 04/01/17 05:10 101.3 F H 75 92 L 04/01/17 05:00 101.3 F H 74 133/79 94 L 04/01/17 04:50 101.3 F H 75 94 L 04/01/17 04:40 101.3 F H 78 94 L 04/01/17 04:30 101.3 F H 76 95 04/01/17 04:20 101.3 F H 84 96 04/01/17 04:10 101.3 F H 75 97 04/01/17 04:00 101.5 F H 79 145/88 97 04/01/17 03:50 101.5 F H 72 98 04/01/17 03:40 101.5 F H 82 100 04/01/17 03:30 101.5 F H 73 99 04/01/17 03:20 101.5 F H 71 99 Intake and Output (Last 8hrs): Intake & Output 03/31/17 04/01/17 04/01/17 22:59 06:59 14:59 Intake Total 2050 900 Output Total 1000 900 Balance 1050 0 Intake: IV 1200 Right Forearm 1200 Oral 0 Tube Feeding 850 900 Output: Urine 1000 900 Urethral (Mccord) 1000 900 Other: # Bowel Movements 0 0 - Physical Exam Head: Positive for: Atraumatic. Negative for: Normocephalic (Drain removed, still bandaging along R side of head), Ecchymosis, Abrasion Pupils: Negative for: PERRL Extroacular Muscles: Negative for: EOMI (no movements on commands or puposeful tracking but does exhibit random [id number] movements of eyes, no avoidance of direct light challenge for PERRL assessment; reported by family to have spontaneous eye openings, but at bedside only exhibits half open lids which slide closed when manually opened by examiner) Conjunctiva: Positive for: Normal. Negative for: Injected, Icteric Mouth: Positive for: Moist Mucous Membranes, Drooling Nose (External): Positive for: Atraumatic. Negative for: Abrasion, Contusion, Laceration Neck: Positive for: Normal Range of Motion (passively intact ROM, no spontaneous or purposeful movements of head initiated by patient), Trachea Midline, Other (Trach in place, held by trach collar, no active bleeding or oozing from site noted, trach connected to vent). Negative for: JVD, Lymphadenopathy Respiratory/Chest: Positive for: Clear to Auscultation, Good Air Exchange, Rales (mild rales in all gracia, otherwise CTA, unchanged from prior exam), Other (intubated and on mechanical ventilation via trach). Negative for: Respiratory Distress, Accessory Muscle Use Cardiovascular: Positive for: Regular Rate and Rhythm, Normal S1, S2. Negative for: Murmurs, Irregular Rhythm, Tachycardic Abdomen: Positive for: Normal Bowel Sounds, Feeding Tubes (gastrostomy tube in place), Other (no palpable pulsatile mass). Negative for: Distention Back: Negative for: Midline Tenderness, Paraspinal Tenderness Upper Extremity: Positive for: Normal Inspection, NORMAL PULSES. Negative for: Cyanosis, Edema, Swelling, Erythema, Temperature Abnormalties, Deformity Lower Extremity: Positive for: Normal Inspection, NORMAL PULSES. Negative for: Edema, CALF TENDERNESS, Cyanosis, Swelling, Erythema, Deformity, Temperature Abnormalties Neurological: Positive for: Other (intubated, not sedated but unresponsive, no purposeful movements, some posturing on the left likely decerebrate). Negative for: GCS=15 (Score of 3 (E1 V1t M1)), CN II-XII Intact, Speech Normal, Motor Func Grossly Intact Skin: Positive for: Warm, Dry, Normal Color. Negative for: Rashes, Diaphoretic Psychiatric: Positive for: Other (Intubated, not sedated but unresponsive). Negative for: Alert, Oriented x 3, Normal Insight, Normal Concentration, Normal Affect - Medications Active Medications: Active Medications Generic Name Dose Route Start Last Admin Trade Name Freq PRN Reason Stop Dose Admin Acetaminophen 650 mg 03/26/17 23:43 03/31/17 20:00 Tylenol 325mg Tab PO 650 mg Q6H PRN Administration Fever >100.4 F Albuterol/Ipratropium 3 ml 03/27/17 02:00 04/01/17 07:04 Duoneb 3 Mg/0.5 Mg (3 Ml) Ud IH 3 ml [id number] SRINATH Administration Chlorhexidine Gluconate 15 ml 03/25/17 10:00 03/31/17 17:39 Peridex PO 15 ml BID SRINATH Administration Clonidine HCl 1 patch 03/28/17 10:00 03/28/17 09:22 Catapres-Tts3 0.3 Mg/24 Hr TD 1 patch Q7D@1000 SRINATH Administration Hydralazine HCl 10 mg 03/27/17 10:56 03/27/17 12:26 Apresoline IVP 10 mg Q6 PRN Administration for SBP>140 Hydralazine HCl 50 mg 03/28/17 10:00 03/31/17 17:36 Apresoline PO 50 mg BID SRINATH Administration Insulin Human Regular 0 units 03/27/17 11:30 03/31/17 17:38 Humulin R Low SC 1 units ACHS SRINATH Administration Protocol Levalbuterol HCl 1.25 mg 03/25/17 19:40 03/26/17 19:42 Xopenex IH 1.25 mg [id number] PRN Administration Shortness of Breath Pantoprazole Sodium 40 mg 03/26/17 10:00 03/31/17 10:05 Protonix Inj IVP 40 mg DAILY SRINATH Administration - Patient Studies Lab Studies: Microbiology Studies 03/30/17 10:10 Urine Culture - Final Urine No Growth (<1,000 CFU/ML) 03/30/17 08:30 Blood Culture - Preliminary Blood NO GROWTH AFTER 24 HOURS 03/30/17 08:40 Blood Culture - Preliminary Blood NO GROWTH AFTER 24 HOURS Lab Studies 10/15/17 10/15/17 10/15/17 Range/Units 06:30 05:45 05:45 WBC (4.5-11.0) 10^3/ul RBC (3.5-6.1) 10^6/uL Hgb (14.0-18.0) g/dL Hct (42.0-52.0) % MCV (80.0-105.0) fl MCH (25.0-35.0) pg MCHC (31.0-37.0) g/dl RDW (11.5-14.5) % Plt Count (120.0-450.0) 10^3/uL MPV (7.0-11.0) fl Gran % (50.0-68.0) % Lymph % (Auto) (22.0-35.0) % [place] % (Auto) (1.0-6.0) % Eos % (Auto) (1.5-5.0) % Baso % (Auto) (0.0-3.0) % Gran # (1.4-6.5) Lymph # (1.2-3.4) [place] # (0.1-0.6) Eos # (0.0-0.7) Baso # (0.0-2.0) K/mm3 PT 12.8 H (9.9-11.8) Seconds INR 1.19 H (0.93-1.08) APTT 30.6 (23.7-30.8) Seconds pCO2 38 (35-45) mm/Hg pO2 134.0 H (80-100) mm/Hg HCO3 29.0 H (21-28) mmol/L ABG pH 7.49 H (7.35-7.45) ABG Total CO2 30.2 H (22-28) mmol.L ABG O2 Saturation 99.8 H (95-98) % ABG O2 Content 23.5 H (15-23) ML/dl ABG Base Excess 5.4 H (-2.0-3.0) mmol/L ABG Hemoglobin 17.1 (11.7-17.4) g/dL ABG Carboxyhemoglobin 1.5 (0.5-1.5) % POC ABG HHb (Measured) 0.2 (0-5) % ABG Methemoglobin 1.0 (0.0-3.0) % ABG O2 Capacity 23.5 (16-24) mL/dl Hgb O2 Saturation 97.3 (95.0-98.0) % FiO2 35.0 % Sodium 130 L (132-148) mmol/L Potassium 3.3 L (3.6-5.0) mmol/L Chloride 93 L (98-107) mmol/L Carbon Dioxide 29 (21-33) mmol/L Anion Gap 11 (10-20) BUN 16 (7-21) mg/dL Creatinine 0.5 L (0.8-1.5) mg/dL Est GFR ( Amer) > 60 Est GFR (Non-Af Amer) > 60 POC Glucose (mg/dL) (65-110) mg/dL Random Glucose 155 H (70-110) mg/dL Calcium 8.1 L (8.4-10.5) mg/dL Phosphorus 2.6 (2.5-4.5) mg/dL Magnesium 1.9 (1.7-2.2) mg/dL Total Bilirubin 0.9 (0.2-1.3) mg/dL AST 38 (17-59) U/L ALT 75 H (7-56) U/L Alkaline Phosphatase 74 (38-126) U/L Total Protein 5.5 L (5.8-8.3) g/dL Albumin 2.7 L (3.0-4.8) g/dL Globulin 2.8 gm/dL Albumin/Globulin Ratio 1.0 L (1.1-1.8) 04/01/17 03/31/17 03/31/17 Range/Units 05:45 21:42 16:04 WBC 10.0 (4.5-11.0) 10^3/ul RBC 4.59 (3.5-6.1) 10^6/uL Hgb 13.0 L (14.0-18.0) g/dL Hct 38.1 L (42.0-52.0) % MCV 83.0 (80.0-105.0) fl MCH 28.3 (25.0-35.0) pg MCHC 34.1 (31.0-37.0) g/dl RDW 12.0 (11.5-14.5) % Plt Count 301 (120.0-450.0) 10^3/uL MPV 9.2 (7.0-11.0) fl Gran % 78.5 H (50.0-68.0) % Lymph % (Auto) 12.4 L (22.0-35.0) % [place] % (Auto) 8.9 H (1.0-6.0) % Eos % (Auto) 0.1 L (1.5-5.0) % Baso % (Auto) 0.1 (0.0-3.0) % Gran # 7.83 H (1.4-6.5) Lymph # 1.2 (1.2-3.4) [place] # 0.9 H (0.1-0.6) Eos # 0.0 (0.0-0.7) Baso # 0.01 (0.0-2.0) K/mm3 PT (9.9-11.8) Seconds INR (0.93-1.08) APTT (23.7-30.8) Seconds pCO2 (35-45) mm/Hg pO2 (80-100) mm/Hg HCO3 (21-28) mmol/L ABG pH (7.35-7.45) ABG Total CO2 (22-28) mmol.L ABG O2 Saturation (95-98) % ABG O2 Content (15-23) ML/dl ABG Base Excess (-2.0-3.0) mmol/L ABG Hemoglobin (11.7-17.4) g/dL ABG Carboxyhemoglobin (0.5-1.5) % POC ABG HHb (Measured) (0-5) % ABG Methemoglobin (0.0-3.0) % ABG O2 Capacity (16-24) mL/dl Hgb O2 Saturation (95.0-98.0) % FiO2 % Sodium (132-148) mmol/L Potassium (3.6-5.0) mmol/L Chloride (98-107) mmol/L Carbon Dioxide (21-33) mmol/L Anion Gap (10-20) BUN (7-21) mg/dL Creatinine (0.8-1.5) mg/dL Est GFR ( Amer) Est GFR (Non-Af Amer) POC Glucose (mg/dL) 102 172 H (65-110) mg/dL Random Glucose (70-110) mg/dL Calcium (8.4-10.5) mg/dL Phosphorus (2.5-4.5) mg/dL Magnesium (1.7-2.2) mg/dL Total Bilirubin (0.2-1.3) mg/dL AST (17-59) U/L ALT (7-56) U/L Alkaline Phosphatase (38-126) U/L Total Protein (5.8-8.3) g/dL Albumin (3.0-4.8) g/dL Globulin gm/dL Albumin/Globulin Ratio (1.1-1.8) 03/31/17 Range/Units 11:32 WBC (4.5-11.0) 10^3/ul RBC (3.5-6.1) 10^6/uL Hgb (14.0-18.0) g/dL Hct (42.0-52.0) % MCV (80.0-105.0) fl MCH (25.0-35.0) pg MCHC (31.0-37.0) g/dl RDW (11.5-14.5) % Plt Count (120.0-450.0) 10^3/uL MPV (7.0-11.0) fl Gran % (50.0-68.0) % Lymph % (Auto) (22.0-35.0) % [place] % (Auto) (1.0-6.0) % Eos % (Auto) (1.5-5.0) % Baso % (Auto) (0.0-3.0) % Gran # (1.4-6.5) Lymph # (1.2-3.4) [place] # (0.1-0.6) Eos # (0.0-0.7) Baso # (0.0-2.0) K/mm3 PT (9.9-11.8) Seconds INR (0.93-1.08) APTT (23.7-30.8) Seconds pCO2 (35-45) mm/Hg pO2 (80-100) mm/Hg HCO3 (21-28) mmol/L ABG pH (7.35-7.45) ABG Total CO2 (22-28) mmol.L ABG O2 Saturation (95-98) % ABG O2 Content (15-23) ML/dl ABG Base Excess (-2.0-3.0) mmol/L ABG Hemoglobin (11.7-17.4) g/dL ABG Carboxyhemoglobin (0.5-1.5) % POC ABG HHb (Measured) (0-5) % ABG Methemoglobin (0.0-3.0) % ABG O2 Capacity (16-24) mL/dl Hgb O2 Saturation (95.0-98.0) % FiO2 % Sodium (132-148) mmol/L Potassium (3.6-5.0) mmol/L Chloride (98-107) mmol/L Carbon Dioxide (21-33) mmol/L Anion Gap (10-20) BUN (7-21) mg/dL Creatinine (0.8-1.5) mg/dL Est GFR ( Amer) Est GFR (Non-Af Amer) POC Glucose (mg/dL) 157 H (65-110) mg/dL Random Glucose (70-110) mg/dL Calcium (8.4-10.5) mg/dL Phosphorus (2.5-4.5) mg/dL Magnesium (1.7-2.2) mg/dL Total Bilirubin (0.2-1.3) mg/dL AST (17-59) U/L ALT (7-56) U/L Alkaline Phosphatase (38-126) U/L Total Protein (5.8-8.3) g/dL Albumin (3.0-4.8) g/dL Globulin gm/dL Albumin/Globulin Ratio (1.1-1.8) Laboratory Results - last 24 hr 03/31/17 03/31/17 03/31/17 11:32 16:04 21:42 WBC RBC Hgb Hct MCV MCH MCHC RDW Plt Count MPV Gran % Lymph % (Auto) [place] % (Auto) Eos % (Auto) Baso % (Auto) Gran # Lymph # [place] # Eos # Baso # PT INR APTT pCO2 pO2 HCO3 ABG pH ABG Total CO2 ABG O2 Saturation ABG O2 Content ABG Base Excess ABG Hemoglobin ABG Carboxyhemoglobin POC ABG HHb (Measured) ABG Methemoglobin ABG O2 Capacity Hgb O2 Saturation FiO2 Sodium Potassium Chloride Carbon Dioxide Anion Gap BUN Creatinine Est GFR ( Amer) Est GFR (Non-Af Amer) POC Glucose (mg/dL) 157 H 172 H 102 Random Glucose Calcium Phosphorus Magnesium Total Bilirubin AST ALT Alkaline Phosphatase Total Protein Albumin Globulin Albumin/Globulin Ratio 04/01/17 04/01/17 04/01/17 05:45 05:45 05:45 WBC 10.0 RBC 4.59 Hgb 13.0 L Hct 38.1 L MCV 83.0 MCH 28.3 MCHC 34.1 RDW 12.0 Plt Count 301 MPV 9.2 Gran % 78.5 H Lymph % (Auto) 12.4 L [place] % (Auto) 8.9 H Eos % (Auto) 0.1 L Baso % (Auto) 0.1 Gran # 7.83 H Lymph # 1.2 [place] # 0.9 H Eos # 0.0 Baso # 0.01 PT 12.8 H INR 1.19 H APTT 30.6 pCO2 pO2 HCO3 ABG pH ABG Total CO2 ABG O2 Saturation ABG O2 Content ABG Base Excess ABG Hemoglobin ABG Carboxyhemoglobin POC ABG HHb (Measured) ABG Methemoglobin ABG O2 Capacity Hgb O2 Saturation FiO2 Sodium 130 L Potassium 3.3 L Chloride 93 L Carbon Dioxide 29 Anion Gap 11 BUN 16 Creatinine 0.5 L Est GFR ( Amer) > 60 Est GFR (Non-Af Amer) > 60 POC Glucose (mg/dL) Random Glucose 155 H Calcium 8.1 L Phosphorus 2.6 Magnesium 1.9 Total Bilirubin 0.9 AST 38 ALT 75 H Alkaline Phosphatase 74 Total Protein 5.5 L Albumin 2.7 L Globulin 2.8 Albumin/Globulin Ratio 1.0 L 04/01/17 06:30 WBC RBC Hgb Hct MCV MCH MCHC RDW Plt Count MPV Gran % Lymph % (Auto) [place] % (Auto) Eos % (Auto) Baso % (Auto) Gran # Lymph # [place] # Eos # Baso # PT INR APTT pCO2 38 pO2 134.0 H HCO3 29.0 H ABG pH 7.49 H ABG Total CO2 30.2 H ABG O2 Saturation 99.8 H ABG O2 Content 23.5 H ABG Base Excess 5.4 H ABG Hemoglobin 17.1 ABG Carboxyhemoglobin 1.5 POC ABG HHb (Measured) 0.2 ABG Methemoglobin 1.0 ABG O2 Capacity 23.5 Hgb O2 Saturation 97.3 FiO2 35.0 Sodium Potassium Chloride Carbon Dioxide Anion Gap BUN Creatinine Est GFR ( Amer) Est GFR (Non-Af Amer) POC Glucose (mg/dL) Random Glucose Calcium Phosphorus Magnesium Total Bilirubin AST ALT Alkaline Phosphatase Total Protein Albumin Globulin Albumin/Globulin Ratio Fingerstick Blood Sugar Results: 102 Critical Care Progress Note - Nutrition Nutrition: Nutrition Category Date Time Status NPO Diet [DIET] Diets 03/25/17 Breakfast Ordered Assessment/Plan - Assessment and Plan (Free Text) Assessment: This is an 82 yo Persian M with PMH of CAD, COPD, Afib (on Eliquis), BPH, DM, and HTN who [place] [facility] [place] found [place] ground by family, and was found to be hypotensive with extensive intracerebral bleed with ventricular extension and mass effect. S/p ventriculostomy with drain placement , POD #10, removed by Neurosurg 3 days prior. He remains off sedation, but is still unresponsive. Full code and all measures as per family; s/p Trach and Gastrostomy tube POD#3, pending [facility] at [facility]. Plan: Neuro: -extensive ICH with bilateral ventricular extension, notable edema; s/p Ventriculostomy, POD#10; drain removed by Neurosurgeon 3 days ago, no residual drainage noted -intubated, off sedation, but remains completely unresponsive to physical or verbal stimuli -pinpoint pupils, holding extremities flacidly, previously noted to have intermittent twitches and mastication-like movements with jaw, but no purposeful movements; appears to be decerebrate posturing on L-side -Neuro (Dr. Steen) and Neurosurgery (Dr. Mcintyre) on board, appreciate all recs -Hold all AC due to ICH, maintain euglycemia, maintain SBP 140-160 (now off cardine drip) -EEG obtained, severe bilateral cerebral dysfxn, no epileptiform activity Pulm: -Trached, on mechanical ventilation -maintain SaO2 > 88% (COPD pt) and paO2 > 55 -Protective lung ventilation strategies, low tidal volumes, VAP bundle -most recent ABG reviewed, continue current management -Continues to tolerate pressure-support trials; tolerated well throughout the day yesterday, pending possible transition to trach collar today -Mild rales on exam (chronic exam finding, no acute change) -Pulm (Dr. Wilcox) following, appreciate all recs Cardio: -No new bradycardic episodes, currently stable in 80's -BP control in setting of ICH, SBP 140-160, continue amlodipine and Clonidine patch -Cardio (Dr. Beltrán) following, appreciate all recs GI: -NPO -Protonix for GI ppx -Clear for use of Gastrostomy tube by Surgery, feeds running as per Weigh And Charge Worker recs Renal: -monitor and replete electrolytes as needed -mccord in place, draining clear yellow urine, monitor I's and O's Heme: -Hgb stable at 13's-14s, today was 13.0 -NO AC in setting of ICH, SCDs for DVT ppx ID: -fever of 101.5F overnight, leukocytosis resolved (10.0 today) -fever may be neuro-fever vs new hospital associated infection, repeat cx from 03/30 still negative -empiric coverage with Vanco and Cefepime discontinued, continue to monitor for now off abx as per ID -ID following, appreciate all recs Endo: -NS 100cc/hr -Fingersticks q6, maintain BG 140-180 -Clear for use of Gastrostomy tube by Surgery, feeds running as per Weigh And Charge Worker recs Dispo: ICU, intubated but not sedated, s/p Trach and Gastrotomy tube POD#3, new cultures to rule out new infxn while on empiric abx FEN: NPO, pending G-tube and feeds Access: Peripheral IV, Trach, Gastrostomy tube Consults: Neurosurgery, Neuro, ID, Cardio, Pulm, Surgery Ppx: Protonix for GI, SCDs for DVT Patient seen and reviewed with attending, Dr Quintana [facility] [place] Last Filed: 04/01/17 11:16> CCU Objective - Vital Signs / Intake & Output Vital Signs (Last 4 hours): Vital Signs Temp Pulse Resp BP Pulse Ox 04/01/17 09:10 100.4 F H 71 22 97 04/01/17 09:06 77 134/75 04/01/17 09:01 100.4 F H 68 22 134/75 97 04/01/17 09:00 100.4 F H 77 20 96 04/01/17 08:50 100.6 F H 74 21 98 04/01/17 08:40 100.6 F H 68 25 H 98 04/01/17 08:30 100.8 F H 71 24 98 04/01/17 08:20 100.8 F H 76 25 H 98 04/01/17 08:10 101.1 F H 71 26 H 98 04/01/17 08:01 101.1 F H 68 27 H 151/72 H 98 04/01/17 08:00 101.1 F H 81 27 H 98 04/01/17 07:50 101.3 F H 72 26 H 98 04/01/17 07:40 101.3 F H 69 98 04/01/17 07:30 101.3 F H 78 98 04/01/17 07:20 101.3 F H 74 98 Intake and Output (Last 8hrs): Intake & Output 03/31/17 04/01/17 04/01/17 22:59 06:59 14:59 Intake Total 2050 900 Output Total 1000 900 Balance 1050 0 Intake: IV 1200 Right Forearm 1200 Oral 0 Tube Feeding 850 900 Output: Urine 1000 900 Urethral (Mccord) 1000 900 Other: # Bowel Movements 0 0 - Medications Active Medications: Active Medications Generic Name Dose Route Start Last Admin Trade Name Freq PRN Reason Stop Dose Admin Acetaminophen 650 mg 03/26/17 23:43 03/31/17 20:00 Tylenol 325mg Tab PO 650 mg Q6H PRN Administration Fever >100.4 F Albuterol/Ipratropium 3 ml 03/27/17 02:00 04/01/17 07:04 Duoneb 3 Mg/0.5 Mg (3 Ml) Ud IH 3 ml [id number] SRINATH Administration Chlorhexidine Gluconate 15 ml 03/25/17 10:00 04/01/17 09:07 Peridex PO 15 ml BID SRINATH Administration Clonidine HCl 1 patch 03/28/17 10:00 03/28/17 09:22 Catapres-Tts3 0.3 Mg/24 Hr TD 1 patch Q7D@1000 SRINATH Administration Hydralazine HCl 10 mg 03/27/17 10:56 03/27/17 12:26 Apresoline IVP 10 mg Q6 PRN Administration for SBP>140 Hydralazine HCl 50 mg 03/28/17 10:00 04/01/17 09:06 Apresoline PO 50 mg BID SRINATH Administration Magnesium Sulfate 2 gm/ Sodium 104 mls @ 102 mls/hr 04/01/17 10:18 Chloride IVPB 04/01/17 11:19 ONCE ONE Potassium Chloride 10 meq in 100 mls @ 100 mls/hr 04/01/17 10:30 Potassium Chloride 10 Meq/100 Ml IVPB 04/01/17 13:29 Q2H SRINATH Insulin Human Regular 0 units 03/27/17 11:30 04/01/17 09:07 Humulin R Low SC Not Given ACHS [facility] Protocol Levalbuterol HCl 1.25 mg 03/25/17 19:40 03/26/17 19:42 Xopenex IH 1.25 mg [id number] PRN Administration Shortness of Breath Pantoprazole Sodium 40 mg 03/26/17 10:00 04/01/17 09:07 Protonix Inj IVP 40 mg DAILY SRINATH Administration - Patient Studies Lab Studies: Microbiology Studies 03/30/17 13:23 Gram Stain - Final Trachasp Sputum Culture - Preliminary Klebsiella Pneumoniae Ssp Pneu 03/30/17 08:30 Blood Culture - Preliminary Blood NO GROWTH AFTER 48 HOURS 03/30/17 08:40 Blood Culture - Preliminary Blood NO GROWTH AFTER 48 HOURS 03/30/17 10:10 Urine Culture - Final Urine No Growth (<1,000 CFU/ML) Lab Studies 04/01/17 04/01/17 04/01/17 Range/Units 08:03 06:30 05:45 WBC (4.5-11.0) 10^3/ul RBC (3.5-6.1) 10^6/uL Hgb (14.0-18.0) g/dL Hct (42.0-52.0) % MCV (80.0-105.0) fl MCH (25.0-35.0) pg MCHC (31.0-37.0) g/dl RDW (11.5-14.5) % Plt Count (120.0-450.0) 10^3/uL MPV (7.0-11.0) fl Gran % (50.0-68.0) % Lymph % (Auto) (22.0-35.0) % [place] % (Auto) (1.0-6.0) % Eos % (Auto) (1.5-5.0) % Baso % (Auto) (0.0-3.0) % Gran # (1.4-6.5) Lymph # (1.2-3.4) [place] # (0.1-0.6) Eos # (0.0-0.7) Baso # (0.0-2.0) K/mm3 PT 12.8 H (9.9-11.8) Seconds INR 1.19 H (0.93-1.08) APTT 30.6 (23.7-30.8) Seconds pCO2 38 (35-45) mm/Hg pO2 134.0 H (80-100) mm/Hg HCO3 29.0 H (21-28) mmol/L ABG pH 7.49 H (7.35-7.45) ABG Total CO2 30.2 H (22-28) mmol.L ABG O2 Saturation 99.8 H (95-98) % ABG O2 Content 23.5 H (15-23) ML/dl ABG Base Excess 5.4 H (-2.0-3.0) mmol/L ABG Hemoglobin 17.1 (11.7-17.4) g/dL ABG Carboxyhemoglobin 1.5 (0.5-1.5) % POC ABG HHb (Measured) 0.2 (0-5) % ABG Methemoglobin 1.0 (0.0-3.0) % ABG O2 Capacity 23.5 (16-24) mL/dl Hgb O2 Saturation 97.3 (95.0-98.0) % FiO2 35.0 % Sodium (132-148) mmol/L Potassium (3.6-5.0) mmol/L Chloride (98-107) mmol/L Carbon Dioxide (21-33) mmol/L Anion Gap (10-20) BUN (7-21) mg/dL Creatinine (0.8-1.5) mg/dL Est GFR ( Amer) Est GFR (Non-Af Amer) POC Glucose (mg/dL) 153 H (65-110) mg/dL Random Glucose (70-110) mg/dL Calcium (8.4-10.5) mg/dL Phosphorus (2.5-4.5) mg/dL Magnesium (1.7-2.2) mg/dL Total Bilirubin (0.2-1.3) mg/dL AST (17-59) U/L ALT (7-56) U/L Alkaline Phosphatase (38-126) U/L Total Protein (5.8-8.3) g/dL Albumin (3.0-4.8) g/dL Globulin gm/dL Albumin/Globulin Ratio (1.1-1.8) 04/01/17 04/01/17 03/31/17 Range/Units 05:45 05:45 21:42 WBC 10.0 (4.5-11.0) 10^3/ul RBC 4.59 (3.5-6.1) 10^6/uL Hgb 13.0 L (14.0-18.0) g/dL Hct 38.1 L (42.0-52.0) % MCV 83.0 (80.0-105.0) fl MCH 28.3 (25.0-35.0) pg MCHC 34.1 (31.0-37.0) g/dl RDW 12.0 (11.5-14.5) % Plt Count 301 (120.0-450.0) 10^3/uL MPV 9.2 (7.0-11.0) fl Gran % 78.5 H (50.0-68.0) % Lymph % (Auto) 12.4 L (22.0-35.0) % [place] % (Auto) 8.9 H (1.0-6.0) % Eos % (Auto) 0.1 L (1.5-5.0) % Baso % (Auto) 0.1 (0.0-3.0) % Gran # 7.83 H (1.4-6.5) Lymph # 1.2 (1.2-3.4) [place] # 0.9 H (0.1-0.6) Eos # 0.0 (0.0-0.7) Baso # 0.01 (0.0-2.0) K/mm3 PT (9.9-11.8) Seconds INR (0.93-1.08) APTT (23.7-30.8) Seconds pCO2 (35-45) mm/Hg pO2 (80-100) mm/Hg HCO3 (21-28) mmol/L ABG pH (7.35-7.45) ABG Total CO2 (22-28) mmol.L ABG O2 Saturation (95-98) % ABG O2 Content (15-23) ML/dl ABG Base Excess (-2.0-3.0) mmol/L ABG Hemoglobin (11.7-17.4) g/dL ABG Carboxyhemoglobin (0.5-1.5) % POC ABG HHb (Measured) (0-5) % ABG Methemoglobin (0.0-3.0) % ABG O2 Capacity (16-24) mL/dl Hgb O2 Saturation (95.0-98.0) % FiO2 % Sodium 130 L (132-148) mmol/L Potassium 3.3 L (3.6-5.0) mmol/L Chloride 93 L (98-107) mmol/L Carbon Dioxide 29 (21-33) mmol/L Anion Gap 11 (10-20) BUN 16 (7-21) mg/dL Creatinine 0.5 L (0.8-1.5) mg/dL Est GFR ( Amer) > 60 Est GFR (Non-Af Amer) > 60 POC Glucose (mg/dL) 102 (65-110) mg/dL Random Glucose 155 H (70-110) mg/dL Calcium 8.1 L (8.4-10.5) mg/dL Phosphorus 2.6 (2.5-4.5) mg/dL Magnesium 1.9 (1.7-2.2) mg/dL Total Bilirubin 0.9 (0.2-1.3) mg/dL AST 38 (17-59) U/L ALT 75 H (7-56) U/L Alkaline Phosphatase 74 (38-126) U/L Total Protein 5.5 L (5.8-8.3) g/dL Albumin 2.7 L (3.0-4.8) g/dL Globulin 2.8 gm/dL Albumin/Globulin Ratio 1.0 L (1.1-1.8) 03/31/17 03/31/17 Range/Units 16:04 11:32 WBC (4.5-11.0) 10^3/ul RBC (3.5-6.1) 10^6/uL Hgb (14.0-18.0) g/dL Hct (42.0-52.0) % MCV (80.0-105.0) fl MCH (25.0-35.0) pg MCHC (31.0-37.0) g/dl RDW (11.5-14.5) % Plt Count (120.0-450.0) 10^3/uL MPV (7.0-11.0) fl Gran % (50.0-68.0) % Lymph % (Auto) (22.0-35.0) % [place] % (Auto) (1.0-6.0) % Eos % (Auto) (1.5-5.0) % Baso % (Auto) (0.0-3.0) % Gran # (1.4-6.5) Lymph # (1.2-3.4) [place] # (0.1-0.6) Eos # (0.0-0.7) Baso # (0.0-2.0) K/mm3 PT (9.9-11.8) Seconds INR (0.93-1.08) APTT (23.7-30.8) Seconds pCO2 (35-45) mm/Hg pO2 (80-100) mm/Hg HCO3 (21-28) mmol/L ABG pH (7.35-7.45) ABG Total CO2 (22-28) mmol.L ABG O2 Saturation (95-98) % ABG O2 Content (15-23) ML/dl ABG Base Excess (-2.0-3.0) mmol/L ABG Hemoglobin (11.7-17.4) g/dL ABG Carboxyhemoglobin (0.5-1.5) % POC ABG HHb (Measured) (0-5) % ABG Methemoglobin (0.0-3.0) % ABG O2 Capacity (16-24) mL/dl Hgb O2 Saturation (95.0-98.0) % FiO2 % Sodium (132-148) mmol/L Potassium (3.6-5.0) mmol/L Chloride (98-107) mmol/L Carbon Dioxide (21-33) mmol/L Anion Gap (10-20) BUN (7-21) mg/dL Creatinine (0.8-1.5) mg/dL Est GFR ( Amer) Est GFR (Non-Af Amer) POC Glucose (mg/dL) 172 H 157 H (65-110) mg/dL Random Glucose (70-110) mg/dL Calcium (8.4-10.5) mg/dL Phosphorus (2.5-4.5) mg/dL Magnesium (1.7-2.2) mg/dL Total Bilirubin (0.2-1.3) mg/dL AST (17-59) U/L ALT (7-56) U/L Alkaline Phosphatase (38-126) U/L Total Protein (5.8-8.3) g/dL Albumin (3.0-4.8) g/dL Globulin gm/dL Albumin/Globulin Ratio (1.1-1.8) Laboratory Results - last 24 hr 03/31/17 03/31/17 03/31/17 11:32 16:04 21:42 WBC RBC Hgb Hct MCV MCH MCHC RDW Plt Count MPV Gran % Lymph % (Auto) [place] % (Auto) Eos % (Auto) Baso % (Auto) Gran # Lymph # [place] # Eos # Baso # PT INR APTT pCO2 pO2 HCO3 ABG pH ABG Total CO2 ABG O2 Saturation ABG O2 Content ABG Base Excess ABG Hemoglobin ABG Carboxyhemoglobin POC ABG HHb (Measured) ABG Methemoglobin ABG O2 Capacity Hgb O2 Saturation FiO2 Sodium Potassium Chloride Carbon Dioxide Anion Gap BUN Creatinine Est GFR ( Amer) Est GFR (Non-Af Amer) POC Glucose (mg/dL) 157 H 172 H 102 Random Glucose Calcium Phosphorus Magnesium Total Bilirubin AST ALT Alkaline Phosphatase Total Protein Albumin Globulin Albumin/Globulin Ratio 04/01/17 04/01/17 04/01/17 05:45 05:45 05:45 WBC 10.0 RBC 4.59 Hgb 13.0 L Hct 38.1 L MCV 83.0 MCH 28.3 MCHC 34.1 RDW 12.0 Plt Count 301 MPV 9.2 Gran % 78.5 H Lymph % (Auto) 12.4 L [place] % (Auto) 8.9 H Eos % (Auto) 0.1 L Baso % (Auto) 0.1 Gran # 7.83 H Lymph # 1.2 [place] # 0.9 H Eos # 0.0 Baso # 0.01 PT 12.8 H INR 1.19 H APTT 30.6 pCO2 pO2 HCO3 ABG pH ABG Total CO2 ABG O2 Saturation ABG O2 Content ABG Base Excess ABG Hemoglobin ABG Carboxyhemoglobin POC ABG HHb (Measured) ABG Methemoglobin ABG O2 Capacity Hgb O2 Saturation FiO2 Sodium 130 L Potassium 3.3 L Chloride 93 L Carbon Dioxide 29 Anion Gap 11 BUN 16 Creatinine 0.5 L Est GFR ( Amer) > 60 Est GFR (Non-Af Amer) > 60 POC Glucose (mg/dL) Random Glucose 155 H Calcium 8.1 L Phosphorus 2.6 Magnesium 1.9 Total Bilirubin 0.9 AST 38 ALT 75 H Alkaline Phosphatase 74 Total Protein 5.5 L Albumin 2.7 L Globulin 2.8 Albumin/Globulin Ratio 1.0 L 04/01/17 04/01/17 06:30 08:03 WBC RBC Hgb Hct MCV MCH MCHC RDW Plt Count MPV Gran % Lymph % (Auto) [place] % (Auto) Eos % (Auto) Baso % (Auto) Gran # Lymph # [place] # Eos # Baso # PT INR APTT pCO2 38 pO2 134.0 H HCO3 29.0 H ABG pH 7.49 H ABG Total CO2 30.2 H ABG O2 Saturation 99.8 H ABG O2 Content 23.5 H ABG Base Excess 5.4 H ABG Hemoglobin 17.1 ABG Carboxyhemoglobin 1.5 POC ABG HHb (Measured) 0.2 ABG Methemoglobin 1.0 ABG O2 Capacity 23.5 Hgb O2 Saturation 97.3 FiO2 35.0 Sodium Potassium Chloride Carbon Dioxide Anion Gap BUN Creatinine Est GFR ( Amer) Est GFR (Non-Af Amer) POC Glucose (mg/dL) 153 H Random Glucose Calcium Phosphorus Magnesium Total Bilirubin AST ALT Alkaline Phosphatase Total Protein Albumin Globulin Albumin/Globulin Ratio Critical Care Progress Note - Nutrition Nutrition: Nutrition Category Date Time Status NPO Diet [DIET] Diets 03/25/17 Breakfast Ordered Attending/Attestation - Attestation I have personally seen and examined this patient.: Yes I have fully participated in the care of the patient.: Yes I have reviewed all pertinent clinical information: Yes Notes (Text): 04/01/17 11:14 82 y/o M s/P Large ICH s/p drainage and closure. No neurological improvement. s/p trach and feedign tube. PS daily and TC today x 3 hrs before being placed back on VENT . sputum cx + w/o any new clinical changes or WBC elevation. No abx currently . Can d/w ID and lab. dvt p cc time 65 min awaiting dispo
--- NOTE | 2017-04-01 08:33 | CP.PCM.PN ---
Subjective - Date & Time of Evaluation Date of Evaluation: 04/01/17 Time of Evaluation: 07:50 - Subjective Subjective: General Surgery Note for Dr. Lewis Patient seen and examiend at bedside. Patient febrile overnight (Tmax 101.5). Patient is no longer on vent support. Trach collar and G tube in place and functioning properly. Patient unresponsive and does not follow commands. Objective - Vital Signs/Intake and Output Vital Signs (last 24 hours): Temp Pulse Resp BP Pulse Ox 100.8 F H 76 25 H 151/72 H 98 04/01/17 08:20 04/01/17 08:20 04/01/17 08:20 04/01/17 08:01 04/01/17 08:20 Intake and Output: 04/01/17 04/01/17 06:59 18:59 Intake Total 900 Output Total 900 Balance 0 - Medications Medications: Current Medications Acetaminophen (Tylenol 325mg Tab) 650 mg PO Q6H PRN PRN Reason: Fever >100.4 F Last Admin: 03/31/17 20:00 Dose: 650 mg Albuterol/Ipratropium (Duoneb 3 Mg/0.5 Mg (3 Ml) Ud) 3 ml IH [id number] [facility] Last Admin: 04/01/17 07:04 Dose: 3 ml Chlorhexidine Gluconate (Peridex) 15 ml PO BID [facility] Last Admin: 03/31/17 17:39 Dose: 15 ml Clonidine HCl (Catapres-Tts3 0.3 Mg/24 Hr) 1 patch TD Q7D@1000 [facility] Last Admin: 03/28/17 09:22 Dose: 1 patch Hydralazine HCl (Apresoline) 10 mg IVP Q6 PRN PRN Reason: for SBP>140 Last Admin: 03/27/17 12:26 Dose: 10 mg Hydralazine HCl (Apresoline) 50 mg PO BID [facility] Last Admin: 03/31/17 17:36 Dose: 50 mg Insulin Human Regular (Humulin R Low) 0 units SC ACHS SRINATH PRN Reason: Protocol Last Admin: 03/31/17 17:38 Dose: 1 units Levalbuterol HCl (Xopenex) 1.25 mg IH [id number] PRN PRN Reason: Shortness of Breath Last Admin: 03/26/17 19:42 Dose: 1.25 mg Pantoprazole Sodium (Protonix Inj) 40 mg IVP DAILY SRINATH Last Admin: 03/31/17 10:05 Dose: 40 mg - Labs Labs: 04/01/17 05:45 04/01/17 05:45 PT 12.8 Seconds (9.9-11.8) H 04/01/17 05:45 INR 1.19 (0.93-1.08) H 04/01/17 05:45 APTT 30.6 Seconds (23.7-30.8) 04/01/17 05:45 - Constitutional Appears: No Acute Distress, Chronically Ill - Head Exam Head Exam: NORMOCEPHALIC Additional comments: ventriculostomy - Eye Exam Eye Exam: Normal appearance - ENT Exam ENT Exam: Mucous Membranes Moist - Neck Exam Additional comments: trach collar in place - Respiratory Exam Respiratory Exam: NORMAL BREATHING PATTERN. absent: Respiratory Distress - Cardiovascular Exam Cardiovascular Exam: REGULAR RHYTHM - GI/Abdominal Exam GI & Abdominal Exam: Soft. absent: Tenderness Additional comments: G tube in place and functioning properly - Neurological Exam Neurological Exam: Altered - Psychiatric Exam Psychiatric exam: Flat Affect - Skin Skin Exam: Dry, Warm Assessment and Plan - Assessment and Plan (Free Text) Plan: 82M with Intra-cranial hemorrhage, respiratory failure, failure to thrive, s/p Tracheostomy and Gastrostomy POD#3 -Free water flushes PRN -G tube can be used for tube feeds -Management as per ICU -Further recs discuss with Dr. Joshua Reece PGY1
[2017-04-01] MEDS: Chlorhexidine 0.12% Oral Sol 480 ml Bot PO SCH ×2 (09:07→17:33)
[2017-04-01] MEDS: Insulin Reg-LOW-Coverage SC SCH ×3 (09:07→17:32)
--- NOTE | 2017-04-01 09:25 | PN ---
DATE: 04/01/2017 SUBJECTIVE: The patient is in bed, in no acute distress, nontoxic, chronically ill, debilitated, and unresponsive. This morning, the patient has a temperature. PHYSICAL EXAMINATION: VITAL SIGNS: On exam, temperature is 101.5, and the patient has fevers, and blood pressure is 130/70, respiratory rate of 18, and a heart rate of 70. HEENT: Unremarkable. NECK: Supple. LUNGS: Decreased breath sounds. HEART: Normal S1 and S2. ABDOMEN: Soft and nontender. No rebound. No guarding. No masses. The drainage from the head is being removed. The urine cultures are no growth. The blood cultures are no growth. These are from 03/30/2017. All cultures have been negative and the sputum culture is pending. The patient's procalcitonin is 0.41. There has been two negative procalcitonin. Urinalysis is negative. The patient's chest x-ray from yesterday is no active lung disease. Review of orders reveals the patient is off of antibiotics. Dr. Valero note is reviewed. Dr. Wilcox's note is reviewed. Chest x-ray from this morning is pending. ASSESSMENT AND PLAN: This is an 82-year-old male, who was seen earlier on 129 bed 1, has fevers. He is not responsive. He has a history of hypertension, diabetes, benign prostatic hypertrophy, chronic atrial fibrillation, admitted with a left basal intracerebral bleed, status post ventriculostomy currently with a tracheostomy and a peg and continues to have fevers. The central nervous system drainage has been removed and systemic inflammatory response syndrome with negative blood cultures, negative urine cultures, negative chest x-ray, negative procalcitonin, and this was done day before yesterday, which is normal. The patient's white count is also normal at 10,000. We will intermittently order camp cultures. The patient is at risk for developing nosocomial infections. Currently off of antibiotics. Overall prognosis is quite poor. Sergio Sommers MD
[2017-04-01] MEDS ORDERED: Magnesium Sulfate 2 GM in Sodium Chloride 0.9% 100 ML IVPB ONE (10:18)
[2017-04-01] MEDS ORDERED: Potassium Chloride 40 mEq/30 ml LIQ UD GT ONE (10:18)
--- NOTE | 2017-04-01 14:53 | RAD ---
HISTORY: intubated, f/u COMPARISON: Comparison chest dated 03/31/2017 FINDINGS: Re- demonstrated is in situ tracheostomy tube in good position. Feeding tube has been removed. LUNGS: Mild bibasilar atelectasis left greater than right PLEURA: No significant pleural effusion identified, no pneumothorax apparent. CARDIOVASCULAR: Aorta is ectatic and uncoiled. OSSEOUS STRUCTURES: No significant abnormalities. VISUALIZED UPPER ABDOMEN: Normal. OTHER FINDINGS: None. IMPRESSION: Tracheostomy tube remains in good position. The Interval removal of feeding tube. . Bibasilar atelectasis left greater than right ectatic uncoiled aorta.
--- NOTE | 2017-04-01 17:25 | PN ---
DATE: 04/01/2017 REASON FOR CONSULTATION AND FOLLOWUP: Acute CVA, intercerebral bleed, respiratory failure, status post PEG, and status post tracheostomy. SUBJECTIVE: The patient remains on vent. Family is at the bedside. Nonresponsive, comatose. OBJECTIVE: GENERAL: Lying on the bed, vent through the tracheostomy, not in respiratory distress. VITAL SIGNS: Temperature 99.5, heart rate 67, and blood pressure 123/70. HEENT: PERRLA. Extraocular muscles intact. NECK: Supple. No carotid bruits or thyromegaly. CHEST: Clear to auscultation. HEART: S1 and S2 regular. ABDOMEN: Soft. EXTREMITIES: Clubbing and cyanosis negative. LABORATORY DATA: Blood workup as follows: WBC 10, hemoglobin 13, hematocrit 38.1, platelet count 301. Chemistry shows sodium 130, potassium 3.3, chloride 93, carbon dioxide 29, anion gap 11, BUN 16, and creatinine 0.5, total protein 5.5, albumin 2.0, albumin-globulin ratio 1. IMPRESSION: History of atrial fibrillation, paroxysmal, was on Eliquis, intracerebral bleed, colostomy status post tracheostsomy, status post PEG. RECOMMENDATIONS: The patient's last echo revealed normal LV function, mild aortic insufficiency, mild pulmonary insufficiency, no mitral regurgitation, RV systolic pressure 42. Neurosurgery note was noted. Both pinpoint pupils. No significant improvement. Continue NG feeding. Continue clonidine patch to control the blood pressure, fairly stable now with clonidine patch and hydralazine. Supplement potassium. Monitor electrolytes. PEG and tracheostomy care. Continue tube feeding. We will follow with you. Thank you Dr. Ratliff for providing us the opportunity in taking care of Sharla Au possibly discharge planning for social professionals, subacute like LTAC discussed with the family. Travis Beltrán MD
--- NOTE | 2017-04-02 02:02 | PN ---
DATE: 04/01/2017 PULMONARY PROGRESS NOTE SUBJECTIVE: Subjectively, he is unresponsive on the ventilator. There was a good trial of trach collar 2 hours today, only he tired and was placed by assist control ventilation. Presently, sleeping, not much trach secretion. No hemoptysis, no hematemesis, no hematuria, and no diarrhea reported. OBJECTIVE: GENERAL: In no acute distress. VITAL SIGNS: Temperature is 100.4, heart rate is 66, respiratory rate is 20, blood pressure is 112/60, and pulse oximetry is 98% on ventilator. HEENT: Moist mucous membrane. Trach stoma looks okay. LUNGS: Fair airflow with few rhonchi. HEART: S1 and S2. ABDOMEN: Soft and nontender. No organomegaly. EXTREMITIES: There is no edema. NEUROLOGIC: Unresponsive. MEDICATIONS: He is on hydralazine 10 mg q. 6 hours. p.r.n., and also hydralazine 50 mg twice a day, clonidine patch 0.3 mg weekly, DuoNeb q. 6 hours, insulin coverage, Peridex 15 mL twice a day, Protonix 40 mg daily, Tylenol p.r.n. and Xopenex inhaled q. 6 hours. p.r.n. LABORATORY DATA: Shows hemoglobin of 13.0, hematocrit of 38.1, WBC of 10.0, and platelet count is 301. INR is 1.19, and PTT is 31. Blood gasses shows pH of 7.49, pCO2 of 38, and O2 of 134, this is on 35% oxygen. Sodium of 130, potassium of 3.3, chloride of 93, bicarbonate of 29, BUN of 16, and creatinine of 0.5. Glucose of 155, calcium of 8.1, phosphorus of 2.6, and magnesium of 1.9. AST of 38, ALT of 75, alkaline phosphatase is 74, total protein of 5.5, and albumin of 2.7. Trach stoma has Klebsiella pneumonia growing. DIAGNOSTIC DATA: Chest x-ray done this morning shows tracheostomy tube remained in good position, bibasilar atelectasis left greater than the right. IMPRESSION AND PLAN: Intraventricular and intracranial bleed, hydrocephalus status post external ventricular drainage placed, which had been removed, chronic obstructive lung disease, hypertension, paroxysmal atrial fibrillation, respiratory failure, has a tracheostomy feeding difficulty requiring jejunostomy tube. Pulmonary point of view, doing okay, has a low-grade fever, keep head elevated at 45 degrees, p.r.n. Motrin, tracheostomy suction, gastric prophylaxis being followed by infectious disease. Follow up arterial blood gas, chest x-ray, CBC, and CMP in the morning. CRITICAL CARE TIME: More than 35 minutes. Thank you and we will follow with you. Travis Wilcox MD
[2017-04-02] MEDS: Albuterol-Ipratrop 3 mg / 0.5 (3 ml) UD IH SCH ×4 (02:40→20:10)
[2017-04-02 06:30] LABS: ARTERIAL BLOOD GAS O2 CAPACITY 17.7 mL/dl (16-24); ARTERIAL BLOOD GAS O2 CONTENT 17.7 ML/dl (15-23); ARTERIAL BLOOD GAS PH 7.48 (7.35-7.45); ARTERIAL BLOOD HGB O2 SAT 97.3 % (95.0-98.0); CARBOXYHEMOGLOBIN 1.6 % (0.5-1.5); HHB 0.2 % (0-5); METHEMOGLOBIN 0.8 % (0.0-3.0)
[2017-04-02 06:38] LABS: EOS % 0.2 % (1.5-5.0); GRAN # 7.17 (1.4-6.5); GRAN % 83.3 % (50.0-68.0); HEMATOCRIT 37.4 % (42.0-52.0); LYMPH # 0.8 (1.2-3.4); LYMPH % 9.3 % (22.0-35.0); MEAN CELL VOLUME 83.1 fl (80.0-105.0); MEAN CORPUSCULAR HEMOGLOBIN 28.4 pg (25.0-35.0); MEAN CORPUSCULAR HGB CONC 34.2 g/dl (31.0-37.0); MONO # 0.6 (0.1-0.6); MONO % 7.2 % (1.0-6.0); RED CELL DISTRIBUTION WIDTH 11.9 % (11.5-14.5); WHITE BLOOD COUNT 8.6 10^3/ul (4.5-11.0)
[2017-04-02 06:47] LABS: INR 1.13 (0.93-1.08); PARTIAL THROMBOPLASTIN TIME 29.6 Seconds (23.7-30.8)
[2017-04-02 06:58] LABS: ALKALINE PHOSPHATASE 80 U/L (38-126); ALT/SGPT 74 U/L (7-56); AST/SGOT 47 U/L (17-59); BILIRUBIN,TOTAL 0.9 mg/dL (0.2-1.3); BLOOD UREA NITROGEN 15 mg/dL (7-21); CALCIUM 8.1 mg/dL (8.4-10.5); CARBON DIOXIDE 31 mmol/L (21-33); CHLORIDE 92 mmol/L (98-107); GFR AFRICAN-AMERICAN > 60; GLUCOSE,RANDOM 135 mg/dL (70-110); MAGNESIUM 2.1 mg/dL (1.7-2.2); PHOSPHOROUS 2.9 mg/dL (2.5-4.5); POTASSIUM 3.7 mmol/L (3.6-5.0); SODIUM 128 mmol/L (132-148); TOTAL PROTEIN 5.5 g/dL (5.8-8.3)
[2017-04-02] MEDS: Insulin Reg-LOW-Coverage SC SCH ×4 (07:30→22:00)
--- NOTE | 2017-04-02 08:44 | RAD ---
HISTORY: intubated, f/u COMPARISON: 04/01/2017 FINDINGS: LUNGS: No active pulmonary disease. PLEURA: No significant pleural effusion identified, no pneumothorax apparent. CARDIOVASCULAR: Normal heart size. Tracheostomy tube. No congestive change. OSSEOUS STRUCTURES: No significant abnormalities. VISUALIZED UPPER ABDOMEN: Normal. OTHER FINDINGS: None. IMPRESSION: No active disease.
--- NOTE | 2017-04-02 08:55 | CP.PCM.PN ---
Subjective - Date & Time of Evaluation Date of Evaluation: 04/02/17 Time of Evaluation: 08:52 - Subjective Subjective: Surgery Pt s&e. Febrile 100.6 overnight. Trach collar in place. TUbe feed at 50cc/hr. Objective - Vital Signs/Intake and Output Vital Signs (last 24 hours): Temp Pulse Resp BP Pulse Ox 99.5 F 58 L 25 H 113/72 99 04/02/17 06:00 04/02/17 06:00 04/01/17 10:20 04/02/17 06:00 04/02/17 06:00 Intake and Output: 04/02/17 04/02/17 06:59 18:59 Intake Total 800 Output Total 800 Balance 0 - Medications Medications: Current Medications Acetaminophen (Tylenol 325mg Tab) 650 mg PO Q6H PRN PRN Reason: Fever >100.4 F Last Admin: 03/31/17 20:00 Dose: 650 mg Albuterol/Ipratropium (Duoneb 3 Mg/0.5 Mg (3 Ml) Ud) 3 ml IH [id number] [facility] Last Admin: 04/02/17 07:56 Dose: 3 ml Chlorhexidine Gluconate (Peridex) 15 ml PO BID [facility] Last Admin: 04/01/17 17:33 Dose: 15 ml Clonidine HCl (Catapres-Tts3 0.3 Mg/24 Hr) 1 patch TD Q7D@1000 [facility] Last Admin: 03/28/17 09:22 Dose: 1 patch Hydralazine HCl (Apresoline) 10 mg IVP Q6 PRN PRN Reason: for SBP>140 Last Admin: 03/27/17 12:26 Dose: 10 mg Hydralazine HCl (Apresoline) 50 mg PO BID [facility] Last Admin: 04/01/17 17:34 Dose: 50 mg Insulin Human Regular (Humulin R Low) 0 units SC ACHS SRINATH PRN Reason: Protocol Last Admin: 04/01/17 17:32 Dose: Not Given Levalbuterol HCl (Xopenex) 1.25 mg IH [id number] PRN PRN Reason: Shortness of Breath Last Admin: 03/26/17 19:42 Dose: 1.25 mg Pantoprazole Sodium (Protonix Inj) 40 mg IVP DAILY [facility] Last Admin: 04/01/17 09:07 Dose: 40 mg Polyethylene Glycol (Miralax) 17 gm PO DAILY SRINATH - Labs Labs: 04/02/17 05:30 04/02/17 05:30 PT 12.2 Seconds (9.9-11.8) H 04/02/17 05:30 INR 1.13 (0.93-1.08) H 04/02/17 05:30 APTT 29.6 Seconds (23.7-30.8) 04/02/17 05:30 - Constitutional Appears: Non-toxic - Head Exam Additional comments: Brain drain in place. - ENT Exam ENT Exam: Mucous Membranes Moist - Neck Exam Additional comments: Trach collar in place - Respiratory Exam Respiratory Exam: absent: Accessory Muscle Use, Wheezes Additional comments: Trach collar inplace. - Cardiovascular Exam Cardiovascular Exam: REGULAR RHYTHM - GI/Abdominal Exam GI & Abdominal Exam: Soft, Normal Bowel Sounds. absent: Distended, Firm, Guarding, Tenderness Additional comments: Gatrostomy tube in place - Exam Exam: NORMAL INSPECTION - Extremities Exam Extremities Exam: Full ROM, Normal Capillary Refill, Normal Inspection. absent : Joint Swelling, Pedal Edema - Back Exam Back Exam: NORMAL INSPECTION - Neurological Exam Neurological Exam: absent: Alert, Awake, CN II-XII Intact, Normal Gait, Oriented x3 - Skin Skin Exam: Dry, Intact, Normal Color, Warm Assessment and Plan - Assessment and Plan (Free Text) Assessment: s/p Trach and gastrostomy tube POD 4 -OK to use G tube for feeding. -Flush with saline daily -Will remove trach incision stitches 04/08 ALEK Lewis
[2017-04-02] MEDS: POLYETHYLENE GLYCOL 3350 17 GM/Dose PACKET PO SCH (09:19)
[2017-04-02] MEDS: Chlorhexidine 0.12% Oral Sol 480 ml Bot PO SCH ×2 (10:06→18:50)
--- NOTE | 2017-04-02 11:24 | CP.PCM.PN ---
Subjective - Date & Time of Evaluation Date of Evaluation: 04/02/17 Time of Evaluation: 10:30 - Subjective Subjective: Continues to be on the ventilator, not in distress, still with intermittent low grade fevers. Objective - Vital Signs/Intake and Output Vital Signs (last 24 hours): Temp Pulse Resp BP Pulse Ox 99.5 F 67 25 H 111/73 97 04/02/17 09:00 04/02/17 09:16 04/01/17 10:20 04/02/17 09:16 04/02/17 09:00 Intake and Output: 04/02/17 04/02/17 06:59 18:59 Intake Total 800 Output Total 800 Balance 0 - Medications Medications: Current Medications Acetaminophen (Tylenol 325mg Tab) 650 mg PO Q6H PRN PRN Reason: Fever >100.4 F Last Admin: 03/31/17 20:00 Dose: 650 mg Albuterol/Ipratropium (Duoneb 3 Mg/0.5 Mg (3 Ml) Ud) 3 ml IH [id number] [facility] Last Admin: 04/02/17 07:56 Dose: 3 ml Chlorhexidine Gluconate (Peridex) 15 ml PO BID [facility] Last Admin: 04/01/17 17:33 Dose: 15 ml Clonidine HCl (Catapres-Tts3 0.3 Mg/24 Hr) 1 patch TD Q7D@1000 [facility] Last Admin: 03/28/17 09:22 Dose: 1 patch Hydralazine HCl (Apresoline) 10 mg IVP Q6 PRN PRN Reason: for SBP>140 Last Admin: 03/27/17 12:26 Dose: 10 mg Hydralazine HCl (Apresoline) 50 mg PO BID [facility] Last Admin: 04/02/17 09:16 Dose: 50 mg Insulin Human Regular (Humulin R Low) 0 units SC ACHS [facility] PRN Reason: Protocol Last Admin: 04/02/17 07:30 Dose: Not Given Levalbuterol HCl (Xopenex) 1.25 mg IH [id number] PRN PRN Reason: Shortness of Breath Last Admin: 03/26/17 19:42 Dose: 1.25 mg Pantoprazole Sodium (Protonix Inj) 40 mg IVP DAILY [facility] Last Admin: 04/02/17 09:19 Dose: 40 mg Polyethylene Glycol (Miralax) 17 gm PO DAILY [facility] Last Admin: 04/02/17 09:19 Dose: 17 gm - Labs Labs: 04/02/17 05:30 04/02/17 05:30 PT 12.2 Seconds (9.9-11.8) H 04/02/17 05:30 INR 1.13 (0.93-1.08) H 04/02/17 05:30 APTT 29.6 Seconds (23.7-30.8) 04/02/17 05:30 - Constitutional Appears: Other (intubated, not responsive) - Head Exam Additional comments: ventriculostomy tube removed - ENT Exam Additional comments: ET tube in place - Respiratory Exam Respiratory Exam: Decreased Breath Sounds - Cardiovascular Exam Cardiovascular Exam: +S1, +S2 - GI/Abdominal Exam GI & Abdominal Exam: Soft. absent: Tenderness Assessment and Plan - Assessment and Plan (Free Text) Plan: Assessment S/P systemic inflammatory response syndrome with low grade fevers, R/O FOLDER TIER associated fevers - no evidence of sepsis identified currently in a patient with left basal ganglia intracerebral bleed S/P ventriculostomy HTN DM benign prostatic hyperplasia chronic atrial fibrillation Plan blood cx, urine cx are negative; PCT is only 0.26; CXR does not show infiltrates (most recent once) despite having Klebsiella in the sputum cx ( probable colonization) Overall prognosis is poor will continue to monitor clinically since the patient is at risk for nosocomial infections
--- NOTE | 2017-04-02 12:44 | CP.CCUPN ---
<Kehinde Ritchie - Last Filed: 04/02/17 12:49> CCU Subjective - Physician Review Subjective (Free Text): 04/02/17 12:41 Patient seen and examined at bedside in the ICU. Remains off sedation, still unresponsive. Report of new mild drainage from site of Ventriculostomy drain ( removed 4 days prior), Neurosurgeon aware and states does not believe this is true CSF leak, put new stitch in site and said no further management required. Family still wishes to pursue all measures; s/p Trach and Gastrostomy tube, POD# 4. Pending placement at long-term care facility, possibly today or tomorrow as per cellophane worker. CCU Objective - Vital Signs / Intake & Output Vital Signs (Last 4 hours): Vital Signs Temp Pulse BP Pulse Ox 04/02/17 12:20 99.3 F 70 95 04/02/17 12:10 99.3 F 68 94 L 04/02/17 12:00 99.3 F 72 120/78 95 04/02/17 11:50 99.3 F 70 94 L 04/02/17 11:40 99.3 F 66 94 L 04/02/17 11:30 99.3 F 62 95 04/02/17 11:20 99.3 F 67 96 04/02/17 11:10 99.3 F 67 95 04/02/17 11:00 99.3 F 66 116/60 95 04/02/17 10:50 99.5 F 66 97 04/02/17 10:40 99.5 F 62 98 04/02/17 10:30 99.5 F 70 97 04/02/17 10:20 99.7 F H 63 97 04/02/17 10:10 99.5 F 58 L 97 04/02/17 10:00 99.3 F 68 106/55 L 97 04/02/17 09:50 99.3 F 61 98 04/02/17 09:40 99.5 F 66 98 04/02/17 09:30 99.5 F 65 98 04/02/17 09:20 99.5 F 64 98 04/02/17 09:16 67 111/73 04/02/17 09:10 99.5 F 58 L 98 04/02/17 09:00 99.5 F 65 111/73 97 04/02/17 08:50 99.7 F H 55 L 96 Intake and Output (Last 8hrs): Intake & Output 04/01/17 04/02/17 04/02/17 22:59 06:59 14:59 Intake Total 1265 800 Output Total 1000 800 Balance 265 0 Weight 71.532 kg Intake: IV 330 Left Forearm 330 Tube Feeding 935 800 Output: Urine 1000 Urethral (Mccord) 1000 Stool 800 Other: # Bowel Movements 0 - Physical Exam Head: Positive for: Atraumatic. Negative for: Normocephalic (Drain removed, mild clear drainage from site earlier this AM, no further drainage, new stitch placed by Neurosurgeon), Ecchymosis, Abrasion Pupils: Negative for: PERRL Extroacular Muscles: Negative for: EOMI (no movements on commands or puposeful tracking but does exhibit random [id number] movements of eyes, no avoidance of direct light challenge for PERRL assessment; reported by family to have spontaneous eye openings, but at bedside only exhibits half open lids which slide closed when manually opened by examiner) Conjunctiva: Positive for: Normal. Negative for: Injected, Icteric Mouth: Positive for: Moist Mucous Membranes, Drooling Pharnyx: Positive for: Normal Nose (External): Positive for: Atraumatic. Negative for: Abrasion, Contusion, Laceration Nose (Internal): Positive for: Normal Inspection Neck: Positive for: Normal Range of Motion (passively intact ROM, no spontaneous or purposeful movements of head initiated by patient), Trachea Midline, Other (Trach in place, held by trach collar, no active bleeding or oozing from site noted, trach connected to vent). Negative for: JVD, Lymphadenopathy Respiratory/Chest: Positive for: Clear to Auscultation, Good Air Exchange, Rales (mild rales in all gracia, otherwise CTA, unchanged from prior exam), Other (intubated and on mechanical ventilation via trach). Negative for: Respiratory Distress, Accessory Muscle Use Cardiovascular: Positive for: Regular Rate and Rhythm, Normal S1, S2. Negative for: Murmurs, Irregular Rhythm, Tachycardic Abdomen: Positive for: Normal Bowel Sounds, Feeding Tubes (gastrostomy tube in place), Other (no palpable pulsatile mass). Negative for: Distention Back: Negative for: Midline Tenderness, Paraspinal Tenderness Upper Extremity: Positive for: Normal Inspection, NORMAL PULSES. Negative for: Cyanosis, Edema, Swelling, Erythema, Temperature Abnormalties, Deformity Lower Extremity: Positive for: Normal Inspection, NORMAL PULSES. Negative for: Edema, CALF TENDERNESS, Cyanosis, Swelling, Erythema, Deformity, Temperature Abnormalties Neurological: Positive for: Other (intubated, not sedated but unresponsive, no purposeful movements, some posturing on the left likely decerebrate). Negative for: GCS=15 (Score of 3 (E1 V1t M1)), CN II-XII Intact, Speech Normal, Motor Func Grossly Intact Skin: Positive for: Warm, Dry, Normal Color. Negative for: Rashes, Diaphoretic Psychiatric: Positive for: Other (Intubated, not sedated but unresponsive). Negative for: Alert, Oriented x 3, Normal Insight, Normal Concentration, Normal Affect - Medications Active Medications: Active Medications Generic Name Dose Route Start Last Admin Trade Name Freq PRN Reason Stop Dose Admin Acetaminophen 650 mg 03/26/17 23:43 03/31/17 20:00 Tylenol 325mg Tab PO 650 mg Q6H PRN Administration Fever >100.4 F Albuterol/Ipratropium 3 ml 03/27/17 02:00 04/02/17 07:56 Duoneb 3 Mg/0.5 Mg (3 Ml) Ud IH 3 ml [id number] SRINATH Administration Chlorhexidine Gluconate 15 ml 03/25/17 10:00 04/02/17 10:06 Peridex PO 15 ml BID SRINATH Administration Clonidine HCl 1 patch 03/28/17 10:00 03/28/17 09:22 Catapres-Tts3 0.3 Mg/24 Hr TD 1 patch Q7D@1000 SRINATH Administration Hydralazine HCl 10 mg 03/27/17 10:56 03/27/17 12:26 Apresoline IVP 10 mg Q6 PRN Administration for SBP>140 Hydralazine HCl 50 mg 03/28/17 10:00 04/02/17 09:16 Apresoline PO 50 mg BID SRINATH Administration Insulin Human Regular 0 units 03/27/17 11:30 04/02/17 07:30 Humulin R Low SC Not Given ACHS SRINATH Protocol Levalbuterol HCl 1.25 mg 03/25/17 19:40 03/26/17 19:42 Xopenex IH 1.25 mg [id number] PRN Administration Shortness of Breath Pantoprazole Sodium 40 mg 03/26/17 10:00 04/02/17 09:19 Protonix Inj IVP 40 mg DAILY SRINATH Administration Polyethylene Glycol 17 gm 04/02/17 10:00 04/02/17 09:19 Miralax PO 17 gm DAILY SRINATH Administration - Patient Studies Lab Studies: Microbiology Studies 03/30/17 08:30 Blood Culture - Preliminary Blood NO GROWTH AFTER 3 DAYS 03/30/17 08:40 Blood Culture - Preliminary Blood NO GROWTH AFTER 3 DAYS 03/30/17 13:23 Gram Stain - Final Trachasp Sputum Culture - Final Klebsiella Pneumoniae Ssp Pneu Lab Studies 04/02/17 04/02/17 04/02/17 Range/Units 06:24 05:30 05:30 WBC (4.5-11.0) 10^3/ul RBC (3.5-6.1) 10^6/uL Hgb (14.0-18.0) g/dL Hct (42.0-52.0) % MCV (80.0-105.0) fl MCH (25.0-35.0) pg MCHC (31.0-37.0) g/dl RDW (11.5-14.5) % Plt Count (120.0-450.0) 10^3/uL MPV (7.0-11.0) fl Gran % (50.0-68.0) % Lymph % (Auto) (22.0-35.0) % Arthur % (Auto) (1.0-6.0) % Eos % (Auto) (1.5-5.0) % Baso % (Auto) (0.0-3.0) % Gran # (1.4-6.5) Lymph # (1.2-3.4) Arthur # (0.1-0.6) Eos # (0.0-0.7) Baso # (0.0-2.0) K/mm3 PT 12.2 H (9.9-11.8) Seconds INR 1.13 H (0.93-1.08) APTT 29.6 (23.7-30.8) Seconds pCO2 39 (35-45) mm/Hg pO2 129.0 H (80-100) mm/Hg HCO3 29.0 H (21-28) mmol/L ABG pH 7.48 H (7.35-7.45) ABG Total CO2 30.2 H (22-28) mmol.L ABG O2 Saturation 99.8 H (95-98) % ABG O2 Content 17.7 (15-23) ML/dl ABG Base Excess 5.2 H (-2.0-3.0) mmol/L ABG Hemoglobin 12.8 (11.7-17.4) g/dL ABG Carboxyhemoglobin 1.6 H (0.5-1.5) % POC ABG HHb (Measured) 0.2 (0-5) % ABG Methemoglobin 0.8 (0.0-3.0) % ABG O2 Capacity 17.7 (16-24) mL/dl Hgb O2 Saturation 97.3 (95.0-98.0) % FiO2 35.0 % Sodium 128 L (132-148) mmol/L Potassium 3.7 (3.6-5.0) mmol/L Chloride 92 L (98-107) mmol/L Carbon Dioxide 31 (21-33) mmol/L Anion Gap 9 L (10-20) BUN 15 (7-21) mg/dL Creatinine 0.5 L (0.8-1.5) mg/dL Est GFR ( Amer) > 60 Est GFR (Non-Af Amer) > 60 POC Glucose (mg/dL) (65-110) mg/dL Random Glucose 135 H (70-110) mg/dL Calcium 8.1 L (8.4-10.5) mg/dL Phosphorus 2.9 (2.5-4.5) mg/dL Magnesium 2.1 (1.7-2.2) mg/dL Total Bilirubin 0.9 (0.2-1.3) mg/dL AST 47 (17-59) U/L ALT 74 H (7-56) U/L Alkaline Phosphatase 80 (38-126) U/L Total Protein 5.5 L (5.8-8.3) g/dL Albumin 2.7 L (3.0-4.8) g/dL Globulin 2.8 gm/dL Albumin/Globulin Ratio 1.0 L (1.1-1.8) 1004/01/17 04/01/17 Range/Units 05:30 22:09 16:20 WBC 8.6 (4.5-11.0) 10^3/ul RBC 4.50 (3.5-6.1) 10^6/uL Hgb 12.8 L (14.0-18.0) g/dL Hct 37.4 L (42.0-52.0) % MCV 83.1 (80.0-105.0) fl MCH 28.4 (25.0-35.0) pg MCHC 34.2 (31.0-37.0) g/dl RDW 11.9 (11.5-14.5) % Plt Count 286 (120.0-450.0) 10^3/uL MPV 9.0 (7.0-11.0) fl Gran % 83.3 H (50.0-68.0) % Lymph % (Auto) 9.3 L (22.0-35.0) % Arthur % (Auto) 7.2 H (1.0-6.0) % Eos % (Auto) 0.2 L (1.5-5.0) % Baso % (Auto) 0.0 (0.0-3.0) % Gran # 7.17 H (1.4-6.5) Lymph # 0.8 L (1.2-3.4) Arthur # 0.6 (0.1-0.6) Eos # 0.0 (0.0-0.7) Baso # 0.00 (0.0-2.0) K/mm3 PT (9.9-11.8) Seconds INR (0.93-1.08) APTT (23.7-30.8) Seconds pCO2 (35-45) mm/Hg pO2 (80-100) mm/Hg HCO3 (21-28) mmol/L ABG pH (7.35-7.45) ABG Total CO2 (22-28) mmol.L ABG O2 Saturation (95-98) % ABG O2 Content (15-23) ML/dl ABG Base Excess (-2.0-3.0) mmol/L ABG Hemoglobin (11.7-17.4) g/dL ABG Carboxyhemoglobin (0.5-1.5) % POC ABG HHb (Measured) (0-5) % ABG Methemoglobin (0.0-3.0) % ABG O2 Capacity (16-24) mL/dl Hgb O2 Saturation (95.0-98.0) % FiO2 % Sodium (132-148) mmol/L Potassium (3.6-5.0) mmol/L Chloride (98-107) mmol/L Carbon Dioxide (21-33) mmol/L Anion Gap (10-20) BUN (7-21) mg/dL Creatinine (0.8-1.5) mg/dL Est GFR ( Amer) Est GFR (Non-Af Amer) POC Glucose (mg/dL) 162 H 160 H (65-110) mg/dL Random Glucose (70-110) mg/dL Calcium (8.4-10.5) mg/dL Phosphorus (2.5-4.5) mg/dL Magnesium (1.7-2.2) mg/dL Total Bilirubin (0.2-1.3) mg/dL AST (17-59) U/L ALT (7-56) U/L Alkaline Phosphatase (38-126) U/L Total Protein (5.8-8.3) g/dL Albumin (3.0-4.8) g/dL Globulin gm/dL Albumin/Globulin Ratio (1.1-1.8) Laboratory Results - last 24 hr 04/01/17 04/01/17 04/02/17 16:20 22:09 05:30 WBC 8.6 RBC 4.50 Hgb 12.8 L Hct 37.4 L MCV 83.1 MCH 28.4 MCHC 34.2 RDW 11.9 Plt Count 286 MPV 9.0 Gran % 83.3 H Lymph % (Auto) 9.3 L Arthur % (Auto) 7.2 H Eos % (Auto) 0.2 L Baso % (Auto) 0.0 Gran # 7.17 H Lymph # 0.8 L Arthur # 0.6 Eos # 0.0 Baso # 0.00 PT INR APTT pCO2 pO2 HCO3 ABG pH ABG Total CO2 ABG O2 Saturation ABG O2 Content ABG Base Excess ABG Hemoglobin ABG Carboxyhemoglobin POC ABG HHb (Measured) ABG Methemoglobin ABG O2 Capacity Hgb O2 Saturation FiO2 Sodium Potassium Chloride Carbon Dioxide Anion Gap BUN Creatinine Est GFR ( Amer) Est GFR (Non-Af Amer) POC Glucose (mg/dL) 160 H 162 H Random Glucose Calcium Phosphorus Magnesium Total Bilirubin AST ALT Alkaline Phosphatase Total Protein Albumin Globulin Albumin/Globulin Ratio 04/02/17 04/02/17 04/02/17 05:30 05:30 06:24 WBC RBC Hgb Hct MCV MCH MCHC RDW Plt Count MPV Gran % Lymph % (Auto) Arthur % (Auto) Eos % (Auto) Baso % (Auto) Gran # Lymph # Arthur # Eos # Baso # PT 12.2 H INR 1.13 H APTT 29.6 pCO2 39 pO2 129.0 H HCO3 29.0 H ABG pH 7.48 H ABG Total CO2 30.2 H ABG O2 Saturation 99.8 H ABG O2 Content 17.7 ABG Base Excess 5.2 H ABG Hemoglobin 12.8 ABG Carboxyhemoglobin 1.6 H POC ABG HHb (Measured) 0.2 ABG Methemoglobin 0.8 ABG O2 Capacity 17.7 Hgb O2 Saturation 97.3 FiO2 35.0 Sodium 128 L Potassium 3.7 Chloride 92 L Carbon Dioxide 31 Anion Gap 9 L BUN 15 Creatinine 0.5 L Est GFR ( Amer) > 60 Est GFR (Non-Af Amer) > 60 POC Glucose (mg/dL) Random Glucose 135 H Calcium 8.1 L Phosphorus 2.9 Magnesium 2.1 Total Bilirubin 0.9 AST 47 ALT 74 H Alkaline Phosphatase 80 Total Protein 5.5 L Albumin 2.7 L Globulin 2.8 Albumin/Globulin Ratio 1.0 L Fingerstick Blood Sugar Results: 135 Review of Systems - Review of Systems Systems not reviewed;Unavailable: Intubated Critical Care Progress Note - Nutrition Nutrition: Nutrition Category Date Time Status NPO Diet [DIET] Diets 03/25/17 Breakfast Ordered Assessment/Plan - Assessment and Plan (Free Text) Assessment: This is an 82 yo Khmer M with PMH of CAD, COPD, Afib (on Eliquis), BPH, DM, and HTN who was brought [place] [facility] [place] found down on the ground by family, and was found to be hypotensive with extensive intracerebral bleed with ventricular extension and mass effect. S/p ventriculostomy with drain placement , POD #11, removed by Neurosurg 4 days prior. He remains off sedation, but is still unresponsive. Full code and all measures as per family; s/p Trach and Gastrostomy tube POD#3, pending placement at half-way care facility. Plan: Neuro: -extensive ICH with bilateral ventricular extension, notable edema; s/p Ventriculostomy, POD#11; drain removed by Neurosurgeon 4 days ago, residual drainage noted, but as per Neurosurgeon not a CSF leak, put new stitch in site and said no additional management required -intubated, off sedation, but remains completely unresponsive to physical or verbal stimuli -pinpoint pupils, holding extremities flacidly, previously noted to have intermittent twitches and mastication-like movements with jaw, but no purposeful movements -Neuro (Dr. Steen) and Neurosurgery (Dr. Mcintyre) on board, appreciate all recs -Hold all AC due to ICH, maintain euglycemia, maintain SBP 140-160 -EEG obtained, severe bilateral cerebral dysfxn, no epileptiform activity Pulm: -Trached, on mechanical ventilation -maintain SaO2 > 88% (COPD pt) and paO2 > 55 -Protective lung ventilation strategies, low tidal volumes, VAP bundle -most recent ABG reviewed, continue current management -Continues to tolerate pressure-support trials; tolerated well throughout the day yesterday, transitioned to trach collar yesterday but failed in ~1hr due to work of breathing -Mild rales on exam (chronic exam finding, no acute change) -Pulm (Dr. Wilcox) following, appreciate all recs Cardio: -No new bradycardic episodes, currently stable in 80's -BP control in setting of ICH, SBP 140-160, continue hydralazine and Clonidine patch -Cardio (Dr. Beltrán) following, appreciate all recs GI: -NPO -Protonix for GI ppx -Clear for use of Gastrostomy tube by Surgery, feeds running as per Packer Insulation recs Renal: -monitor and replete electrolytes as needed -mccord in place, draining clear yellow urine, monitor I's and O's Heme: -Hgb stable at 13's-14s, today was 13.0 -NO AC in setting of ICH, SCDs for DVT ppx ID: -fever of 101.5F overnight, leukocytosis resolved (10.0 today) -fever may be neuro-fever vs new hospital associated infection, repeat cx from 03/30 still negative -empiric coverage with Vanco and Cefepime discontinued, continue to monitor for now off abx as per ID -ID following, appreciate all recs Endo: -NS 100cc/hr -Fingersticks q6, maintain BG 140-180 -Clear for use of Gastrostomy tube by Surgery, feeds running as per Packer Insulation recs Dispo: ICU, intubated but not sedated, s/p Trach and Gastrotomy tube POD#4, new cultures to rule out new infxn while on empiric abx negative; pending transfer to half-way care facility possibly today or tomorrow as per Chlorine Operator FEN: NPO, pending G-tube and feeds Access: Peripheral IV, Trach, Gastrostomy tube Consults: Neurosurgery, Neuro, ID, Cardio, Pulm, Surgery Ppx: Protonix for GI, SCDs for DVT Patient seen and reviewed with attending, Dr Brand. <Yury Brand - Last Filed: 04/02/17 17:49> CCU Objective - Vital Signs / Intake & Output Vital Signs (Last 4 hours): Vital Signs Temp Pulse BP Pulse Ox 04/02/17 17:10 99.7 F H 61 98 04/02/17 17:00 99.7 F H 64 120/74 98 04/02/17 16:50 99.7 F H 65 97 04/02/17 16:40 99.7 F H 63 97 04/02/17 16:30 99.7 F H 62 98 04/02/17 16:20 99.7 F H 70 98 04/02/17 16:10 99.7 F H 68 98 04/02/17 16:01 99.7 F H 70 136/73 98 04/02/17 16:00 99.7 F H 61 98 04/02/17 15:50 99.7 F H 62 98 04/02/17 15:40 99.7 F H 64 97 04/02/17 15:30 99.7 F H 64 97 04/02/17 15:20 99.7 F H 71 97 04/02/17 15:10 99.7 F H 68 98 04/02/17 15:00 99.7 F H 69 114/70 98 04/02/17 14:50 99.5 F 72 98 04/02/17 14:40 99.7 F H 70 97 04/02/17 14:30 99.7 F H 64 98 04/02/17 14:20 99.7 F H 67 97 04/02/17 14:10 99.7 F H 68 98 04/02/17 14:00 99.7 F H 68 118/71 98 04/02/17 13:50 99.5 F 69 98 Intake and Output (Last 8hrs): Intake & Output 04/02/17 04/02/17 04/02/17 06:59 14:59 22:59 Intake Total 800 Output Total 800 Balance 0 Weight 157 lb 11.2 oz Intake: Tube Feeding 800 Output: Stool 800 Other: # Bowel Movements 0 - Medications Active Medications: Active Medications Generic Name Dose Route Start Last Admin Trade Name Freq PRN Reason Stop Dose Admin Acetaminophen 650 mg 03/26/17 23:43 03/31/17 20:00 Tylenol 325mg Tab PO 650 mg Q6H PRN Administration Fever >100.4 F Albuterol/Ipratropium 3 ml 03/27/17 02:00 04/02/17 13:30 Duoneb 3 Mg/0.5 Mg (3 Ml) Ud IH 3 ml [id number] SRINATH Administration Chlorhexidine Gluconate 15 ml 03/25/17 10:00 04/02/17 10:06 Peridex PO 15 ml BID SRINATH Administration Clonidine HCl 1 patch 03/28/17 10:00 03/28/17 09:22 Catapres-Tts3 0.3 Mg/24 Hr TD 1 patch Q7D@1000 SRINATH Administration Hydralazine HCl 10 mg 03/27/17 10:56 03/27/17 12:26 Apresoline IVP 10 mg Q6 PRN Administration for SBP>140 Hydralazine HCl 50 mg 03/28/17 10:00 04/02/17 09:16 Apresoline PO 50 mg BID SRINATH Administration Sodium Chloride 1,000 mls @ 75 mls/hr 04/02/17 13:00 04/02/17 13:52 Sodium Chloride 0.9% IV 75 mls/hr .[id number] SRINATH Administration Insulin Human Regular 0 units 03/27/17 11:30 04/02/17 16:40 Humulin R Low SC Not Given ACHS SRINATH Protocol Levalbuterol HCl 1.25 mg 03/25/17 19:40 03/26/17 19:42 Xopenex IH 1.25 mg [id number] PRN Administration Shortness of Breath Pantoprazole Sodium 40 mg 03/26/17 10:00 04/02/17 09:19 Protonix Inj IVP 40 mg DAILY SRINATH Administration Polyethylene Glycol 17 gm 04/02/17 10:00 04/02/17 09:19 Miralax PO 17 gm DAILY SRINATH Administration - Patient Studies Lab Studies: Microbiology Studies 03/30/17 08:30 Blood Culture - Preliminary Blood NO GROWTH AFTER 3 DAYS 03/30/17 08:40 Blood Culture - Preliminary Blood NO GROWTH AFTER 3 DAYS Lab Studies 04/02/17 04/02/17 04/02/17 Range/Units 06:24 05:30 05:30 WBC (4.5-11.0) 10^3/ul RBC (3.5-6.1) 10^6/uL Hgb (14.0-18.0) g/dL Hct (42.0-52.0) % MCV (80.0-105.0) fl MCH (25.0-35.0) pg MCHC (31.0-37.0) g/dl RDW (11.5-14.5) % Plt Count (120.0-450.0) 10^3/uL MPV (7.0-11.0) fl Gran % (50.0-68.0) % Lymph % (Auto) (22.0-35.0) % Arthur % (Auto) (1.0-6.0) % Eos % (Auto) (1.5-5.0) % Baso % (Auto) (0.0-3.0) % Gran # (1.4-6.5) Lymph # (1.2-3.4) Arthur # (0.1-0.6) Eos # (0.0-0.7) Baso # (0.0-2.0) K/mm3 PT 12.2 H (9.9-11.8) Seconds INR 1.13 H (0.93-1.08) APTT 29.6 (23.7-30.8) Seconds pCO2 39 (35-45) mm/Hg pO2 129.0 H (80-100) mm/Hg HCO3 29.0 H (21-28) mmol/L ABG pH 7.48 H (7.35-7.45) ABG Total CO2 30.2 H (22-28) mmol.L ABG O2 Saturation 99.8 H (95-98) % ABG O2 Content 17.7 (15-23) ML/dl ABG Base Excess 5.2 H (-2.0-3.0) mmol/L ABG Hemoglobin 12.8 (11.7-17.4) g/dL ABG Carboxyhemoglobin 1.6 H (0.5-1.5) % POC ABG HHb (Measured) 0.2 (0-5) % ABG Methemoglobin 0.8 (0.0-3.0) % ABG O2 Capacity 17.7 (16-24) mL/dl Hgb O2 Saturation 97.3 (95.0-98.0) % FiO2 35.0 % Sodium 128 L (132-148) mmol/L Potassium 3.7 (3.6-5.0) mmol/L Chloride 92 L (98-107) mmol/L Carbon Dioxide 31 (21-33) mmol/L Anion Gap 9 L (10-20) BUN 15 (7-21) mg/dL Creatinine 0.5 L (0.8-1.5) mg/dL Est GFR ( Amer) > 60 Est GFR (Non-Af Amer) > 60 POC Glucose (mg/dL) (65-110) mg/dL Random Glucose 135 H (70-110) mg/dL Calcium 8.1 L (8.4-10.5) mg/dL Phosphorus 2.9 (2.5-4.5) mg/dL Magnesium 2.1 (1.7-2.2) mg/dL Total Bilirubin 0.9 (0.2-1.3) mg/dL AST 47 (17-59) U/L ALT 74 H (7-56) U/L Alkaline Phosphatase 80 (38-126) U/L Total Protein 5.5 L (5.8-8.3) g/dL Albumin 2.7 L (3.0-4.8) g/dL Globulin 2.8 gm/dL Albumin/Globulin Ratio 1.0 L (1.1-1.8) 04/02/17 04/01/17 Range/Units 05:30 22:09 WBC 8.6 (4.5-11.0) 10^3/ul RBC 4.50 (3.5-6.1) 10^6/uL Hgb 12.8 L (14.0-18.0) g/dL Hct 37.4 L (42.0-52.0) % MCV 83.1 (80.0-105.0) fl MCH 28.4 (25.0-35.0) pg MCHC 34.2 (31.0-37.0) g/dl RDW 11.9 (11.5-14.5) % Plt Count 286 (120.0-450.0) 10^3/uL MPV 9.0 (7.0-11.0) fl Gran % 83.3 H (50.0-68.0) % Lymph % (Auto) 9.3 L (22.0-35.0) % Arthur % (Auto) 7.2 H (1.0-6.0) % Eos % (Auto) 0.2 L (1.5-5.0) % Baso % (Auto) 0.0 (0.0-3.0) % Gran # 7.17 H (1.4-6.5) Lymph # 0.8 L (1.2-3.4) Arthur # 0.6 (0.1-0.6) Eos # 0.0 (0.0-0.7) Baso # 0.00 (0.0-2.0) K/mm3 PT (9.9-11.8) Seconds INR (0.93-1.08) APTT (23.7-30.8) Seconds pCO2 (35-45) mm/Hg pO2 (80-100) mm/Hg HCO3 (21-28) mmol/L ABG pH (7.35-7.45) ABG Total CO2 (22-28) mmol.L ABG O2 Saturation (95-98) % ABG O2 Content (15-23) ML/dl ABG Base Excess (-2.0-3.0) mmol/L ABG Hemoglobin (11.7-17.4) g/dL ABG Carboxyhemoglobin (0.5-1.5) % POC ABG HHb (Measured) (0-5) % ABG Methemoglobin (0.0-3.0) % ABG O2 Capacity (16-24) mL/dl Hgb O2 Saturation (95.0-98.0) % FiO2 % Sodium (132-148) mmol/L Potassium (3.6-5.0) mmol/L Chloride (98-107) mmol/L Carbon Dioxide (21-33) mmol/L Anion Gap (10-20) BUN (7-21) mg/dL Creatinine (0.8-1.5) mg/dL Est GFR ( Amer) Est GFR (Non-Af Amer) POC Glucose (mg/dL) 162 H (65-110) mg/dL Random Glucose (70-110) mg/dL Calcium (8.4-10.5) mg/dL Phosphorus (2.5-4.5) mg/dL Magnesium (1.7-2.2) mg/dL Total Bilirubin (0.2-1.3) mg/dL AST (17-59) U/L ALT (7-56) U/L Alkaline Phosphatase (38-126) U/L Total Protein (5.8-8.3) g/dL Albumin (3.0-4.8) g/dL Globulin gm/dL Albumin/Globulin Ratio (1.1-1.8) Laboratory Results - last 24 hr 04/01/17 04/02/17 04/02/17 22:09 05:30 05:30 WBC 8.6 RBC 4.50 Hgb 12.8 L Hct 37.4 L MCV 83.1 MCH 28.4 MCHC 34.2 RDW 11.9 Plt Count 286 MPV 9.0 Gran % 83.3 H Lymph % (Auto) 9.3 L Arthur % (Auto) 7.2 H Eos % (Auto) 0.2 L Baso % (Auto) 0.0 Gran # 7.17 H Lymph # 0.8 L Arthur # 0.6 Eos # 0.0 Baso # 0.00 PT INR APTT pCO2 pO2 HCO3 ABG pH ABG Total CO2 ABG O2 Saturation ABG O2 Content ABG Base Excess ABG Hemoglobin ABG Carboxyhemoglobin POC ABG HHb (Measured) ABG Methemoglobin ABG O2 Capacity Hgb O2 Saturation FiO2 Sodium 128 L Potassium 3.7 Chloride 92 L Carbon Dioxide 31 Anion Gap 9 L BUN 15 Creatinine 0.5 L Est GFR ( Amer) > 60 Est GFR (Non-Af Amer) > 60 POC Glucose (mg/dL) 162 H Random Glucose 135 H Calcium 8.1 L Phosphorus 2.9 Magnesium 2.1 Total Bilirubin 0.9 AST 47 ALT 74 H Alkaline Phosphatase 80 Total Protein 5.5 L Albumin 2.7 L Globulin 2.8 Albumin/Globulin Ratio 1.0 L 04/02/17 04/02/17 05:30 06:24 WBC RBC Hgb Hct MCV MCH MCHC RDW Plt Count MPV Gran % Lymph % (Auto) Arthur % (Auto) Eos % (Auto) Baso % (Auto) Gran # Lymph # Arthur # Eos # Baso # PT 12.2 H INR 1.13 H APTT 29.6 pCO2 39 pO2 129.0 H HCO3 29.0 H ABG pH 7.48 H ABG Total CO2 30.2 H ABG O2 Saturation 99.8 H ABG O2 Content 17.7 ABG Base Excess 5.2 H ABG Hemoglobin 12.8 ABG Carboxyhemoglobin 1.6 H POC ABG HHb (Measured) 0.2 ABG Methemoglobin 0.8 ABG O2 Capacity 17.7 Hgb O2 Saturation 97.3 FiO2 35.0 Sodium Potassium Chloride Carbon Dioxide Anion Gap BUN Creatinine Est GFR ( Amer) Est GFR (Non-Af Amer) POC Glucose (mg/dL) Random Glucose Calcium Phosphorus Magnesium Total Bilirubin AST ALT Alkaline Phosphatase Total Protein Albumin Globulin Albumin/Globulin Ratio Critical Care Progress Note - Nutrition Nutrition: Nutrition Category Date Time Status NPO Diet [DIET] Diets 03/25/17 Breakfast Ordered Attending/Attestation - Attestation I have personally seen and examined this patient.: Yes I have fully participated in the care of the patient.: Yes I have reviewed all pertinent clinical information: Yes Notes (Text): 04/02/17 17 82 yo with ICH, sp EVD, drainage and vent dependent respiratory failure. Still not following commands, hemodynamically and respiratory linda stable. Continue to wean, HOB>35 degree neutral position. Discussed with neurosurgery-->LTAC. Maintain euvolemia, euglycemia and normothermia. 02sat>95 ccm time 40 min
[2017-04-02] MEDS: Sodium Chloride 0.9% 1,000 ML IV SCH (13:52)
--- NOTE | 2017-04-02 16:29 | OP ---
PROCEDURE DATE: 03/29/2017 PREOPERATIVE DIAGNOSIS: Had a stroke, brain injury. POSTOPERATIVE DIAGNOSIS: Had a stroke, brain injury. OPERATION: Open Anastasiya gastrostomy followed by open tracheostomy. SURGEON: Nj Lewis MD LOOM CHECKER: Dr. Valencia and Dr. Villagran. DESCRIPTION OF PROCEDURE: In the operating room, the patient was identified by name, name of the procedure, laterality, my carlota, the consent. The abdomen was prepped and draped and after successful time-out, identifying the patient for gastrostomy and tracheostomy. An upper midline incision was made through the skin and subcutaneous tissues and the abdomen entered. The stomach was readily identified. There was nothing else untoward. The stomach was brought into the abdominal wound and then #24 gastrostomy was placed through a separate stab laterally with countertraction on the abdominal wall using trocars. This came through nicely, the balloon was tested. Two purstrings were placed in the anterior wall of the stomach and the gastrostomy placed through a gastrotomy. The balloon inflated, the purstrings tied and invaginated. A posterior 0 Vicryl was placed laterally on the stomach and the abdominal wall and then serial 0 Vicryls were tied around the gastrostomy. These were then pulled up and tied serially. The gastrostomy flushed very nicely. The wound was irrigated and dried. The omentum was placed nearby this and the incision was closed with running #1 PDS both above and below and tied in the middle and was injected with Marcaine and the skin was stapled. Having been done the operation was switched to do tracheostomy. The neck was hyperextended noting that the trachea was very posterior. An up and down incision was made after the area was prepped and draped, in midline, the platysma was divided. The strap muscles were identified in the midline, found, but it was very posterior. We had to cut through the bottom of the thyroid. Using a retractor,we were able to identify the larynx,cricothyroid ring and the trachea. Going down a little bit more inferiorly by dissection, the second, third and fourth rings were found. Noting that the initial dissection has a very large crossing kameron, that was suture ligated. A hook was placed on the laryngeal, cricothyroid cartilage pulling the trachea up very nicely, it was brought into the wound without issue. Third ring was cut and a nodule in a square removed and the trachea was moved back. The area was dilated and the endotracheal tube was placed without problem. However,the balloon apparently was cut as it did not work, had to replaced, this had to be done using the dilator and it was placed without issue. The skin was closed with nylon. The #8 tracheostomy was held down very nicely with sutures and the trach placer was placed on either sides. The patient tolerated the procedure well and was taken to the ICU in good condition. During this entire time, oxygenation was good, done through anesthesia. Nj Lewis MD
--- NOTE | 2017-04-02 16:57 | PN ---
DATE: 03/28/2017 SUBJECTIVE: The patient is comfortable on the bed. There is clinically no change in mental status, he is still not responding to any verbal stimuli. Only fair deep painful stimuli may respond, but otherwise clinically no change. He can breath above the vent. There is no other complaints. He runs a low grade fever. Culture is negative. Discussed with the family around him planning a trach and PEG tube. Dr. Lewis, surgical specialist on the case. PHYSICAL EXAMINATION: HEAD AND NECK: Normal. The patient is not responding. CHEST: Clear bilaterally. CARDIAC: First sound and second sounds are normal. ABDOMEN: Soft and nontender. EXTREMITIES: No edema SCDs on it. NEUROLOGIC: No change. He is still comatose. LABORATORY STUDY: White count 9.7, hemoglobin 15.8, hematocrit 41.8, platelet 247. Chemistry shows sodium 132, potassium 3.9, chloride 94, bicarbonate 29, BUN 19, creatinine 0.6, and blood sugar 222. Liver function tests seem slightly elevated. AST 69, ALT 132, and bilirubin is normal. Alkaline phosphatase is normal. IMPRESSION AND PLAN: 1. Acute intracerebral bleed with intraventricular bleeding status post neurosurgical procedure of ventriculostomy. Clinically, the patient feels the same not responding. Continue vent support for now. Planning PEG tube and tracheostomy. 2. Low grade fevers currently on antibiotics. Cultures negative. We will discuss with other consultants. 3. History of hypertension. We will continue current blood pressure medicines. Continue current therapy. Continue gastrointestinal and deep venous thrombosis prophylaxis. Surendra Ratliff MD
--- NOTE | 2017-04-02 21:00 | PN ---
DATE: 04/02/2017 REASON FOR CONSULTATION: Acute CVA, intercerebral bleed, status post ventriculostomy, status post PEG, and status post trach. SUBJECTIVE: The patient remains on vent. Family is at the bedside. Nonresponsive, comatose. OBJECTIVE: GENERAL: The patient is comatose, nonverbal. VITAL SIGNS: Temperature afebrile, heart rate 72, and blood pressure 118/71. HEENT: PERRLA intact. NECK: Supple. No carotid bruits or thyromegaly. CHEST: Clear to auscultation. HEART: S1 and S2 regular. ABDOMEN: Soft. EXTREMITIES: Clubbing and cyanosis negative. LABORATORY DATA: Blood workup as follows: WBC 8.6, hemoglobin 12.8, hematocrit 37.4, platelet count 286. Chemistry shows sodium 120, potassium 3.7, chloride 90, carbon dioxide 31, anion gap 9, BUN 15, and creatinine 0.5, total protein 5.5, albumin 2.7, albumin-globulin ratio 1. IMPRESSION: Paroxysmal of atrial fibrillation and intracerebral bleed, was at one point on anticoagulation. Neurologically, no significant improvement, pinpoint pupils, status post ventriculostomy, status post percutaneous endoscopic gastrostomy and status post tracheostomy. RECOMMENDATIONS: Continue supportive care. Continue NG feeding. Probably LTAC facility for discharge planning. Continue clonidine patch. We will follow with you. Thank you Dr. Ratliff for providing us the opportunity in taking care of the patient. Travis Beltrán MD
--- NOTE | 2017-04-02 21:37 | PN ---
DATE OF SERVICE: 03/29/2017 SUBJECTIVE: The patient is stable, status post tracheostomy, PEG tube insertion, currently on the vent, comfortable, no distress, family around. The patient is still unresponsive. PHYSICAL EXAMINATION: VITAL SIGNS: Stable, temperature 99.5, heart rate 82, blood pressure is 159/78, and saturation 99% on 35% FiO2 IMV. HEAD AND NECK: Normal except tracheostomy, a little blood oozing. CHEST: Clear. Good air entry. CARDIAC: First sound and second sound normal. ABDOMEN: PEG site is clean at its goals, nontender, bowel sounds intact. EXTREMITIES: No edema, heel cushions, SCDs on. NEUROLOGIC: Unresponsive, comatose. LABORATORY DATA: Sodium 132, potassium 3.7, chloride 96, bicarbonate 28, BUN 24, creatinine 0.6, blood sugars 299. Liver function tests noted ALT 99, otherwise rest of the liver enzymes is normal. He also had CBC on 03/29/2017, white count 8.8, hemoglobin 14.2, hematocrit 40.6, platelets 264. IMPRESSION: 1. Acute intracerebral bleed. The patient has clinically no change, status post tracheostomy and percutaneous endoscopic gastrostomy tube insertions. 2. Hypertension, better controlled. 3. The patient's status is not changed. The patient was discussed with the family about his vegetative state. The patient probably is going to be on tracheostomy. probably going to go to group home with percutaneous endoscopic gastrostomy tube feeding and respiratory support. Hopefully, days and we will continue current therapy for now. Continue gastrointestinal prophylaxis. Continue all other medications. Discussed this with family in detail. PLAN: Continue present therapy. Planning to weaning and sending him to group home. Mental status remains same. Surendra Ratliff MD
--- NOTE | 2017-04-02 23:55 | PN ---
PULMONARY PROGRESS NOTE DATE: 04/02/2017 REFERRING PHYSICIAN: Dr. Ratliff. SUBJECTIVE: He is unresponsive, on the ventilator through the tracheostomy, had a small amount of tracheal secretion. No hemoptysis, no vomiting, no hematuria, and no diarrhea reported. PHYSICAL EXAMINATION GENERAL: Unresponsive, on ventilator. VITAL SIGNS: Temperature is 99.5, heart rate is 62, respiratory rate is 20, blood pressure 128/71, pulse oximetry 96% on ventilator. HEENT: Moist mucous membrane. NECK: Supple. Tracheostomy looks okay. LUNGS: Fair airflow with few rhonchi. HEART: S1 and S2. ABDOMEN: Soft and nontender. Nondistended. G-tube area looks okay. EXTREMITIES: There is no edema. NEUROLOGICALLY: Unresponsive. MEDICATIONS: He is on hydralazine 10 mg q. 6 hours p.r.n., and 50 mg twice a day round the clock, Catapres 0.3 mg, weekly, DuoNeb q. 6 hours, insulin coverage, MiraLax 17 g daily, Peridex 15 mL twice a day, Protonix 40 mg daily, IV fluid normal saline 75 mL per hour, Tylenol p.r.n., and Xopenex p.r.n. basis. LABORATORY DATA: Shows hemoglobin 12.8, hematocrit 37.4, WBC 8.6, platelet count is 286. INR 1.13, PTT 30. Blood gas shows pH 7.48, pCO2 39, O2 of 129 this is on ventilator with 35% oxygen. Sodium 128, potassium 3.7, chloride 92, bicarbonate 31, BUN 15, creatinine 0.5. Glucose 135, calcium 8.1, phosphorous 2.9, AST 47, ALT 74, alk phos is 80, albumin is 2.6. Tracheal secretion has Klebsiella pneumonia. Chest x-ray shows no infiltrate or effusion. IMPRESSION AND PLAN: Intraventricular and intracranial bleed, hydrocephalus status post external ventricular drainage placed, which has been removed, chronic obstructive lung disease, hypertension, paroxysmal atrial fibrillation, respiratory failure, on ventilator through the tracheostomy, feeding difficulty requiring G-tube. Pulmonary point of view, doing okay. Keep present vent setting. Keep head at 45 degrees, p.r.n. Motrin, tracheostomy suction, gastric prophylaxis, SCD to lower extremity, antibiotics as per Infectious Disease. Follow up ABG, chest x-ray, CBC, and CMP in the morning. CRITICAL CARE TIME: More than 35 minutes. Overall poor prognosis. Thank you and we will follow with you. Travis Wilcox MD
[2017-04-03] MEDS: Albuterol-Ipratrop 3 mg / 0.5 (3 ml) UD IH SCH ×4 (02:35→19:37)
[2017-04-03] MEDS: Sodium Chloride 0.9% 1,000 ML IV SCH (03:00)
[2017-04-03] MEDS: Acetaminophen 650mg/20.3ml solution UD PO PRN ×2 (03:09→10:20)
[2017-04-03 08:52] LABS: BASO # 0.01 K/mm3 (0.0-2.0); BASO % 0.1 % (0.0-3.0); GRAN # 14.81 (1.4-6.5); GRAN % 89.8 % (50.0-68.0); LYMPH # 0.5 (1.2-3.4); LYMPH % 2.7 % (22.0-35.0); MEAN CELL VOLUME 82.8 fl (80.0-105.0); MEAN CORPUSCULAR HEMOGLOBIN 28.5 pg (25.0-35.0); MEAN CORPUSCULAR HGB CONC 34.5 g/dl (31.0-37.0); MEAN PLATELET VOLUME 8.8 fl (7.0-11.0); MONO # 1.2 (0.1-0.6); MONO % 7.4 % (1.0-6.0); PLATELET COUNT 412 10^3/uL (120.0-450.0); RED CELL DISTRIBUTION WIDTH 11.9 % (11.5-14.5); WHITE BLOOD COUNT 16.5 10^3/ul (4.5-11.0)
[2017-04-03 09:02] LABS: ALKALINE PHOSPHATASE 104 U/L (38-126); ALT/SGPT 91 U/L (7-56); AST/SGOT 49 U/L (17-59); BILIRUBIN,TOTAL 1.2 mg/dL (0.2-1.3); BLOOD UREA NITROGEN 15 mg/dL (7-21); CARBON DIOXIDE 29 mmol/L (21-33); CHLORIDE 91 mmol/L (98-107); GFR AFRICAN-AMERICAN > 60; GLUCOSE,RANDOM 213 mg/dL (70-110); MAGNESIUM 1.8 mg/dL (1.7-2.2); PHOSPHOROUS 3.1 mg/dL (2.5-4.5); POTASSIUM 3.9 mmol/L (3.6-5.0); SODIUM 124 mmol/L (132-148); TOTAL PROTEIN 5.9 g/dL (5.8-8.3)
--- NOTE | 2017-04-03 09:30 | PN ---
DATE: 03/30/2017 SUBJECTIVE: The patient is in ICU, status post tracheostomy and PEG tube insertion, comfortable on the vent, 35% FiO2. Feeding tube started. The patient clinically looks the same. He is unresponsive. PHYSICAL EXAMINATION: VITAL SIGNS: Temperature 99.9, heart rate is in the 70s, saturating 96% and blood pressure is running 158/75. HEAD AND NECK EXAM: Normal except tracheostomy. CHEST EXAM: Clear. CARDIAC: First sound and second sound normal. ABDOMEN: Soft, status post PEG tube. EXTREMITIES: No edema, SCDs on and heel cushions. NEUROLOGICALLY: The patient is unresponsive. LABORATORY DATA: On 03/30, his laboratory, white count 17.3, hemoglobin 14.3, hematocrit 41.2 and platelets 283. His chemistry showed sodium 131, potassium 3.6, chloride 93, bicarb 31, BUN 25, creatinine 0.6 and blood sugar 207. Liver function tests noted for an ALT of 85, otherwise normal liver function tests. Total protein 6.1 and albumin is 3.1. IMPRESSION AND PLAN: 1. Acute intracerebral bleed with intraventricular bleeding with hydrocephalus, status post neurosurgical procedure, ventriculostomy with clinically no changes in his mental status. The patient is drain. He is still unresponding. We will continue current management. 2. Respiratory failure, probably due to his mental status changes, status post tracheostomy. We will continue oxygen and vent support. We will see if he is weanable or not. We will discuss with the printer helper in the case. 3. Low-grade fever. Infectious disease consult, Dr. Sommers has seen the patient. The patient bearing the IV antibiotics. We will discuss with him about the plan. His cultures all negative, probably central nervous system fever. 4. Diabetes. Continue insulin coverage. 5. Chronic obstructive pulmonary disease. Continue nebulizer treatment. 6. Hypertension. Continue hydralazine 50 mg twice a day and clonidine patch and we will continue current treatment. PLAN: Supportive management and discussed with the family in detail. Surendra Ratliff MD
[2017-04-03 09:44] LABS: ANISOCYTOSIS SLIGHT; NEUTROPHIL 91 % (50.0-70.0); PLATELET ESTIMATE NORMAL (NORMAL)
[2017-04-03 09:45] LABS: TOXIC GRANULATION SLIGHT
--- NOTE | 2017-04-03 09:49 | RAD ---
HISTORY: rule out pneumonia COMPARISON: 04/02/2017 FINDINGS: LUNGS: No active pulmonary disease. PLEURA: No significant pleural effusion identified, no pneumothorax apparent. CARDIOVASCULAR: Mild cardiomegaly. Moderate aortic tortuosity OSSEOUS STRUCTURES: No significant abnormalities. VISUALIZED UPPER ABDOMEN: Normal. OTHER FINDINGS: Tracheostomy IMPRESSION: No active disease.
[2017-04-03] MEDS ORDERED: Sodium Chloride 3% 500 ML IV SCH (10:15)
[2017-04-03] MEDS: Insulin Reg-LOW-Coverage SC SCH ×4 (10:20→22:23)
[2017-04-03] MEDS: POLYETHYLENE GLYCOL 3350 17 GM/Dose PACKET PO SCH (10:20)
--- NOTE | 2017-04-03 10:23 | PN ---
DATE: 04/02/2017 SUBJECTIVE: The patient is clinically stable. He has no respiratory distress, poorly responding. He remains on the vent and PEG tube feeding. PHYSICAL EXAMINATION: Not changed. GENERAL: The patient remains on vent. No respiratory distress. VITAL SIGNS: On 04/02/2017 is as follows: His temperature 99.7, heart rate 58, blood pressure is 120/64, and saturation 99% on 35% FiO2, AC control. HEAD AND NECK: tracheostomy. CHEST: Clear. Good air entry. CARDIAC: First sound and second sound normal. ABDOMEN: Soft and nontender. PEG site is clean. EXTREMITIES: No edema. NEUROLOGIC: Poorly, the patient is unresponsive. LABORATORY STUDIES: As follows on 04/02/2017, sodium is low 128, potassium 3.7, chloride 92, bicarbonate 31, BUN 15, creatinine 3.5, blood sugar 135, calcium 8.1. Phosphorus, magnesium, and total bilirubin are normal. ALT slightly elevated at 74. The patient also had a CBC, which shows on 04/02/2017, white count 8.6, hemoglobin 12.8, hematocrit 37.4, platelets 286. IMPRESSION: 1. Acute intracranial bleed status post LANGUAGE THERAPIST ventriculostomy by neurosurgeon, Dr. Mcintyre. The patient has clinically no change, poorly unresponding. We will continue vent support and PEG tube feeding. 2. History of hypertension and paroxysmal atrial fibrillation in the past. We will continue current management as per Cardiology Dr. Beltrán. 3. Low-grade fever. We will consider consultation with Dr. Sommers again. The patient does only have no active disease in the lung; however, the sputum culture showed some Klebsiella, whether this is contaminant or responsible for fever unclear, probably fever is related to his intracranial bleed. We will discuss this with consultants. The patient was seen by neurologist, neurosurgeons, and Infectious Disease. Continue current management. He is off antibiotics. 4. Nutrition-linda, the patient is getting percutaneous endoscopic gastrostomy tube feeding, seems stable. Continue feeding at 50 mL per hour and check for residuals. The patient is currently stable, had a Wells catheter, percutaneous endoscopic gastrostomy tube feeding. Continue gastrointestinal and deep vein thrombosis prophylaxis. Sequential compression devices and heel cushions on. Bedsore prevention is evaluated. Continue current treatment. PLAN: Placement. Discussed with the patient in details. Surendra Ratliff MD
--- NOTE | 2017-04-03 10:42 | CP.PCM.PN ---
Subjective - Date & Time of Evaluation Date of Evaluation: 04/03/17 Time of Evaluation: 10:20 - Subjective Subjective: Continues to be on the ventilator, started having fevers again last night. Has spontaneous lip movements but not purposeful. Objective - Vital Signs/Intake and Output Vital Signs (last 24 hours): Temp Pulse Resp BP Pulse Ox 101.3 F H 74 25 H 150/73 97 04/03/17 05:30 04/03/17 05:30 04/01/17 10:20 04/03/17 05:00 04/03/17 05:30 Intake and Output: 04/03/17 04/03/17 06:59 18:59 Intake Total 1700 Output Total 1500 Balance 200 - Medications Medications: Current Medications Acetaminophen (Tylenol 650mg/20.3ml Solution Ud) 650 mg PO Q6H PRN PRN Reason: Fever >100.4 F Last Admin: 04/03/17 03:09 Dose: 650 mg Albuterol/Ipratropium (Duoneb 3 Mg/0.5 Mg (3 Ml) Ud) 3 ml IH [id number] [facility] Last Admin: 04/03/17 02:35 Dose: 3 ml Chlorhexidine Gluconate (Peridex) 15 ml PO BID [facility] Last Admin: 04/02/17 18:50 Dose: 15 ml Clonidine HCl (Catapres-Tts3 0.3 Mg/24 Hr) 1 patch TD Q7D@1000 [facility] Last Admin: 03/28/17 09:22 Dose: 1 patch Hydralazine HCl (Apresoline) 10 mg IVP Q6 PRN PRN Reason: for SBP>140 Last Admin: 04/03/17 03:09 Dose: 10 mg Hydralazine HCl (Apresoline) 50 mg PO BID [facility] Last Admin: 04/02/17 18:50 Dose: 50 mg Sodium Chloride (Sodium Chloride 0.9%) 1,000 mls @ 75 mls/hr IV .[id number] [facility] Last Admin: 04/03/17 03:00 Dose: 75 mls/hr Insulin Human Regular (Humulin R Low) 0 units SC ACHS [facility] PRN Reason: Protocol Last Admin: 04/02/17 22:00 Dose: Not Given Levalbuterol HCl (Xopenex) 1.25 mg IH [id number] PRN PRN Reason: Shortness of Breath Last Admin: 03/26/17 19:42 Dose: 1.25 mg Pantoprazole Sodium (Protonix Inj) 40 mg IVP DAILY SRINATH Last Admin: 04/02/17 09:19 Dose: 40 mg Polyethylene Glycol (Miralax) 17 gm PO DAILY SRINATH Last Admin: 04/02/17 09:19 Dose: 17 gm - Labs Labs: 04/02/17 05:30 04/02/17 05:30 PT 12.2 Seconds (9.9-11.8) H 04/02/17 05:30 INR 1.13 (0.93-1.08) H 04/02/17 05:30 APTT 29.6 Seconds (23.7-30.8) 04/02/17 05:30 - Constitutional Appears: Other (on the ventilator, poorly responsive) - ENT Exam Additional comments: tracheostomy tube in place - Respiratory Exam Respiratory Exam: Decreased Breath Sounds - Cardiovascular Exam Cardiovascular Exam: +S1, +S2 - GI/Abdominal Exam GI & Abdominal Exam: Soft. 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
[2017-04-03 10:48] LABS: URINE BILIRUBIN NEGATIVE (NEGATIVE); URINE BLOOD TRACE-INTACT (NEGATIVE); URINE GLUCOSE (UA) >=1000 mg/dL (NEGATIVE); URINE KETONE 15 mg/dL (NEGATIVE); URINE LEUKOCYTE ESTERASE NEGATIVE Leu/uL (NEGATIVE); URINE PROTEIN TRACE mg/dL (<30 mg/dL)
[2017-04-03] MEDS: Cefepime 1gm in NS 100ml 1 GM/100 ML BAG IVPB SCH ×2 (10:52→22:23)
[2017-04-03] MEDS: Chlorhexidine 0.12% Oral Sol 480 ml Bot PO SCH ×2 (10:55→17:24)
[2017-04-03 10:57] LABS: URINE APPEARANCE CLEAR (CLEAR); URINE COLOR YELLOW (YELLOW)
[2017-04-03 11:04] LABS: URINE AMORPHOUS SEDIMENT FEW; URINE BACTERIA MOD (NEG); URINE EPITHELIAL CELLS 0 - 2 /hpf (0-5); URINE WBC 0 - 2 /hpf (0-6)
--- NOTE | 2017-04-03 12:51 | PN ---
SUBJECTIVE: The patient is in ICU, still remains on the vent. The patient still runs a low-grade fever. No respiratory distress, still poorly unresponsive. Status post COPY CENTER OPERATOR drainage of the intraventricular bleed. PHYSICAL EXAMINATION: VITAL SIGNS: The patient's temperature runs 99.7, heart rate 71, saturating on FiO2 of 35% is 97%. The patient's blood pressure 108/71. HEAD AND NECK: No JVD. Tracheostomy clean. CHEST: Clear. Good air entry. CARDIAC: First sound and second sound normal. ABDOMEN: Soft, nontender. PEG tube was inserted, clean. EXTREMITIES: No edema. NEUROLOGIC: Poorly unresponsive. LABORATORY DATA: On 03/31 is as follows; sodium 132, potassium 3.7, chloride 96, bicarbonate 30, BUN 22, creatinine 0.5, blood sugar 152, calcium 8.3, ALT 73, AST normal, total bilirubin normal. IMPRESSION AND PLAN: 1. Acute intracranial bleed, status post ventriculostomy, drainage, status post removal. The patient is unresponsive, in vegetative stage. We will continue vent support and percutaneous endoscopic gastrostomy tube feeding. Discussed with the family, plan is for placement. 2. Low-grade fever, the patient does have some Klebsiella in his sputum. Chest x-ray, no active disease. Rest of the blood cultures and urine cultures is repeatedly negative. We will consider infectious disease reevaluation; has been seen by ID, Dr. Sommers. We will continue followup with him. 3. Hypertension, history of paroxysmal atrial fibrillation, history of bradycardia. We will continue current management for now. PLAN: Continue current treatment, placement and follow up with other consultants. Surendra Ratliff MD
--- NOTE | 2017-04-03 13:16 | CP.CCUPN ---
<Kehinde Ritchie - Last Filed: 04/03/17 15:09> CCU Subjective - Physician Review Subjective (Free Text): 04/03/17 12:49 Patient seen and examined at bedside in the ICU. Remains off sedation, still unresponsive. Overnight, exhibited new fevers persistently despite tylenol, Tmax 102.9F; new cultures ordered and empirically covering with abx as per ID. Family still wishes to pursue all measures; s/p Trach and Gastrostomy tube, POD# 5. Pending placement at long-term care facility. CCU Objective - Vital Signs / Intake & Output Vital Signs (Last 4 hours): Vital Signs Temp Pulse BP 04/03/17 11:20 100.9 F H 04/03/17 10:20 101.3 F H 67 151/80 H Intake and Output (Last 8hrs): Intake & Output 04/02/17 04/03/17 04/03/17 22:59 06:59 14:59 Intake Total 1450 1700 Output Total 1350 1500 Balance 100 200 Intake: IV 450 900 saline 450 900 Tube Feeding 600 600 Other 400 200 Output: Urine 1350 1500 Urethral (Mccord) 1350 1500 Other: # Bowel Movements 0 - Physical Exam Head: Positive for: Atraumatic. Negative for: Normocephalic (Drain removed, mild clear drainage from site earlier this AM, no further drainage, new stitch placed by Neurosurgeon), Ecchymosis, Abrasion Pupils: Positive for: Pinpoint. Negative for: PERRL, Non-Reactive Extroacular Muscles: Negative for: EOMI (no movements on commands or puposeful tracking but does exhibit random [id number] movements of eyes, no avoidance of direct light challenge for PERRL assessment; reported by family to have spontaneous eye openings, but at bedside only exhibits half open lids which slide closed when manually opened by examiner; slight lateral gaze deviation on R eye) Conjunctiva: Positive for: Normal. Negative for: Injected, Icteric Mouth: Positive for: Moist Mucous Membranes, Drooling. Negative for: Normal Tounge (tongue slightly extruded from mouth, deviated towards Right) Pharnyx: Positive for: Normal Nose (External): Positive for: Atraumatic. Negative for: Abrasion, Contusion, Laceration Nose (Internal): Positive for: Normal Inspection Neck: Positive for: Normal Range of Motion (passively intact ROM, no spontaneous or purposeful movements of head initiated by patient), Trachea Midline, Other (Trach in place, held by trach collar, no active bleeding or oozing from site noted, trach connected to vent). Negative for: JVD, Lymphadenopathy Respiratory/Chest: Positive for: Clear to Auscultation, Good Air Exchange, Rales (mild rales in all gracai, otherwise CTA, unchanged from prior exam), Other (intubated and on mechanical ventilation via trach). Negative for: Respiratory Distress, Accessory Muscle Use Cardiovascular: Positive for: Regular Rate and Rhythm, Normal S1, S2. Negative for: Murmurs, Irregular Rhythm, Tachycardic Abdomen: Positive for: Normal Bowel Sounds, Feeding Tubes (gastrostomy tube in place). Negative for: Distention Back: Negative for: Midline Tenderness, Paraspinal Tenderness Upper Extremity: Positive for: Normal Inspection, NORMAL PULSES. Negative for: Cyanosis, Edema, Swelling, Erythema, Temperature Abnormalties, Deformity Lower Extremity: Positive for: Normal Inspection, NORMAL PULSES. Negative for: Edema, CALF TENDERNESS, Cyanosis, Swelling, Erythema, Deformity, Temperature Abnormalties Neurological: Positive for: Other (intubated, not sedated but unresponsive, no purposeful movements, intermittent twitches of face/extremities). Negative for : GCS=15 (Score of 3 (E1 V1t M1)), CN II-XII Intact, Speech Normal, Motor Func Grossly Intact Skin: Positive for: Warm, Dry, Normal Color. Negative for: Rashes, Diaphoretic Psychiatric: Positive for: Other (Intubated, not sedated but unresponsive). Negative for: Alert, Oriented x 3, Normal Insight, Normal Concentration, Normal Affect - Medications Active Medications: Active Medications Generic Name Dose Route Start Last Admin Trade Name Freq PRN Reason Stop Dose Admin Acetaminophen 650 mg 04/03/17 02:51 04/03/17 10:20 Tylenol 650mg/20.3ml Solution Ud PO 650 mg Q6H PRN Administration Fever >100.4 F Albuterol/Ipratropium 3 ml 03/27/17 02:00 04/03/17 07:40 Duoneb 3 Mg/0.5 Mg (3 Ml) Ud IH 3 ml [id number] SRINATH Administration Chlorhexidine Gluconate 15 ml 03/25/17 10:00 04/03/17 10:55 Peridex PO 15 ml BID SRINATH Administration Clonidine HCl 1 patch 03/28/17 10:00 03/28/17 09:22 Catapres-Tts3 0.3 Mg/24 Hr TD 1 patch Q7D@1000 SRINATH Administration Hydralazine HCl 10 mg 03/27/17 10:56 04/03/17 03:09 Apresoline IVP 10 mg Q6 PRN Administration for SBP>140 Hydralazine HCl 50 mg 03/28/17 10:00 04/03/17 10:20 Apresoline PO 50 mg BID SRINATH Administration Sodium Chloride 1,000 mls @ 75 mls/hr 04/02/17 13:00 04/03/17 03:00 Sodium Chloride 0.9% IV 75 mls/hr .[id number] SRINATH Administration Cefepime HCl 1 gm in 100 mls @ 100 mls/hr 04/03/17 10:00 04/03/17 10:52 Maxipime 1gm IVPB 100 mls/hr Q12 SRINATH Administration Protocol Acetaminophen 1,000 mg in 100 mls @ 400 mls/hr 04/03/17 09:12 Ofirmev IVPB 04/05/17 09:13 Q6H PRN Temperature > 100.4F Sodium Chloride 500 mls @ 20 mls/hr 04/03/17 10:15 04/03/17 10:56 Hypertonic Saline 3% IV 20 mls/hr .Q24H SRINATH Administration Insulin Human Regular 0 units 03/27/17 11:30 04/03/17 12:17 Humulin R Low SC 2 units ACHS SRINATH Administration Protocol Levalbuterol HCl 1.25 mg 03/25/17 19:40 03/26/17 19:42 Xopenex IH 1.25 mg T1INGCO PRN Administration Shortness of Breath Pantoprazole Sodium 40 mg 03/26/17 10:00 04/03/17 10:20 Protonix Inj IVP 40 mg DAILY SRINATH Administration Polyethylene Glycol 17 gm 04/02/17 10:00 04/03/17 10:20 Miralax PO 17 gm DAILY SRINATH Administration - Patient Studies Lab Studies: Microbiology Studies 03/30/17 08:30 Blood Culture - Preliminary Blood NO GROWTH AFTER 4 DAYS 03/30/17 08:40 Blood Culture - Preliminary Blood NO GROWTH AFTER 4 DAYS Lab Studies 04/03/17 04/03/17 04/03/17 Range/Units 09:23 09:16 09:16 WBC (4.5-11.0) 10^3/ul RBC (3.5-6.1) 10^6/uL Hgb (14.0-18.0) g/dL Hct (42.0-52.0) % MCV (80.0-105.0) fl MCH (25.0-35.0) pg MCHC (31.0-37.0) g/dl RDW (11.5-14.5) % Plt Count (120.0-450.0) 10^3/uL MPV (7.0-11.0) fl Gran % (50.0-68.0) % Lymph % (Auto) (22.0-35.0) % [place] % (Auto) (1.0-6.0) % Eos % (Auto) (1.5-5.0) % Baso % (Auto) (0.0-3.0) % Gran # (1.4-6.5) Lymph # (1.2-3.4) [place] # (0.1-0.6) Eos # (0.0-0.7) Baso # (0.0-2.0) K/mm3 Neutrophils % (Manual) (50.0-70.0) % Lymphocytes % (Manual) (22.0-35.0) % Monocytes % (Manual) (1.0-6.0) % Toxic Granulation Platelet Evaluation (NORMAL) Anisocytosis (manual) Sodium (132-148) mmol/L Potassium (3.6-5.0) mmol/L Chloride (98-107) mmol/L Carbon Dioxide (21-33) mmol/L Anion Gap (10-20) BUN (7-21) mg/dL Creatinine (0.8-1.5) mg/dL Est GFR ( Amer) Est GFR (Non-Af Amer) POC Glucose (mg/dL) (65-110) mg/dL Random Glucose (70-110) mg/dL Calcium (8.4-10.5) mg/dL Phosphorus (2.5-4.5) mg/dL Magnesium (1.7-2.2) mg/dL Total Bilirubin (0.2-1.3) mg/dL AST (17-59) U/L ALT (7-56) U/L Alkaline Phosphatase (38-126) U/L Total Protein (5.8-8.3) g/dL Albumin (3.0-4.8) g/dL Globulin gm/dL Albumin/Globulin Ratio (1.1-1.8) Procalcitonin 0.13 L (0.19-0.49) NG/ML Urine Color Yellow (YELLOW) Urine Appearance Clear (CLEAR) Urine pH 6.0 (4.7-8.0) Ur Specific [place] 1.015 (1.005-1.035) Urine Protein Trace H (<30 mg/dL) mg/dL Urine Glucose (UA) >=1000 (NEGATIVE) mg/dL Urine Ketones 15 H (NEGATIVE) mg/dL Urine Blood Trace-intact H (NEGATIVE) Urine Nitrate Negative (NEGATIVE) Urine Bilirubin Negative (NEGATIVE) Urine Urobilinogen 4.0 H (<1 E.U./dL) E.U./dL Ur Leukocyte Esterase Negative (NEGATIVE) [place]/uL Urine RBC 1 - 3 (0-2) /hpf Urine WBC 0 - 2 (0-6) /hpf Ur Epithelial Cells 0 - 2 (0-5) /hpf Amorphous Sediment Few Urine Bacteria Mod (NEG) Ur Random Creatinine 41 mg/dL Ur Random Sodium 128 meq/L Ur Random Potassium 56.8 meq/L Ur Random Urea Nitrogn 785 mg/dL 04/03/17 04/03/17 04/02/17 Range/Units 08:40 08:40 22:33 WBC 16.5 H D (4.5-11.0) 10^3/ul RBC 4.59 (3.5-6.1) 10^6/uL Hgb 13.1 L (14.0-18.0) g/dL Hct 38.0 L (42.0-52.0) % MCV 82.8 (80.0-105.0) fl MCH 28.5 (25.0-35.0) pg MCHC 34.5 (31.0-37.0) g/dl RDW 11.9 (11.5-14.5) % Plt Count 412 (120.0-450.0) 10^3/uL MPV 8.8 (7.0-11.0) fl Gran % 89.8 H (50.0-68.0) % Lymph % (Auto) 2.7 L (22.0-35.0) % [place] % (Auto) 7.4 H (1.0-6.0) % Eos % (Auto) 0.0 L (1.5-5.0) % Baso % (Auto) 0.1 (0.0-3.0) % Gran # 14.81 H (1.4-6.5) Lymph # 0.5 L (1.2-3.4) [place] # 1.2 H (0.1-0.6) Eos # 0.0 (0.0-0.7) Baso # 0.01 (0.0-2.0) K/mm3 Neutrophils % (Manual) 91 H (50.0-70.0) % Lymphocytes % (Manual) 6 L (22.0-35.0) % Monocytes % (Manual) 3 (1.0-6.0) % Toxic Granulation Slight Platelet Evaluation Normal (NORMAL) Anisocytosis (manual) Slight Sodium 124 L (132-148) mmol/L Potassium 3.9 (3.6-5.0) mmol/L Chloride 91 L (98-107) mmol/L Carbon Dioxide 29 (21-33) mmol/L Anion Gap 8 L (10-20) BUN 15 (7-21) mg/dL Creatinine 0.5 L (0.8-1.5) mg/dL Est GFR ( Amer) > 60 Est GFR (Non-Af Amer) > 60 POC Glucose (mg/dL) 159 H (65-110) mg/dL Random Glucose 213 H (70-110) mg/dL Calcium 8.0 L (8.4-10.5) mg/dL Phosphorus 3.1 (2.5-4.5) mg/dL Magnesium 1.8 (1.7-2.2) mg/dL Total Bilirubin 1.2 (0.2-1.3) mg/dL AST 49 (17-59) U/L ALT 91 H (7-56) U/L Alkaline Phosphatase 104 (38-126) U/L Total Protein 5.9 (5.8-8.3) g/dL Albumin 3.0 (3.0-4.8) g/dL Globulin 2.9 gm/dL Albumin/Globulin Ratio 1.0 L (1.1-1.8) Procalcitonin (0.19-0.49) NG/ML Urine Color (YELLOW) Urine Appearance (CLEAR) Urine pH (4.7-8.0) Ur Specific [place] (1.005-1.035) Urine Protein (<30 mg/dL) mg/dL Urine Glucose (UA) (NEGATIVE) mg/dL Urine Ketones (NEGATIVE) mg/dL Urine Blood (NEGATIVE) Urine Nitrate (NEGATIVE) Urine Bilirubin (NEGATIVE) Urine Urobilinogen (<1 E.U./dL) E.U./dL Ur Leukocyte Esterase (NEGATIVE) [place]/uL Urine RBC (0-2) /hpf Urine WBC (0-6) /hpf Ur Epithelial Cells (0-5) /hpf Amorphous Sediment Urine Bacteria (NEG) Ur Random Creatinine mg/dL Ur Random Sodium meq/L Ur Random Potassium meq/L Ur Random Urea Nitrogn mg/dL 04/02/17 04/02/17 04/02/17 Range/Units 16:10 11:02 07:39 WBC (4.5-11.0) 10^3/ul RBC (3.5-6.1) 10^6/uL Hgb (14.0-18.0) g/dL Hct (42.0-52.0) % MCV (80.0-105.0) fl MCH (25.0-35.0) pg MCHC (31.0-37.0) g/dl RDW (11.5-14.5) % Plt Count (120.0-450.0) 10^3/uL MPV (7.0-11.0) fl Gran % (50.0-68.0) % Lymph % (Auto) (22.0-35.0) % [place] % (Auto) (1.0-6.0) % Eos % (Auto) (1.5-5.0) % Baso % (Auto) (0.0-3.0) % Gran # (1.4-6.5) Lymph # (1.2-3.4) [place] # (0.1-0.6) Eos # (0.0-0.7) Baso # (0.0-2.0) K/mm3 Neutrophils % (Manual) (50.0-70.0) % Lymphocytes % (Manual) (22.0-35.0) % Monocytes % (Manual) (1.0-6.0) % Toxic Granulation Platelet Evaluation (NORMAL) Anisocytosis (manual) Sodium (132-148) mmol/L Potassium (3.6-5.0) mmol/L Chloride (98-107) mmol/L Carbon Dioxide (21-33) mmol/L Anion Gap (10-20) BUN (7-21) mg/dL Creatinine (0.8-1.5) mg/dL Est GFR ( Amer) Est GFR (Non-Af Amer) POC Glucose (mg/dL) 154 H 159 H 135 H (65-110) mg/dL Random Glucose (70-110) mg/dL Calcium (8.4-10.5) mg/dL Phosphorus (2.5-4.5) mg/dL Magnesium (1.7-2.2) mg/dL Total Bilirubin (0.2-1.3) mg/dL AST (17-59) U/L ALT (7-56) U/L Alkaline Phosphatase (38-126) U/L Total Protein (5.8-8.3) g/dL Albumin (3.0-4.8) g/dL Globulin gm/dL Albumin/Globulin Ratio (1.1-1.8) Procalcitonin (0.19-0.49) NG/ML Urine Color (YELLOW) Urine Appearance (CLEAR) Urine pH (4.7-8.0) Ur Specific [place] (1.005-1.035) Urine Protein (<30 mg/dL) mg/dL Urine Glucose (UA) (NEGATIVE) mg/dL Urine Ketones (NEGATIVE) mg/dL Urine Blood (NEGATIVE) Urine Nitrate (NEGATIVE) Urine Bilirubin (NEGATIVE) Urine Urobilinogen (<1 E.U./dL) E.U./dL Ur Leukocyte Esterase (NEGATIVE) [place]/uL Urine RBC (0-2) /hpf Urine WBC (0-6) /hpf Ur Epithelial Cells (0-5) /hpf Amorphous Sediment Urine Bacteria (NEG) Ur Random Creatinine mg/dL Ur Random Sodium meq/L Ur Random Potassium meq/L Ur Random Urea Nitrogn mg/dL Laboratory Results - last 24 hr 10/16/17 10/16/17 10/16/17 07:39 11:02 16:10 WBC RBC Hgb Hct MCV MCH MCHC RDW Plt Count MPV Gran % Lymph % (Auto) [place] % (Auto) Eos % (Auto) Baso % (Auto) Gran # Lymph # [place] # Eos # Baso # Neutrophils % (Manual) Lymphocytes % (Manual) Monocytes % (Manual) Toxic Granulation Platelet Evaluation Anisocytosis (manual) Sodium Potassium Chloride Carbon Dioxide Anion Gap BUN Creatinine Est GFR ( Amer) Est GFR (Non-Af Amer) POC Glucose (mg/dL) 135 H 159 H 154 H Random Glucose Calcium Phosphorus Magnesium Total Bilirubin AST ALT Alkaline Phosphatase Total Protein Albumin Globulin Albumin/Globulin Ratio Procalcitonin Urine Color Urine Appearance Urine pH Ur Specific [place] Urine Protein Urine Glucose (UA) Urine Ketones Urine Blood Urine Nitrate Urine Bilirubin Urine Urobilinogen Ur Leukocyte Esterase Urine RBC Urine WBC Ur Epithelial Cells Amorphous Sediment Urine Bacteria Ur Random Creatinine Ur Random Sodium Ur Random Potassium Ur Random Urea Nitrogn 04/02/17 04/03/17 04/03/17 22:33 08:40 08:40 WBC 16.5 H D RBC 4.59 Hgb 13.1 L Hct 38.0 L MCV 82.8 MCH 28.5 MCHC 34.5 RDW 11.9 Plt Count 412 MPV 8.8 Gran % 89.8 H Lymph % (Auto) 2.7 L [place] % (Auto) 7.4 H Eos % (Auto) 0.0 L Baso % (Auto) 0.1 Gran # 14.81 H Lymph # 0.5 L [place] # 1.2 H Eos # 0.0 Baso # 0.01 Neutrophils % (Manual) 91 H Lymphocytes % (Manual) 6 L Monocytes % (Manual) 3 Toxic Granulation Slight Platelet Evaluation Normal Anisocytosis (manual) Slight Sodium 124 L Potassium 3.9 Chloride 91 L Carbon Dioxide 29 Anion Gap 8 L BUN 15 Creatinine 0.5 L Est GFR ( Amer) > 60 Est GFR (Non-Af Amer) > 60 POC Glucose (mg/dL) 159 H Random Glucose 213 H Calcium 8.0 L Phosphorus 3.1 Magnesium 1.8 Total Bilirubin 1.2 AST 49 ALT 91 H Alkaline Phosphatase 104 Total Protein 5.9 Albumin 3.0 Globulin 2.9 Albumin/Globulin Ratio 1.0 L Procalcitonin Urine Color Urine Appearance Urine pH Ur Specific [place] Urine Protein Urine Glucose (UA) Urine Ketones Urine Blood Urine Nitrate Urine Bilirubin Urine Urobilinogen Ur Leukocyte Esterase Urine RBC Urine WBC Ur Epithelial Cells Amorphous Sediment Urine Bacteria Ur Random Creatinine Ur Random Sodium Ur Random Potassium Ur Random Urea Nitrogn 04/03/17 04/03/17 04/03/17 09:16 09:16 09:23 WBC RBC Hgb Hct MCV MCH MCHC RDW Plt Count MPV Gran % Lymph % (Auto) [place] % (Auto) Eos % (Auto) Baso % (Auto) Gran # Lymph # [place] # Eos # Baso # Neutrophils % (Manual) Lymphocytes % (Manual) Monocytes % (Manual) Toxic Granulation Platelet Evaluation Anisocytosis (manual) Sodium Potassium Chloride Carbon Dioxide Anion Gap BUN Creatinine Est GFR ( Amer) Est GFR (Non-Af Amer) POC Glucose (mg/dL) Random Glucose Calcium Phosphorus Magnesium Total Bilirubin AST ALT Alkaline Phosphatase Total Protein Albumin Globulin Albumin/Globulin Ratio Procalcitonin 0.13 L Urine Color Yellow Urine Appearance Clear Urine pH 6.0 Ur Specific [place] 1.015 Urine Protein Trace H Urine Glucose (UA) >=1000 Urine Ketones 15 H Urine Blood Trace-intact H Urine Nitrate Negative Urine Bilirubin Negative Urine Urobilinogen 4.0 H Ur Leukocyte Esterase Negative Urine RBC 1 - 3 Urine WBC 0 - 2 Ur Epithelial Cells 0 - 2 Amorphous Sediment Few Urine Bacteria Mod Ur Random Creatinine 41 Ur Random Sodium 128 Ur Random Potassium 56.8 Ur Random Urea Nitrogn 785 EKG/Cardiology Studies: Cardiology / EKG Studies 04/03/17 EKG [ELECTROCARDIOGRAM] Routine Comment: Reason For Exam: irregular rhythm on monitor Fingerstick Blood Sugar Results: 217 Review of Systems - Review of Systems Systems not reviewed;Unavailable: Intubated Critical Care Progress Note - Nutrition Nutrition: Nutrition Category Date Time Status NPO Diet [DIET] Diets 03/25/17 Breakfast Ordered Assessment/Plan - Assessment and Plan (Free Text) Assessment: This is an 82 yo Czech M with PMH of CAD, COPD, Afib (on Eliquis), BPH, DM, and HTN who was brought to [facility] [place] after being found down on the ground by family, and was found to be hypotensive with extensive intracerebral bleed with ventricular extension and mass effect. S/p ventriculostomy with drain placement , POD #12, removed by Neurosurg 5 days prior. He remains off sedation, but is still unresponsive. Full code and all measures as per family; s/p Trach and Gastrostomy tube POD#5, [facility]. He is now undergoing new sepsis workup given persistent temperatures overnight and a recent trach-asp culture positive for Klebsiella Pneumo spp. ID aware. Plan: Neuro: -extensive ICH with bilateral ventricular extension, notable edema; s/p Ventriculostomy, POD#12; drain removed by Neurosurgeon 5 days ago, residual drainage noted, but as per Neurosurgeon not a CSF leak, put new stitch in site and said no additional management required -intubated, off sedation, but remains completely unresponsive to physical or verbal stimuli -pinpoint pupils, holding extremities flacidly, previously noted to have intermittent twitches and mastication-like movements with jaw, but no purposeful movements -Neuro (Dr. Steen) and Neurosurgery (Dr. Mcintyre) on board, appreciate all recs -Hold all AC due to ICH, maintain euglycemia, maintain SBP 140-160 -EEG obtained, severe bilateral cerebral dysfxn, no epileptiform activity Pulm: -Trached, on mechanical ventilation; was trialled on Trach Collar 3 days prior but failed due to work of breathing, tolerates pressure support well -maintain SaO2 > 88% (COPD pt) and paO2 > 55; avoid over-oxygenation in COPD pt to prevent suppression of respiratory drive -Protective lung ventilation strategies, low tidal volumes, VAP bundle -Mild rales on exam (chronic exam finding, no acute change) -Pulm (Dr. Wilcox) following, appreciate all recs Cardio: -No new bradycardic episodes, currently stable in 80's -BP control in setting of ICH, SBP 140-160, continue hydralazine and Clonidine patch -Cardio (Dr. Beltrán) following, appreciate all recs GI: -NPO -Protonix for GI ppx -Clear for use of Gastrostomy tube by Surgery, feeds running as per Currency Machine Operator recs Renal: -Hyponatremic, was 128 yesterday and started on NS 100cc/hr, worsened to 124 today; started on 3% NS as per Cardio -Urine electrolytes, Urine and Serum osmolarities ordered, f/u -monitor and replete electrolytes as needed -mccord in place, draining clear yellow urine, monitor I's and O's Heme: -Hgb stable at 13's-14s, today was 13.1 -NO AC in setting of ICH, SCDs for DVT ppx ID: -Persistent fevers overnight, Tmax 102.9; started Ofirimev PRN -fever may be neuro-fever vs new hospital associated infection -trach asp cx from 03/30 positive for Klebsiella pneumo spp, camp-sensitive; in setting of new persistent fevers, will cover empirically on Cefepime and obtain new cultures; ID aware and concurs -ID following, appreciate all recs Endo: -Now on 3% NS as per Cardio -Fingersticks q6, maintain BG 140-180 -Clear for use of Gastrostomy tube by Surgery, feeds running as per Currency Machine Operator recs Dispo: ICU, intubated but not sedated, s/p Trach and Gastrotomy tube POD#5, new sepsis workup in setting of new persistent fever and trach cx from 03/30; pending transfer to long-term acute care facility FEN: NPO, G-tube feeds as per flower arranger Access: Peripheral IV, Trach, Gastrostomy tube Consults: Neurosurgery, Neuro, ID, Cardio, Pulm, Surgery Ppx: Protonix for GI, SCDs for DVT Patient seen and reviewed with attending, Dr Quintana <Mariano WEBSTER,[facility] - Last Filed: 04/03/17 15:50> CCU Objective - Vital Signs / Intake & Output Vital Signs (Last 4 hours): Vital Signs Temp Pulse 04/03/17 12:00 101.1 F H 67 Intake and Output (Last 8hrs): Intake & Output 04/03/17 04/03/17 04/03/17 06:59 14:59 22:59 Intake Total 1700 Output Total 1500 Balance 200 Intake: IV 900 saline 900 Tube Feeding 600 Other 200 Output: Urine 1500 Urethral (Mccord) 1500 - Medications Active Medications: Active Medications Generic Name Dose Route Start Last Admin Trade Name Freq PRN Reason Stop Dose Admin Acetaminophen 650 mg 04/03/17 02:51 04/03/17 10:20 Tylenol 650mg/20.3ml Solution Ud PO 650 mg Q6H PRN Administration Fever >100.4 F Albuterol/Ipratropium 3 ml 03/27/17 02:00 04/03/17 13:35 Duoneb 3 Mg/0.5 Mg (3 Ml) Ud IH 3 ml [id number] SRINATH Administration Chlorhexidine Gluconate 15 ml 03/25/17 10:00 04/03/17 10:55 Peridex PO 15 ml BID SRINATH Administration Clonidine HCl 1 patch 03/28/17 10:00 03/28/17 09:22 Catapres-Tts3 0.3 Mg/24 Hr TD 1 patch Q7D@1000 SRINATH Administration Hydralazine HCl 10 mg 03/27/17 10:56 04/03/17 03:09 Apresoline IVP 10 mg Q6 PRN Administration for SBP>140 Hydralazine HCl 50 mg 03/28/17 10:00 04/03/17 10:20 Apresoline PO 50 mg BID SRINATH Administration Sodium Chloride 1,000 mls @ 75 mls/hr 04/02/17 13:00 04/03/17 03:00 Sodium Chloride 0.9% IV 75 mls/hr .[id number] SRINATH Administration Cefepime HCl 1 gm in 100 mls @ 100 mls/hr 04/03/17 10:00 04/03/17 10:52 Maxipime 1gm IVPB 100 mls/hr Q12 SRINATH Administration Protocol Acetaminophen 1,000 mg in 100 mls @ 400 mls/hr 04/03/17 09:12 Ofirmev IVPB 04/05/17 09:13 Q6H PRN Temperature > 100.4F Sodium Chloride 500 mls @ 20 mls/hr 04/03/17 10:15 04/03/17 10:56 Hypertonic Saline 3% IV 20 mls/hr .Q24H SRINATH Administration Insulin Human Regular 0 units 03/27/17 11:30 04/03/17 12:17 Humulin R Low SC 2 units ACHS SRINATH Administration Protocol Levalbuterol HCl 1.25 mg 03/25/17 19:40 03/26/17 19:42 Xopenex IH 1.25 mg [id number] PRN Administration Shortness of Breath Pantoprazole Sodium 40 mg 03/26/17 10:00 04/03/17 10:20 Protonix Inj IVP 40 mg DAILY SRINATH Administration Polyethylene Glycol 17 gm 04/02/17 10:00 04/03/17 10:20 Miralax PO 17 gm DAILY SRINATH Administration - Patient Studies Lab Studies: Microbiology Studies 03/30/17 08:30 Blood Culture - Preliminary Blood NO GROWTH AFTER 4 DAYS 03/30/17 08:40 Blood Culture - Preliminary Blood NO GROWTH AFTER 4 DAYS Lab Studies 04/03/17 04/03/17 04/03/17 Range/Units 09:23 09:16 09:16 WBC (4.5-11.0) 10^3/ul RBC (3.5-6.1) 10^6/uL Hgb (14.0-18.0) g/dL Hct (42.0-52.0) % MCV (80.0-105.0) fl MCH (25.0-35.0) pg MCHC (31.0-37.0) g/dl RDW (11.5-14.5) % Plt Count (120.0-450.0) 10^3/uL MPV (7.0-11.0) fl Gran % (50.0-68.0) % Lymph % (Auto) (22.0-35.0) % [place] % (Auto) (1.0-6.0) % Eos % (Auto) (1.5-5.0) % Baso % (Auto) (0.0-3.0) % Gran # (1.4-6.5) Lymph # (1.2-3.4) [place] # (0.1-0.6) Eos # (0.0-0.7) Baso # (0.0-2.0) K/mm3 Neutrophils % (Manual) (50.0-70.0) % Lymphocytes % (Manual) (22.0-35.0) % Monocytes % (Manual) (1.0-6.0) % Toxic Granulation Platelet Evaluation (NORMAL) Anisocytosis (manual) Sodium (132-148) mmol/L Potassium (3.6-5.0) mmol/L Chloride (98-107) mmol/L Carbon Dioxide (21-33) mmol/L Anion Gap (10-20) BUN (7-21) mg/dL Creatinine (0.8-1.5) mg/dL Est GFR ( Amer) Est GFR (Non-Af Amer) POC Glucose (mg/dL) (65-110) mg/dL Random Glucose (70-110) mg/dL Calcium (8.4-10.5) mg/dL Phosphorus (2.5-4.5) mg/dL Magnesium (1.7-2.2) mg/dL Total Bilirubin (0.2-1.3) mg/dL AST (17-59) U/L ALT (7-56) U/L Alkaline Phosphatase (38-126) U/L Total Protein (5.8-8.3) g/dL Albumin (3.0-4.8) g/dL Globulin gm/dL Albumin/Globulin Ratio (1.1-1.8) Procalcitonin 0.13 L (0.19-0.49) NG/ML Urine Color Yellow (YELLOW) Urine Appearance Clear (CLEAR) Urine pH 6.0 (4.7-8.0) Ur Specific [place] 1.015 (1.005-1.035) Urine Protein Trace H (<30 mg/dL) mg/dL Urine Glucose (UA) >=1000 (NEGATIVE) mg/dL Urine Ketones 15 H (NEGATIVE) mg/dL Urine Blood Trace-intact H (NEGATIVE) Urine Nitrate Negative (NEGATIVE) Urine Bilirubin Negative (NEGATIVE) Urine Urobilinogen 4.0 H (<1 E.U./dL) E.U./dL Ur Leukocyte Esterase Negative (NEGATIVE) [place]/uL Urine RBC 1 - 3 (0-2) /hpf Urine WBC 0 - 2 (0-6) /hpf Ur Epithelial Cells 0 - 2 (0-5) /hpf Amorphous Sediment Few Urine Bacteria Mod (NEG) Ur Random Creatinine 41 mg/dL Ur Random Sodium 128 meq/L Ur Random Potassium 56.8 meq/L Ur Random Urea Nitrogn 785 mg/dL 04/03/17 04/03/17 04/02/17 Range/Units 08:40 08:40 22:33 WBC 16.5 H D (4.5-11.0) 10^3/ul RBC 4.59 (3.5-6.1) 10^6/uL Hgb 13.1 L (14.0-18.0) g/dL Hct 38.0 L (42.0-52.0) % MCV 82.8 (80.0-105.0) fl MCH 28.5 (25.0-35.0) pg MCHC 34.5 (31.0-37.0) g/dl RDW 11.9 (11.5-14.5) % Plt Count 412 (120.0-450.0) 10^3/uL MPV 8.8 (7.0-11.0) fl Gran % 89.8 H (50.0-68.0) % Lymph % (Auto) 2.7 L (22.0-35.0) % [place] % (Auto) 7.4 H (1.0-6.0) % Eos % (Auto) 0.0 L (1.5-5.0) % Baso % (Auto) 0.1 (0.0-3.0) % Gran # 14.81 H (1.4-6.5) Lymph # 0.5 L (1.2-3.4) [place] # 1.2 H (0.1-0.6) Eos # 0.0 (0.0-0.7) Baso # 0.01 (0.0-2.0) K/mm3 Neutrophils % (Manual) 91 H (50.0-70.0) % Lymphocytes % (Manual) 6 L (22.0-35.0) % Monocytes % (Manual) 3 (1.0-6.0) % Toxic Granulation Slight Platelet Evaluation Normal (NORMAL) Anisocytosis (manual) Slight Sodium 124 L (132-148) mmol/L Potassium 3.9 (3.6-5.0) mmol/L Chloride 91 L (98-107) mmol/L Carbon Dioxide 29 (21-33) mmol/L Anion Gap 8 L (10-20) BUN 15 (7-21) mg/dL Creatinine 0.5 L (0.8-1.5) mg/dL Est GFR ( Amer) > 60 Est GFR (Non-Af Amer) > 60 POC Glucose (mg/dL) 159 H (65-110) mg/dL Random Glucose 213 H (70-110) mg/dL Calcium 8.0 L (8.4-10.5) mg/dL Phosphorus 3.1 (2.5-4.5) mg/dL Magnesium 1.8 (1.7-2.2) mg/dL Total Bilirubin 1.2 (0.2-1.3) mg/dL AST 49 (17-59) U/L ALT 91 H (7-56) U/L Alkaline Phosphatase 104 (38-126) U/L Total Protein 5.9 (5.8-8.3) g/dL Albumin 3.0 (3.0-4.8) g/dL Globulin 2.9 gm/dL Albumin/Globulin Ratio 1.0 L (1.1-1.8) Procalcitonin (0.19-0.49) NG/ML Urine Color (YELLOW) Urine Appearance (CLEAR) Urine pH (4.7-8.0) Ur Specific [place] (1.005-1.035) Urine Protein (<30 mg/dL) mg/dL Urine Glucose (UA) (NEGATIVE) mg/dL Urine Ketones (NEGATIVE) mg/dL Urine Blood (NEGATIVE) Urine Nitrate (NEGATIVE) Urine Bilirubin (NEGATIVE) Urine Urobilinogen (<1 E.U./dL) E.U./dL Ur Leukocyte Esterase (NEGATIVE) [place]/uL Urine RBC (0-2) /hpf Urine WBC (0-6) /hpf Ur Epithelial Cells (0-5) /hpf Amorphous Sediment Urine Bacteria (NEG) Ur Random Creatinine mg/dL Ur Random Sodium meq/L Ur Random Potassium meq/L Ur Random Urea Nitrogn mg/dL 04/02/17 04/02/17 04/02/17 Range/Units 16:10 11:02 07:39 WBC (4.5-11.0) 10^3/ul RBC (3.5-6.1) 10^6/uL Hgb (14.0-18.0) g/dL Hct (42.0-52.0) % MCV (80.0-105.0) fl MCH (25.0-35.0) pg MCHC (31.0-37.0) g/dl RDW (11.5-14.5) % Plt Count (120.0-450.0) 10^3/uL MPV (7.0-11.0) fl Gran % (50.0-68.0) % Lymph % (Auto) (22.0-35.0) % [place] % (Auto) (1.0-6.0) % Eos % (Auto) (1.5-5.0) % Baso % (Auto) (0.0-3.0) % Gran # (1.4-6.5) Lymph # (1.2-3.4) [place] # (0.1-0.6) Eos # (0.0-0.7) Baso # (0.0-2.0) K/mm3 Neutrophils % (Manual) (50.0-70.0) % Lymphocytes % (Manual) (22.0-35.0) % Monocytes % (Manual) (1.0-6.0) % Toxic Granulation Platelet Evaluation (NORMAL) Anisocytosis (manual) Sodium (132-148) mmol/L Potassium (3.6-5.0) mmol/L Chloride (98-107) mmol/L Carbon Dioxide (21-33) mmol/L Anion Gap (10-20) BUN (7-21) mg/dL Creatinine (0.8-1.5) mg/dL Est GFR ( Amer) Est GFR (Non-Af Amer) POC Glucose (mg/dL) 154 H 159 H 135 H (65-110) mg/dL Random Glucose (70-110) mg/dL Calcium (8.4-10.5) mg/dL Phosphorus (2.5-4.5) mg/dL Magnesium (1.7-2.2) mg/dL Total Bilirubin (0.2-1.3) mg/dL AST (17-59) U/L ALT (7-56) U/L Alkaline Phosphatase (38-126) U/L Total Protein (5.8-8.3) g/dL Albumin (3.0-4.8) g/dL Globulin gm/dL Albumin/Globulin Ratio (1.1-1.8) Procalcitonin (0.19-0.49) NG/ML Urine Color (YELLOW) Urine Appearance (CLEAR) Urine pH (4.7-8.0) Ur Specific [place] (1.005-1.035) Urine Protein (<30 mg/dL) mg/dL Urine Glucose (UA) (NEGATIVE) mg/dL Urine Ketones (NEGATIVE) mg/dL Urine Blood (NEGATIVE) Urine Nitrate (NEGATIVE) Urine Bilirubin (NEGATIVE) Urine Urobilinogen (<1 E.U./dL) E.U./dL Ur Leukocyte Esterase (NEGATIVE) [place]/uL Urine RBC (0-2) /hpf Urine WBC (0-6) /hpf Ur Epithelial Cells (0-5) /hpf Amorphous Sediment Urine Bacteria (NEG) Ur Random Creatinine mg/dL Ur Random Sodium meq/L Ur Random Potassium meq/L Ur Random Urea Nitrogn mg/dL Laboratory Results - last 24 hr 04/02/17 04/02/17 04/02/17 07:39 11:02 16:10 WBC RBC Hgb Hct MCV MCH MCHC RDW Plt Count MPV Gran % Lymph % (Auto) [place] % (Auto) Eos % (Auto) Baso % (Auto) Gran # Lymph # [place] # Eos # Baso # Neutrophils % (Manual) Lymphocytes % (Manual) Monocytes % (Manual) Toxic Granulation Platelet Evaluation Anisocytosis (manual) Sodium Potassium Chloride Carbon Dioxide Anion Gap BUN Creatinine Est GFR ( Amer) Est GFR (Non-Af Amer) POC Glucose (mg/dL) 135 H 159 H 154 H Random Glucose Calcium Phosphorus Magnesium Total Bilirubin AST ALT Alkaline Phosphatase Total Protein Albumin Globulin Albumin/Globulin Ratio Procalcitonin Urine Color Urine Appearance Urine pH Ur Specific [place] Urine Protein Urine Glucose (UA) Urine Ketones Urine Blood Urine Nitrate Urine Bilirubin Urine Urobilinogen Ur Leukocyte Esterase Urine RBC Urine WBC Ur Epithelial Cells Amorphous Sediment Urine Bacteria Ur Random Creatinine Ur Random Sodium Ur Random Potassium Ur Random Urea Nitrogn 04/02/17 04/03/17 04/03/17 22:33 08:40 08:40 WBC 16.5 H D RBC 4.59 Hgb 13.1 L Hct 38.0 L MCV 82.8 MCH 28.5 MCHC 34.5 RDW 11.9 Plt Count 412 MPV 8.8 Gran % 89.8 H Lymph % (Auto) 2.7 L [place] % (Auto) 7.4 H Eos % (Auto) 0.0 L Baso % (Auto) 0.1 Gran # 14.81 H Lymph # 0.5 L [place] # 1.2 H Eos # 0.0 Baso # 0.01 Neutrophils % (Manual) 91 H Lymphocytes % (Manual) 6 L Monocytes % (Manual) 3 Toxic Granulation Slight Platelet Evaluation Normal Anisocytosis (manual) Slight Sodium 124 L Potassium 3.9 Chloride 91 L Carbon Dioxide 29 Anion Gap 8 L BUN 15 Creatinine 0.5 L Est GFR ( Amer) > 60 Est GFR (Non-Af Amer) > 60 POC Glucose (mg/dL) 159 H Random Glucose 213 H Calcium 8.0 L Phosphorus 3.1 Magnesium 1.8 Total Bilirubin 1.2 AST 49 ALT 91 H Alkaline Phosphatase 104 Total Protein 5.9 Albumin 3.0 Globulin 2.9 Albumin/Globulin Ratio 1.0 L Procalcitonin Urine Color Urine Appearance Urine pH Ur Specific [place] Urine Protein Urine Glucose (UA) Urine Ketones Urine Blood Urine Nitrate Urine Bilirubin Urine Urobilinogen Ur Leukocyte Esterase Urine RBC Urine WBC Ur Epithelial Cells Amorphous Sediment Urine Bacteria Ur Random Creatinine Ur Random Sodium Ur Random Potassium Ur Random Urea Nitrogn 04/03/17 04/03/17 04/03/17 09:16 09:16 09:23 WBC RBC Hgb Hct MCV MCH MCHC RDW Plt Count MPV Gran % Lymph % (Auto) [place] % (Auto) Eos % (Auto) Baso % (Auto) Gran # Lymph # [place] # Eos # Baso # Neutrophils % (Manual) Lymphocytes % (Manual) Monocytes % (Manual) Toxic Granulation Platelet Evaluation Anisocytosis (manual) Sodium Potassium Chloride Carbon Dioxide Anion Gap BUN Creatinine Est GFR ( Amer) Est GFR (Non-Af Amer) POC Glucose (mg/dL) Random Glucose Calcium Phosphorus Magnesium Total Bilirubin AST ALT Alkaline Phosphatase Total Protein Albumin Globulin Albumin/Globulin Ratio Procalcitonin 0.13 L Urine Color Yellow Urine Appearance Clear Urine pH 6.0 Ur Specific [place] 1.015 Urine Protein Trace H Urine Glucose (UA) >=1000 Urine Ketones 15 H Urine Blood Trace-intact H Urine Nitrate Negative Urine Bilirubin Negative Urine Urobilinogen 4.0 H Ur Leukocyte Esterase Negative Urine RBC 1 - 3 Urine WBC 0 - 2 Ur Epithelial Cells 0 - 2 Amorphous Sediment Few Urine Bacteria Mod Ur Random Creatinine 41 Ur Random Sodium 128 Ur Random Potassium 56.8 Ur Random Urea Nitrogn 785 EKG/Cardiology Studies: Cardiology / EKG Studies 04/03/17 EKG [ELECTROCARDIOGRAM] Routine Comment: Reason For Exam: irregular rhythm on monitor Critical Care Progress Note - Nutrition Nutrition: Nutrition Category Date Time Status NPO Diet [DIET] Diets 03/25/17 Breakfast Ordered Attending/Attestation - Attestation I have personally seen and examined this patient.: Yes I have fully participated in the care of the patient.: Yes I have reviewed all pertinent clinical information: Yes Notes (Text): 04/03/17 15:48 82 y/o M w/ large ICH w/ Poor neurological outcome. S/P Trach & PEG placement New fevers and tachycardia in leeann setting of new sputum cx. Klebseilla . Started on ABX once again . Repeat cx sent and PCT. Hyponatremia , w/o cause. urine electrolytes, serum and urine osm sent. Likely SIADH. Hold IV fluids. Pt didnt' improve w. NS yesterday. awaiting LTAC placement ppi dvt p cc time 55 min
--- NOTE | 2017-04-03 14:40 | PN ---
DATE: 04/03/2017 REASON FOR CONSULTATION: Acute cerebrovascular accident, intracerebral bleed, status post ventriculostomy, status post percutaneous endoscopic gastrostomy and status post tracheostomy. SUBJECTIVE: The patient remains on vent, unresponsive. Family is at the bedside. OBJECTIVE/PHYSICAL EXAMINATION: As follows: GENERAL: On vent, not in apparent distress. VITAL SIGNS: Temperature of 101.3, heart rate of 74, and blood pressure of 150/73. HEENT: PERRLA. Extraocular muscles are intact. NECK: Supple. No carotid bruits or thyromegaly. CHEST: Clear to auscultation. HEART: S1 and S2 regular. ABDOMEN: Soft. EXTREMITIES: Clubbing and cyanosis negative. LABORATORY DATA: Blood workup as follows: WBC of 16.5, hemoglobin of 13.1, hematocrit of 38.0 and platelet count of 412. Chemistry: Sodium of 124, potassium of 3.9, chloride of 91, carbon dioxide of 29, anion gap of 8, BUN of 15, and creatinine of 0.5. IMPRESSION: Fever, white blood cells elevated, rule out sepsis, rule out pneumonia, intracerebral bleed, history of paroxysmal atrial fibrillation, now the patient is in the normal sinus, admitted with the intracerebral bleed, status post ventriculostomy, hyponatremia, rule out aspiration pneumonia. This morning, chest x-ray showed no active disease, reported officially and chest x-ray, , right lower infiltrate possibly, little bit rotated films. RECOMMENDATIONS: Panculture .continue NG feeding and continue vent management. Once the patient be afebrile, possibly discharge him with LTAC facility. The patient is status post PEG, status post tracheostomy. Continue clonidine patch for high blood pressure. Continue broad-spectrum antibiotics. Continue fluid. We will follow with you. Thank you Dr. Ratliff for providing us the opportunity in taking of the patient, Angely. We will follow with you. Travis Beltrán MD
[2017-04-03 16:26] LABS: BLOOD UREA NITROGEN 16 mg/dL (7-21); CALCIUM 8.1 mg/dL (8.4-10.5); CARBON DIOXIDE 29 mmol/L (21-33); CHLORIDE 92 mmol/L (98-107); GFR AFRICAN-AMERICAN > 60; GLUCOSE,RANDOM 240 mg/dL (70-110); POTASSIUM 3.8 mmol/L (3.6-5.0); SODIUM 125 mmol/L (132-148)
--- NOTE | 2017-04-03 22:10 | CARD ---
APPROVED REPORT EKG Measurement Heart [id number] <Conclusion> Normal sinus rhythm Left anterior fascicular block Septal infarct, age undetermined Abnormal ECG
[2017-04-04] MEDS: Albuterol-Ipratrop 3 mg / 0.5 (3 ml) UD IH SCH ×2 (01:21→07:26)
--- NOTE | 2017-04-04 02:26 | PN ---
PULMONARY PROGRESS NOTE DATE: 04/03/2017 REFERRING PHYSICIAN: Surendra Ratliff MD SUBJECTIVE: He is unresponsive, on the ventilator through the tracheostomy, family is at bedside, small amount of tracheal secretion. No hemoptysis, no hematemesis, no hematuria, no diarrhea reported. PHYSICAL EXAMINATION: GENERAL: On ventilator. VITAL SIGNS: Temperature is 100.9, heart rate is 74, respiratory rate is 20, blood pressure 164/76, pulse oximetry 97% on ventilator. HEENT: Moist mucous membrane. NECK: Supple. Tracheostomy looks okay. LUNGS: Fair airflow with few rhonchi. HEART: S1 and S2. ABDOMEN: Soft, nontender, nondistended. G-tube area looks okay. EXTREMITIES: No edema. NEUROLOGICALLY: Unresponsive. MEDICATIONS: He is on hydralazine 10 mg q. 6 hours p.r.n. and also 50 mg twice a day round the clock, clonidine 0.3 mg weekly, albuterol/Atrovent nebulizer q. 6 hours, insulin coverage, getting hypertonic saline 3% 20 mL per hour, cefepime 1 g IV q. 12 hours, MiraLax 17 g daily, Tylenol p.r.n., Peridex 15 mL twice a day, Protonix 40 mg daily, IV fluids normal saline 75 mL per hour, Xopenex inhaled q. 6 hours p.r.n. LABORATORY DATA: Shows hemoglobin of 13.1, hematocrit of 38.0, WBC of 16.5, and platelet count is 412. Sodium 125, potassium 3.8, chloride 92, bicarbonate 29, BUN 16, and creatinine 0.5, glucose 240, serum osmolarity 272, calcium is 8.1. Tracheostomy has Klebsiella pneumoniae. Chest x-ray done today shows no active pulmonary disease. IMPRESSION AND PLAN: Intraventricular and intracranial bleed, hydrocephalus status post external ventricular drainage which had been removed, chronic obstructive lung disease, hypertension, paroxysmal atrial fibrillation, respiratory failure requiring tracheostomy and ventilator, feeding difficulty requiring jejunostomy tube, hyponatremia, on 3% saline. I spoke with the friend and the family at bedside, all the questions answered. Continue present vent setting, keep head at 45 degrees, gastric prophylaxis, SCD to lower extremity. Follow up labs in the morning. CRITICAL CARE TIME: More than 35 minutes. Overall poor prognosis. Thank you, and we will follow with you. Travis Wilcox MD [facility] # [id number]
[2017-04-04 06:16] LABS: BASO # 0.01 K/mm3 (0.0-2.0); BASO % 0.1 % (0.0-3.0); GRAN # 14.12 (1.4-6.5); LYMPH # 0.5 (1.2-3.4); LYMPH % 3.3 % (22.0-35.0); MEAN CELL VOLUME 82.4 fl (80.0-105.0); MEAN CORPUSCULAR HEMOGLOBIN 28.7 pg (25.0-35.0); MEAN CORPUSCULAR HGB CONC 34.9 g/dl (31.0-37.0); MEAN PLATELET VOLUME 8.8 fl (7.0-11.0); MONO # 1.6 (0.1-0.6); MONO % 9.6 % (1.0-6.0); RED CELL DISTRIBUTION WIDTH 11.8 % (11.5-14.5); WHITE BLOOD COUNT 16.2 10^3/ul (4.5-11.0)
[2017-04-04 06:25] LABS: ALKALINE PHOSPHATASE 105 U/L (38-126); ALT/SGPT 81 U/L (7-56); AST/SGOT 41 U/L (17-59); BILIRUBIN,TOTAL 1.1 mg/dL (0.2-1.3); BLOOD UREA NITROGEN 15 mg/dL (7-21); CALCIUM 8.5 mg/dL (8.4-10.5); CARBON DIOXIDE 31 mmol/L (21-33); CHLORIDE 90 mmol/L (95-110); GFR AFRICAN-AMERICAN > 60; GLUCOSE,RANDOM 194 mg/dL (70-110); MAGNESIUM 1.9 mg/dL (1.7-2.2); PHOSPHOROUS 2.8 mg/dL (2.5-4.5); POTASSIUM 3.5 mmol/L (3.6-5.0); SODIUM 128 mmol/L (132-148); TOTAL PROTEIN 6.1 g/dL (5.8-8.3)
[2017-04-04] MEDS: Insulin Reg-LOW-Coverage SC SCH (08:33)
[2017-04-04 08:40] VITALS: RESP 23
[2017-04-04 08:41] VITALS: O2SAT 97
[2017-04-04] MEDS: POLYETHYLENE GLYCOL 3350 17 GM/Dose PACKET PO SCH (09:12)
[2017-04-04] MEDS: Chlorhexidine 0.12% Oral Sol 480 ml Bot PO SCH (09:27)
[2017-04-04] MEDS ORDERED: Potassium Chloride 40 mEq/30 ml LIQ UD PO ONE (09:36)
[2017-04-04 09:59] LABS: CHLORIDE URINE 129 mmol/L (32-290)
--- NOTE | 2017-04-04 10:08 | CP.PCM.PN ---
Subjective - Date & Time of Evaluation Date of Evaluation: 04/04/17 Time of Evaluation: 09:40 - Subjective Subjective: Still poorly responsive, currently no fevers but still has intermittent fevers. Objective - Vital Signs/Intake and Output Vital Signs (last 24 hours): Temp Pulse Resp BP Pulse Ox 100.4 F H 75 24 149/65 98 04/04/17 06:10 04/04/17 06:10 04/03/17 22:00 04/04/17 06:00 04/04/17 06:10 Intake and Output: 04/03/17 04/04/17 18:59 06:59 Intake Total 1510 1550 Output Total 1300 900 Balance 210 650 - Medications Medications: Current Medications Acetaminophen (Tylenol 650mg/20.3ml Solution Ud) 650 mg PO Q6H PRN PRN Reason: Fever >100.4 F Last Admin: 04/03/17 10:20 Dose: 650 mg Albuterol/Ipratropium (Duoneb 3 Mg/0.5 Mg (3 Ml) Ud) 3 ml IH [id number] [facility] Last Admin: 04/04/17 01:21 Dose: 3 ml Chlorhexidine Gluconate (Peridex) 15 ml PO BID [facility] Last Admin: 04/03/17 17:24 Dose: 15 ml Clonidine HCl (Catapres-Tts3 0.3 Mg/24 Hr) 1 patch TD Q7D@1000 [facility] Last Admin: 03/28/17 09:22 Dose: 1 patch Hydralazine HCl (Apresoline) 10 mg IVP Q6 PRN PRN Reason: for SBP>140 Last Admin: 04/03/17 03:09 Dose: 10 mg Hydralazine HCl (Apresoline) 50 mg PO BID [facility] Last Admin: 04/03/17 17:24 Dose: 50 mg Sodium Chloride (Sodium Chloride 0.9%) 1,000 mls @ 75 mls/hr IV [id number] [facility] Last Admin: 04/03/17 03:00 Dose: 75 mls/hr Cefepime HCl (Maxipime 1gm) 1 gm in 100 mls @ 100 mls/hr IVPB Q12 SRINATH PRN Reason: Protocol Last Admin: 04/03/17 22:23 Dose: 100 mls/hr Acetaminophen (Ofirmev) 1,000 mg in 100 mls @ 400 mls/hr IVPB Q6H PRN PRN Reason: Temperature > 100.4F Stop: 04/05/17 09:13 Last Admin: 04/04/17 01:44 Dose: 400 mls/hr Sodium Chloride (Hypertonic Saline 3%) 500 mls @ 20 mls/hr IV .Q24H SRINATH Last Admin: 04/03/17 10:56 Dose: 20 mls/hr Insulin Human Regular (Humulin R Low) 0 units SC ACHS SRINATH PRN Reason: Protocol Last Admin: 04/03/17 22:23 Dose: Not Given Levalbuterol HCl (Xopenex) 1.25 mg IH [id number] PRN PRN Reason: Shortness of Breath Last Admin: 03/26/17 19:42 Dose: 1.25 mg Pantoprazole Sodium (Protonix Inj) 40 mg IVP DAILY SRINATH Last Admin: 04/03/17 10:20 Dose: 40 mg Polyethylene Glycol (Miralax) 17 gm PO DAILY SRINATH Last Admin: 04/03/17 10:20 Dose: 17 gm - Labs Labs: 04/04/17 05:20 04/04/17 05:20 PT 12.2 Seconds (9.9-11.8) H 04/02/17 05:30 INR 1.13 (0.93-1.08) H 04/02/17 05:30 APTT 29.6 Seconds (23.7-30.8) 04/02/17 05:30 - Constitutional Appears: Chronically Ill, Other (poorly responsive) - ENT Exam Additional comments: tracheostomy tube in place - Respiratory Exam Respiratory Exam: Decreased Breath Sounds - Cardiovascular Exam Cardiovascular Exam: +S1, +S2 - GI/Abdominal Exam GI & Abdominal Exam: Soft. 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
[2017-04-04 10:51] VITALS: BP 114/55; PULSE 62; TEMP 98.6
--- NOTE | 2017-04-04 13:23 | PN ---
DATE: 04/04/2017 REASON FOR CONSULTATION AND FOLLOWUP: Acute CVA, intracerebral bleed, status post ventriculostomy, status post percutaneous endoscopic gastrostomy and status post tracheostomy. SUBJECTIVE: The patient remains on vent, comatose, and unresponsive. OBJECTIVE: GENERAL: Not in apparent distress. VITAL SIGNS: As follows; temperature afebrile, heart rate 74, and blood pressure 144/84. HEENT: PERRLA intact. NECK: Supple. No carotid bruits or thyromegaly. CHEST: Clear to auscultation. HEART: S1 and S2 regular. ABDOMEN: Soft. EXTREMITIES: Clubbing and cyanosis negative. LABORATORY DATA: Blood workup as follows: WBC , hemoglobin 12.9, hematocrit of 37, and platelet count 492. Chemistry shows sodium 120, potassium 3.5, chloride 90, carbon dioxide 31, total protein 6.1, albumin 3, and albumin-globulin ratio 1. 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 RECOMMENDATIONS: Continue vent management and hyponatremia. Continue NG feeding. Continue antibiotic. Overall, the patient's condition is critical. Long-term prognosis guarded. Continue supportive care. Travis Beltrán MD
--- NOTE | 2017-04-04 15:47 | PN ---
DATE: 04/03/2017 SUBJECTIVE: The patient remains on the vent, awaiting for placement. No change in the spike of fever night before. The patient is otherwise stable. PHYSICAL EXAMINATION: GENERAL: The patient remains on the vent unresponsive. VITAL SIGNS: As follows; his heart rate is 71, blood pressure is 170/84, his respirations are teens to 20s on 35% FiO2 with CPAP . He is breathing on his own. His temperature was around 101 earlier but now it is better, but he runs low-grade fever. HEAD AND NECK: Noted for tracheostomy. CHEST: Clear. CARDIAC: First sound and second sound normal. ABDOMEN: Soft. PEG site clean. EXTREMITIES: No edema. SCDs and air cushions on both legs.. NEUROLOGIC: Poorly responsive. LABORATORY DATA: On 04/03/2017, the patient as we mentioned had white count 16.5, hemoglobin 13.1, hematocrit 38, and platelets 412. Chemistry noted for sodium 125, potassium 3.8, chloride 92, bicarbonate 29, BUN 16, creatinine 0.5, and his blood sugar is 217. IMPRESSION AND PLAN: 1. Sputum cytology. Fever. Klebsiella in the sputum. Right now, the patient is on Maxipime, ID consultations, reconsult on the case, and we will continue Maxipime for now. Repeat all cultures again, urine, blood, and repeat chest x-ray. We will continue current treatment and we will followup clinically. 2. Acute intracranial bleed, status post ventriculostomy was removed. The patient otherwise stable on the vent. 3. Hyponatremia. We will repeat lab in the morning. 4. Hypertension. 5. History of respiratory failure. 6. History of hypercholesterolemia. 7. Prostate enlargement. 8. Currently on the Wells catheter. Continue current therapy. Followup clinically. The patient's condition is poor. Once stable, he will be placed in vent unit, LTAC. Surendra Ratliff MD
--- NOTE | 2017-04-05 14:54 | PQF RESP ---
04/05/17 Dr. Ratliff, Respiratory failure is documented throughout this chart. Please document whether this is acute/chronic, with or without hypoxia/hypercapnia. Thank you. Clarification of your documentation is requested to better reflect the severity of illness and intensity of treatment of your patient. Indicators present [] Use of Home Oxygen [] Respiratory rate > 28 or <8/min (Labored respirations) [] PCO2 > 50 mm Hg or (Hypercapnia) (somnolence) [] PaO2 < 60 mm Hg or Hypoxemia (confusion) [] ABG blood gas pH < 7.35 [] SpO2 < 90% sat on Room Air [] Cyanosis [] Unable to Speak in Full Sentences [] Use of Accessory Muscles / Tripoding [] Wheezing [] Other: [] Location in the medical record that reflects the above clinical findings: [] Treatment Provided: [] PHYSICIAN'S RESPONSE Based on your medical judgment of the clinical indicators outlined above, are you treating this patient for a known or suspected: [] Acute Respiratory Failure (hypoxia or hypercapnia) [] Chronic Respiratory Failure (hypoxia or hypercapnia) [] Acute on Chronic Respiratory Failure (hypoxia or hypercapnia) [] Hypoxemia please specify ACUTE, CHRONIC or ACUTE on CHRONIC [] Other []_ [] If unable to determine, please check the box, sign and date. Present On Admission (POA) Indicator: [] Present at the time of admission [] Not present at the time of admission [] Clinically Undetermined In responding to this query, please exercise your independent professional judgment. The fact that a question is asked does not imply that any particular answer is desired or expected. Thank you for your clarification on this documentation. 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 In theory, respiratory failure is defined as a Pa02 value of <60 mm/Hg or a PaC02 of >50 mm/Hg. However, these values may be affected by renal compensation. Respiratory failure may be acute or chronic. While acute respiratory failure is characterized by life-threatening derangement in arterial blood gases and acid-base balance, the manifestations of chronic respiratory failure are less dramatic and may not be as readily apparent. Classifications: Respiratory failure may be classified as hypoxemic (usually characterized by Pa02 of <60 mm/Hg) or hypercapnic (usually characterized by PaC02 >50 mm/Hg) and either may be acute or chronic. Chronic hypercapnic respiratory failure develops over time and allows for renal compensation and an increase in bicarbonate concentration; therefore the pH is usually only slightly decreased. The distinction between acute and chronic hypoxemic respiratory failure cannot readily be made on the basis of ABGs; the clinical markers of chronic hypoxemia, such as polythycemia or cor pulmonale suggest a long standing disorder (chronic hypoxemic respiratory failure). Clinical Indicators: dyspnea at rest or "chronic" dyspnea, concomitant conditions such as polycythemia or cor pulmonale, requirement for continuous oxygen support, forced expiratory volume in one second (FEV1) of 49 or less, pursed lip breathing, "barrel" chest, hyperinflation by CXR, muscle wasting, malnutrition/obesity, poor exercise capacity, peripheral edema, description as a "blue bloater" (usually associated with chronic, obstructive bronchitis) or "pink puffer" (usually associated with emphysema) Risks: Chronic Hypoxemic Respiratory Failure - COPD, pulmonary fibrosis, asthma , pulmonary arterial hypertension, granulomatous lung diseases, congenital heart disease, bronchiectasis, kyphoscoliosis, obesity; Chronic Hypercapnic Respiratory Failure - COPD, severe asthma, myasthenia gravis, polyneuropathy, polio, head and cervical spine injuries, obesity hypoventilation syndrome. Treatment: supplemental oxygen, bronchodilators, corticosteroids, adequate nutrition, lung transplant References: Am. J. Respir. Crit. Care Med. "Global Strategy for the Diagnosis, Management and Prevention of COPD: GOLD Exectuive Summary," Dyllan Mcleod Anzueto - 2007; Proceedings of the [place] [employer] "Mechanisms and Measurements of Dyspnea in COPD," Vanessa - 2006; WebMD; Respiratory Failure, Edmund Greenwood MD - 12/2005; Jah's Principles of Internal Medicine, 17th edition. Acute Respiratory Failure Acute Respiratory Failure indicators include: ~Respirations >28 ~Air hunger ~Use of accessory muscles of respiration ~Inability to speak in full sentences Cyanosis ~Pulse ox <90% RA or <95% on O2 pH <7.35 or >7.45 ~pO2 < 60 mm Hg (or 10mm below COPD patient's baseline) ~pCO2 >50mm Hg (or 10mm above COPD patient's baseline) "Respiratory failure may be assigned as a principal diagnosis when it is the condition established after study to be chiefly responsible for occasioning admission to the hospital. The fact that the respiratory failure was managed without intubation and mechanical ventilation does not preclude its use." [facility] 1988, p. 7 MTDD
== END 2017-04-04 12:46 | DRG 877 ==
LOC: ED 09:25 → ERH 11:33 → CCU 12:42
PROVIDERS: ADMIT Internal Medicine; ATTEND Internal Medicine
PROC: 009600Z Drainage of Cerebral Ventricle with Drainage Device, Open Approach (ICD-10-PCS; principal; 2017-03-22)
PROC: 5A1955Z Respiratory Ventilation, Greater than 96 Consecutive Hours (ICD-10-PCS; 2017-03-22)
PROC: 0BH17EZ Insertion of Endotracheal Airway into Trachea, Via Natural or Artificial Opening (ICD-10-PCS; 2017-03-22)
PROC: 0DH60UZ Insertion of Feeding Device into Stomach, Open Approach (ICD-10-PCS; 2017-03-29)
PROC: 0B110F4 Bypass Trachea to Cutaneous with Tracheostomy Device, Open Approach (ICD-10-PCS; 2017-03-29 10:00)
DX: S06.2X9A Diffuse traumatic brain injury with loss of consciousness of unspecified duration, initial encounter (principal); J96.90 Respiratory failure, unspecified, unspecified whether with hypoxia or hypercapnia; J69.0 Pneumonitis due to inhalation of food and vomit; Z99.11 Dependence on respirator [ventilator] status; G93.1 Anoxic brain damage, not elsewhere classified; R65.10 Systemic inflammatory response syndrome (SIRS) of non-infectious origin without acute organ dysfunction; N13.30 Unspecified hydronephrosis; G91.9 Hydrocephalus, unspecified; E22.2 Syndrome of inappropriate secretion of antidiuretic hormone; J44.9 Chronic obstructive pulmonary disease, unspecified; F03.90 Unspecified dementia, unspecified severity, without behavioral disturbance, psychotic disturbance, mood disturbance, and anxiety; E87.6 Hypokalemia; I08.2 Rheumatic disorders of both aortic and tricuspid valves; B96.1 Klebsiella pneumoniae [K. pneumoniae] as the cause of diseases classified elsewhere; R40.20 Unspecified coma; I48.0 Paroxysmal atrial fibrillation; E11.9 Type 2 diabetes mellitus without complications; I10 Essential (primary) hypertension; N40.0 Benign prostatic hyperplasia without lower urinary tract symptoms; Z79.01 Long term (current) use of anticoagulants; Z79.82 Long term (current) use of aspirin; E78.00 Pure hypercholesterolemia, unspecified; E78.5 Hyperlipidemia, unspecified; H91.90 Unspecified hearing loss, unspecified ear; I25.10 Atherosclerotic heart disease of native coronary artery without angina pectoris; I48.2 Chronic atrial fibrillation; R62.7 Adult failure to thrive; Z79.899 Other long term (current) drug therapy; Z87.81 Personal history of (healed) traumatic fracture; Z93.3 Colostomy status; Z96.649 Presence of unspecified artificial hip joint; G62.9 Polyneuropathy, unspecified; Z98.42 Cataract extraction status, left eye; Z98.41 Cataract extraction status, right eye; L40.9 Psoriasis, unspecified; D64.9 Anemia, unspecified; W19.XXXA Unspecified fall, initial encounter; Y93.9 Activity, unspecified; Y92.002 Bathroom of unspecified non-institutional (private) residence as the place of occurrence of the external cause; R00.1 Bradycardia, unspecified; F41.9 Anxiety disorder, unspecified; R40.2433 Glasgow coma scale score 3-8, at hospital admission